=== PATIENT | male | born 1965 | race Caucasian/White ===

== ENCOUNTER 2024-09-11 09:30 | Outpatient (RCR) | payer MEDICARE, SELFPAY ==
--- NOTE | 2024-07-06 09:50 | URNOTE ---
Prior auth is not required for Cisplatin (J9060), Emend (J1453) and Palonosetron (J2469). Services are based on medical necessity and follow medicare guidelines
[2024-07-24 08:05] LABS: Basophils Absolute Auto 0.02 K/uL (0.00-0.30); Basophils Percent Auto 0.4 % (0.0-3.0); Eosinophils Absolute Auto 0.25 K/uL (0.00-0.50); Eosinophils Percent Auto 4.5 % (0.0-7.0); Hematocrit* 42.7 % (37.0-53.0); Hemoglobin* 14.1 gm/dL (13.5-17.5); Immature Granulocytes Abs Auto 0.04 K/uL (0.00-0.30); Immature Granulocytes Pct Auto 0.7 %; Lymphocytes Absolute Auto 1.71 K/uL (0.90-2.90); Lymphocytes Percent Auto 30.5 % (20-44); Mean Corpuscular HGB Conc 33 gm/dL (32-36); Mean Corpuscular Hemoglobin 30 pg (26-34); Mean Corpuscular Volume 91 fL (80-100); Monocytes Percent Auto 9.3 % (0.0-11.0); Neutrophils Absolute Auto 3.07 K/uL (1.7-7.0); Neutrophils Percent Auto 54.6 % (42.0-72.0); Platelet Count* 280 K/uL (140-440); RDW Coefficient of Variation % 12.9 % (11.5-15.5); Red Blood Count* 4.69 m/uL (4.30-5.90); White Blood Count* 5.61 K/uL (4.50-11.00)
[2024-07-24 08:12] LABS: Slide Review Reflex No
[2024-07-24 08:52] LABS: Chloride* 106 mmol/L (96-114)
[2024-07-24 08:53] LABS: Potassium* 4.4 mmol/L (3.6-5.1); Sodium* 141 mmol/L (135-149)
[2024-07-24 08:55] LABS: Anion Gap 9 mEq/L (7-15); Aspartate Amino Transferase* 24 U/L (12-35); Bilirubin Total* 0.5 mg/dL (0.1-1.5); Blood Urea Nitrogen* 22 mg/dL (7-30); Carbon Dioxide* 26 mmol/L (20-32); Creatinine* 0.7 mg/dL (0.5-1.5); Est. Creatinine Clearance* 117.32; Estimated Glomerular Filt Rate 106 ml/min; Total Protein* 7.7 g/dL (6.0-8.3)
[2024-07-24 08:56] LABS: Alanine Aminotransferase* 22 U/L (4-50); Alkaline Phosphatase* 47 U/L (40-150); Glucose* 122 mg/dL (60-115); Magnesium* 2.1 mg/dL (1.5-2.6)
--- NOTE | 2024-07-24 08:58 | CRLHL7_ITS ---
For Patients: As a result of the Century Cures Act, medical imaging exams and procedure reports are released immediately into your electronic medical record. You may view this report before your referring provider. If you have questions, please contact your health care provider. INDICATION: PICC confirmation TECHNIQUE: Chest 1 views. COMPARISON: None. FINDINGS: Cardiovasculature and mediastinum: Heart size is normal. Unremarkable mediastinum. Right arm PICC with tip projecting over the superior cavoatrial junction. Lungs and pleural spaces: Lungs are clear. No sign of infiltrate or mass. No sign of pleural effusion. No pneumothorax. Bones and soft tissues: No significant findings. IMPRESSION: 1. No acute or significant findings. 2. Right arm PICC with tip projecting over the superior cavoatrial junction. Dictated by Lita Juarez MD @ 07/24/2024 9:45:56 AM (Electronically Signed)
[2024-07-24 10:03] VITALS: BP 127/80; PULSE 48; RESP 16; TEMP 36.8; O2SAT 97
[2024-07-24] MEDS: MAGNESIUM SULFATE 2 GM, POTASSIUM CHLORIDE 10 MEQ in 0.9 % SODIUM CHLORIDE 1000 ml 1,00... IV (10:22)
[2024-07-24] MEDS: SODIUM CHLORIDE 0.9 % (FLUSH) 10 ML SYRINGE IVF ×2 (10:30→15:03)
[2024-07-24] MEDS: PALONOSETRON 0.25 MG/5 ML inj IV (11:33)
[2024-07-24] MEDS: 0.9 % SODIUM CHLORIDE 500 ML IV (11:33)
[2024-07-24] MEDS: FOSAPREPITANT 150 MG inj 150 MG in 0.9 % SODIUM CHLORIDE 250 ml 250 ML 510 MG IVPB (12:11)
--- NOTE | 2024-07-24 14:29 | ONC.NURNOTE ---
Teaching with patient, daughter and many questions about cancer treatments in general and schedules of cancer treatments family offers much support reviewed possible side effects of cisplatin stressed self care at home, especially staying hydrated, taking antiemetics for 1-2 days after each chemotherapy and going to ED if fever over 100.5 reviewed contents of new treatment binder discussed low magnesium, possible need for extra hydrations days during the final weeks of treatment, importance of focusing on calories consents reviewed and signed
--- NOTE | 2024-07-24 14:33 | ONC.NURNOTE ---
PSDS = 5 referrals made to for follow up- concerns regarding finances (patient is on disabilty X many years), spriritual concerns, worry, anxiety, sadness, anger other referrals: - seeing dietitian at [facility] on 08/03 -seeing Rehab in [place] the first week in [facility]
--- NOTE | 2024-07-25 11:40 | ONC.NURNOTE ---
post chemo follow up call to [facility]: reports nausea during the night- he took one prochlorperazine at HS and again 07 am today he plans to add the ondansetron this afternoon as directed taking fluids 32 ozs today and eating per his routine informed that he may take prochlorperazine 1-2 prn if 1 does not manage the nausea pt mentioned picc line gauze wrapped around his picc site is curling up at he edges, patient states that he taped it down- repairer typewriter asked that patient to stop by before or after radiation so the PICC site can be evaluated patient showered today, wrapping PICC site in saran wrap
--- NOTE | 2024-07-26 08:25 | ONC.NURNOTE ---
Patient stopped in clinic today to have his PICC line assessed. He reported yesterday the gauze with curling up. On assessment the Tubi sleeve that RN supplied patient to cover line was rolling up. Patient had taped sleeve around his arm to keep it from rolling. Tape removed and patient's skin red. Assessment of PICC line looks good. Dressing is clean dry and intact. Patient doesn't like that the gauze is rolling down. Gave patient a new sleeve that is longer to see if that helps with the rolling. Advised patient that he should not tape the sleeve as his skin is already red and we don't want his skin to breakdown. Patient verbalized understanding and agreeable to the plan.
[2024-07-31 07:57] VITALS: BP 141/76; PULSE 88; RESP 16; TEMP 36.7; O2SAT 97
[2024-07-31 08:26] LABS: Basophils Absolute Auto 0.01 K/uL (0.00-0.30); Basophils Percent Auto 0.2 % (0.0-3.0); Eosinophils Absolute Auto 0.07 K/uL (0.00-0.50); Eosinophils Percent Auto 1.4 % (0.0-7.0); Hematocrit* 40.2 % (37.0-53.0); Hemoglobin* 13.5 gm/dL (13.5-17.5); Lymphocytes Percent Auto 16.3 % (20-44); Mean Corpuscular HGB Conc 34 gm/dL (32-36); Mean Corpuscular Hemoglobin 30 pg (26-34); Mean Corpuscular Volume 90 fL (80-100); Monocytes Percent Auto 10.5 % (0.0-11.0); Neutrophils Percent Auto 71.6 % (42.0-72.0); Platelet Count* 267 K/uL (140-440); RDW Coefficient of Variation % 12.3 % (11.5-15.5); Red Blood Count* 4.49 m/uL (4.30-5.90); White Blood Count* 5.16 K/uL (4.50-11.00)
[2024-07-31 08:27] LABS: Slide Review Reflex No
[2024-07-31 08:40] LABS: Albumin* 4.5 g/dL (3.3-5.0); Chloride* 105 mmol/L (96-114); Sodium* 138 mmol/L (135-149)
[2024-07-31 08:41] LABS: Potassium* 3.9 mmol/L (3.6-5.1)
[2024-07-31 08:43] LABS: Alkaline Phosphatase* 41 U/L (40-150); Anion Gap 11 mEq/L (7-15); Aspartate Amino Transferase* 18 U/L (12-35); Bilirubin Total* 0.4 mg/dL (0.1-1.5); Blood Urea Nitrogen* 21 mg/dL (7-30); Carbon Dioxide* 22 mmol/L (20-32); Est. Creatinine Clearance* 82.13; Estimated Glomerular Filt Rate 87 ml/min; Total Protein* 6.8 g/dL (6.0-8.3)
[2024-07-31 08:44] LABS: Alanine Aminotransferase* 18 U/L (4-50); Calcium* 9.3 mg/dL (8.4-10.6); Glucose* 102 mg/dL (60-115)
[2024-07-31] MEDS: MAGNESIUM SULFATE 2 GM, POTASSIUM CHLORIDE 10 MEQ in 0.9 % SODIUM CHLORIDE 1000 ml 1,00... IV (09:30)
[2024-07-31] MEDS: dexAMETHasone 10 MG/ML inj IVP (10:39)
[2024-07-31] MEDS: SODIUM CHLORIDE 0.9 % (FLUSH) 10 ML SYRINGE IVF (10:40)
[2024-07-31] MEDS: PALONOSETRON 0.25 MG/5 ML inj IV (10:40)
[2024-07-31] MEDS: FOSAPREPITANT 150 MG inj 150 MG in 0.9 % SODIUM CHLORIDE 250 ml 250 ML 800 MG IVPB (10:52)
--- NOTE | 2024-07-31 16:27 | PC.SOCIAL ---
Social work: Met with pt today during [facility] treatment for assessment and introduction. Pt scored a 5 on the distress thermometer. Pt was very open to sharing his story of diagnosis and treatment as well as previous life challenges and struggles he has experienced. Pt lives with his in their home in [place]. He is one week in to a six week radiation treatment at [facility] in [place]. Pt shared that this illness and diagnosis have changed his view on life and that he is done being strong. He explained that when he has been strong dealing with past challenges, something worse always happens to provide a new challenge. He denies any suicidal thoughts. He shared he was suicidal and hospitalized in his twenties after his son and were killed. He currently sees a therapist, Cindy, in [place] and shared that this is very helpful to him. Pt is pleased with the staff and care at this facility and plans to continue his treatment here. Pt shared that he has always been the person to take care of others and does not feel comfortable with not being a contributing member of his family and community. Pt shared that he has not worked in five years due to health concerns and work related injury. 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 Pt expressed a desire to connect with others with similar challenges but is not interested in participating in a support group at this time. He has supportive family and some friends. Pt was appreciative of visit and is aware of how to request another social work visit if needed.
[2024-08-07 11:03] LABS: Basophils Absolute Auto 0.01 K/uL (0.00-0.30); Basophils Percent Auto 0.1 % (0.0-3.0); Eosinophils Absolute Auto 0.03 K/uL (0.00-0.50); Eosinophils Percent Auto 0.3 % (0.0-7.0); Hematocrit* 38.3 % (37.0-53.0); Hemoglobin* 13.2 gm/dL (13.5-17.5); Immature Granulocytes Abs Auto 0.01 K/uL (0.00-0.30); Immature Granulocytes Pct Auto 0.1 %; Lymphocytes Percent Auto 7.6 % (20-44); Mean Corpuscular HGB Conc 35 gm/dL (32-36); Mean Corpuscular Hemoglobin 31 pg (26-34); Mean Corpuscular Volume 89 fL (80-100); Monocytes Percent Auto 9.4 % (0.0-11.0); Neutrophils Percent Auto 82.5 % (42.0-72.0); Platelet Count* 253 K/uL (140-440); RDW Coefficient of Variation % 12.4 % (11.5-15.5); White Blood Count* 9.09 K/uL (4.50-11.00)
[2024-08-07 11:04] LABS: Slide Review Reflex No
[2024-08-07 11:22] LABS: Albumin* 4.7 g/dL (3.3-5.0)
[2024-08-07 11:23] LABS: Chloride* 105 mmol/L (96-114); Potassium* 3.9 mmol/L (3.6-5.1); Sodium* 139 mmol/L (135-149)
[2024-08-07 11:24] VITALS: BP 126/91; PULSE 77; RESP 18; TEMP 36.6; O2SAT 97
[2024-08-07 11:25] LABS: Alkaline Phosphatase* 52 U/L (40-150); Anion Gap 11 mEq/L (7-15); Aspartate Amino Transferase* 20 U/L (12-35); Bilirubin Total* 0.4 mg/dL (0.1-1.5); Carbon Dioxide* 23 mmol/L (20-32); Creatinine* 0.8 mg/dL (0.5-1.5); Est. Creatinine Clearance* 102.66; Estimated Glomerular Filt Rate 102 ml/min; Total Protein* 7.3 g/dL (6.0-8.3)
[2024-08-07 11:26] LABS: Alanine Aminotransferase* 18 U/L (4-50); Blood Urea Nitrogen* 22 mg/dL (7-30); Calcium* 9.6 mg/dL (8.4-10.6); Glucose* 101 mg/dL (60-115); Magnesium* 2.1 mg/dL (1.5-2.6)
[2024-08-07] MEDS: ACETAMINOPHEN SUSPENSION 1 BOTTLE 975 MG PO (11:38)
[2024-08-07] MEDS: OXYCODONE 1 MG/ML ORAL SOLN 5 MG PO (11:39)
[2024-08-07] MEDS: MAGNESIUM SULFATE 2 GM, POTASSIUM CHLORIDE 10 MEQ in 0.9 % SODIUM CHLORIDE 1000 ml 1,00... IV (11:40)
[2024-08-07] MEDS: PALONOSETRON 0.25 MG/5 ML inj IV (12:44)
[2024-08-07] MEDS: dexAMETHasone 10 MG/ML inj IVP (12:46)
[2024-08-07] MEDS: FOSAPREPITANT 150 MG inj 150 MG in 0.9 % SODIUM CHLORIDE 250 ml 250 ML 510 MG IVPB (12:48)
[2024-08-14] MEDS: SODIUM CHLORIDE 0.9 % (FLUSH) 10 ML SYRINGE IVF (07:52)
[2024-08-14 07:59] LABS: Basophils Percent Auto 0.2 % (0.0-3.0); Eosinophils Percent Auto 0.5 % (0.0-7.0); Hematocrit* 36.2 % (37.0-53.0); Hemoglobin* 12.1 gm/dL (13.5-17.5); Immature Granulocytes Pct Auto 0.2 %; Mean Corpuscular HGB Conc 33 gm/dL (32-36); Mean Corpuscular Hemoglobin 30 pg (26-34); Mean Corpuscular Volume 91 fL (80-100); Monocytes Percent Auto 8.2 % (0.0-11.0); Neutrophils Percent Auto 83.9 % (42.0-72.0); Platelet Count* 196 K/uL (140-440); RDW Coefficient of Variation % 12.6 % (11.5-15.5); White Blood Count* 4.26 K/uL (4.50-11.00)
[2024-08-14 08:00] LABS: Slide Review Reflex No
[2024-08-14 08:13] LABS: Chloride* 102 mmol/L (96-114)
[2024-08-14 08:14] LABS: Albumin* 4.3 g/dL (3.3-5.0); Potassium* 3.9 mmol/L (3.6-5.1); Sodium* 137 mmol/L (135-149)
[2024-08-14 08:17] LABS: Alanine Aminotransferase* 19 U/L (4-50); Alkaline Phosphatase* 46 U/L (40-150); Anion Gap 9 mEq/L (7-15); Aspartate Amino Transferase* 18 U/L (12-35); Bilirubin Total* 0.3 mg/dL (0.1-1.5); Blood Urea Nitrogen* 25 mg/dL (7-30); Calcium* 9.4 mg/dL (8.4-10.6); Carbon Dioxide* 26 mmol/L (20-32); Creatinine* 0.7 mg/dL (0.5-1.5); Est. Creatinine Clearance* 117.32; Estimated Glomerular Filt Rate 106 ml/min; Glucose* 157 mg/dL (60-115); Total Protein* 6.7 g/dL (6.0-8.3)
[2024-08-21 08:15] LABS: Basophils Percent Auto 0.3 % (0.0-3.0); Eosinophils Percent Auto 0.8 % (0.0-7.0); Hematocrit* 36.5 % (37.0-53.0); Hemoglobin* 12.1 gm/dL (13.5-17.5); Immature Granulocytes Pct Auto 0.3 %; Lymphocytes Percent Auto 6.3 % (20-44); Mean Corpuscular HGB Conc 33 gm/dL (32-36); Mean Corpuscular Hemoglobin 31 pg (26-34); Mean Corpuscular Volume 92 fL (80-100); Neutrophils Percent Auto 86.3 % (42.0-72.0); Platelet Count* 179 K/uL (140-440); RDW Coefficient of Variation % 13.3 % (11.5-15.5); Red Blood Count* 3.95 m/uL (4.30-5.90); White Blood Count* 3.65 K/uL (4.50-11.00)
[2024-08-21 08:19] LABS: Slide Review Reflex No
[2024-08-21 08:26] LABS: Albumin* 4.3 g/dL (3.3-5.0); Chloride* 102 mmol/L (96-114); Sodium* 135 mmol/L (135-149)
[2024-08-21 08:29] LABS: Alanine Aminotransferase* 23 U/L (4-50); Alkaline Phosphatase* 50 U/L (40-150); Anion Gap 7 mEq/L (7-15); Aspartate Amino Transferase* 27 U/L (12-35); Bilirubin Total* 0.4 mg/dL (0.1-1.5); Blood Urea Nitrogen* 24 mg/dL (7-30); Calcium* 9.3 mg/dL (8.4-10.6); Carbon Dioxide* 26 mmol/L (20-32); Creatinine* 0.7 mg/dL (0.5-1.5); Est. Creatinine Clearance* 117.32; Estimated Glomerular Filt Rate 106 ml/min; Glucose* 195 mg/dL (60-115); Total Protein* 6.6 g/dL (6.0-8.3)
[2024-08-21 08:57] LABS: Magnesium* 2.1 mg/dL (1.5-2.6)
--- NOTE | 2024-08-21 14:14 | URNOTE ---
Prior authorization is not required for Cetuximab (J9055). Services are based on medical necessity and follow medicare guidelines.
--- NOTE | 2024-08-24 10:43 | ONC.NURNOTE ---
New scripts for doxycycline and topical steroid Called to Mr. Kat today per request of Phylicia Campos PA-C to inform him that 2 scripts were sent to his pharmacy[facility]. Scripts are to help manage possible side effect of rash from cetuximab which he will receive next week. I requested that he bring the scripts to his treatment appointment so nursing can review how they should be taken, possible side effects. I also confirmed with pharmacy that capsules can be pulled apart, contents mixed with water and taken via his feeding tube. Mr. Kat confirms he is not taking any medications by mouth, only by feeding tube at this time.
--- NOTE | 2024-08-28 16:34 | ONC.NURNOTE ---
Pt cancelled appt today for cetuximab due to weather. Pt also concerned about starting the cetuximab with a 3 day history of rash/radiation on his neck that is weeping and painful. Pt wondering if he can go back to the cisplatin. Discussed with Jenna Campos PA-C pt concerns and due to pt's symptoms of tinnitus we will not give him the cisplatin. Pt then decided to not receive the cetuximab. Radiation called and pt had a nurse visit with radiation oncology to discuss symptom management. Pt updated that Cisplatin is not an option and pt declining cetuximab. Pt has a follow up appt with Dr. Carrera in 2 weeks.
[2024-08-29 08:48] LABS: Basophils Percent Auto 0.6 % (0.0-3.0); Eosinophils Percent Auto 0.9 % (0.0-7.0); Hematocrit* 34.9 % (37.0-53.0); Hemoglobin* 11.6 gm/dL (13.5-17.5); Lymphocytes Percent Auto 6.6 % (20-44); Mean Corpuscular HGB Conc 33 gm/dL (32-36); Mean Corpuscular Hemoglobin 31 pg (26-34); Mean Corpuscular Volume 94 fL (80-100); Monocytes Percent Auto 13.9 % (0.0-11.0); Platelet Count* 269 K/uL (140-440); RDW Coefficient of Variation % 14.9 % (11.5-15.5); Red Blood Count* 3.71 m/uL (4.30-5.90); White Blood Count* 3.46 K/uL (4.50-11.00)
[2024-08-29 08:59] LABS: Slide Review Reflex No
[2024-08-29 09:00] VITALS: BP 116/76; PULSE 75; RESP 16; TEMP 36.6; O2SAT 96
[2024-08-29 09:01] LABS: Albumin* 4.2 g/dL (3.3-5.0); Chloride* 102 mmol/L (96-114)
[2024-08-29 09:02] LABS: Potassium* 4.1 mmol/L (3.6-5.1); Sodium* 136 mmol/L (135-149)
[2024-08-29 09:04] LABS: Alanine Aminotransferase* 13 U/L (4-50); Alkaline Phosphatase* 45 U/L (40-150); Anion Gap 7 mEq/L (7-15); Aspartate Amino Transferase* 16 U/L (12-35); Bilirubin Total* 0.3 mg/dL (0.1-1.5); Blood Urea Nitrogen* 23 mg/dL (7-30); Carbon Dioxide* 27 mmol/L (20-32); Creatinine* 0.7 mg/dL (0.5-1.5); Est. Creatinine Clearance* 117.32; Estimated Glomerular Filt Rate 106 ml/min; Glucose* 141 mg/dL (60-115); Total Protein* 6.5 g/dL (6.0-8.3)
[2024-08-29 09:05] LABS: Calcium* 9.1 mg/dL (8.4-10.6); Magnesium* 1.9 mg/dL (1.5-2.6)
--- NOTE | 2024-08-29 10:03 | ONC.NURNOTE ---
Pt here for Picc drsg change. Discussed with Shanique Coppola APRN if PICC should be discontinued. Orders received for labs today, emailed Dr. Monroe and Jenna Campos to update on pt declining cetuximab and to see if PICC can be dc'd. Pt to return for picc removal and assessment prior to the weekend. Pt verbalized understanding of plan of care.
--- OUTSIDE RECORDS SUMMARY | 2024-08-31 07:21 | XMS_ITS | Clinical Summary ---
Author Organization [facility] Address [place], [place] [address] Care Team Providers Care Repairer Handtools Name Role Phone Adi Allen MD Primary Care Provider + Allergies Active Allergy Reactions Criticality Noted Date Comments Bee Pollen Edema 07/25/2019 Swelling at site of sting Codeine 03/12/2011 Prednisone *Unknown 04/21/2019 Per patient makes his eyes roll to the back of his head Fluoxetine *Unknown 03/12/2011 Per patient makes me more depressed Medications gabapentin (NEURONTIN) 300 mg capsule Take one (1) capsule at bedtime for 2 days and increase to one (1) capsule two times a day for 2 days then one (1) capsule three times a day. 03/12/2021 Active hydrOXYzine pamoate (VISTARIL) 50 mg capsule Take 50 mg by mouth every 6 hours if needed. 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 Gender Identity Not on file Sexual Orientation Not on file Obstetrics History Last Filed Vital Signs Vital Sign Reading Time Taken Comments Blood Pressure 148/90 12/13/2021 12:54 PM CDT Pulse 87 12/13/2021 12:22 PM CDT Temperature 36.8 C (98.3 F) 12/13/2021 12:22 PM CDT Respiratory Rate 16 12/13/2021 12:22 PM CDT Oxygen Saturation 96% 12/13/2021 12:22 PM CDT Inhaled Oxygen Concentration - - Weight 104.3 kg (230 lb) 12/13/2021 12:22 PM CDT Height 182.9 cm (6') 12/13/2021 12:22 PM CDT Body Mass Index 31.19 12/13/2021 12:22 PM CDT Plan of Treatment Health Maintenance Due Date Last Done Comments Depression screening for age 12+ 1977 HIV for age 15-65 1980 BMI (ht and wt on same day) for age 18+ 1983 Hepatitis C screening for age 18-79 1983 Colonoscopy through age 75 2010 Lipids for age 45-75 2010 Pneumococcal series for age 50+ (1 of 1 - PCV) 2015 Zoster (shingles) series for age 50+ (1 of 2) 2015 COVID-19 vaccine series ( season) 2024 01/24/2021, 01/02/2021 Influenza for age 50-64 04/30/2024 Tetanus booster 12/14/2031 12/13/2021, 05/23/2004 Tdap Completed 12/13/2021 Medical Devices Implanted Type Area Automotive Light Mechanic Device Identifier Shelf Expiration Date Model / Serial / Lot Ancr Sut 2.9x12.5mm Pushlock Bio-Comp - [id number] Implanted:Qty : 1 on 07/25/2019 by Chacorta Conti MD at [facility]. Left: Shoulder [employer] 01/27/2021 [id number]# / / [id number] Ancr Sut 2.9x12.5mm Pushlock Bio-Comp - [id number] Implanted:Qty : 1 on 07/25/2019 by Chacorta Conti MD at [facility]plants, Misc. Left: Shoulder [employer] 02/26/2021 [id number]# / / [id number] Sut [employer] Prox Tenodesis Implnt Kit Rev 0 - [id number] Implanted:Qty : 1 on 07/25/2019 by Chacorta Conti MD at [facility] Implants, Misc. Left: Shoulder [employer] 04/29/2024 [id number]# / / [id number] Insurance MEDICAID [place]ICAID [place] CARE MEDICARE PART B HB ONLY MEDICARE PART A HB ONLY * Guarantor: LANDEN KAT Account Type Relation to Patient Date of Phone Billing Address Workers Comp 1965 [address] [id number] [employer] [address] [place] [address] [place] * Guarantor: LANDEN KAT Account Type Relation to Patient Date of Phone Billing Address Workers Comp 1965 [address] [id number] WORKERS [employer] Advance Directives * Full Code (Latest Code Status on File) Date Activated Date Inactivated Comments 07/25/2019 7:59 AM 07/25/2019 3:22 PM Question Answer Comments Code Status Discussion: Not Discussed * Full Code Date Activated Date Inactivated Comments 07/09/2014 9:56 AM 07/09/2014 4:21 PM * Full Code Date Activated Date Inactivated Comments 07/09/2014 7:47 AM 07/09/2014 9:56 AM Care Teams Repairer Handtools Relationship Specialty Start Date End Date Adi Allen MD [address] [place] [id number] PCP - General Family Practice 12/13/21
--- OUTSIDE RECORDS SUMMARY | 2024-08-31 07:22 | XMS_ITS | Referral Summary ---
Author Organization [facility] Address [address] [place] [address] Care Team Providers Care Digital Publishing Specialist Name Role Phone Adi Allen M.D. Primary Care Provider Source Comments Patient records contain information from all sites at [facility]. For routine questions regarding patient records, call [phone] during business hours, M-F 8:00 AM - 5:00 PM Central Time. Record requests for emergency care only can be directed to [phone] at any time.[facility] Encounters * This document contains information received from the source organization and may not represent a complete record from that organization. Date Type Department Care Team Description 08/29/2024 7:47 AM [facility] Hospital Encounter Department of Radiation Oncology in [address] [address] Brian Fair M.D. Garces, Yolanda I., M.D. 08/28/2024 Clinical Communication Department of Radiation Oncology in [address] [address] Christa Monroe M.D. Nurse Assessment 08/28/2024 2:35 PM [facility] Hospital Encounter Department of Radiation Oncology in [address] [address] Brian Fair M.D. Garces, Yolanda I., M.D. 08/25/2024 11:06 AM [facility] OPER[facility] Hospital Encounter Department of Radiation Oncology in [address] [address] Brian Fair M.D. Garces, Yolanda I., M.D. 08/24/2024 11:06 AM [facility]ALYST UNIT OPERATOR - 08/24/2024 3:40 PM [facility] UNIT OPERATOR Hospital Encounter Department of Radiation Oncology in [address] [address] Christa Monroe M.D. Malignant Neoplasm Of Tongue Base (HCC) 08/24/2024 11:06 AM CATALYST UNIT OPERATOR Hospital Encounter Department of Radiation Oncology in [address] [address] Brian Fair M.D. Garces, Yolanda I., M.D. 08/22/2024 7:48 AM CATALYST UNIT OPERATOR Hospital Encounter Department of Radiation Oncology in [address] [address] Brian Fair M.D. Garces, Yolanda I., M.D. 08/21/2024 3:05 PM CATALYST UNIT OPERATOR - 08/22/2024 9:32 AM [facility]ALYST UNIT OPERATOR Hospital Encounter Department of Radiation Oncology in [address] [address] Christa Monroe M.D. Wacholz, Abigail M, M.S.W., L.I.C.S.W. Malignant Neoplasm Of Tongue Base (HCC) 08/21/2024 10:08 AM CATALYST UNIT OPERATOR Hospital Encounter Department of Radiation Oncology in [address] [address] Brian Fair M.D. Garces, Yolanda I., M.D. 08/18/2024 11:04 AM CATALYST UNIT OPERATOR Hospital Encounter Department of Radiation Oncology in [address] [address] LeeBrian quiroz M.D. Garces, Yolanda I., M.D. 08/17/2024 11:19 AM CATALYST UNIT OPERATOR Hospital Encounter Department of Radiation Oncology in [address] [address] Brian Fair M.D. Garces, Yolanda I., M.D. 08/16/2024 Orders Only Department of Radiation Oncology in [place], [place] [address] [place] [address] Briana Fermin R.N. 08/16/2024 11:10 AM CATALYST UNIT OPERATOR - 08/16/2024 1:40 PM CATALYST UNIT OPERATOR Hospital Encounter Department of Radiation Oncology in [address] [address] Christa Monroe M.D. Malignant Neoplasm Of Tongue Base (HCC) 08/16/2024 11:10 AM CATALYST UNIT OPERATOR Hospital Encounter Department of Radiation Oncology in [address] [address] Brian Fair M.D. Garces, Yolanda I., M.D. 08/15/2024 11:04 AM CATALYST UNIT OPERATOR Hospital Encounter Department of Radiation Oncology in [address] [address] Brian Fair M.D. Garces, Yolanda I., M.D. 08/14/2024 Orders Only Department of Oncology in [address] [address] Phylicia Campos MPAS, P.A.-C., P.A. Tinnitus Bilateral (Primary Dx); Malignant Neoplasm Of Tongue Base (HCC) 08/14/2024 9:55 AM CATALYST UNIT OPERATOR - 08/14/2024 3:57 PM CATALYST UNIT OPERATOR Hospital Encounter Department of Radiation Oncology in [address] [address] Christa Monroe M.D. Malignant Neoplasm Of Tongue Base (HCC) 08/14/2024 9:30 AM CATALYST UNIT OPERATOR Hospital Encounter Department of Radiation Oncology in [place], [place] [address] [place] [address] Brian Fair M.D. Garces, Yolanda I., M.D. 08/11/2024 Clinical Communication Division of Endocrinology in [place], [place] [address] [place] [address] Ria Whalen APRN, C.N.P., M.S. 08/11/2024 11:11 AM CATALYST UNIT OPERATOR Hospital Encounter Department of Radiation Oncology in [place], [place] [address] [place] [address] Brian Fair M.D. Garces, Yolanda I., M.D. 08/10/2024 Documentation Division of General Internal Medicine in [place], [place] [address] [place] [address] Dee Forrest Pharm.D., R.Ph. 08/10/2024 10:00 AM CATALYST UNIT OPERATOR Clinical Support Division of Endocrinology in [place], [place] [address] [place] [address] Christa Monroe M.D. Neldner, Indra K, R.N. Malignant Neoplasm Of Tongue Base (HCC) 08/10/2024 8:00 AM CATALYST UNIT OPERATOR Comprehensive Visit Department of Nutrition and Diabetes Education in [place], [place] [address] [place] [address] Christa Monroe M.D. Johnson, Danelle A M.S., RDN, LD Dysphagia (Primary Dx); Malignant Neoplasm Of Tongue Base (HCC); Gastrostomy Status (HCC); Dietary Counseling And Surveillance For Enteral Nutrition 08/10/2024 11:55 AM CATALYST UNIT OPERATOR Hospital Encounter Department of Radiation Oncology in [place], [place] [address] [place] [address] Brian Fair M.D. Garces, Yolanda I., M.D. 08/09/2024 1:05 PM CATALYST UNIT OPERATOR Anesthesia Event Department of Radiology in [place], [place] [address] [place] [phone] Zachery Enamorado M.D. 08/09/2024 10:09 AM [facility] - 08/09/2024 4:10 PM CATALYST UNIT OPERATOR Hospital Encounter Department of Radiology in [place], [place] [address] [place] [phone] Christa Monroe M.D. Augustine, Matthew R, M.D. Eller, Jennifer S, M.D. Malignant Neoplasm Of Tongue Base (HCC) Discharge Disposition: Home or Self Care 08/08/2024 3:20 PM CATALYST UNIT OPERATOR Lab Department of Infusion Therapy in [place], [place] [address] [place] [phone] Rebekah Walker APRN, C.N.P., D.N.P. Malignant Neoplasm Of Tongue Base (HCC) (Primary Dx); Dietary Counseling And Surveillance For Enteral Nutrition 08/08/2024 1:00 PM CATALYST UNIT OPERATOR Comprehensive Visit Division of Endocrinology in [place], [place] [address] [place] [address] Christa Monroe M.D. McKay, Elisa C, APRN, C.N.P., D.N.P. Dietary Counseling And Surveillance For Enteral Nutrition (Primary Dx); Malignant Neoplasm Of Tongue Base (HCC) 08/08/2024 2:00 PM CATALYST UNIT OPERATOR Clinical Support Division of Endocrinology in [place], [place] [address] [place] [phone] Christa Monroe M.D. Neldner, Indra K, R.N. Malignant Neoplasm Of Tongue Base (HCC) 08/08/2024 11:00 AM CATALYST UNIT OPERATOR Comprehensive Visit Department of Nutrition and Diabetes Education in [place], [place] [address] [place] [phone] Christa Monroe M.D. Johnson, Danelle A, M.S., RDN, LD Dietary Counseling And Surveillance For Enteral Nutrition (Primary Dx); Malignant Neoplasm Of Tongue Base (HCC); Dysphagia; Gastrostomy Status (HCC) 08/08/2024 7:59 AM CATALYST UNIT OPERATOR Hospital Encounter Department of Radiation Oncology in [address] [address] Brian Fair M.D. Garces, Yolanda I., M.D. 08/07/2024 Clinical Communication Department of Radiology in [place], [place] [address] [place] [address] Bella Monaco R.N. Procedure 08/07/2024 Documentation Division of Endocrinology in [place], [place] [address] [place] [address] Sachi Araujo R.N. Scheduling 08/07/2024 9:20 AM CATALYST UNIT OPERATOR - 08/07/2024 10:04 AM [facility] Hospital Encounter Department of Radiation Oncology in [address] [address] Christa Monroe M.D. Malignant Neoplasm Of Tongue Base (HCC) (Primary Dx); Secondary Malignant Neoplasm Lymph Node Neck (HCC) 08/07/2024 10:23 AM [facility] Hospital Encounter Department of Radiation Oncology in [address] [address] Christa Monroe M.D. Malignant Neoplasm Of Tongue Base (HCC) 08/07/2024 10:05 AM [facility] Hospital Encounter Department of Radiation Oncology in [address] [address] Brian Fair M.D. Garces, Yolanda I., M.D. 08/04/2024 11:09 AM CATALYST UNIT OPERATOR Hospital Encounter Department of Radiation Oncology in [address] [address] Brian Fair M.D. Garces, Yolanda I., M.D. 08/03/2024 10:59 AM CATALYST UNIT OPERATOR - 08/03/2024 12:18 PM CATALYST UNIT OPERATOR Hospital Encounter Department of Radiation Oncology in [address] [address] Fer, Ying Pardo Nicole, CLARITA Malignant Neoplasm Of Tongue Base (HCC) 08/03/2024 Clinical Communication Department of [facility], [facility], in [place], [place] [address] [place] [address] Adi Allen M.D. PandaDoc Form (PT POC 08/01) 08/03/2024 10:19 AM CATALYST UNIT OPERATOR Hospital Encounter Department of Radiation Oncology in [address] [address] Brian Fair M.D. Garces, Yolanda I., M.D. 08/02/2024 Orders Only [facility] Adi Allen M.D. 08/02/2024 10:49 AM CATALYST UNIT OPERATOR - 08/02/2024 3:49 PM CATALYST UNIT OPERATOR Hospital Encounter Department of Radiation Oncology in [address] [address] Christa Monroe M.D. Malignant Neoplasm Of Tongue Base (HCC) 08/02/2024 10:49 AM CATALYST UNIT OPERATOR Hospital Encounter Department of Radiation Oncology in [address] [address] Brian Fair M.D. Garces, Yolanda I., M.D. 08/01/2024 11:14 AM CATALYST UNIT OPERATOR Hospital Encounter Department of Radiation Oncology in [address] [address] Brian Fair M.D. Garces, Yolanda I., M.D. 07/31/2024 1:40 PM CATALYST UNIT OPERATOR - 07/31/2024 11:59 PM CATALYST UNIT OPERATOR Hospital Encounter Department of Radiation Oncology in [address] [address] Brian Fair M.D. Garces, Yolanda I., M.D. Discharge Disposition: Home or Self Care 07/28/2024 2:03 PM CATALYST UNIT OPERATOR - 07/28/2024 11:59 PM CATALYST UNIT OPERATOR Hospital Encounter Department of Radiation Oncology in [address] [address] Christa Monroe M.D. Discharge Disposition: Home or Self Care 07/26/2024 7:45 AM CATALYST UNIT OPERATOR - 07/26/2024 2:11 PM CATALYST UNIT OPERATOR Hospital Encounter Department of Radiation Oncology in [address] [address] Christa Monroe M.D. Discharge Disposition: Home or Self Care 07/26/2024 2:12 PM CATALYST UNIT OPERATOR - 07/26/2024 11:59 PM CATALYST UNIT OPERATOR Hospital Encounter Department of Radiation Oncology in [address] [address] Christa Monroe M.D. Discharge Disposition: Home or Self Care 07/25/2024 1:30 PM CATALYST UNIT OPERATOR - 07/26/2024 2:11 PM CATALYST UNIT OPERATOR Hospital Encounter Department of Radiation Oncology in [address] [address] Brian Fair M.D. Malignant Neoplasm Of Tongue Base (HCC) 07/25/2024 1:30 PM CATALYST UNIT OPERATOR - 07/25/2024 11:59 PM CATALYST UNIT OPERATOR Hospital Encounter Department of Radiation Oncology in [address] [address] Christa Monroe M.D. Discharge Disposition: Home or Self Care 07/24/2024 3:00 PM CATALYST UNIT OPERATOR - 07/24/2024 11:59 PM CATALYST UNIT OPERATOR Hospital Encounter Department of Radiation Oncology in [address] [address] Brian Fair M.D. Garces, Yolanda I., M.D. Discharge Disposition: Home or Self Care 07/18/2024 11:21 AM CATALYST UNIT OPERATOR - 07/18/2024 3:29 PM CATALYST UNIT OPERATOR Hospital Encounter Department of Radiation Oncology in [address] [address] Christa Monroe M.D. Malignant Neoplasm Of Tongue Base (HCC) 07/18/2024 9:48 AM CATALYST UNIT OPERATOR - 07/18/2024 11:20 AM CATALYST UNIT OPERATOR Hospital Encounter Department of Radiation Oncology in [place], [place] [address] [place] [address] Christa Monroe M.D. Rhodes, Lori L Malignant Neoplasm Of Tongue Base (HCC) 07/12/2024 Clinical Communication Department of Otorhinolaryngology in [place], [place] [address] [place] [phone] Oliver Pinzon M.D. Post-op Problem 07/04/2024 Orders Only Department of Radiation Oncology in [place], [place] [address] [place] [address] Lindsay Rascon APRN, C.N.P., D.N.P. Malignant Neoplasm Of Tongue Base (HCC) (Primary Dx) 07/03/2024 9:10 PM CATALYST UNIT OPERATOR Ancillary Procedure Department of Otorhinolaryngology 07/03/2024 2:00 PM CATALYST UNIT OPERATOR Comprehensive Visit Department of Oncology in [place], [place] [address] [place] [phone] Clif Chao P.A.-C. Malignant Neoplasm Of Tongue Base (HCC) (Primary Dx); Secondary Malignant Neoplasm Lymph Node Neck (HCC) 07/03/2024 9:30 AM CATALYST UNIT OPERATOR Office Visit Department of Dental Specialties in [place], [place] [address] [place] [phone] Jocelyn Velazquez D.M.D., M.S. Malignant Neoplasm Of Tongue Base (HCC) (Primary Dx); Secondary Malignant Neoplasm Lymph Node Neck (HCC); Mass Tonsil 07/03/2024 1:30 PM CATALYST UNIT OPERATOR Office Visit Department of Otorhinolaryngology in [place], [place] [address] [place] [address] Oliver Pinzon M.D. Malignant Neoplasm Of Tongue Base (HCC) (Primary Dx); Dysphagia Oropharyngeal Phase [R13.12] 07/03/2024 11:00 AM CATALYST UNIT OPERATOR Comprehensive Visit Department of Physical Medicine and Rehabilitation in [place], [place] [address] [place] [address] Lelo Camara P.A.-C. Flora Oropeza M.S., O.T., CLT-ARYAN Weakness Arm Right [M62.81] (Primary Dx); Malignant Neoplasm Of Tongue Base (HCC); Limitation Of Motion Cervical Spine [M53.9] 06/23/2024 Clinical Communication Department of Family Medicine, [facility], in [place], [place] [address] [place] [phone] Latisha You, Brisa. Post Hospital Follow-up 06/20/2024 9:37 AM CDT - 06/22/2024 11:39 AM CDT Hospital Encounter [facility], [facility], Sixth Floor [address] [place] [phone] Oliver Pinzon M.D. Malignant Neoplasm Of Tongue Base (HCC); Mass Neck; Malignant Neoplasm Of Neck Squamous Cell; Mass Tonsil Discharge Disposition: Home or Self Care 06/20/2024 12:08 PM CDT Anesthesia Event [facility] OR [address] [place] [phone] Oliver Salgado M.D. 06/20/2024 12:18 PM CDT - 06/20/2024 4:23 PM CDT Surgery [facility] OR [facility] [place] [phone] Oliver Pinzon M.D. ROBOTIC-ASSISTED TONGUE BASE RESECTION. 06/19/2024 Clinical Communication Department of Otorhinolaryngology in [place], [place] [address] [place] [address] Lelo Camara P.A.-C. 06/19/2024 9:45 AM CDT Comprehensive Visit Preoperative Evaluation Center in [place], [place] [address] [place] [address] Oliver Pinzon M.D. Frank, Amy L, APRN, C.N.P., M.S.N. Preanesthetic Medical Exam (Primary Dx); Malignant Neoplasm Of Tongue Base (HCC); Malignant Neoplasm Of Neck Squamous Cell; Mass Neck; Mass Tonsil; Asthma Mild Persistent With History Of Tobacco Use ; Prolonged QT Interval; Chronic Kidney Disease Stage 2 Glomerular Filtration Rate 60 To 89; Anxiety; Fusion Cervical Spine Status Post; Obesity Body Mass Index 30-39.9 Adult; Preoperative Exam; Anesthesia Complication Personal History 06/19/2024 2:40 PM CDT Ancillary Procedure Department of Cardiovascular Medicine in [place], [place] [address] [place] [address] Oliver Pinzon M.D. Malignant Neoplasm Of Tongue Base (HCC); Mass Neck; Malignant Neoplasm Of Neck Squamous Cell; Mass Tonsil; Preoperative Exam 06/19/2024 4:18 PM CDT - 06/19/2024 11:59 PM CDT Hospital Encounter Department of Laboratory Medicine and Pathology, [facility] in [place], [place] [address] [place] [phone] Oliver Pinzon M.D. Malignant Neoplasm Of Tongue Base (HCC); Mass Neck; Malignant Neoplasm Of Neck Squamous Cell; Mass Tonsil; Preoperative Exam Discharge Disposition: Home or Self Care 06/19/2024 1:39 PM CDT - 06/19/2024 4:17 PM CDT Hospital Encounter Department of Radiology, [facility] in [place], [place] [address] [place] [address] Oliver Pinzon M.D. Meverden, Julia K, M.S., CCC-RUBBER WORKER Malignant Neoplasm Of Tongue Base (HCC); Mass Neck; Malignant Neoplasm Of Neck Squamous Cell; Mass Tonsil; Preoperative Exam Discharge Disposition: Home or Self Care 06/19/2024 1:30 PM CDT Comprehensive Visit Department of Neurology in [place], [place] [address] [place] [phone] Oliver Pinzon M.D. Meverden, Julia K, M.S., CCC-RUBBER WORKER Dysphagia Oropharyngeal Phase (Primary Dx); Malignant Neoplasm Of Tongue Base (HCC); Mass Neck; Malignant Neoplasm Of Neck Squamous Cell; Mass Tonsil; Preoperative Exam 06/19/2024 4:00 PM CDT Comprehensive Visit Department of Dental Specialties in [place], [place] [address] [place] [phone] Kathryn Angela D.D.S. Malignant Neoplasm Of Tongue Base (HCC); Mass Neck; Malignant Neoplasm Of Neck Squamous Cell; Mass Tonsil; Preoperative Exam 06/05/2024 10:40 PM CDT Ancillary Procedure Department of Otorhinolaryngology 06/05/2024 2:45 PM CDT Comprehensive Visit Department of Otorhinolaryngology in [place], [place] [address] [place] [address] Silvano Montes M.D. Moore, Eric J, M.D. Malignant Neoplasm Of Tongue Base (HCC) (Primary Dx); Mass Neck; Malignant Neoplasm Of Neck Squamous Cell; Mass Tonsil; Preoperative Exam 06/05/2024 12:47 PM CDT - 06/05/2024 11:59 PM CDT Hospital Encounter [place] [address] [place] [address] Silvano Montes M.D. Mass Neck; Malignant Neoplasm Of Neck Squamous Cell; Mass Tonsil Discharge Disposition: Home or Self Care 06/02/2024 Orders Only Department of Otorhinolaryngology in [place], [place] [address] [place] [phone] Miriam Ramirez R.N. Mass Neck (Primary Dx); Malignant Neoplasm Of Neck Squamous Cell; Mass Tonsil 06/01/2024 7:14 AM CDT - 06/01/2024 9:34 AM CDT Hospital Encounter Department of Radiology, [place], [place] [address] [place] [address] Diann Arellano, MEHDI, C.N.P., D.N.P. Hypertrophy Tonsillar Lingual Discharge Disposition: Home or Self Care 06/01/2024 7:01 AM CDT - 06/01/2024 7:12 AM CDT Hospital Encounter Department of Radiology, [facility] in [place], [place] [address] [place] [address] Diann Arellano APRN, C.N.P., D.N.P. Hypertrophy Tonsillar Lingual Discharge Disposition: Home or Self Care from Last 3 Months Allergies Active Allergy Reactions Criticality Noted Date Comments Codeine Other (see comments) 03/12/2011 Fluoxetine Other (see comments) 03/12/2011 Per patient makes me more depressed Prednisone Other (see comments) 04/21/2019 Per patient makes his eyes roll to the back of his head Medications * This document contains information received from the source organization and may not represent a complete record from that organization. DM/p-ephed/aceta minoph/doxylam (NYQUIL D ORAL) Take 30 mL by mouth at bedtime. Active hydrOXYzine (VISTARIL) 50 mg capsule Take 1 capsule (50 mg total) by mouth every 6 (six) hours as needed for anxiety. 60 capsule 5 12/21/19 24 Active Additional Information Patient taking differently:50 mg oralEvery 12 hours, Reported on 08/14/2024 traZODone (DESYREL) 100 mg tablet take two tablets by mouth at bedtime 180 tablet 3 01/19/20 24 Active Additional Information Patient taking differently: 100 mgoral Daily at bedtime, Reported on 08/14/2024 fluticasone propionate (Flonase) 50 mcg/actuation nasal sprayIndications :Chronic Cough Administer 1 spray into each nostril daily. 16 g 5 05/19/20 24 Active DULoxetine (Cymbalta) [address] capsuleIndicatio ns:Chronic Cough Take 1 capsule (20 mg total) by mouth 2 (two) times a day. 60 capsule 11 05/19/20 24 Active fluticasone propion-salmeter oL (Advair HFA) 230-21 mcg/actuation inhalerIndicatio ns:Chronic Cough Inhale 2 puffs 2 (two) times a day. Rinse mouth with water after use to reduce aftertaste and incidence of candidiasis. Do not swallow. 12 g 11 05/19/20 24 025 Active fluoride, sodium, (PreviDent) 1.1 % gel dental gel Apply 1 Application to the mouth or throat daily. Floss, brush, baking soda rinse. Apply thin gel ribbon to trays wear 5 minutes. Remove trays expectorate excess gel. No eating drinking or rinsing for 30 min. 100 mL 12 06/19/20 24 025 Active ibuprofen 200 mg tablet Take 3 tablets (600 mg total) by mouth every 6 (six) hours as needed for pain. Take with food. 06/21/20 Active sennosides-docus ate sodium (Senokot-S) 8.6-50 mg per tablet Take 1 tablet by mouth at bedtime as needed for constipation. Take to prevent constipation while using narcotic pain medication. Stop if you experience loose stool or bowel movements are normal. 06/21/20 Active acetaminophen (TylenoL) 500 mg tablet Take 2 tablets (1,000 mg total) by mouth every 6 (six) hours as needed for pain. Do NOT exceed more that 4,000mg of Acetaminophen per day from all sources - including Nyquil 06/22/20 Active ondansetron (Zofran) 4 mg tablet Take 1 tablet by mouth every 4 (four) hours PM. 07/06/20 Active prochlorperazine (Compazine) 5 mg tablet TAKE ONE TABLET BY MOUTH TWICE A DAY NEEDED FOR NAUSEA AND VOMITING 07/06/20 24 Active doxepin (SINEquan) 10 mg/mL concentrated solutionIndicati ons:Malignant Neoplasm Of Tongue Base (HCC) Mix 2.5 mL of solution with 2.5 mL of water. Insert in mouth, swish for 1 minute, and then expectorate. May use every 4 to 6 hours as needed for mouth pain. 118 mL 2 08/14/20 24 Active oxyCODONE (Roxicodone) 5 mg/5 mL solutionIndicati ons:Prolonged Acute Pain/Traumatic Injury Take 5 mL (5 mg total) by mouth every 4 (four) hours as needed for moderate pain or score 4-6 of 10 or severe pain or score 7-10 of 10 Indication: Prolonged Acute Pain/Traumatic Injury. 500 mL 08/14/20 24 Active fentaNYL (Duragesic) 12 mcg/hr patchIndications :Prolonged Acute Pain/Traumatic Injury Place 1 patch on the skin every third day Indication: Prolonged Acute Pain/Traumatic Injury. 5 patch 08/24/20 Active naloxone (Narcan) 4 mg/actuation nasal spray Administer 1 spray (4 mg total) into one nostril every 2 (two) minutes as needed (overdose). 1 each 08/24/20 24 025 Active oxyCODONE (Roxicodone) 5 mg immediate release tabletIndication s:Acute Pain Exception Take 1 tablet (5 mg total) by mouth every 4 (four) hours as needed for pain for up to 15 doses Indication: Acute Pain Exception. 15 tablet 07/03/20 24 024 Discontin ued(Dupli keisha order) doxepin (SINEquan) 10 mg/mL concentrated solution Mix 2.5 mL of solution with 2.5 mL of water. Insert in mouth, swish for 1 minute, and then expectorate. May use every 4 to 6 hours as needed for mouth pain. 118 mL 2 08/07/20 24 024 Discontin ued(Reord er) oxyCODONE (Roxicodone) 5 mg immediate release tabletIndication s:Prolonged Acute Pain/Traumatic Injury Take 1 tablet (5 mg total) by mouth every 8 (eight) hours as needed for pain for up to 30 doses Indication: Prolonged Acute Pain/Traumatic Injury. 30 tablet 08/07/20 24 024 Discontin ued(Formu zoey change) fentaNYL (Duragesic) 12 mcg/hr patchIndications :Prolonged Acute Pain/Traumatic Injury Place 1 patch on the skin every third day Indication: Prolonged Acute Pain/Traumatic Injury. 5 patch 08/16/20 24 024 Discontin ued(Reord er) Active Problems Problem Noted Date Diagnosed Date Prolonged QT Interval 06/19/2024 Anesthesia Complication Personal History Overview (06/19/2024): Difficult IV access. Hard to find. 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 Weakness Upper Extremity 08/14/2022 Fusion Cervical Spine Status Post 01/29/2021 Chronic Kidney Disease Stage 2 Glomerular Filtration Rate 60 To 89 11/26/2020 Neuropathy Peripheral 11/25/2020 Anxiety 11/25/2020 Stenosis Spinal Cervical 12/15/2019 Lesion Superior Glenoid Labrum Subsequent Left 0 10/15/2019 Strain Muscles And Tendons R otator Cuff Left Shoulder Initial 07/24/2019 Deranged Meniscus Medial Post Horn Right 014 Pain Shoulder Left Gastroesophageal Reflux Disease NOS Asthma NOS Depressive Disorder Immunizations Name Administration Dates Next Due SARS-COV-2 (COVID-19) - PFIZ ER (Discontinued)(12 years or older) 01/24/2021,01/02/2021 Td Preservative Free (TENIVAC, DECAVAC) 05/23/20 04 Social History Tobacco Use Types Packs/Day Years Used Date Smoking Tobacco: Former Cigarettes Q uit: 1983 Passive Smoke Exposure: Never Smokeless Tobacco: Former Tobacco Cessation:Counseling Given: Not Answered Comments:1983. He reports smoking less than 1 pack of cigarettes total in his life. Alcohol Use Standard Drinks/Week Comments Not Currently 0 (1 standard drink = 0.6 oz pur e alcohol) [facility] [employer]it[employer] Answer Date Recorded In the past 12 months has [employer], gas, oil, or water [employer] threatened to shut off services in your home? No 06/20/2024 Humiliation, Afraid, Rape, and Kick questionnair e Answer Date Recorded Within the last year, have y ou been afraid of your partner or ex-partner? No 06/20/2024 Within the last year, have y ou been humiliated or emotionally abused in other ways by your partner or ex-partner? No Within the last year, have y ou been kicked, hit, slapped, or otherwise physically hurt by your partner or ex-partner? No 06/20/2024 Within the last year, have y ou been raped or forced to have any kind of sexual activity by your partner or ex-partner? No 06/20/2024 Social Connection and Isolat ion Panel [NHANES] Answer Date Recorded In a typical week, how many times do you talk on the phone with family, friends, or neighbors? More than three times a week 12/09/2022 How often do you get togethe r with friends or relatives? More than three times a week 12/09/2022 How often do you attend [facility] or [facility] services? Never 12/09/2022 Do you belong to any clubs o r organizations such as muslim groups, unions, fraternal or athletic groups, or school groups? No 12/09/2022 How often do you attend meet ings of the clubs or organizations you belong to? Never 12/09/2022 Are you , , di vorced, , never , or living with a partner? 12/09/2022 AUDIT-C Answer Date Recorded Q1: How often do you have a drink containing alc ohol? Never 12/09/2022 Average Number of Drinks Not on file 023 Frequency of Binge Drinking Not on file 11/28 Overall Financial Resource Strain (CARDIA) Answe r Date Recorded How hard is it for you to pa y for the very basics like food, housing, medical care, and heating? Not very hard 12/09/2022 PHQ-2 Answer Date Recorded PHQ-2 Score 2 12/22/2022 [facility] - Occupational Stress Questionnaire Answer Date Recorded Do you feel stress - tense, restless, nervous, or anxious, or unable to sleep at night because your mind is troubled all the time - these days? Very much 12/09/2022 Exercise Vital Sign Answer Date Recorde d On average, how many days pe r week do you engage in moderate to strenuous exercise (like a brisk walk)? 6 days 05/17/2024 On average, how many minutes do you engage in exercise at this level? 120 min 05/17/2024 Hunger Vital Sign Answer Date Recorded Within the past 12 months, y ou worried that your food would run out before you got the money to buy more. Never true 06/20/20 24 Within the past 12 months, t he food you bought just didn't last and you didn't have money to get more. Never true 06/20/2024 PRAPARE - Transportation Answer Date Re corded In the past 12 months, has l ack of transportation kept you from medical appointments or from getting medications? No 05/31 In the past 12 months, has l ack of transportation kept you from meetings, work, or from getting things needed for daily living? No 06/20/2024 Depression Answer Date Recor ded PHQ-9 Total Score (max 27) 10 12/22 Nutrition Answer Date Recorded On average, how many serving s of fruits and vegetables do you eat per day (serving size is equal to 1 cup or approximately the size of a tennis ball)? 3-5 05/17/2024 Dental Answer Date Recorded Dental: Regular Dentist Yes 05/17/20 Employment Answer Date Recorded Employment status Permanently disabled Housing Stability Answer Date Recorded What is your living situation today? I have a [facility] place to live 06/20/2024 Education Answer Date Recorded What is the highest level of school you have completed or the highest degree you have received? Associate degree: occupational, technical, or vocational program 09/10/2020 Sex and Gender Information Value Date Recorded Sex Assigned at Male 05/19/2021 9:34 AM CDT Legal Sex Male 10:09 AM CATALYST UNIT OPERATOR Gender Identity Male 12/15/2019 2:54 PM CDT Sexual Orientation Straight 12/15/2019 2: 54 PM CDT Occupation Industry Job Start Date Job End Date Not on file Not on file Not on file Not on file Last Filed Vital Signs Vital Sign Reading Time Taken Comments Blood Pressure 127/85 08/24/2024 11:35 AM CATALYST UNIT OPERATOR Pulse 84 08/24/2024 11:35 AM CATALYST UNIT OPERATOR Temperature 36.3 C (97.3 F) 08/24/2024 11:35 AM CATALYST UNIT OPERATOR Respiratory Rate 16 08/09/2024 11:21 AM CATALYST UNIT OPERATOR Oxygen Saturation 99% 08/09/2024 3:57 PM CATALYST UNIT OPERATOR Inhaled Oxygen Concentration - - Weight 91.9 kg (202 lb 9.6 oz) 08/24/2024 11:35 AM CATALYST UNIT OPERATOR Height 177.6 cm (5' 9.92) 08/08/2024 12:[address] Body Mass Index 29.14 08/08/2024 12:29 PM CATALYST UNIT OPERATOR Plan of Treatment Upcoming Encounters Date Type Department Care Team (Late st Contact Info) Description 08/31/2024 11:30 AM CATALYST UNIT OPERATOR Appointment Department of Radiation Oncology in [place], [place] [address] [place] [phone] Brian Fair M.D. [address] [place] [address] Christa Monroe M.D. [address] [place] [address] 08/31/2024 11:45 AM CATALYST UNIT OPERATOR Appointment Department of Radiation Oncology in [place], [place] [address] [place] [phone] Silvano Braga M.D. [address] [place] [phone] 09/01/2024 11:30 AM CATALYST UNIT OPERATOR Appointment Department of Radiation Oncology in [place], [place] [address] [place] [address] Brian Fair M.D. [address] [place] [address] Christa Monroe M.D. [address] [place] [address] 09/04/2024 8:30 AM CATALYST UNIT OPERATOR Appointment Department of Radiation Oncology in [place], [place] [address] [place] [address] Brian Fair M.D. [address] [place] [address] Christa Monroe M.D. [address] [place] [phone] 09/05/2024 8:45 AM CATALYST UNIT OPERATOR Appointment Department of Radiation Oncology in [place], [place] [address] [place] [address] Brian Fair M.D. [address] [place] [address] Christa Monroe M.D. [address] [place] [phone] 09/06/2024 11:30 AM CATALYST UNIT OPERATOR Appointment Department of Radiation Oncology in [place], [place] [address] [place] [address] Brian Fair M.D. [address] [place] [phone] Christa Monroe M.D. [address] [place] [phone] Medical Devices Implanted Type Area Diagnostic Cardiac Sonographer Device Identifier Shelf Expiration Date Model / Serial / Lot Grft Dbm Grf Pst 1 - [id number] - [id number] Implanted:Qt y: 1 on 11/26/2020 by Mac Pedersen M.D. at [facility] Bone or Tissue Anterior: Spine Cervical Medtronic 10/01/2022 [id number] / [id number] / Hardware E.G. Pins/Screws/ Rods- [id number] Implanted: (Quantity not on file) Hardware e.g. pins/screw s/rods Shoulder Spn Scrw Gabriele Sfdr Thrd 4x18 - Sna - [id number] Implanted:Qt y: 4 on 11/26/2020 by Mac Pedersen M.D. at [facility] Hardware e.g. pins/screw s/rods Anterior: Spine Cervical Depuy Synthes [id number] / NA / NA Spn Plt Gabriele L1 14 - Sna - [id number] Implanted:Qt y: 1 on 11/26/2020 by Mac Pedersen M.D. at [facility] Hardware e.g. pins/screw s/rods Anterior: Spine Cervical Depuy Synthes [id number] / NA / NA Spn Cg Cndt Cif 8mm 8d L - Sna - [id number] Implanted:Qt y: 1 on 11/26/2020 by Mac Pedersen M.D. at [facility] Spine Implant Anterior: Spine Cervical Depuy Synthes [id number] 09/29/2024 [id number] / NA / [id number] Procedures Procedure Name Priority Date/Time Associated Diagnosis Comments ARIA DAILY TREATMENT INFORMATION Routine 08/29/2024 8:10 AM CATALYST UNIT OPERATOR ARIA DAILY TREATMENT INFORMATION Routine 08/28/2024 3:12 PM CATALYST UNIT OPERATOR ARIA DAILY TREATMENT INFORMATION Routine 08/25/2024 11:50 AM CATALYST UNIT OPERATOR ARIA DAILY TREATMENT INFORMATION Routine 08/24/2024 11:23 AM CATALYST UNIT OPERATOR ARIA DAILY TREATMENT INFORMATION Routine 08/22/2024 8:04 AM CATALYST UNIT OPERATOR ARIA DAILY TREATMENT INFORMATION Routine 08/21/2024 10:30 AM CATALYST UNIT OPERATOR ARIA DAILY TREATMENT INFORMATION Routine 08/18/2024 11:27 AM CATALYST UNIT OPERATOR ARIA DAILY TREATMENT INFORMATION Routine 08/17/2024 11:29 AM CATALYST UNIT OPERATOR ARIA DAILY TREATMENT INFORMATION Routine 08/16/2024 11:24 AM CATALYST UNIT OPERATOR ARIA DAILY TREATMENT INFORMATION Routine 08/15/2024 11:27 AM CATALYST UNIT OPERATOR ARIA DAILY TREATMENT INFORMATION Routine 08/14/2024 10:02 AM CATALYST UNIT OPERATOR ARIA DAILY TREATMENT INFORMATION Routine 08/11/2024 11:36 AM CATALYST UNIT OPERATOR ARIA DAILY TREATMENT INFORMATION Routine 08/10/2024 12:08 PM CATALYST UNIT OPERATOR ADULT OXYGEN THERAPY Routine 08/09/2024 2:05 PM CATALYST UNIT OPERATOR IR CT GUIDANCE RAD - Routine (most inpatients and all outpatients) 08/09/2024 2:00 PM CATALYST UNIT OPERATOR Malignant Neoplasm Of Tongue Base (HCC) IR GASTROSTOMY TUBE PLACEMENT RAD - Routine (most inpatients and all outpatients) 08/09/2024 2:00 PM CATALYST UNIT OPERATOR Malignant Neoplasm Of Tongue Base (HCC) C-REACTIVE PROTEIN (CRP), S/P Routine 08/08/2024 3:04 PM CATALYST UNIT OPERATOR Dietary Counseling And Surveillance For Enteral Nutrition MAGNESIUM, S Routine 08/08/2024 3:04 PM CATALYST UNIT OPERATOR Dietary Counseling And Surveillance For Enteral Nutrition PHOSPHORUS (INORGANIC), S Routine 08/08/2024 3:04 PM CATALYST UNIT OPERATOR Dietary Counseling And Surveillance For Enteral Nutrition BASIC METABOLIC PANEL, S/P Routine 08/08/2024 3:04 PM CATALYST UNIT OPERATOR Dietary Counseling And Surveillance For Enteral Nutrition ARIA DAILY TREATMENT INFORMATION Routine 08/08/2024 8:16 AM CATALYST UNIT OPERATOR ARIA DAILY TREATMENT INFORMATION Routine 08/07/2024 10:21 AM CATALYST UNIT OPERATOR ARIA DAILY TREATMENT INFORMATION Routine 08/04/2024 11:48 AM CATALYST UNIT OPERATOR ARIA DAILY TREATMENT INFORMATION Routine 08/03/2024 10:49 AM CATALYST UNIT OPERATOR ARIA DAILY TREATMENT INFORMATION Routine 08/02/2024 11:33 AM CATALYST UNIT OPERATOR ARIA DAILY TREATMENT INFORMATION Routine 08/01/2024 11:48 AM CATALYST UNIT OPERATOR ARIA DAILY TREATMENT INFORMATION Routine 07/31/2024 2:22 PM CATALYST UNIT OPERATOR ARIA DAILY TREATMENT INFORMATION Routine 07/28/2024 2:21 PM CATALYST UNIT OPERATOR ARIA DAILY TREATMENT INFORMATION Routine 07/26/2024 2:34 PM CATALYST UNIT OPERATOR ARIA DAILY TREATMENT INFORMATION Routine 07/26/2024 8:03 AM CATALYST UNIT OPERATOR ARIA DAILY TREATMENT INFORMATION Routine 07/25/2024 2:07 PM CATALYST UNIT OPERATOR ARIA DAILY TREATMENT INFORMATION Routine 07/24/2024 3:49 PM CATALYST UNIT OPERATOR INITIAL RAD ONC TREATMENT PLANNING CT SIMULATION Routine 07/18/2024 11:30 AM CATALYST UNIT OPERATOR Malignant Neoplasm Of Tongue Base (HCC) OTORHINOLARYNGOLOGY IMAGE EXAM Routine 07/03/2024 2:41 PM CATALYST UNIT OPERATOR Max SD FLUORIDE APPLICATOR ONE ARCH Routine 07/03/2024 9:30 AM CATALYST UNIT OPERATOR 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 NAVERIS Routine 06/22/2024 9:04 AM CDT DENTAL LAB Routine 06/21/2024 ADULT OXYGEN THERAPY Routine 06/20/2024 4:52 PM CDT SURGICAL PATHOLOGY, [facility] LAB Routine 06/20/2024 12:43 PM CDT Malignant Neoplasm Of Tongue Base (HCC) [place] Malignant Neoplasm Of Neck Squamous Cell [place] LDA ANE ENDOTRACHEAL AIRWAY Routine 06/20/2024 12:22 PM CDT NECK DISSECTION 06/20/2024 11:42 AM CDT Malignant Neoplasm Of Tongue Base (HCC) [place] Malignant Neoplasm Of Neck Squamous Cell [place] Case Notes BULL LADLE TENDER 0940 ROBOTIC-ASSISTED TONGUE BASE RESECTION 06/20/2024 11:42 AM CDT Malignant Neoplasm Of Tongue Base (HCC) [place] Malignant Neoplasm Of Neck Squamous Cell [place] Case Notes BULL LADLE TENDER 0940 MEDICAL PANOREX Routine 06/19/2024 4:37 PM CDT Malignant Neoplasm Of Tongue Base (HCC) [place] Malignant Neoplasm Of Neck Squamous Cell [place] Preoperative Exam CBC WITH DIFFERENTIAL, B Routine 024 4:29 PM CDT Malignant Neoplasm Of Tongue Base (HCC) [place] Malignant Neoplasm Of Neck Squamous Cell [place] Preoperative Exam BASIC METABOLIC PANEL, S/P Routine 06/19/2024 4:29 PM CDT Malignant Neoplasm Of Tongue Base (HCC) [place] Malignant Neoplasm Of Neck Squamous Cell [place] Preoperative Exam FL SWALLOW FUNCTION WITH VIDEO AND SPEECH OR OT FOR RST RAD - Routine (most inpatients and all outpatients) 06/19/2024 2:26 PM CDT Malignant Neoplasm Of Tongue Base (HCC) [place] Malignant Neoplasm Of Neck Squamous Cell [place] Preoperative Exam ECG Routine 06/19/2024 9:00 AM CDT Malignant Neoplasm Of Tongue Base (HCC) [place] Malignant Neoplasm Of Neck Squamous Cell [place] Preoperative Exam OTORHINOLARYNGOLOGY IMAGE EXAM Routine 06/05/2024 3:[address] SKULL TO THIGH RAD - Routine (most inpatients and all outpatients) 06/05/2024 3:26 PM CDT [place] Malignant Neoplasm Of Neck Squamous Cell [place] US LYMPH NODE BIOPSY RAD - Routine (most inpatients and all outpatients) 06/01/2024 9:34 AM CDT Hypertrophy Tonsillar Lingual CYTOLOGY FINE NEEDLE ASPIRATION (INCLUDES CORE BIOPSIES Timed 06/01/2024 8:53 AM CDT Hypertrophy Tonsillar Lingual US HEAD NECK SOFT TISSUE RAD - Routine (most inpatients and all outpatients) 06/01/2024 7:32 AM CDT Hypertrophy Tonsillar Lingual LIPID PANEL, S Routine 07/07/2021 7:32 AM CATALYST UNIT OPERATOR Screening Lipid from Last 3 Months or Most Recently Relevant to Health Maintenance Results * [facility] Daily Treatment Information (08/29/2024 8:10 AM CATALYST UNIT OPERATOR) Only the most recent of25 resultswithin the time period is included. Course ID [id number] [facility] Course Start Date 11/18/202 4 08:29 CATALYST UNIT OPERATOR LEBRON ARIA First Treatment Date 4 15:47 CATALYST UNIT OPERATOR LEBRON ARIA Last Treatment Date 4 08:10 CATALYST UNIT OPERATOR LEBRON ARIA Treatment Elapsed Days 36 LEBRON ARIA Reference Point [id number] LEBRON ARIA Dosage Given to Date cGy 5000 LEBRON ARIA Session Dosage Given 200 LEBRON ARIA Plan ID [id number] LEBRON ARIA Fractions Treated to Date 25 LEBRON ARIA Planned Total Fractions 30 LEBRON ARIA Prescribed Dose Per Fraction 200 LEBRON ARIA Prescription Dose in cGy 6000 LEBRON ARIA Plan Primary Reference Point [id number] LEBRON ARIA 08/29/2024 8:10 AM CATALYST UNIT OPERATOR us Provider Not In System RADIATION ONCOLOGY ORDERA BLES Final Result BERNARDINO ANGEL na * IR CT Guidance (08/09/2024 2:00 PM CATALYST UNIT OPERATOR) Anatomical Region Laterality Modality Body, Vascular Interventiona l RST LOS, Neuro Interventional RST LOS, Vascular Interventional ARZ LOS, Neuroradiology ARZ LOS, Vascular Interventional FLA LOS N/A X-Ray Angiography Impressions 08/10/2024 7:39 AM CATALYST UNIT OPERATOR Placement of a 16 [place] percutaneous gastrostomy tube. Nothing by mouth or tube for 2 hours (strict). Then use of mouth or tube for water, medications, and/or tube feeds per Nutrition note/order. Exchange tube in 3-5 months. Contact the [facility] at [phone] to schedule the tube exchange. NR Narrative 08/10/2024 7:39 AM CATALYST UNIT OPERATOR EXAM: IR GASTROSTOMY TUBE PLACEMENT, IR CT GUIDANCE CLINICAL HISTORY: 59-year-old male with head and neck cancer requiring gastrostomy tube placement for enteral nutrition. Pre-Procedure Diagnosis: Cancer. Indication: Feeding. TECHNIQUE: Balloon Assisted. The patient was placed supine on the fluoroscopy table. Under fluoroscopic guidance, a 4 [place] catheter was placed as a nasogastric tube. The left abdomen was prepared and draped in sterile fashion. Sonographic evaluation was used to demarcate the margin of the left hepatic lobe. 1 mg of glucagon was administered. The stomach was inflated through the nasogastric tube. After minimal insufflation of the stomach, intraprocedural CT scan was performed to more definitively evaluate the percutaneous window given the small window on recent cross-sectional imaging. Intraprocedural CT scan demonstrates a a large safe percutaneous window to access the stomach, which did not necessitate access into the stomach under CT fluoroscopic guidance. Under normal fluoroscopic guidance, an 18-gauge needle was advanced into the gastric body. Small contrast injection confirmed satisfactory position. An 0.035 inch Nitrex wire was coiled in the stomach. Using coaxial technique a gastrostomy tube (specifications below) was backloaded onto an 8 mm balloon. The balloon was used to dilate the anterior gastric and abdominal corey. Upon balloon deflation, the gastrostomy tube was advanced into the stomach. The gastrostomy tube retention balloon was inflated with 5 mL of dilute contrast. The external bolster was snugged to the skin surface and placed at approximately the 5 cm cory. Injection through the gastrostomy tube confirmed satisfactory position and function. Each lumen was flushed with saline. A sterile dressing was applied. No immediate complication. Tube Type: Gastrostomy, [place] owingeh. Tube Connection: ENFit. Tube Size: a 16 Low Profile: No. PREPROCEDURE: Patient seen and evaluated. Allergies, pertinent medications, and history reviewed. Discussed risks, benefits, alternatives for procedure, and obtained informed consent. Patient understands information and questions answered. Immediately prior to starting the procedure, in the presence of the assisting personnel, procedural pause was conducted to verify correct patient identity and verification of procedure to be performed, and as applicable, correct side and site, correct patient position, availability of implants, special equipment, or special requirements, and all image and specimen identification data. The roles and responsibilities of care team members, residents, and fellows were discussed. Sedation provided by Anesthesiology. Christa LOPEZ IR PROCEDURES Final R esult * IR Gastrostomy Tube Placement (08/09/2024 2:00 PM CATALYST UNIT OPERATOR) Anatomical Region Laterality Modality Abdomen, Vascular Interventi onal RST LOS, Vascular Interventional ARZ LOS, Vascular Interventional FLA LOS N/A X-Ray Angiography Impressions 08/10/2024 7:39 AM CATALYST UNIT OPERATOR Placement of a 16 [place] percutaneous gastrostomy tube. Nothing by mouth or tube for 2 hours (strict). Then use of mouth or tube for water, medications, and/or tube feeds per Nutrition note/order. Exchange tube in 3-5 months. Contact the [facility] at [phone] to schedule the tube exchange. NR Narrative 08/10/2024 7:39 AM CATALYST UNIT OPERATOR EXAM: IR GASTROSTOMY TUBE PLACEMENT, IR CT GUIDANCE CLINICAL HISTORY: 59-year-old male with head and neck cancer requiring gastrostomy tube placement for enteral nutrition. Pre-Procedure Diagnosis: Cancer. Indication: Feeding. TECHNIQUE: Balloon Assisted. The patient was placed supine on the fluoroscopy table. Under fluoroscopic guidance, a 4 [place] catheter was placed as a nasogastric tube. The left abdomen was prepared and draped in sterile fashion. Sonographic evaluation was used to demarcate the margin of the left hepatic lobe. 1 mg of glucagon was administered. The stomach was inflated through the nasogastric tube. After minimal insufflation of the stomach, intraprocedural CT scan was performed to more definitively evaluate the percutaneous window given the small window on recent cross-sectional imaging. Intraprocedural CT scan demonstrates a a large safe percutaneous window to access the stomach, which did not necessitate access into the stomach under CT fluoroscopic guidance. Under normal fluoroscopic guidance, an 18-gauge needle was advanced into the gastric body. Small contrast injection confirmed satisfactory position. An 0.035 inch Nitrex wire was coiled in the stomach. Using coaxial technique a gastrostomy tube (specifications below) was backloaded onto an 8 mm balloon. The balloon was used to dilate the anterior gastric and abdominal corey. Upon balloon deflation, the gastrostomy tube was advanced into the stomach. The gastrostomy tube retention balloon was inflated with 5 mL of dilute contrast. The external bolster was snugged to the skin surface and placed at approximately the 5 cm cory. Injection through the gastrostomy tube confirmed satisfactory position and function. Each lumen was flushed with saline. A sterile dressing was applied. No immediate complication. Tube Type: Gastrostomy, [place] owingeh. Tube Connection: ENFit. Tube Size: a 16 Low Profile: No. PREPROCEDURE: Patient seen and evaluated. Allergies, pertinent medications, and history reviewed. Discussed risks, benefits, alternatives for procedure, and obtained informed consent. Patient understands information and questions answered. Immediately prior to starting the procedure, in the presence of the assisting personnel, procedural pause was conducted to verify correct patient identity and verification of procedure to be performed, and as applicable, correct side and site, correct patient position, availability of implants, special equipment, or special requirements, and all image and specimen identification data. The roles and responsibilities of care team members, residents, and fellows were discussed. Sedation provided by Anesthesiology. Christa LOPEZ IR PROCEDURES Final R esult * (ABNORMAL) CRP (C-Reactive Protein) (08/08/2024 3:04 PM CATALYST UNIT OPERATOR) C-Reactive Protein (CRP), S 9.6(H) <5.0 mg/L 08/08/2024 4:05 PM CATALYST UNIT OPERATOR DTL Blood (Blood, PICC) 08/08/2024 3:04 PM CATALYST UNIT OPERATOR 08/08/2024 3:44 PM CATALYST UNIT OPERATOR Rebekah Jose Walker APRN, C.N.P., D.N.P. LAB BLOOD ADD -ON Final Result [facility] [address] [place] [address] * Phosphorus Inorganic (08/08/2024 3:04 PM CATALYST UNIT OPERATOR) Phosphorus (Inorganic), S 2.8 2.5 - 4.5 mg/dL 08/08/2024 4:05 PM CATALYST UNIT OPERATOR DTL Blood (Blood, PICC) 08/08/2024 3:04 PM CATALYST UNIT OPERATOR 08/08/2024 3:44 PM CATALYST UNIT OPERATOR Rebekah Jose Walker APRN, C.N.P., D.N.P. LAB BLOOD ADD -ON Final Result [facility] [address] [place] [address] * Magnesium (08/08/2024 3:04 PM CATALYST UNIT OPERATOR) Magnesium, S 2.1 1.7 - 2.3 mg/dL 08/08/2024 4:05 PM CATALYST UNIT OPERATOR DTL Blood (Blood, PICC) 08/08/2024 3:04 PM CATALYST UNIT OPERATOR 08/08/2024 3:44 PM CATALYST UNIT OPERATOR us Rebekah C Denise HARDING, C.N.P., D.N.P. LAB BLOOD ADD -ON Final Result [address] [address], [place] [address] [address] * (ABNORMAL) Basic Metabolic Panel (08/08/2024 3:04 PM CATALYST UNIT OPERATOR) Only the most recent of2 resultswithin the time period is included. Potassium, S 4.0 3.6 - 5.2 mmol/L 08/08/2024 4:05 PM CATALYST UNIT OPERATOR DTL Sodium, S 139 135 - 145 mmol/L 08/08/2024 4:05 PM CATALYST UNIT OPERATOR DTL Chloride, S 104 98 - 107 mmol/L 08/08/2024 4:05 PM CATALYST UNIT OPERATOR DTL Bicarbonate, S 22 22 - 29 mmol/L 08/08/2024 4:05 PM CATALYST UNIT OPERATOR DTL Anion Gap 13 7 - 15 08/08/2024 4:05 PM CATALYST UNIT OPERATOR DTL BUN (Blood Urea Nitrogen), S 28(H) 8 - 24 mg/dL 08/08/2024 4:05 PM CATALYST UNIT OPERATOR DTL Creatinine 0.89 0.74 - 1.35 mg/dL 08/08/2024 4:05 PM CATALYST UNIT OPERATOR DTL Estimated GFR (eGFR) >90 >=60 mL/min/BSA 08/08/2024 4:05 PM CATALYST UNIT OPERATOR DTL Comment: Estimated GFR calculated using the 2020 CKD_EPI creatinine equation. Calcium, Total, S 9.3 8.6 - 10.0 mg/dL 08/08/2024 4:05 PM CATALYST UNIT OPERATOR DTL Glucose, S 125 70 - 140 mg/dL 08/08/2024 4:05 PM CATALYST UNIT OPERATOR DTL Blood (Blood, PICC) 08/08/2024 3:04 PM CATALYST UNIT OPERATOR 08/08/2024 3:44 PM CATALYST UNIT OPERATOR Rebekah Jose Walker APRN C.N.P., D.N.P. LAB BLOOD ADD -ON Final Result Performing Organization Address [facility] Co de Phone Number [facility] [address] [place] [address], [place] DTL [facility] [address] [place] [address] * Initial Rad Onc Treatment Planning CT Simulation without IV Contrast (07/18/2024 11:30 AM CATALYST UNIT OPERATOR) Narrative [facility] - 07/18/2024 11:30 AM CATALYST UNIT OPERATOR Marissa Rueda 07/18/2024 12:21 PM Initial Rad Onc Treatment Planning CT Simulation without IV Contrast Performed by: Christa Monroe M.D. Authorized by: Christa Monroe M.D. Christa Monroe M.D. RADIATION ONCOLOGY ORDERA BLES Final Result Performing Organization Address [facility] de Phone Number BERNARDINO ANGEL na * ENT Procedure-Otorhinolaryngology Image Exam (07/03/2024 2:41 PM CATALYST UNIT OPERATOR) Only the most recent of2 resultswithin the time period is included. Narrative [facility] - 07/03/2024 2:41 PM CATALYST UNIT OPERATOR This order has been created and auto-finalized to support the import of images acquired without order. The clinical documentation to support these images can be found on the encounter that produced images. Provider Not In System IMG NON RAD IMAGING PROCE DURES Final Result Performing Organization Address City/[facility] Co de Phone Number [facility] NA * Hugo Garcia - Sent Out Lab (06/22/2024 9:04 AM CDT) Test Name NavDx 06/22/2024 2:55 PM CDT MIK Result SEE COMMENT 07/01/2024 10:29 AM CDT MIK Comment: For final report, select Lab-Send Out Lab Results hyperlink below. 06/22/2024 9:04 AM CDT 06/22/2024 2:55 PM CDT us Chen Guadarrama APRN, C.N.P., M.S.N. LAB MISC ORDERA BLES Final Result atCollab 8 [facility] [place] [address], [place] Anchor™ [address] [facility] [place] [id number] * Dental Lab (06/21/2024) Narrative Francisca Gee C.D.T. - 06/21/2024 Poured and trimmed by Meche Aguero Fluoride carriers by Francisca Ramirez C.D.T. and Meche Aguero us Kathryn Angela D.D.S. DENTAL ORDERABLES Final R esult * Surgical Pathology, Frozen Lab (06/20/2024 12:43 PM CDT) 07/03/2024 4:53 PM CATALYST UNIT OPERATOR [facility] Participated in the Interpretation Heri MárquezB.S. -Pathology Fellow 07/03/2024 4:53 PM CATALYST UNIT OPERATOR [facility] Report electronically signed by Reece Perez M.D. I verify that I have examined all relevant slides/materials for the specimen(s) and rendered or confirmed the diagnosis. 07/03/2024 4:53 PM [facility] Frozen Intraoperative Report A. Oropharynx, right base of tongue, partial glossectomy: Invasive squamous cell carcinoma, forming a 3 cm mass. Surgical margins are negative for tumor. B. Oropharynx, right base of tongue superior margin, excision: Negative for tumor. C. Oropharynx, right base of tongue lateral margin, excision: Negative for tumor. D. Oropharynx, right base of tongue inferior margin, excision: Negative for tumor. E. Oropharynx, right base of tongue medial margin, excision: Negative for tumor. F. Oropharynx, right base of tongue deep margin, excision: Negative for tumor. G. Lymph nodes, right neck levels II - IV, dissection: Multiple (9 of 48) neck lymph nodes are involved by metastatic squamous cell carcinoma, including lymph nodes at the following levels: 0 of 3 in level IIA, 3 of 12 in level IIB, 6 of 26 in level III, and 0 of 7 in level IV. The largest lymph node involved by tumor measures 3.3 cm. The largest lymph node tumor deposit is located in level III and measures 3.3 cm in greatest dimension. Extracapsular extension is present in level III, less than 2 mm. Signed by Reece Perez M.D. 06/21/2024 4:21 PM 07/03/2024 4:53 PM [facility] Gross Description A. Received fresh labeled right base of tongue is a 4.5 x 2.3 x 1.5 cm oriented partial glossectomy specimen. The margins are inked and submitted perpendicularly. There is a 3 x 2.1 x 0.7 cm hill-white, infiltrative mass, which does not appear to extend to the underlying muscle. The mass is grossly located 0.1 cm from the lateral, medial, and inferior mucosal margins. Job Press Operator tissue submitted for frozen and permanent sections. Grossed by Silvano Storey M.S., BAILEY([facility]). B. Received fresh labeled right base of tongue superior margin is a 1.1 x 0.4 x 0.3 cm portion of hill-red soft tissue with orientation. The margin is shaved. All submitted for frozen and permanent sections. Grossed by JOHN Lainez PA ([facility]). C. Received fresh labeled right base of tongue lateral margin is a 1 x 0.4 x 0.3 cm portion of hill-red soft tissue with orientation. The margin is shaved. All submitted for frozen and permanent sections. Grossed by JOHN Lainez PA ([facility]). D. Received fresh labeled right base of tongue inferior margin is a 1 x 0.9 x 0.3 cm portion of pink-red, cauterized soft tissue with orientation. The margin is shaved (margin up). All submitted for frozen and permanent sections. Grossed by Danielle Gomes, BAILEY([facility]). E. Received fresh labeled right base of tongue medial margin is a 1.3 x 1 x 0.5 cm portion of hill-red soft tissue with orientation. The margin is shaved. All submitted for frozen and permanent sections. Grossed by JOHN Lainez PA ([facility]). F. Received fresh labeled right base of tongue deep margin is a 1.5 x 1.1 x 0.3 cm portion of hlil-red soft tissue with orientation. The margin is shaved. All submitted for frozen and permanent sections. Grossed by JOHN Lainez PA ([facility]). G. Received fresh labeled right neck dissection levels II - IV lymph nodes is a 19 x 6.5 x 2 cm select neck dissection including levels IIA, IIB, III, and IV. Multiple lymph nodes are identified, with multiple (5) grossly positive lymph nodes ranging from 0.9 to 3.3 cm in levels IIB, and III. Lymph nodes submitted for frozen and permanent sections. Grossed by Silvano Storey M.S., BAILEY([facility]). 07/03/2024 4:53 PM CATALYST UNIT OPERATOR STMA Block Summary A Right base of tongue A1 Mass -1 -frozen A2 Mass -2 -frozen A3 Mass -3 -frozen B Right base of tongue superior margin B1 Margin - frozen C Right base of tongue lateral margin C1 Margin- frozen D Right base of tongue inferior margin D1 Margin- frozen E Right base of tongue medial margin E1 Margin- frozen F Right base of tongue deep margin F1 Margin- frozen G Right neck dissection levels 2-4 lymph nodes G1 Level 2A lymph nodes 2 (G1) - frozen G2 Level 2A lymph nodes 1 (G2) - frozen G3 Level 2A lymph nodes 1 of 2 (G3) - frozen G4 Level 2A lymph nodes 2 of 2 (G3) - frozen G5 Level 4 lymph nodes 4 (G4) - frozen G6 Level 4 lymph nodes 2 (G5) - frozen G7 Level 2B lymph nodes 6 (G6) - frozen G8 Level 2B lymph nodes 1 of 2 (G7) - frozen G9 Level 2B lymph nodes 2 of 2 (G7) - frozen G10 Level 2B lymph nodes 5 (G8) - frozen G11 Level 2B lymph nodes 1 (G9) - frozen G12 Level 3 lymph nodes 5(G10) - frozen G13 Level 3 lymph nodes 1(G11) - frozen G14 Level 3 lymph nodes 5(G12) - frozen G15 Level 3 lymph nodes 5(G13) - frozen G16 Level 3 lymph nodes 5(G14) - frozen G17 Level 3 lymph nodes 5(G15) - frozen G18 Level 3 lymph nodes 1of2(G16) - frozen G19 Level 3 lymph nodes 2of2(G16) - frozen G20 Level 3 lymph nodes 1of2(G17) G21 Level 3 lymph nodes 1of2(G17) - frozen G22 Level 3 lymph nodes 2of2(G17) G23 Level 3 lymph nodes 2of2(G17) - frozen 07/03/2024 4:53 PM CATALYST UNIT OPERATOR STMA Interpretation REVISION DESCRIPTION This report was reactivated to stage as pharynx. The changes are underlined. FINAL DIAGNOSIS A. 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 The surgical margins are negative for invasive or in-situ carcinoma (after re-excision of the superior, lateral, inferior, medial, and deep margins). See synoptic report. B. Oropharynx, right base of tongue superior margin, excision: Negative for tumor. C. Oropharynx, right base of tongue lateral margin, excision: Negative for tumor. D. Oropharynx, right base of tongue inferior margin, excision: Negative for tumor. E. Oropharynx, right base of tongue medial margin, excision: Negative for tumor. F. Oropharynx, right base of tongue deep margin, excision: Negative for tumor. G. Lymph nodes, right neck levels II - IV, dissection: Multiple (9 of 48) neck lymph nodes are involved by metastatic squamous cell carcinoma, including lymph nodes at the following levels: 0 of 3 in level IIA, 3 of 12 in level IIB, 6 of 26 in level III, and 0 of 7 in level IV. The largest lymph node involved by tumor measures 3.3 cm. The largest lymph node tumor deposit is located in level III and measures 3.3 cm in greatest dimension. Extracapsular extension is present in level III, less than 2 mm. SYNOPTIC REPORT: Pharynx Procedure:Other (specify): Partial glossectomy Tumor Focality: Unifocal Multiple Primary Sites: Not applicable (no additional primary site(s) present) Tumor Site Oropharynx:Base of tongue, including lingual tonsil Tumor Laterality: Right Tumor Size Greatest dimension (centimeters): 3.0 cm Additional dimensions (centimeters): 2.1 x 0.7 cm Histologic Type: Oropharyngeal squamous cell carcinoma, HPV-associated Histologic Grade:Not applicable Grade / Intrinsic Biologic Potential: Not applicable Tumor Extent: Not applicable Lymphatic and / or Vascular Invasion: Present Perineural Invasion: Not identified Margin Status for Invasive Tumor All Margins Negative for Invasive Tumor Distance from Invasive Tumor to Closest Margin: 3 mm Closest Margin(s) to Invasive Tumor: Inferior Margin Status for Noninvasive Tumor Not Applicable Regional Lymph Node Status Tumor Present in Regional Lymph Node(s) Number of Lymph Node(s) with Tumor: 9 Laterality of Lymph Nodes with Tumor: Right Micaela Site(s) with Tumor: IIb, III Size of Largest Micaela Metastatic Deposit: 3.3 cm Extranodal Extension: Present, less than 2 mm Number of Lymph Nodes Examined: 48 Distant Metastasis Distant Site(s) Involved: Not applicable pTNM Classification (AJCC, 8th edition): Modified Classification: Not applicable pT Category: pT2 T Suffix: Not applicable pN Category: Select choice pM Category: Not applicable - pM cannot be determined from the submitted specimen(s) Additional Pathologic Findings: None identified Special Studies Ancillary Studies Performed: p16 previously performed ([id number]) The synoptic report incorporates information from all relevant surgical material and includes all required data elements of the current CAP Cancer Protocol. 07/03/2024 4:53 PM CATALYST UNIT OPERATOR STMA Comment: REVISED RESULTS ----PREVIOUSLY REPORTED ---- FINAL DIAGNOSIS A. Oropharynx, right base of tongue, partial glossectomy: Invasive squamous cell carcinoma, non-keratinizing, moderately differentiated, forming an infiltrative 3.0 x 2.1 x 0.7 cm mass. The surgical margins are negative for invasive or in-situ carcinoma (after re-excision of the superior, lateral, inferior, medial, and deep margins). See synoptic report. B. Oropharynx, right base of tongue superior margin, excision: Negative for tumor. C. Oropharynx, right base of tongue lateral margin, excision: Negative for tumor. D. Oropharynx, right base of tongue inferior margin, excision: Negative for tumor. E. Oropharynx, right base of tongue medial margin, excision: Negative for tumor. F. Oropharynx, right base of tongue deep margin, excision: Negative for tumor. G. Lymph nodes, right neck levels II - IV, dissection: Multiple (9 of 48) neck lymph nodes are involved by metastatic squamous cell carcinoma, including lymph nodes at the following levels: 0 of 3 in level IIA, 3 of 12 in level IIB, 6 of 26 in level III, and 0 of 7 in level IV. The largest lymph node involved by tumor measures 3.3 cm. The largest lymph node tumor deposit is located in level III and measures 3.3 cm in greatest dimension. Extracapsular extension is present in level III, less than 2 mm. SYNOPTIC REPORT: Oral Cavity Procedure: Partial glossectomy Tumor Focality: Unifocal Multiple Primary Sites: Not applicable (no additional primary site(s) present) Tumor Site: Oral Cavity Tumor Subsite: Ventral surface of tongue Tumor Laterality: Right Tumor Size: Greatest dimension (centimeters): 3 cm Additional dimensions (centimeters): 2.1 x 0.7 cm Histologic Type: Squamous cell carcinoma, nonkeratinizing Histologic Grade: G2, Moderately differentiated Grade / Intrinsic Biologic Potential: Not applicable Tumor Depth of Invasion (DOI): Specify depth (mm): 4 mm Tumor Extent: Not applicable Lymphatic and / or Vascular Invasion: Not identified Perineural Invasion: Not identified / Present Specimen Margin Status for Invasive Tumor All Specimen Margins Negative for Invasive Tumor Distance from Invasive Tumor to Closest Margin: 3 mm Closest Specimen Margin(s) to Invasive Tumor: Inferior Specimen Margin Status for Noninvasive Tumor (High-Grade Dysplasia) All Specimen Margins Negative for High-Grade Dysplasia / In Situ Disease Distance from Noninvasive Tumor to Closest Specimen Margin: 3 mm Closest Specimen Margin(s) to Noninvasive Tumor: Inferior Tumor Bed Margin Status Tumor bed margins assessed Tumor Bed Margin Orientation: Oriented to true margin surface Tumor Bed Margin Status for Invasive Tumor All Tumor Bed Margins Negative for Invasive Tumor Distance from Invasive Tumor to True Margin Surface: can not be determined Tumor Bed Margin Status for Noninvasive Tumor All Tumor Bed Margins Negative for High-Grade dysplasia / In Situ Disease Distance from Noninvasive Tumor to True Margin Surface: can not be determined Regional Lymph Node Status Tumor Present in Regional Lymph Node(s) Number of Lymph Node(s) with Tumor: 9 Laterality of Lymph Node(s) with Tumor: Ipsilateral Micaela Site(s) with Tumor: Level II and Level III Size of Largest Micaela Metastatic Deposit: 3.3 cm Extranodal Extension: Present Distance of Extranodal Extension from Lymph Node Capsule: less than 2 mm Number of Lymph Nodes Examined: 48 Distant Metastasis: Distant Site(s) Involved: Not applicable pTNM Classification (AJCC, 8th edition): Modified Classification: Not applicable pT Category: pT2 T Suffix: Not applicable pN Category: pN3b pM Category: Not applicable - pM cannot be determined from the submitted specimen(s) Additional Pathologic Findings: None identified The synoptic report incorporates information from all relevant surgical material and includes all required data elements of the current CAP Cancer Protocol. Flagged as: (Reported 06/28/2024 16:34) Tissue (Tongue) 06/20/2024 1 2:43 PM CDT Tissue (Tongue) 06/20/2024 1 2:44 PM CDT Tissue (Tongue) 06/20/2024 1 2:44 PM CDT Tissue (Tongue) 06/20/2024 1 2:44 PM CDT Tissue (Tongue) 06/20/2024 1 2:44 PM CDT Tissue (Tongue) 06/20/2024 1 2:44 PM CDT Tissue (Neck, Right) 06/20/2024 2:25 PM CDT Oliver Pinzon M.D. LAB SURG PATH ORDERABLES Edite d Result - Final [facility] [address] [place] [address], [facility] [address] [place] [address] * LDA ANE ENDOTRACHEAL AIRWAY (06/20/2024 12:22 PM CDT) Narrative Shonna Ohaar APRN, CRNA - 06/20/2024 12:22 PM CDT Shonna Ohara APRN, CRNA 06/20/2024 12:27 PM Airway Date/Time: 06/20/2024 12:22 PM Performed by: Shonna Ohara APRN, CRNA Authorized by: Damian, Oliver L, M.D. Patient location during procedure: OR / Procedure Area PROCEDURE DETAILS: Mask difficulty assessment: oral/nasal airway needed Final airway type: video laryngoscope Laryngeal Manipulation: no Final best view of glottic structures - Cormack/Lehane Score: grade 1 ETT location: oral VL device: glide scope [place] scope blade size: 4 Tube size: 7.5 ETT distance at teeth/gum: 28 Oral tube type: suspension tube ([employer]) Cuffed: yes Leak Test Performed: no Number of attempt to successful placement: 1 Airway confirmation: bilateral breath sounds, positive ETCO2 and bilateral chest rise Other previous techniques attempted: none PRE PROCEDURE DETAILS: Pre evaluation for airway management: procedure Urgency: elective Preop assessment of probable difficulty: no difficulty anticipated Preoxygenation: bag valve mask SEDATION / ANESTHESIA Anesthesia method: anesthesia POST PROCEDURE DETAILS: Procedure outcome: successful Notable Events: no complications us Oliver Salgado M.D. ANESTHESIA ORDERABLES Fin al Result * [facility] (06/19/2024 4:37 PM CDT) Narrative Kathryn Angela D.D.S. - 06/19/2024 4:37 PM CDT Panoramic radiograph taken and reviewed. Image(s) revealed there are no central bony or odontogenic lesions in the body or ascending rami of the mandible. Image(s) revealed sinuses are pneumatized and clear, condyles appear remodeled corticated and symmetrical, inferior alveolar nerve can be traced bilaterally, generalized moderate to severe bone loss, and generalized maxillary root resorption. However, this radiograph is non-diagnostic for all but the largest carious lesions. us Kathryn Angela D.D.SCarri DENTAL ORDERABLES Final R esult * CBC with Differential, Blood (06/19/2024 4:29 PM CDT) Hemoglobin 14.9 13.2 - 16.6 g/dL 06/19/2024 5:08 PM CDT DTL Hematocrit 43.6 38.3 - 48.6 % 06/19/2024 5:08 PM CDT DTL Erythrocytes 4.90 4.35 - 5.65 x10(12)/L 06/19/2024 5:08 PM CDT DTL MCV 89.0 78.2 - 97.9 fL 06/19/2024 5:08 PM CDT DTL RBC Distrib Width 12.4 11.8 - 14.5 % 06/19/2024 5:08 PM CDT DTL Platelet Count 308 135 - 317 x10(9)/L 06/19/2024 5:08 PM CDT DTL Leukocytes 8.3 3.4 - 9.6 x10(9)/L 06/19/2024 5:08 PM CDT DTL Neutrophils 4.60 1.56 - 6.45 x10(9)/L 06/19/2024 5:08 PM CDT DHPM Lymphocytes 2.65 0.95 - 3.07 x10(9)/L 06/19/2024 5:08 PM CDT DTL Monocytes 0.76 0.26 - 0.81 x10(9)/L 06/19/2024 5:08 PM CDT DTL Eosinophils 0.24 0.03 - 0.48 x10(9)/L 06/19/2024 5:08 PM CDT DTL Basophils 0.03 0.01 - 0.08 x10(9)/L 06/19/2024 5:08 PM CDT DTL Blood (Blood, Venous) 06/19/2024 4:29 PM CDT 06/19/2024 4:55 PM CDT Oliver Pinzon M.D. LAB BLOOD ADD-ON Final Result [facility] [address] [place] [address], [place] DTL [facility] [address] [place] [address] DHPM [facility] [address] [place] [address] * FL Swallow Function with Video and Speech or OT (06/19/2024 2:26 PM CDT) Anatomical Region Laterality Modality Gastro Intestinal, Abdominal RST LOS, Abdominal ARZ LOS, Abdominal FLA LOS N/A Digital Radiography Impressions 06/19/2024 2:29 PM CDT Normal video swallow study. Please see Speech Pathology report for additional details and recommendations. Narrative 06/19/2024 2:29 PM CDT EXAM: FL SWALLOW FUNCTION WITH VIDEO AND SPEECH OR OT FOR RST COMPARISON: None FINDINGS: Fluoroscopic video swallow study was performed in conjunction with Speech Pathology using thin liquid, mildly thick liquid, puree solid, and regular solid barium consistencies. No laryngeal penetration or aspiration. No significant vallecular or piriform sinus residue. Postsurgical changes of C5-6 ACDF with interbody spacer. Procedure Note Donnell Mike M.D. - 06/19/2024 EXAM: FL SWALLOW FUNCTION WITH VIDEO AND SPEECH OR OT FOR RST COMPARISON: None FINDINGS: Fluoroscopic video swallow study was performed in conjunction withSpeech Pathology using thin liquid, mildly thick liquid, pureesolid, and regular solid barium consistencies. No laryngeal penetrationor aspiration. No significant vallecular or piriform sinus residue. Postsurgical changes of C5-6 ACDF with interbody spacer. IMPRESSION: Normal video swallow study. Please see Speech Pathology reportfor additional details and recommendations. Oliver Pinzon M.D. IMG FLUOROSCOPY PROCEDURES Fin al Result * ECG 12 Lead (06/19/2024 9:00 AM CDT) Ventricular Rate ECG/Min 75 BPM MUSE SD Interval 162 ms MUSE QRSD Interval 84 ms MUSE QT Interval 490 ms MUSE QTC Interval 547 ms MUSE P [place] 10 degrees MUSE R [place] 4 degrees MUSE T Wave [place] 16 degrees MUSE CODED DIAGNOSIS Semi-Urgent Finding (Prolonged QT) MUSE 06/19/2024 9:00 AM CDT 06/19/2024 9:03 AM CDT Impressions MUSE - 06/19/2024 9:03 AM CDT Semi-Urgent Finding (Prolonged QT) Sinus rhythm Premature atrial complexes singly and with aberrant conduction Nonspecific T wave abnormality Prolonged QT No previous ECGs available Reviewed by REKHA Thompson Narrative Procedure Note Alexis Contreras Jr., M.D. - 06/19/2024 IMPRESSION: Semi-Urgent Finding (Prolonged QT) Sinus rhythm Premature atrial complexes singly and with aberrant conduction Nonspecific T wave abnormality Prolonged QT No previous ECGs available Reviewed by REKHA Thompson us Oliver Pinzon M.D. ECG ORDERABLES Final Result MUSE NA * PET CT Skull to Thigh FDG (06/05/2024 3:26 PM CDT) Anatomical Region Laterality Modality Body, Nuclear Medicine PET R ST LOS, PET ARZ LOS, Nuclear Medicine PET FLA LOS, Nuclear Medicine N/A Positron Emission Tomography (PET), Positron Emission Tomography (PET) Impressions 06/05/2024 4:34 PM CDT 1. Focal high level FDG uptake about the right tongue base with extension inferior to the vallecula likely corresponding to the primary site of malignancy. 2. At least 6 FDG avid right level 2 and upper level 3 cervical lymph nodes. No contralateral FDG avid lymph nodes or FDG avid distant metastases. Narrative 06/05/2024 4:34 PM CDT EXAM: PET CT SKULL TO THIGH FDG Serum glucose at time of F-18 FDG injection was 95 mg/dL. Patient followed standard dietary/fasting requirements for this exam. RADIOPHARMACEUTICAL/MEDS: Route: intravenous fludeoxyglucose F 18 injection [facility] (FDG F-18),9.89 millicurie TECHNIQUE: F18 FDG PET/CT scan was performed from the vertex through the knees with low dose, non-contrast, free-breathing CT images for attenuation correction and anatomic localization (AC/AL), with imaging beginning at approximately 60 minutes after radiotracer injection. 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 Initial treatment strategy. The patient reports no recent vaccinations. FINDINGS: Focal high level FDG uptake corresponding to the area of asymmetry about the right tongue base with inferior extension into the right vallecula noted on the comparison 05/25/2024 CT soft tissue neck (SUV max of 12.2, dedicated head and neck CT image series 17, image 97 and PET image series 25, image 44). There are multiple (approximately 6) asymmetrically enlarged level 2A and 2B with corresponding FDG uptake (SUV max up to 6.2 involving level IIB whole body PET image 73). Some of these demonstrated central necrosis on the corresponding CT soft tissue neck. The most inferior of the FDG avid lymph nodes extend into the right level 3 distribution. No contralateral micaela FDG uptake. Focal area of low level uptake within the left axilla with an SUV max of 3.1 which appears to be within the vasculature may vascular activity , inflammatory activity, or nerve sheath tumor, unlikely to a represent metastasis (whole-body image 91). Attention on follow-up. No other suspicious areas of FDG uptake. Scattered musculoskeletal degenerative uptake. Additional findings on this low-dose noncontrast CT: Thoracic findings without significant change since the 05/30/[address] Mucosal thickening left maxillary sinus. ACDF lower cervical spine. Thoracic findings without significant change since the 05/30/[address] Hazy attenuation in the mesentery which can be seen in the setting of mesenteric panniculitis. Colonic diverticulosis. Nonspecific calcifications about the right penile shaft. Procedure Note Jamshid Durham M.D. - 06/05/2024 EXAM: PET CT SKULL TO THIGH FDG Serum glucose at time of F-18 FDG injection was 95 mg/dL. Patient followedstandard dietary/fasting requirements for this exam. RADIOPHARMACEUTICAL/MEDS: Route: intravenous fludeoxyglucose F 18 injection [facility] (FDG F-18),9.89 millicurie TECHNIQUE: F18 FDG PET/CT scan was performed from the vertex through theknees with low dose, non-contrast, free-breathing CT images forattenuation correction and anatomic localization (AC/AL), with imagingbeginning at approximately 60 minutes after radiotracer injection. COMPARISON: CT soft tissue neck 05/25/2024, CT chest 05/30/2024 INDICATION: Recently diagnosed right cervical micaela metastatic squamouscell carcinoma. Initial treatment strategy. The patient reports no recent vaccinations. FINDINGS: Focal high level FDG uptake corresponding to the area ofasymmetry about the right tongue base with inferior extension into theright vallecula noted on the comparison 05/25/2024 CT soft tissue neck (SUVmax of 12.2, dedicated head and neck CT image series 17, image 97 and PET image series 25, image 44). There are multiple (approximately 6) asymmetrically enlarged level 2A and2B with corresponding FDG uptake (SUV max up to 6.2 involving level IIBwhole body PET image 73). Some of these demonstrated central necrosis onthe corresponding CT soft tissue neck. The most inferior of the FDG avid lymph nodes extend into the rightlevel 3 distribution. No contralateral micaela FDG uptake. Focal area of low level uptake within the left axilla with an SUV max of3.1 which appears to be within the vasculature may vascular activity ,inflammatory activity, or nerve sheath tumor, unlikely to a representmetastasis (whole-body image 91). Attention on follow-up. No other suspicious areas of FDG uptake. Scattered musculoskeletal degenerative uptake. Additional findings on this low-dose noncontrast CT: Thoracic findingswithout significant change since the 05/30/[address] Mucosalthickening left maxillary sinus. ACDF lower cervical spine. Thoracicfindings without significant change since the 05/30/[address] Hazy attenuation in the mesentery which can be seen inthe setting of mesenteric panniculitis. Colonic diverticulosis.Nonspecific calcifications about the right penile shaft. IMPRESSION: 1. Focal high level FDG uptake about the right tongue base with extensioninferior to the vallecula likely corresponding to the primary site ofmalignancy. 2. At least 6 FDG avid right level 2 and upper level 3 cervical lymphnodes. No contralateral FDG avid lymph nodes or FDG avid distantmetastases. Silvano Montes M.D. IMG NM PROCEDURES Final Resu lt * US Lymph Node Biopsy (06/01/2024 9:34 AM CDT) Anatomical Region Laterality Modality Body, Ultrasound RST LOS, Ul trasound ARZ LOS, Procedure FLA LOS, Abdominal FLA LOS, Procedural, Procedural NWWI LOS N/A Ultrasound Impressions 06/01/2024 9:36 AM CDT Ultrasound-guided right level 2A lymph node biopsy. NR Narrative 06/01/2024 9:36 AM CDT EXAM: US LYMPH NODE BIOPSY PRE-PROCEDURE: Patient seen and evaluated. Allergies, pertinent medications, and history reviewed. Discussed risks, benefits, alternatives for procedure, and obtained informed consent. Patient understands information and questions answered. Immediately prior to starting the procedure, in the presence of the assisting personnel, procedural pause was conducted to verify correct patient identity and verification of procedure to be performed, and as applicable, correct side and site, correct patient position, availability of implants, special equipment, or special requirements, and all image and specimen identification data. The roles and responsibilities of care team members, residents, and fellows were discussed. TECHNIQUE: Sterile. 1% lidocaine for local anesthesia. Location: Right level 2A Target lesion size: 2 x 1.7 x 2.7 cm Needle size: 18-gauge Number of passes: 4 Complication: None. Blood loss: None. PATIENT INSTRUCTIONS: Patient may be dismissed from the radiology department when dismissal criteria met. POST-PROCEDURE DIAGNOSIS: Right neck adenopathy Procedure Note Jose Antonio M.D. - 06/01/2024 EXAM: US LYMPH NODE BIOPSY PRE-PROCEDURE: Patient seen and evaluated. Allergies, pertinentmedications, and history reviewed. Discussed risks, benefits, alternativesfor procedure, and obtained informed consent. Patient understandsinformation and questions answered. Immediately prior to starting the procedure, in the presence of the assistingpersonnel, procedural pause was conducted to verify correct patientidentity and verification of procedure to be performed, and as applicable,correct side and site, correct patient position, availability of implants, special equipment, or specialrequirements, and all image and specimen identification data. The rolesand responsibilities of care team members, residents, and fellows werediscussed. TECHNIQUE: Sterile. 1% lidocaine for local anesthesia. Location: Right level 2A Target lesion size: 2 x 1.7 x 2.7 cm Needle size: 18-gauge Number of passes: 4 Complication: None. Blood loss: None. PATIENT INSTRUCTIONS: Patient may be dismissed from the radiologydepartment when dismissal criteria met. POST-PROCEDURE DIAGNOSIS: Right neck adenopathy IMPRESSION: Ultrasound-guided right level 2A lymph node biopsy. NR us Diann Arellano APRN, C.N.P., D.N.P. IMG US PROCED URES Final Result * (ABNORMAL) Cytology Fine Needle Aspiration (including core biopsies) (06/01/2024 8:53 AM CDT) (A) 9:23 AM CDT DTL Disclaimer This test was developed and its performance characteristics determined by [facility] in a manner consistent with CLIA requirements. This test has not been cleared or approved by the U.S. Food and Drug Administration. Test results for (IHC or SANTIAGO) testing are valid for specimens fixed between 6 and 72 hours. Delay to fixation, under fixation or over fixation fall outside of guidelines and may affect these results. (A) 06/02/2024 9:23 AM CDT DTL Report electronically signed by Tommy Rosen M.D., Ph.D. I verify that I have examined all relevant slides/materials for the specimen(s) and rendered or confirmed the diagnosis. (A) 06/02/2024 9:23 AM CDT DTL Gross Description Received 4 alcohol-fixed smears and tissue. Additionally, received in formalin labeled with the patient's name, medical record number and lymph node, right neck lymph node arethree pale hill-pink soft tissue core fragments, 0.1 cm in average diameter, and ranging from 0.4-0.6 cm in length. Additionally, receivedin the same container are minute tissue fragments that may not survive processing. Specimens are submitted en toto in cassette A1.Gross by AJCatia. (A) 06/02/2024 9:23 AM CDT DTL Source A. Lymph node, Right neck, fine needle aspiration(A) 06/02/2024 9:23 AM CDT DTL Interpretation A. Lymph node, Right neck, fine needle aspiration (smears/core biopsy): Positive for malignancy. Squamous cell carcinoma. See comment. Comment: Immunohistochemist ry reveals that the cells of interest are positive for AE1/AE3, p40, and p16 (strong, diffuse) while negative for CD3 and CD20. 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 Digital imaging was used in the diagnostic assessment of this case. (A) 06/02/2024 9:23 AM CDT DTL Tissue (Lymph Node) 06/01/2024 8:53 AM CDT Comment:15H +p16 testing us Diann Arellano APRN, C.N.P., D.N.P. LAB SURG PATH ORDERABLES Final Result [facility] [address] [place] [address], [place] D[facility] [address] [facility] [address] [place] [address] * US Head Neck Soft Tissue (06/01/2024 7:32 AM CDT) Anatomical Region Laterality Modality Head and Neck, Ultrasound RS T LOS, Ultrasound ARZ LOS, Ultrasound FLA LOS N/A Ultrasound Impressions 06/01/2024 7:47 AM CDT Right neck adenopathy correlates with the findings on recent CT. Please see separate biopsy report. Narrative 06/01/2024 7:47 AM CDT EXAM: US HEAD NECK SOFT TISSUE COMPARISON: CT performed 05/25/2024 FINDINGS: There are several abnormal lymph nodes in the right lateral compartment, the largest measuring 2.4 cm in right level 2A. Core biopsy will be performed later today. No abnormal lymph nodes in the left lateral compartment. Procedure Note Jose Antonio M.D. - 06/01/2024 EXAM: US HEAD NECK SOFT TISSUE COMPARISON: CT performed 05/25/2024 FINDINGS: There are several abnormal lymph nodes in the right lateralcompartment, the largest measuring 2.4 cm in right level 2A. Core biopsywill be performed later today. No abnormal lymph nodes in the left lateralcompartment. IMPRESSION: Right neck adenopathy correlates with the findings on recent CT. Pleasesee separate biopsy report. us Diann Arellano APRN, C.N.P., D.N.P. IMG US PROCED URES Final Result * (ABNORMAL) Lipid Panel (07/07/2021 7:32 AM CATALYST UNIT OPERATOR) Cholesterol, Total 165 mg/dL 2020 8:14 AM CATALYST UNIT OPERATOR OWAT Comment: ----REFERENCE VALUE---- Desirable: < 200 Borderline high: 200 - 239 High: > or = 240 Triglycerides 214(H) mg/dL 07/07/2021 8:14 AM CATALYST UNIT OPERATOR [place] Comment: ----REFERENCE VALUE---- Normal: <150 Borderline high: 150-199 High: 200-499 Very high: > or =500 Cholesterol, HDL 38(L) >=40 mg/dL 07/07/20 8:14 AM CATALYST UNIT OPERATOR OWAT Calculated LDL 84 mg/dL 07/07/2021 8:14 AM CATALYST UNIT OPERATOR OWAT Comment: ----REFERENCE VALUE---- Desirable: <100 mg/dL Above Desirable: 100-129 mg/dL Borderline High: 130-159 mg/dL High: 160-189 mg/dL Very High: >=190 mg/dL Cholesterol, Non-HDL, Calculated 127 mg/dL 07/07/2021 8:14 AM CATALYST UNIT OPERATOR OWAT Comment: ----REFERENCE VALUE---- Desirable: <130 Above Desirable: 130-159 Borderline high: 160-189 High: 190-219 Very high: > or =220 Blood (Blood, Venous) 07/07/2021 7:32 AM CATALYST UNIT OPERATOR 07/07/2021 7:42 AM CATALYST UNIT OPERATOR us Adi Allen M.D. LAB BLOOD ADD-ON Final Resu lt [facility] [address], [place] [address], [place] [facility] [facility] in [place] [address], [place] [address] from Last 3 Months or Most Recently Relevant to Health Maintenance Insurance MEDICARE [facility] [employer] [address] [facility] [place] [id number] Advance Directives For more information, please contact: [phone] * Full Code (Latest Code Status on File) Date Activated Date Inactivated Comments 06/20/2024 7:14 PM 06/22/2024 1:44 PM Question Answer Comments Full Code: Not Discussed Due to: Patient not available Care Teams Digital Publishing Specialist Relationship Specialty Start Date End Date Adi Allen M.D. [address] [place] [phone] PCP - General 02/11/17
--- OUTSIDE RECORDS SUMMARY | 2024-08-31 07:22 | XMS_ITS | Encounter Summary ---
Author Organization [facility] Address [address] [place] [address] Care Team Providers Care Air Conditioning Manager Name Role Phone Adi Allen M.D. Primary Care Provider [phone] Reason for Visit * Reason Onset Date Comments Nurse Assessment 08/28/2024 Encounter Details Date Type Department Care Team (Latest Contact Info) Description 08/28/2024 Clinical Communication Department of Radiation Oncology in [place], [place] [address] [place] [phone] Christa Monroe M.D. [address] [place] [phone] Nurse Assessment Social History Tobacco Use Types Packs/Day Years Used Date Smoking Tobacco: Former Cigarettes Q uit: 1983 Passive Smoke Exposure: Never Smokeless Tobacco: Former Comments:1983. He reports sm oking less than 1 pack of cigarettes total in his life. Alcohol Use Standard Drinks/Week Comments Not Currently 0 (1 standard drink = 0.6 oz pur e alcohol) [facility] Utilities Answer Date Recorded In the past 12 months has e electric, gas, oil, or water company threatened to shut off services in your [...] week 12/09/2022 How often do you attend chur or restoration services? Never 12/09/2022 Do you belong to any clubs o r organizations such as sikhism groups, unions, fraternal or athletic groups, or [...] Answer Date Recorded PHQ-2 Score 2 12/22/2022 [facility] of Occupat ional Health - Occupational Stress Questionnaire Answer Date Recorded [...] money to buy more. Never true 06/20/20 Within the past 12 months, t he [...] your living situation today? I have a [facility] place to live 06/20/2024 Education Answer Date Recorded What is the highest level of school you have completed or the highest degree you have received? Associate degree: occupational, technical, or vocational program 09/10/2020 Sex and Gender Information Value Date Recorded Sex Assigned at Male 05/19/2021 9:34 AM CDT Legal Sex Male 10:09 AM SEED TRUCKER Gender Identity Male 12/15/2019 2:54 PM CDT Sexual Orientation Straight 12/15/2019 2: 54 PM CDT Occupation Industry Job Start Date Job End Date Not on file Not on file Not on file Not on file documented as of this encounter Miscellaneous Notes * Telephone Encounter - Briana Fermin R.N. - 08/28/2024 2:05 PM SEED TRUCKER SUBJECTIVE CHIEF COMPLAINT / REASON FOR CALL Nurse Assessment ASSESSMENT Patient is concerned about ongoing radiation related symptoms. He expresses concern of continuing with treatment and making his symptoms increase. He is not sure this treatment is necessary for stage two cancer. He states his skin is red, peeling, and bleeding. He is completing acetic acid soaks x4/day. He is worried about the mask placement on top of his neck and the pain it will create. PLAN RN offered a visit with an MD to discuss his concerns - he declines at this time. RN reiterated these side effects are all expected with this treatment and that it is not an easy treatment. We discussed taking his 5 mg Oxycodone 30-45 minutes prior to treatment time to allow for maximal pain control. Patient agreed to come to treatment today. Disposition/Recommendation: recommended continue engagement in self-management activities. Information/Education: patient/caller able to teach back. Caller agreeable to plan of care: yes. The following references were used: nursing clinical judgement and provider BAILEY Monahan . TRUCKER * Telephone Encounter - Eboni Ordonez - 08/28/2024 11:53 AM CST Other Reason for Call Caller: Reema Relationships to patient: [facility] RN Reason for call: Reema called to let us know that Antonino reached out to them and is hesitant to come in to them for treatment today. She stated that he also mentioned he has had a rash on his neck all weekend that is bothering him and that he would like our team here to reach out to him prior to his treatment with us this afternoon at 3:00 PM. TRUCKER documented in this encounter Plan of Treatment Upcoming Encounters Date Type Department Care Team (Late st Contact Info) Description 08/31/2024 11:30 AM SEED TRUCKER Appointment Department of Radiation Oncology in [place], [place] [address] [place] [phone] Brian Fair M.D. [address] [place] [phone] Christa Monroe M.D. [address] [place] [phone] 08/31/2024 11:45 AM SEED TRUCKER Appointment Department of Radiation Oncology in [place], [place] [address] [place] [address] Silvano Braga M.D. [address] [place] [phone] 09/01/2024 11:30 AM SEED TRUCKER Appointment Department of Radiation Oncology in [place], [place] [address] [place] [address] Brian Fair M.D. [address] [place] [phone] Christa Monroe M.D. [address] [place] [phone] 09/04/2024 8:30 AM SEED TRUCKER Appointment Department of Radiation Oncology in [place], [place] [address] [place] [address] Brian Fair M.D. [address] [place] [phone] Christa Monroe M.D. [address] [place] [phone] 09/05/2024 8:45 AM SEED TRUCKER Appointment Department of Radiation Oncology in [place], [place] [address] [place] [address] Brian Fair M.D. [address] [place] [phone] Christa Monroe M.D. [address] [place] [phone] 09/06/2024 11:30 AM SEED TRUCKER Appointment Department of Radiation Oncology in [place], [place] [address] [place] [address] Brian Fair M.D. [address] [place] [phone] Christa Monroe M.D. [address] [place] [phone] documented as of this encounter Visit Diagnoses Not on filedocumented in this encounter Additional Health Concerns Assessment Noted Time PHQ-9 Depression Total Score: 10 023 7:28 AM CDT documented as of this encounter Care Teams Air Conditioning Manager Relationship Specialty Start Date End Date Adi Allen M.D. [address] [place] [phone] PCP - General 02/11/17 documented as of this encounter
--- OUTSIDE RECORDS SUMMARY | 2024-08-31 07:22 | XMS_ITS | Encounter Summary ---
Author Organization [facility] Address [address] [place] [address] Care Team Providers Care Cad Cam Programmer Name Role Phone Adi Allen M.D. Primary Care Provider Encounter Details Date Type Department Care Team (Late st Contact Info) Description 08/29/2024 7:47 AM [facility] Encounter Department of Radiation Oncology in [place], [place] [address] [place] [phone] Brian Fair M.D. [address] [place] [phone] Christa Monroe M.D. [address] [place] [phone] Social History Tobacco Use Types Packs/Day Years Used Date Smoking Tobacco: Former Cigarettes Q uit: 1983 Passive Smoke Exposure: Never Smokeless Tobacco: Former Comments:1983. He reports sm oking less than 1 pack of cigarettes total in his life. Alcohol Use Standard Drinks/Week Comments Not Currently 0 (1 standard drink = 0.6 oz pur e alcohol) [facility] Utilities Answer Date Recorded In the past 12 months has th e electric, gas, oil, or water company [...] How often do you attend chur or presybeterian services? Never 12/09/2022 Do you belong to any clubs o r organizations such as latter-day groups, unions, fraternal or athletic groups, or [...] Average Number of Drinks Not on file Frequency of Binge Drinking Not on file 11/28 Overall Financial Resource Strain (CARDIA) Answe r Date Recorded How hard is it for you to pa y for the very basics like food, housing, medical care, and heating? Not very hard 12/09/2022 PHQ-2 Answer Date Recorded PHQ-2 Score 2 12/22/2022 [facility] of Occupat ional Health - Occupational Stress [...] your living situation today? I have a [facility] place to live 06/20/2024 Education Answer Date Recorded What is the highest level of school you have completed or the highest degree you have received? Associate degree: occupational, technical, or vocational program 09/10/2020 Sex and Gender Information Value Date Recorded Sex Assigned at Male 05/19/2021 9:34 AM CDT Legal Sex Male 10:09 AM MANAGER TITLE Gender Identity Male 12/15/2019 2:54 PM CDT Sexual Orientation Straight 12/15/2019 2: 54 PM CDT Occupation Industry Job Start Date Job End Date Not on file Not on file Not on file Not on file documented as of this encounter Plan of Treatment Upcoming Encounters Date Type Department Care Team (Late st Contact Info) Description 08/31/2024 11:30 AM MANAGER TITLE Appointment Department of Radiation Oncology in [address] [phone] Brian Fair M.D. [address] [place] [phone] Christa Monroe M.D. [address] [place] [phone] 08/31/2024 11:45 AM MANAGER TITLE Appointment Department of Radiation Oncology in [place], [place] [address] [place] [phone] Silvano Braga M.D. [address] [place] [phone] 09/01/2024 11:30 AM MANAGER TITLE Appointment Department of Radiation Oncology in [address] [phone] Brian Fair M.D. [address] [place] [phone] Christa Monroe M.D. [address] [place] [phone] 09/04/2024 8:30 AM MANAGER TITLE Appointment Department of Radiation Oncology in [place], [place] [address] [place] [address] Brian Fair M.D. [address] [place] [phone] Christa Monroe M.D. [address] [place] [phone] 09/05/2024 8:45 AM MANAGER TITLE Appointment Department of Radiation Oncology in [place] [address] [place] [address] Brian Fair M.D. [address] [place] [phone] Christa Monroe M.D. [address] [place] [phone] 09/06/2024 11:30 AM MANAGER TITLE Appointment Department of Radiation Oncology in [place], [place] [address] [place] [address] Brian Fair M.D. [address] [place] [phone] Christa Monroe M.D. [address] [place] [phone] documented as of this encounter Visit Diagnoses Not on filedocumented in this encounter Additional Health Concerns Assessment Noted Time PHQ-9 Depression Total Score: 10 023 7:28 AM CDT documented as of this encounter Care Teams Cad Cam Programmer Relationship Specialty Start Date End Date Adi Allen M.D. [address] [place] [phone] PCP - General 02/11/17 documented as of this encounter
--- OUTSIDE RECORDS SUMMARY | 2024-08-31 07:22 | XMS_ITS | Encounter Summary ---
Author Organization [facility] Address [address] [place] [address] Care Team Providers Care Biodiesel Operations Manager Name Role Phone Adi Allen M.D. Primary Care Provider [phone] Encounter Details Date Type Department Care Team (Late st Contact Info) Description 08/25/2024 11:06 AM [facility] Hospital Encounter Department of Radiation Oncology in [place], [place] [address] [place] [phone] Brian Fair M.D. [address] [place] [phone] Christa Monroe M.D. [address] [place] [phone] Social History Tobacco Use Types Packs/Day Years Used Date Smoking Tobacco: Former Cigarettes Q uit: 1983 Passive Smoke Exposure: Never Smokeless Tobacco: Former Comments:1983. He reports sm oking less than 1 pack of cigarettes total in his life. Alcohol Use Standard Drinks/Week Comments Not Currently 0 (1 standard drink = 0.6 oz pur e alcohol) [facility] Utilities Answer Date Recorded In the [...] How often do you attend chur or faith services? Never 12/09/2022 Do you belong to [...] Answer Date Recorded PHQ-2 Score 2 12/22/2022 [facility] [place] [facility] - Occupational Stress [...] your living situation today? [facility] live 06/20/2024 Education Answer Date Recorded What is the highest level of school you have completed or the highest degree you have received? Associate degree: occupational, technical, or vocational program 09/10/2020 Sex and Gender Information Value Date Recorded Sex Assigned at Male 05/19/2021 9:34 AM CDT Legal Sex Male 10:09 AM DOCUMENT CLERK Gender Identity Male 12/15/2019 2:54 PM CDT Sexual Orientation Straight 12/15/2019 2: 54 PM CDT Occupation Industry Job Start Date Job End Date Not on file Not on file Not on file Not on file documented as of this encounter Plan of Treatment Upcoming Encounters Date Type Department Care Team (Late st Contact Info) Description 08/31/2024 11:30 AM DOCUMENT CLERK Appointment Department of Radiation Oncology in [address] [phone] Brian Fair M.D. [address] [place] [phone] Christa Monroe M.D. [address] [place] [phone] 08/31/2024 11:45 AM DOCUMENT CLERK Appointment Department of Radiation Oncology in [place], [place] [address] [place] [phone] Silvano Braga M.D. [address] [place] [phone] 09/01/2024 11:30 AM DOCUMENT CLERK Appointment Department of Radiation Oncology in [address] [phone] Brian Fair M.D. [address] [place] [phone] Christa Monroe M.D. [address] [place] [phone] 09/04/2024 8:30 AM DOCUMENT CLERK Appointment Department of Radiation Oncology in [place], [place] [address] [place] [address] Brian Fair M.D. [address] [place] [phone] Christa Monroe M.D. [address] [place] [phone] 09/05/2024 8:45 AM DOCUMENT CLERK Appointment Department of Radiation Oncology in [place] [address] [place] [address] Brian Fair M.D. [address] [place] [phone] Christa Monroe M.D. [address] [place] [phone] 09/06/2024 11:30 AM DOCUMENT CLERK Appointment Department of Radiation Oncology in [place], [place] [address] [place] [phone] Brian Fair M.D. [address] [place] [phone] Christa Monroe M.D. [address] [place] [phone] documented as of this encounter Visit Diagnoses Not on filedocumented in this encounter Additional Health Concerns Assessment Noted Time PHQ-9 Depression Total Score: 10 023 7:28 AM CDT documented as of this encounter Care Teams Biodiesel Operations Manager Relationship Specialty Start Date End Date Adi Allen M.D. [address] [place] [phone] PCP - General 02/11/17 documented as of this encounter
--- OUTSIDE RECORDS SUMMARY | 2024-08-31 07:22 | XMS_ITS | Clinical Summary ---
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 Primary Care Provider Source Comments Patient records contain information from all sites at [facility]. For routine questions regarding patient records, call [phone] during business hours, M-F 8:00 AM - 5:00 PM Central Time. Record requests for emergency care only can be directed to [phone] at any time.[facility] Allergies Active Allergy Reactions Criticality Noted Date [...] of candidiasis. Do not swallow. 12 g 05/19/20 24 Active fluoride, sodium, (PreviDent) 1.1 % gel [...] needed for pain. Take with food. 06/21/20 24 Active sennosides-docus ate sodium (Senokot-S) 8.6-50 mg per tablet Take 1 tablet by mouth at bedtime as needed for constipation. Take to prevent constipation while using narcotic pain medication. Stop if you experience loose stool or bowel movements are normal. 06/21/20 24 Active acetaminophen (TylenoL) 500 mg tablet Take [...] A DAY NEEDED FOR NAUSEA AND VOMITING 11/07/20 24 Active doxepin (SINEquan) 10 mg/mL concentrated [...] Prolonged Acute Pain/Traumatic Injury. 5 patch 08/24/20 24 Active naloxone (Narcan) 4 mg/actuation nasal spray [...] Acute Pain/Traumatic Injury. 30 tablet 08/07/20 24 12/16/2 024 Discontin ued(Formu zoey change) fentaNYL (Duragesic) 12 mcg/hr patchIndications :Prolonged Acute Pain/Traumatic Injury Place 1 patch on the skin every third day Indication: Prolonged Acute Pain/Traumatic Injury. 5 patch 08/16/20 24 024 Discontin ued(Reord er) Active Problems Problem Noted Date Diagnosed Date Prolonged QT Interval 06/19/2024 Anesthesia Complication Personal History 024 Overview (06/19/2024): Difficult IV access. Hard to [...] Reflux Disease NOS Asthma NOS Depressive Disorder Encounters * This document contains information received from the source organization and may not represent a complete record from that organization. Date Type Department Care Team Description 08/29/2024 7:47 AM INTERNAL COMMUNICATIONS WRITER Hospital Encounter Department of Radiation Oncology in [address] [address] Brian Fair M.D. Garces, Yolanda I., M.D. 08/28/2024 2:35 PM INTERNAL COMMUNICATIONS WRITER Hospital Encounter Department of Radiation Oncology in [address] [address] Brian Fair M.D. Garces, Yolanda I., M.D. 08/28/2024 Clinical Communication Department of Radiation Oncology in [address] [address] Christa Monroe M.D. Nurse Assessment 08/25/2024 11:06 AM INTERNAL COMMUNICATIONS WRITER Hospital Encounter Department of Radiation Oncology in [address] [address] Brian Fair M.D. Garces, Yolanda I., M.D. 08/24/2024 11:06 AM INTERNAL COMMUNICATIONS WRITER - 08/24/2024 3:40 PM INTERNAL COMMUNICATIONS WRITER Hospital Encounter Department of Radiation Oncology in [address] [address] Christa Monroe M.D. Malignant Neoplasm Of Tongue Base (HCC) 08/24/2024 11:06 AM INTERNAL COMMUNICATIONS WRITER Hospital Encounter Department of Radiation Oncology in [address] [address] Brian Fair M.D. Garces, Yolanda I., M.D. 08/22/2024 7:48 AM INTERNAL COMMUNICATIONS WRITER Hospital Encounter Department of Radiation Oncology in [address] [address] Brian Fair M.D. Garces, Yolanda I., M.D. 08/21/2024 3:05 PM INTERNAL COMMUNICATIONS WRITER - 08/22/2024 9:32 AM INTERNAL COMMUNICATIONS WRITER Hospital Encounter Department of Radiation Oncology in [address] [address] Christa Monroe M.D. Wacholz, Abigail M, M.S.W., L.I.C.S.W. Malignant Neoplasm Of Tongue Base (HCC) 08/21/2024 10:08 AM INTERNAL COMMUNICATIONS WRITER Hospital Encounter Department of Radiation Oncology in [address] [address] rBian Fair M.D. Garces, Yolanda I., M.D. 08/18/2024 11:04 AM INTERNAL COMMUNICATIONS WRITER Hospital Encounter Department of Radiation Oncology in [address] [address] Brian Fair M.D. Garces, Yolanda I., M.D. 08/17/2024 11:19 AM INTERNAL COMMUNICATIONS WRITER Hospital Encounter Department of Radiation Oncology in [address] [address] Brian Fair M.D. Garces, Yolanda I., M.D. 08/16/2024 11:10 AM INTERNAL COMMUNICATIONS WRITER - 08/16/2024 1:40 PM INTERNAL COMMUNICATIONS WRITER Hospital Encounter Department of Radiation Oncology in [address] [address] Christa Monroe M.D. Malignant Neoplasm Of Tongue Base (HCC) 08/16/2024 11:10 AM INTERNAL COMMUNICATIONS WRITER Hospital Encounter Department of Radiation Oncology in [address] [address] Brian aFir M.D. Garces, Yolanda I., M.D. 08/16/2024 Orders Only Department of Radiation Oncology in [place], [place] [address] [place] [address] Briana Fermin R.N. 08/15/2024 11:04 AM INTERNAL COMMUNICATIONS WRITER Hospital Encounter Department of Radiation Oncology in [address] [address] Brian Fair M.D. Garces, Yolanda I., M.D. 08/14/2024 9:55 AM INTERNAL COMMUNICATIONS WRITER - 08/14/2024 3:57 PM INTERNAL COMMUNICATIONS WRITER Hospital Encounter Department of Radiation Oncology in [address] [address] Christa Monroe M.D. Malignant Neoplasm Of Tongue Base (HCC) 08/14/2024 9:30 AM INTERNAL COMMUNICATIONS WRITER Hospital Encounter Department of Radiation Oncology in [address] [address] Brian Fair M.D. Garces, Yolanda I., M.D. 08/14/2024 Orders Only Department of Oncology in [place], [place] [address] [place] [phone] Phylicia Campos MPAS, P.A.-Jose., P.A. Tinnitus Bilateral (Primary Dx); Malignant Neoplasm Of Tongue Base (HCC) 08/11/2024 11:11 AM INTERNAL COMMUNICATIONS WRITER Hospital Encounter Department of Radiation Oncology in [place], [place] [address] [place] [address] Brian Fair M.D. Garces, Yolanda I., M.D. 08/11/2024 Clinical Communication Division of Endocrinology in [place], [place] [address] [place] [address] Ria Whalen APRN, C.N.P., M.S. 08/10/2024 11:55 AM INTERNAL COMMUNICATIONS WRITER Hospital Encounter Department of Radiation Oncology in [place], [place] [address] [place] [address] Brian Fair M.D. Garces, Yolanda I., M.D. 08/10/2024 10:00 AM INTERNAL COMMUNICATIONS WRITER Clinical Support Division of Endocrinology in [place], [place] [address] [place] [address] Christa Monroe M.D. Neldner, Indra K, R.NCarri Malignant Neoplasm Of Tongue Base (HCC) 08/10/2024 8:00 AM INTERNAL COMMUNICATIONS WRITER Comprehensive Visit Department of Nutrition and Diabetes Education in [place], [place] [address] [place] [phone] Christa Monroe M.D. Johnson, Danelle A, M.S., RDN, LD Dysphagia (Primary Dx); Malignant Neoplasm Of Tongue Base (HCC); Gastrostomy Status (HCC); Dietary Counseling And Surveillance For Enteral Nutrition 08/10/2024 Documentation Division of General Internal Medicine in [place], [place] [address] [place] [address] Dee Forrest Pharm.D., R.Ph. 08/09/2024 1:05 PM INTERNAL COMMUNICATIONS WRITER Anesthesia Event Department of Radiology in [address] [address] Zachery Enamorado M.D. 08/09/2024 10:09 AM INTERNAL COMMUNICATIONS WRITER - 08/09/2024 4:10 PM INTERNAL COMMUNICATIONS WRITER Hospital Encounter Department of Radiology in [address] [address] Christa Monroe M.D. Augustine, Matthew R, M.D. Eller, Jennifer S, M.D. Malignant Neoplasm Of Tongue Base (HCC) Discharge Disposition: Home or Self Care 08/08/2024 3:20 PM INTERNAL COMMUNICATIONS WRITER Lab Department of Infusion Therapy in [place], [place] [address] [place] [phone] Rebekah Walker, MEHDI, C.N.P., D.N.P. Malignant Neoplasm Of Tongue Base (HCC) (Primary Dx); Dietary Counseling And Surveillance For Enteral Nutrition 08/08/2024 2:00 PM INTERNAL COMMUNICATIONS WRITER Clinical Support Division of Endocrinology in [place], [place] [address] [place] [phone] Christa Monroe M.D. Neldner, Indra K, R.N. Malignant Neoplasm Of Tongue Base (HCC) 08/08/2024 1:00 PM INTERNAL COMMUNICATIONS WRITER Comprehensive Visit Division of Endocrinology in [address] [address] Christa Monroe M.D. McKay, Elisa C, APRN, C.N.P., D.N.P. Dietary Counseling And Surveillance For Enteral Nutrition (Primary Dx); Malignant Neoplasm Of Tongue Base (HCC) 08/08/2024 11:00 AM INTERNAL COMMUNICATIONS WRITER Comprehensive Visit Department of Nutrition and Diabetes Education in [place], [place] [address] [place] [phone] Christa Monroe M.D. Johnson, Danelle A, M.S., RDN, LD Dietary Counseling And Surveillance For Enteral Nutrition (Primary Dx); Malignant Neoplasm Of Tongue Base (HCC); Dysphagia; Gastrostomy Status (HCC) 08/08/2024 7:59 AM INTERNAL COMMUNICATIONS WRITER Hospital Encounter Department of Radiation Oncology in [address] [address] Brian Fair M.D. Garces, Yolanda I., M.D. 08/07/2024 10:23 AM INTERNAL COMMUNICATIONS WRITER Hospital Encounter Department of Radiation Oncology in [address] [address] Christa Monroe M.D. Malignant Neoplasm Of Tongue Base (HCC) 08/07/2024 10:05 AM INTERNAL COMMUNICATIONS WRITER Hospital Encounter Department of Radiation Oncology in [address] [address] Brian Fair M.D. Garces, Yolanda I., M.D. 08/07/2024 9:20 AM INTERNAL COMMUNICATIONS WRITER - 08/07/2024 10:04 AM [facility] Hospital Encounter Department of Radiation Oncology in [address] [address] Christa Monroe M.D. Malignant Neoplasm Of Tongue Base (HCC) (Primary Dx); Secondary Malignant Neoplasm Lymph Node Neck (HCC) 08/07/2024 Clinical Communication Department of Radiology in [place], [place] [address] [place] [address] Bella Monaco, R.N. Procedure 08/07/2024 Documentation Division of Endocrinology in [place], [place] [address] [place] [address] Sachi Araujo RCarriNCarri Scheduling 08/04/2024 11:09 AM [facility] Hospital Encounter Department of Radiation Oncology in [address] [address] Brian Fair M.D. Garces, Yolanda I., M.D. 08/03/2024 10:59 AM INTERNAL COMMUNICATIONS WRITER - 08/03/2024 12:18 PM INTERNAL COMMUNICATIONS WRITER Hospital Encounter Department of Radiation Oncology in [address] [address] Christa Monroe M.D. Robinson, Nicole, CLARITA Malignant Neoplasm Of Tongue Base (HCC) 08/03/2024 10:19 AM INTERNAL COMMUNICATIONS WRITER Hospital Encounter Department of Radiation Oncology in [address] [address] Brian Fair M.D. Garces, Yolanda I., M.D. 08/03/2024 Clinical Communication Department of [facility], in [place], [place] [address] [place] [address] [address] [facility] Form (PT POC 08/01) 08/02/2024 10:49 AM INTERNAL COMMUNICATIONS WRITER - 08/02/2024 3:49 PM INTERNAL COMMUNICATIONS WRITER Hospital Encounter Department of Radiation Oncology in [address] [address] Christa Monroe M.D. Malignant Neoplasm Of Tongue Base (HCC) 08/02/2024 10:49 AM INTERNAL COMMUNICATIONS WRITER Hospital Encounter Department of Radiation Oncology in [address] [address] Brian Fair M.D. Garces, Yolanda I., M.D. 08/02/2024 Orders Only [facility] Adi Allen M.D. 08/01/2024 11:14 AM INTERNAL COMMUNICATIONS WRITER Hospital Encounter Department of Radiation Oncology in [address] [address] Brian Fair M.D. Garces, Yolanda I., M.D. 07/31/2024 1:40 PM INTERNAL COMMUNICATIONS WRITER - 07/31/2024 11:59 PM INTERNAL COMMUNICATIONS WRITER Hospital Encounter Department of Radiation Oncology in [address] [address] LeensBrian schaeffer M.D. Garces, Yolanda I., M.D. Discharge Disposition: Home or Self Care 07/28/2024 2:03 PM INTERNAL COMMUNICATIONS WRITER - 07/28/2024 11:59 PM INTERNAL COMMUNICATIONS WRITER Hospital Encounter Department of Radiation Oncology in [address] [address] Christa Monroe M.D. Discharge Disposition: Home or Self Care 07/26/2024 2:12 PM INTERNAL COMMUNICATIONS WRITER - 07/26/2024 11:59 PM INTERNAL COMMUNICATIONS WRITER Hospital Encounter Department of Radiation Oncology in [address] [address] Christa Monroe M.D. Discharge Disposition: Home or Self Care 07/26/2024 7:45 AM INTERNAL COMMUNICATIONS WRITER - 07/26/2024 2:11 PM INTERNAL COMMUNICATIONS WRITER Hospital Encounter Department of Radiation Oncology in [address] [address] Christa Monroe M.D. Discharge Disposition: Home or Self Care 07/25/2024 1:30 PM INTERNAL COMMUNICATIONS WRITER - 07/26/2024 2:11 PM INTERNAL COMMUNICATIONS WRITER Hospital Encounter Department of Radiation Oncology in [address] [address] Brian Fair M.D. Malignant Neoplasm Of Tongue Base (HCC) 07/25/2024 1:30 PM INTERNAL COMMUNICATIONS WRITER - 07/25/2024 11:59 PM INTERNAL COMMUNICATIONS WRITER Hospital Encounter Department of Radiation Oncology in [address] [address] Christa Monroe M.D. Discharge Disposition: Home or Self Care 07/24/2024 3:00 PM INTERNAL COMMUNICATIONS WRITER - 07/24/2024 11:59 PM INTERNAL COMMUNICATIONS WRITER Hospital Encounter Department of Radiation Oncology in [address] [address] Brian Fair M.D. Garces, Yolanda I., M.D. Discharge Disposition: Home or Self Care 07/18/2024 11:21 AM INTERNAL COMMUNICATIONS WRITER - 07/18/2024 3:29 PM INTERNAL COMMUNICATIONS WRITER Hospital Encounter Department of Radiation Oncology in [address] [address] Christa Monroe M.D. Malignant Neoplasm Of Tongue Base (HCC) 07/18/2024 9:48 AM INTERNAL COMMUNICATIONS WRITER - 07/18/2024 11:20 AM INTERNAL COMMUNICATIONS WRITER Hospital Encounter Department of Radiation Oncology in [address] [address] Christa Monroe M.D. Rhodes, Lori L Malignant Neoplasm Of Tongue Base (HCC) 07/12/2024 Clinical Communication Department of Otorhinolaryngology in [address] [address] Oliver Pinzon M.D. Post-op Problem 07/04/2024 Orders Only Department of Radiation Oncology in [address] [address] Lindsay Rascon APRN, C.N.P., D.N.P. Malignant Neoplasm Of Tongue Base (HCC) (Primary Dx) 07/03/2024 9:10 PM INTERNAL COMMUNICATIONS WRITER Ancillary Procedure Department of Otorhinolaryngology 07/03/2024 2:00 PM INTERNAL COMMUNICATIONS WRITER Comprehensive Visit Department of Oncology in [place], [place] [address] [place] [phone] Clif Chao, P.A.-CCarri Malignant Neoplasm Of Tongue Base (HCC) (Primary Dx); Secondary Malignant Neoplasm Lymph Node Neck (HCC) 07/03/2024 1:30 PM INTERNAL COMMUNICATIONS WRITER Office Visit Department of Otorhinolaryngology in [place], [place] [address] [place] [phone] Oliver Pinzon M.D. Malignant Neoplasm Of Tongue Base (HCC) (Primary Dx); Dysphagia Oropharyngeal Phase [R13.12] 07/03/2024 11:00 AM INTERNAL COMMUNICATIONS WRITER Comprehensive Visit Department of Physical Medicine and Rehabilitation in [place], [place] [address] [place] [address] Camara, Fidelia Zuniga Amanda R, M.S., O.T., CLT-ARYAN Weakness Arm Right [M62.81] (Primary Dx); Malignant Neoplasm Of Tongue Base (HCC); Limitation Of Motion Cervical Spine [M53.9] 07/03/2024 9:30 AM INTERNAL COMMUNICATIONS WRITER Office Visit Department of Dental Specialties in [place], [place] [address] [place] [address] Jocelyn Velazquez D.M.D., M.S. Malignant Neoplasm Of Tongue Base (HCC) (Primary Dx); Secondary Malignant Neoplasm Lymph Node Neck (HCC); Mass Tonsil 06/23/2024 Clinical Communication Department of [facility], in [place], [place] [address] [place] [address] Latisha You R.N. Post Hospital Follow-up 06/20/2024 12:18 PM CDT - 06/20/2024 4:23 PM CDT Surgery [facility] MAIN OR [address] [place] [phone] Oliver Pinzon M.D. ROBOTIC-ASSISTED TONGUE BASE RESECTION. 06/20/2024 12:08 PM CDT Anesthesia Event [facility] MAIN OR [address] [place] [phone] Oliver Salgado M.D. 06/20/2024 9:37 AM CDT - 06/22/2024 11:39 AM CDT Hospital Encounter [facility], Sixth Floor [address] [place] [address] Oliver Pinzon M.D. Malignant Neoplasm Of Tongue Base (HCC); Mass Neck; Malignant Neoplasm Of Neck Squamous Cell; Mass Tonsil Discharge Disposition: Home or Self Care 06/19/2024 4:18 PM CDT - 06/19/2024 11:59 PM CDT Hospital Encounter Department of Laboratory Medicine and Pathology, [facility], in [place], [place] [address] [place] [address] Oliver Pinzon M.D. Malignant Neoplasm Of Tongue Base (HCC); Mass Neck; Malignant Neoplasm Of Neck Squamous Cell; Mass Tonsil; Preoperative Exam Discharge Disposition: Home or Self Care 06/19/2024 4:00 PM CDT Comprehensive Visit Department of Dental Specialties in [place], [place] [address] [place] [address] Kathryn Angela D.D.SCarri Malignant Neoplasm Of Tongue Base (HCC); Mass Neck; Malignant Neoplasm Of Neck Squamous Cell; Mass Tonsil; Preoperative Exam 06/19/2024 2:40 PM CDT Ancillary Procedure Department of Cardiovascular Medicine in [place], [place] [address] [place] [address] Oliver Pinzon M.D. Malignant Neoplasm Of Tongue Base (HCC); Mass Neck; Malignant Neoplasm Of Neck Squamous Cell; Mass Tonsil; Preoperative Exam 06/19/2024 1:39 PM CDT - 06/19/2024 4:17 PM CDT Hospital Encounter Department of Radiology, [facility], in [place], [place] [address] [place] [address] Oliver Pinzon M.D. Meverden, Julia K, M.S., CCC-LITHOGRAPHER HELPER Malignant Neoplasm Of Tongue Base (HCC); Mass Neck; Malignant Neoplasm Of Neck Squamous Cell; Mass Tonsil; Preoperative Exam Discharge Disposition: Home or Self Care 06/19/2024 1:30 PM CDT Comprehensive Visit Department of Neurology in [place], [place] [address] [place] [phone] Oliver Pinzon M.D. Meverden, Julia K, M.S., CCC-LITHOGRAPHER HELPER Dysphagia Oropharyngeal Phase (Primary Dx); Malignant Neoplasm Of Tongue Base (HCC); Mass Neck; Malignant Neoplasm Of Neck Squamous Cell; Mass Tonsil; Preoperative Exam 06/19/2024 9:45 AM CDT Comprehensive Visit Preoperative Evaluation Center in [place], [place] [address] [place] [address] Oliver Pinzon M.D. Bernadette Mathis APRN, C.N.P., M.S.N. Preanesthetic Medical Exam (Primary [...] Preoperative Exam; Anesthesia Complication Personal History 06/19/2024 Clinical Communication Department of Otorhinolaryngology in [place], [place] [address] [place] [address] Lelo Camara P.A.-C. 06/05/2024 10:40 PM CDT Ancillary Procedure Department of Otorhinolaryngology 06/05/2024 2:45 PM CDT Comprehensive Visit Department of Otorhinolaryngology in [place], [place] [address] [place] [phone] Silvano Montes M.D. Moore, Eric J, M.D. Malignant Neoplasm Of Tongue Base (HCC) (Primary Dx); Mass Neck; Malignant Neoplasm Of Neck Squamous Cell; Mass Tonsil; Preoperative Exam 06/05/2024 12:47 PM CDT - 06/05/2024 11:59 PM CDT Hospital Encounter Department of Radiology, [facility] in [place], [place] [address] [place] [address] Silvano Montes M.D. Mass Neck; Malignant Neoplasm Of Neck Squamous Cell; Mass Tonsil Discharge Disposition: Home or Self Care 06/02/2024 Orders Only Department of Otorhinolaryngology in [place] [address] [place] [address] Miriam Ramirez, RFloyd Mass Neck (Primary Dx); Malignant Neoplasm Of Neck Squamous Cell; Mass Tonsil 06/01/2024 7:14 AM CDT - 06/01/2024 9:34 AM CDT Hospital Encounter Department of Radiology, [facility], in [place], [place] [address] [place] [address] Diann Arellano APRN, C.N.P., D.N.P. Hypertrophy Tonsillar Lingual Discharge Disposition: Home or Self Care 06/01/2024 7:01 AM CDT - 06/01/2024 7:12 AM CDT Hospital Encounter Department of Radiology, [facility], in [place], [place] [address] [place] [address] Diann Arellano, MEHDI, C.N.P., D.N.P. Hypertrophy Tonsillar Lingual Discharge Disposition: Home or Self Care from Last 3 Months Immunizations Name Administration Dates Next Due SARS-COV-2 (COVID-19) - PFIZ ER (Discontinued)(12 years or older) 01/24/2021,01/02/2021 Td Preservative Free (TENIVAC, DECAVAC) 05/23/20 04 Family History Medical History Relation Name Comments Breast cancer Cousin Paternal Cousi n Leukemia Paternal Grandfather Relation Name Status Comments Cousin Paternal Grandfather Social History Tobacco Use Types Packs/Day Years Used Date Smoking Tobacco: Former Cigarettes Q uit: 1983 Passive Smoke Exposure: Never Smokeless Tobacco: Former Tobacco Cessation:Counseling Given: Not Answered Comments:1983. He reports smoking less than 1 pack of cigarettes total in his life. Alcohol Use Standard Drinks/Week Comments Not Currently 0 (1 standard drink = 0.6 oz pur e alcohol) [facility] [email or web address] Answer Date Recorded In the past 12 months has [email or web address]), gas, oil, or water [employer] threatened to shut off services in your [...] 12/09/2022 How often do you attend chur ch or yazidi services? Never 12/09/2022 Do you belong to any clubs o r organizations such as christian groups, unions, fraternal or athletic groups, or [...] Answer Date Recorded PHQ-2 Score 2 12/22/2022 [facility]ational Stress Questionnaire Answer Date [...] your living situation today? I have a [facility] place to live 06/20/2024 Education Answer Date Recorded What is the highest level of school you have completed or the highest degree you have received? Associate degree: occupational, technical, or vocational program 09/10/2020 Sex and Gender Information Value Date Recorded Sex Assigned at Male 05/19/2021 9:34 AM CDT Legal Sex Male 10:09 AM INTERNAL COMMUNICATIONS WRITER Gender Identity Male 12/15/2019 2:54 PM CDT Sexual Orientation Straight 12/15/2019 2: 54 PM CDT Occupation Industry Job Start Date Job End Date Not on file Not on file Not on file Not on file Last Filed Vital Signs Vital Sign Reading Time Taken Comments Blood Pressure 127/85 08/24/2024 11:35 AM INTERNAL COMMUNICATIONS WRITER Pulse 84 08/24/2024 11:35 AM INTERNAL COMMUNICATIONS WRITER Temperature 36.3 C (97.3 F) 08/24/2024 11:35 AM INTERNAL COMMUNICATIONS WRITER Respiratory Rate 16 08/09/2024 11:21 AM INTERNAL COMMUNICATIONS WRITER Oxygen Saturation 99% 08/09/2024 3:57 PM INTERNAL COMMUNICATIONS WRITER Inhaled Oxygen Concentration - - Weight 91.9 kg (202 lb 9.6 oz) 08/24/2024 11:35 AM INTERNAL COMMUNICATIONS WRITER Height 177.6 cm (5' 9.92) 08/08/2024 12:[address] Body Mass Index 29.14 08/08/2024 12:29 PM INTERNAL COMMUNICATIONS WRITER Plan of Treatment Upcoming Encounters Date Type Department Care Team (Late st Contact Info) Description 08/31/2024 11:30 AM INTERNAL COMMUNICATIONS WRITER Appointment Department of Radiation Oncology in [place], [place] [address] [place] [address] Brian Fair M.D. [address] [place] [phone] Christa Monroe M.D. [address] [place] [phone] 08/31/2024 11:45 AM INTERNAL COMMUNICATIONS WRITER Appointment Department of Radiation Oncology in [place], [place] [address] [place] [phone] Silvano Braga M.D. [address] [place] [address] 09/01/2024 11:30 AM INTERNAL COMMUNICATIONS WRITER Appointment Department of Radiation Oncology in [address] [address] Brian Fair M.D. [address] [place] [address] Christa Monroe M.D. [address] [place] [phone] 09/04/2024 8:30 AM INTERNAL COMMUNICATIONS WRITER Appointment Department of Radiation Oncology in [place], [place] [address] [place] [address] Brian Fair M.D. [address] [place] [phone] Christa Monroe M.D. [address] [place] [phone] 09/05/2024 8:45 AM INTERNAL COMMUNICATIONS WRITER Appointment Department of Radiation Oncology in [place], [place] [address] [place] [address] Brian Fair M.D. [address] [place] [phone] Christa Monroe M.D. [address] [place] [address] 09/06/2024 11:30 AM INTERNAL COMMUNICATIONS WRITER Appointment Department of Radiation Oncology in [place], [place] [address] [place] [phone] Brian Fair M.D. [address] [place] [address] Christa Monroe M.D. [address] [place] [address] Health Maintenance Due Date Last Done Comments CT Colonography 1965 Cologuard 1965 Colonoscopy 1965 Colorectal Cancer Screening 1965 FIT 1965 Hepatitis C Screening 1965 Visit: Medicare Annual Wellness 1965 Hepatitis B Vaccines (1 of 3 - 19+ 3-dose series) 1984 Pneumococcal vaccine (50+ years) (1 of 2 - PCV) 1984 Zoster Vaccines (1 of 2) 1984 COVID-19 Vaccine (3 - Pfizer risk series) 02/21/2021 01/24/2021, 01/02/2021 Depression Monitoring (PHQ-9) 04/23/2023 12/22/2022 Generalized Anxiety (NINI-7) 12/23/2023 12/22/2022 Influenza Vaccine (#1) 2024 Controlled Substance Agreement 08/16/2024 Controlled Substance Monitoring (PHQ-9) 08/16/2024 12/22/2022 Controlled Substance Monitoring 08/16/2024 Opioid Risk Tool (ORT) 08/16/2024 PEG assessment for Opioid therapy 08/16/2024 Depression Monitoring (PHQ-9 for quality tracking) 08/30/2024 Lipid (Cholesterol) Screening 07/07/2026 07/07/2021 Fasting Glucose for Diabetes Screening 08/08/2027 08/08/2024, 06/19/2024, 05/18/2024, Additional history exists DTaP,Tdap,and Td Vaccines (2 - Td or Tdap) 12/14/2031 12/13/2021, 05/23/2004 HPV Vaccines Aged Out No longer eligi ble based on patient's age to complete this topic IPV Vaccines Aged Out No longer eligi ble based on patient's age to complete this topic Medical Devices Implanted Type Area Optical Lathe Operator Device Identifier Shelf Expiration Date Model / Serial / Lot Gr [facility] - [id number] - [id number] Implanted:Qt y: 1 on 11/26/2020 by Mac Pedersen M.D. at [facility] Bone or Tissue Anterior: Spine Cervical Medtronic 10/01/2022 [id number] / [id number] / Hardware E.G. Pins/Screws/ Rods- 019 Implanted: (Quantity not on file) Hardware e.g. pins/screw s/rods Shoulder Spn Scrw Gabriele Sfdr Thrd 4x18 - Sna - [id number] Implanted:Qt y: 4 on 11/26/2020 by Mac Pedersen M.D. at [facility] Hardware e.g. pins/screw s/rods Anterior: Spine Cervical Depuy Synthes [id number] / NA / NA Spn Plt Gabriele L1 14 - Sna - [id number] Implanted:Qt y: 1 on 11/26/2020 by Mac Pedersen M.D. at [facility] Hardware e.g. pins/screw s/rods Anterior: Spine Cervical Depuy Synthes [id number] / NA / NA Spn Cg Cndt Cif 8mm 8d L - Sna - [id number] Implanted:Qt y: 1 on 11/26/2020 by Mac Pedersen M.D. at [facility] Spine Implant Anterior: Spine Cervical Depuy Synthes [id number] 09/29/2024 [id number] / NA / [id number] Procedures Procedure Name Priority Date/Time Associated Diagnosis Comments ARIA DAILY TREATMENT INFORMATION Routine 08/29/2024 8:10 AM INTERNAL COMMUNICATIONS WRITER ARIA DAILY TREATMENT INFORMATION Routine 08/28/2024 3:12 PM INTERNAL COMMUNICATIONS WRITER ARIA DAILY TREATMENT INFORMATION Routine 08/25/2024 11:50 AM INTERNAL COMMUNICATIONS WRITER ARIA DAILY TREATMENT INFORMATION Routine 08/24/2024 11:23 AM INTERNAL COMMUNICATIONS WRITER ARIA DAILY TREATMENT INFORMATION Routine 08/22/2024 8:04 AM INTERNAL COMMUNICATIONS WRITER ARIA DAILY TREATMENT INFORMATION Routine 08/21/2024 10:30 AM INTERNAL COMMUNICATIONS WRITER ARIA DAILY TREATMENT INFORMATION Routine 08/18/2024 11:27 AM INTERNAL COMMUNICATIONS WRITER ARIA DAILY TREATMENT INFORMATION Routine 08/17/2024 11:29 AM INTERNAL COMMUNICATIONS WRITER ARIA DAILY TREATMENT INFORMATION Routine 08/16/2024 11:24 AM INTERNAL COMMUNICATIONS WRITER ARIA DAILY TREATMENT INFORMATION Routine 08/15/2024 11:27 AM INTERNAL COMMUNICATIONS WRITER ARIA DAILY TREATMENT INFORMATION Routine 08/14/2024 10:02 AM INTERNAL COMMUNICATIONS WRITER ARIA DAILY TREATMENT INFORMATION Routine 08/11/2024 11:36 AM INTERNAL COMMUNICATIONS WRITER ARIA DAILY TREATMENT INFORMATION Routine 08/10/2024 12:08 PM INTERNAL COMMUNICATIONS WRITER ADULT OXYGEN THERAPY Routine 08/09/2024 2:05 PM INTERNAL COMMUNICATIONS WRITER IR CT GUIDANCE RAD - Routine (most inpatients and all outpatients) 08/09/2024 2:00 PM INTERNAL COMMUNICATIONS WRITER Malignant Neoplasm Of Tongue Base (HCC) IR GASTROSTOMY TUBE PLACEMENT RAD - Routine (most inpatients and all outpatients) 08/09/2024 2:00 PM INTERNAL COMMUNICATIONS WRITER Malignant Neoplasm Of Tongue Base (HCC) C-REACTIVE PROTEIN (CRP), S/P Routine 08/08/2024 3:04 PM INTERNAL COMMUNICATIONS WRITER Dietary Counseling And Surveillance For Enteral Nutrition MAGNESIUM, S Routine 08/08/2024 3:04 PM INTERNAL COMMUNICATIONS WRITER Dietary Counseling And Surveillance For Enteral Nutrition PHOSPHORUS (INORGANIC), S Routine 08/08/2024 3:04 PM INTERNAL COMMUNICATIONS WRITER Dietary Counseling And Surveillance For Enteral Nutrition BASIC METABOLIC PANEL, S/P Routine 08/08/2024 3:04 PM INTERNAL COMMUNICATIONS WRITER Dietary Counseling And Surveillance For Enteral Nutrition ARIA DAILY TREATMENT INFORMATION Routine 08/08/2024 8:16 AM INTERNAL COMMUNICATIONS WRITER ARIA DAILY TREATMENT INFORMATION Routine 08/07/2024 10:21 AM INTERNAL COMMUNICATIONS WRITER ARIA DAILY TREATMENT INFORMATION Routine 08/04/2024 11:48 AM INTERNAL COMMUNICATIONS WRITER ARIA DAILY TREATMENT INFORMATION Routine 08/03/2024 10:49 AM INTERNAL COMMUNICATIONS WRITER ARIA DAILY TREATMENT INFORMATION Routine 08/02/2024 11:33 AM INTERNAL COMMUNICATIONS WRITER ARIA DAILY TREATMENT INFORMATION Routine 08/01/2024 11:48 AM INTERNAL COMMUNICATIONS WRITER ARIA DAILY TREATMENT INFORMATION Routine 07/31/2024 2:22 PM INTERNAL COMMUNICATIONS WRITER ARIA DAILY TREATMENT INFORMATION Routine 07/28/2024 2:21 PM INTERNAL COMMUNICATIONS WRITER ARIA DAILY TREATMENT INFORMATION Routine 07/26/2024 2:34 PM INTERNAL COMMUNICATIONS WRITER ARIA DAILY TREATMENT INFORMATION Routine 07/26/2024 8:03 AM INTERNAL COMMUNICATIONS WRITER ARIA DAILY TREATMENT INFORMATION Routine 07/25/2024 2:07 PM INTERNAL COMMUNICATIONS WRITER ARIA DAILY TREATMENT INFORMATION Routine 07/24/2024 3:49 PM INTERNAL COMMUNICATIONS WRITER INITIAL RAD ONC TREATMENT PLANNING CT SIMULATION Routine 07/18/2024 11:30 AM INTERNAL COMMUNICATIONS WRITER Malignant Neoplasm Of Tongue Base (HCC) OTORHINOLARYNGOLOGY IMAGE EXAM Routine 07/03/2024 2:41 PM INTERNAL COMMUNICATIONS WRITER Max DE FLUORIDE APPLICATOR ONE ARCH Routine 07/03/2024 9:30 AM INTERNAL COMMUNICATIONS WRITER 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 Tonsil George DE FLUORIDE APPLICATOR ONE ARCH Routine 07/03/2024 9:30 AM INTERNAL COMMUNICATIONS WRITER Malignant Neoplasm Of Tongue Base (HCC) Secondary [...] Neck Squamous Cell Mass Tonsil Case Notes HOSPITAL PLAN ADMINISTRATOR 0940 ROBOTIC-ASSISTED TONGUE BASE RESECTION 06/20/2024 11:42 AM CDT Malignant Neoplasm Of Tongue Base (HCC) Mass Neck 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 Course ID [id number] LEBRON ARIA Course Start Date 4 08:29 INTERNAL COMMUNICATIONS WRITER [facility] First Treatment Date 4 15:47 INTERNAL COMMUNICATIONS WRITER FRESH MEADOWS ARIA Last Treatment Date 4 08:10 INTERNAL COMMUNICATIONS WRITER LEBRON ARIA Treatment Elapsed Days 36 [facility] Reference Point [id number] LEBRON ARIA Dosage Given to Date cGy 5000 LEBRON ARIA Session Dosage Given 200 [facility] Plan ID [id number] [facility] Fractions Treated to Date 25 LEBRON STANLEY Planned Total Fractions 30 [facility] Prescribed Dose Per Fraction 200 [facility] Prescription Dose in cGy [address] [facility] Plan Primary Reference Point [id number] BERNARDINO ANGEL 08/29/2024 8:10 AM INTERNAL COMMUNICATIONS WRITER us Provider Not In System RADIATION ONCOLOGY ORDERA BLES Final Result BERNARDINO ANGEL na * IR CT Guidance (08/09/2024 2:00 PM INTERNAL COMMUNICATIONS WRITER) Anatomical Region Laterality Modality Body, Vascular Interventiona l RST LOS, Neuro Interventional RST LOS, Vascular Interventional ARZ LOS, Neuroradiology ARZ LOS, Vascular Interventional FLA LOS N/A X-Ray Angiography Impressions 08/10/2024 7:39 AM INTERNAL COMMUNICATIONS WRITER Placement of a 16 Croatian percutaneous gastrostomy tube. Nothing by mouth or tube for 2 hours (strict). Then use of mouth or tube for water, medications, and/or tube feeds per Nutrition note/order. Exchange tube in 3-5 months. Contact the [facility] at [phone] to schedule the tube exchange. NR Narrative 08/10/2024 7:39 AM INTERNAL COMMUNICATIONS WRITER EXAM: IR GASTROSTOMY TUBE PLACEMENT, IR CT GUIDANCE CLINICAL HISTORY: 59-year-old male with head and neck cancer requiring gastrostomy tube placement for enteral nutrition. Pre-Procedure Diagnosis: Cancer. Indication: Feeding. TECHNIQUE: Balloon Assisted. The patient was placed supine on the fluoroscopy table. Under fluoroscopic guidance, a 4 Croatian catheter was placed as a nasogastric tube. [...] applied. No immediate complication. Tube Type: Gastrostomy, [place]. Tube Connection: ENFit. Tube Size: a 16 [...] IR Gastrostomy Tube Placement (08/09/2024 2:00 PM INTERNAL COMMUNICATIONS WRITER) Anatomical Region Laterality Modality Abdomen, Vascular Interventi onal RST LOS, Vascular Interventional ARZ LOS, Vascular Interventional FLA LOS N/A X-Ray Angiography Impressions 08/10/2024 7:39 AM INTERNAL COMMUNICATIONS WRITER Placement of a 16 [place] percutaneous gastrostomy tube. Nothing by mouth or tube for 2 hours (strict). Then use of mouth or tube for water, medications, and/or tube feeds per Nutrition note/order. Exchange tube in 3-5 months. Contact the [facility] at [phone] to schedule the tube exchange. NR Narrative 08/10/2024 7:39 AM INTERNAL COMMUNICATIONS WRITER EXAM: IR GASTROSTOMY TUBE PLACEMENT, IR CT GUIDANCE CLINICAL HISTORY: 59-year-old male with head and neck cancer requiring gastrostomy tube placement for enteral nutrition. Pre-Procedure Diagnosis: Cancer. Indication: Feeding. TECHNIQUE: Balloon Assisted. The patient was placed supine on the fluoroscopy table. Under fluoroscopic guidance, a 4 [place] catheter was placed as a nasogastric tube. [...] applied. No immediate complication. Tube Type: Gastrostomy, [place]. Tube Connection: ENFit. Tube Size: a 16 [...] were discussed. Sedation provided by Anesthesiology. Christa Monroe M.D. IMG IR PROCEDURES Final R esult * (ABNORMAL) CRP (C-Reactive Protein) (08/08/2024 3:04 PM INTERNAL COMMUNICATIONS WRITER) C-Reactive Protein (CRP), S 9.6(H) <5.0 mg/L 08/08/2024 4:05 PM INTERNAL COMMUNICATIONS WRITER DTL Blood (Blood, PICC) 08/08/2024 3:04 PM INTERNAL COMMUNICATIONS WRITER 08/08/2024 3:44 PM INTERNAL COMMUNICATIONS WRITER Rebekah Walker APRN, C.N.P., D.N.P. LAB BLOOD ADD -ON Final Result Performing Organization Address [facility]/ZIP Co de Phone Number [facility] [address] [place] [address] * Phosphorus Inorganic (08/08/2024 3:04 PM INTERNAL COMMUNICATIONS WRITER) Pathologist [facility] Phosphorus (Inorganic), S 2.8 2.5 - 4.5 mg/dL 08/08/2024 4:05 PM INTERNAL COMMUNICATIONS WRITER DTL Blood (Blood, PICC) 08/08/2024 3:04 PM INTERNAL COMMUNICATIONS WRITER 08/08/2024 3:44 PM INTERNAL COMMUNICATIONS WRITER Rebekah Walker APRN, C.N.P., D.N.P. LAB BLOOD ADD -ON Final Result Performing Organization Address City/[facility]/ZIP Co de Phone Number [facility] [address] [place] [address], [place] [address] * Magnesium (08/08/2024 3:04 PM INTERNAL COMMUNICATIONS WRITER) Magnesium, S 2.1 1.7 - 2.3 mg/dL 08/08/2024 4:05 PM INTERNAL COMMUNICATIONS WRITER DTL Blood (Blood, PICC) 08/08/2024 3:04 PM INTERNAL COMMUNICATIONS WRITER 08/08/2024 3:44 PM INTERNAL COMMUNICATIONS WRITER Rebekah Walker APRN, C.N.P., D.N.P. LAB BLOOD ADD -ON Final Result [facility] [address] [place] [address], [facility] DTL [facility] [address] [place] [address] * (ABNORMAL) Basic Metabolic Panel (08/08/2024 3:04 PM INTERNAL COMMUNICATIONS WRITER) Only the most recent of2 resultswithin the time period is included. Pathologist [facility] Potassium, S 4.0 3.6 - 5.2 mmol/L 08/08/2024 4:05 PM INTERNAL COMMUNICATIONS WRITER DTL Sodium, S 139 135 - 145 mmol/L 08/08/2024 4:05 PM INTERNAL COMMUNICATIONS WRITER DTL Chloride, S 104 98 - 107 mmol/L 08/08/2024 4:05 PM INTERNAL COMMUNICATIONS WRITER DTL Bicarbonate, S 22 22 - 29 mmol/L 08/08/2024 4:05 PM INTERNAL COMMUNICATIONS WRITER DTL Anion Gap 13 7 - 15 08/08/2024 4:05 PM INTERNAL COMMUNICATIONS WRITER DTL BUN (Blood Urea Nitrogen), S 28(H) 8 - 24 mg/dL 08/08/2024 4:05 PM INTERNAL COMMUNICATIONS WRITER DTL Creatinine 0.89 0.74 - 1.35 mg/dL 08/08/2024 4:05 PM INTERNAL COMMUNICATIONS WRITER DTL Estimated GFR (eGFR) >90 >=60 mL/min/BSA 08/08/2024 4:05 PM INTERNAL COMMUNICATIONS WRITER DTL Comment: Estimated GFR calculated using the 2020 CKD_EPI creatinine equation. Calcium, Total, S 9.3 8.6 - 10.0 mg/dL 08/08/2024 4:05 PM INTERNAL COMMUNICATIONS WRITER DTL Glucose, S 125 70 - 140 mg/dL 08/08/2024 4:05 PM INTERNAL COMMUNICATIONS WRITER DTL Blood (Blood, PICC) 08/08/2024 3:04 PM INTERNAL COMMUNICATIONS WRITER 08/08/2024 3:44 PM INTERNAL COMMUNICATIONS WRITER us Rebekah Isiah Khan APRNNCarriP., D.N.P. LAB BLOOD ADD -ON Final Result Performing Organization Address [facility] Co de Phone Number [facility] [address] [place] [address], [place] DTL [facility] [address] [place] [address] * Initial Rad Onc Treatment Planning CT Simulation without IV Contrast (07/18/2024 11:30 AM INTERNAL COMMUNICATIONS WRITER) Narrative BERNARDINO ANGEL - 07/18/2024 11:30 AM INTERNAL COMMUNICATIONS WRITER Marissa Rueda 07/18/2024 12:21 PM Initial Rad Onc Treatment Planning CT Simulation without IV Contrast Performed by: Christa Monroe M.D. Authorized by: Christa Monroe M.D. Christa Monroe M.D. RADIATION ONCOLOGY ORDERA BLES Final Result Performing Organization Address [facility] de Phone Number BERNARDINO ANGEL na * ENT Procedure-Otorhinolaryngology Image Exam (07/03/2024 2:41 PM INTERNAL COMMUNICATIONS WRITER) Only the most recent of2 resultswithin the time period is included. Narrative ANKIT - 07/03/2024 2:41 PM INTERNAL COMMUNICATIONS WRITER This order has been created and auto-finalized to support the import of images acquired without order. The clinical documentation to support these images can be found on the encounter that produced images. us Provider Not In System IMG NON RAD IMAGING PROCE DURES Final Result Performing Organization Address [facility] Co de Phone Number IIMS NA * Misc Naveris - Sent Out Lab (06/22/2024 9:04 AM CDT) Test Name NavDx 06/22/2024 2:55 PM CDT MIK Result SEE COMMENT 07/01/2024 10:29 AM CDT MIK Comment: For final report, select Lab-Send Out Lab Results hyperlink below. 06/22/2024 9:04 AM CDT 06/22/2024 2:55 PM CDT us Isiah De Souza APRNNAnthony, M.S.N. LAB MISC ORDERA BLES Final Result [place] [address] [facility], [address] [address], [facility] MIK GarciaSur[employer] App Sharmaine. 8 [facility], [address] [address] * Dental Lab (06/21/2024) Narrative Francisca Gee C.D.T. - 06/21/2024 Poured and trimmed by Meche Aguero Fluoride carriers by Francisca Ramirez C.D.T. and Meche Aguero us Kathryn Angela D.D.S. DENTAL ORDERABLES Final R esult * Surgical Pathology, Frozen Lab (06/20/2024 12:43 PM CDT) 07/03/2024 4:53 PM INTERNAL COMMUNICATIONS WRITER STMA Participated in the Interpretation Rajni MárquezS. -Pathology Fellow 07/03/2024 4:53 PM INTERNAL COMMUNICATIONS WRITER STMA Report electronically signed by Reece Perez M.D. I verify that I have examined all relevant slides/materials for the specimen(s) and rendered or confirmed the diagnosis. 07/03/2024 4:53 PM INTERNAL COMMUNICATIONS WRITER STMA Frozen Intraoperative Report A. Oropharynx, right base [...] M.D. 06/21/2024 4:21 PM 07/03/2024 4:[address] [facility] Gross Description A. Received fresh labeled right [...] the lateral, medial, and inferior mucosal margins. Waste Collection Driver tissue submitted for frozen and permanent sections. Grossed by Silvano Storey M.S., BAILEY([facility]). B. Received fresh labeled right base of tongue superior margin is a 1.1 x 0.4 x 0.3 cm portion of hill-red soft tissue with orientation. The margin is shaved. All submitted for frozen and permanent sections. Grossed by JOHN Lainez PA ([facility]). C. Received fresh labeled right base of tongue lateral margin is a 1 x 0.4 x 0.3 cm portion of hill-red soft tissue with orientation. The margin is shaved. All submitted for frozen and permanent sections. Grossed by JOHN Lainez PA ([facility]). D. Received fresh labeled right base of tongue inferior margin is a 1 x 0.9 x 0.3 cm portion of pink-red, cauterized soft tissue with orientation. The margin is shaved (margin up). All submitted for frozen and permanent sections. Grossed by Danielle Gomes PA([facility]). E. Received fresh labeled right base of tongue medial margin is a 1.3 x 1 x 0.5 cm portion of hill-red soft tissue with orientation. The margin is shaved. All submitted for frozen and permanent sections. Grossed by JOHN Lainez PA ([facility]). F. Received fresh labeled right base of tongue deep margin is a 1.5 x 1.1 x 0.3 cm portion of hill-red soft tissue with orientation. The margin is shaved. All submitted for frozen and permanent sections. Grossed by JOHN Lainez PA ([facility]). G. Received fresh labeled right neck dissection [...] permanent sections. Grossed by Silvano Storey M.S., [facility]). 07/03/2024 4:53 PM INTERNAL COMMUNICATIONS WRITER STMA Block Summary A Right base of [...] nodes 2of2(G17) - frozen 07/03/2024 4:53 PM INTERNAL COMMUNICATIONS WRITER STMA Interpretation REVISION DESCRIPTION This report was [...] Studies Ancillary Studies Performed: p16 previously performed ([id number]) The synoptic report incorporates information from all relevant surgical material and includes all required data elements of the current CAP Cancer Protocol. 07/03/2024 4:53 PM INTERNAL COMMUNICATIONS WRITER STMA Comment: REVISED RESULTS ----PREVIOUSLY REPORTED ---- [...] Tissue (Neck, Right) 06/20/2024 2:25 PM CDT us Oliver Pinzon M.D. LAB SURG PATH ORDERABLES Edite d Result - Final [facility] [address] [place] [address], [facility] [address] [facility] [address] [place] [address] * LDA ANE ENDOTRACHEAL AIRWAY (06/20/2024 12:22 PM CDT) Narrative Shonna Ohara APRN, CRNA - 06/20/2024 12:22 PM CDT Shonna Ohara APRN, CRNA 06/20/2024 12:27 PM Airway Date/Time: 06/20/2024 12:22 PM Performed by: Shonna Ohara APRN, CRNA Authorized by: Oliver Salgado M.D. Patient location during procedure: OR / Procedure Area PROCEDURE DETAILS: Mask difficulty assessment: oral/nasal airway needed Final airway type: video laryngoscope Laryngeal Manipulation: no Final best view of glottic structures - Cormack/Lehane Score: grade 1 ETT location: oral VL device: glide scope [place] scope blade size: 4 Tube size: 7.5 ETT distance at teeth/gum: 28 Oral tube type: suspension tube ([employer]PRESENTATIVE METALS) Cuffed: yes Leak Test Performed: no Number [...] outcome: successful Notable Events: no complications us Oilver Salgado M.D. ANESTHESIA ORDERABLES Fin al Result * [employer] (06/19/2024 4:37 PM CDT) Narrative Kathryn [...] Pinzon M.D. LAB BLOOD ADD-ON Final Result [facility] [address] [place] [address], [facility] DTL [facility] [address] [place] [address] DHPM [facility] [address] [place] [address] * FL Swallow Function with Video and [...] video swallow study was performed in conjunction witheech Pathology using thin liquid, mildly thick liquid, pureesolid, and regular solid barium consistencies. No laryngeal penetrationor aspiration. No significant vallecular or piriform sinus residue. Postsurgical changes of C5-6 ACDF with interbody spacer. IMPRESSION: Normal video swallow study. Please see Speech Pathology reportfor additional details and recommendations. us Oliver Pinzon M.D. IMG FLUOROSCOPY PROCEDURES Fin al Result * ECG 12 Lead (06/19/2024 9:00 AM CDT) Ventricular Rate ECG/Min 75 BPM MUSE DE Interval 162 ms MUSE QRSD Interval 84 ms MUSE QT Interval 490 ms MUSE QTC Interval 547 ms MUSE P [place] 10 degrees MUSE R [place] 4 degrees MUSE T Wave [place] 16 degrees MUSE CODED DIAGNOSIS Semi-Urgent Finding [...] RADIOPHARMACEUTICAL/MEDS: Route: intravenous fludeoxyglucose F 18 injection HALF-WAY (FDG F-18),9.89 millicurie TECHNIQUE: F18 FDG PET/CT [...] RADIOPHARMACEUTICAL/MEDS: Route: intravenous fludeoxyglucose F 18 injection HALF-WAY (FDG F-18),9.89 millicurie TECHNIQUE: F18 FDG PET/CT [...] avid lymph nodes or FDG avid distantmetastases. us Silvano Montes M.D. IMG NM PROCEDURES Final [...] core biopsies) (06/01/2024 8:53 AM CDT) (A) 4 9:23 AM CDT DTL Disclaimer This test was developed and its performance characteristics determined by [facility] in a manner consistent with CLIA [...] D.N.P. LAB SURG PATH ORDERABLES Final Result [facility] [address] [place] [address], [facility] DT 200 [facility] [address] [place] [address] * US Head Neck Soft Tissue (06/01/2024 [...] on recent CT. Pleasesee separate biopsy report. Diann Arellano APRN, C.N.P., D.N.P. [facility] PROCED URES Final Result * (ABNORMAL) Lipid Panel (07/07/2021 7:32 AM INTERNAL COMMUNICATIONS WRITER) Cholesterol, Total 165 mg/dL 2020 8:14 AM INTERNAL COMMUNICATIONS WRITER OWAT Comment: ----REFERENCE VALUE---- Desirable: < 200 Borderline high: 200 - 239 High: > or = 240 Triglycerides 214(H) mg/dL 07/07/2021 8:14 AM INTERNAL COMMUNICATIONS WRITER [place]AT Comment: ----REFERENCE VALUE---- Normal: <150 Borderline high: 150-199 High: 200-499 Very high: > or =500 Cholesterol, HDL 38(L) >=40 mg/dL 07/07/20 8:14 AM INTERNAL COMMUNICATIONS WRITER [place]AT Calculated LDL 84 mg/dL 07/07/2021 8:14 AM INTERNAL COMMUNICATIONS WRITER [place]AT Comment: ----REFERENCE VALUE---- Desirable: <100 mg/dL Above Desirable: 100-129 mg/dL Borderline High: 130-159 mg/dL High: 160-189 mg/dL Very High: >=190 mg/dL Cholesterol, Non-HDL, Calculated 127 mg/dL 07/07/2021 8:14 AM INTERNAL COMMUNICATIONS WRITER [place]AT Comment: ----REFERENCE VALUE---- Desirable: <130 Above Desirable: 130-159 Borderline high: 160-189 High: 190-219 Very high: > or =220 Blood (Blood, Venous) 07/07/2021 7:32 AM INTERNAL COMMUNICATIONS WRITER 07/07/2021 7:42 AM INTERNAL COMMUNICATIONS WRITER us Adi Allen M.D. LAB BLOOD ADD-ON Final Resu lt [facility] [address] [place] [address], [facility] OWAT [facility] [place] [address] [place] [address] from Last 3 Months or Most Recently Relevant to Health Maintenance Insurance MEDICARE [facility] Advance Directives For more information, please contact: [phone] * Full Code (Latest Code Status on File) Date Activated Date Inactivated Comments 06/20/2024 7:14 PM 06/22/2024 1:44 PM Question Answer Comments Full Code: Not Discussed Due to: Patient not available Care Teams [employer] Relationship Specialty Start Date End Date Adi Allen M.D. [address] [place] [address] PCP - General 02/11/17
--- OUTSIDE RECORDS SUMMARY | 2024-08-31 07:22 | XMS_ITS | Encounter Summary ---
Author Organization [facility] Address [address] [place] [address] Care Team Providers Care Countersinker Balance Screw Hole Name Role Phone Adi Allen M.D. Primary Care Provider Encounter Details Date Type Department Care Team (Late st Contact Info) Description 08/28/2024 2:35 PM [facility] Hospital Encounter Department of Radiation Oncology in [place], [place] [address] [place] [phone] Brian Fair M.D. [address] [place] [phone] Christa Monroe M.D. [address] [place] [phone] Social History Tobacco Use Types Packs/Day Years Used Date Smoking Tobacco: Former Cigarettes Q uit: 1983 Passive Smoke Exposure: Never Smokeless Tobacco: Former Comments:1983. He reports sm oking less than 1 pack of cigarettes total in his life. Alcohol Use Standard Drinks/Week Comments Not Currently 0 (1 standard drink = 0.6 oz pur e alcohol) [facility] Utilities Answer Date Recorded In the [...] How often do you attend chur or restorationism services? Never 12/09/2022 Do you belong to any clubs o r organizations such as zoroastrian groups, unions, fraternal or athletic groups, or [...] Answer Date Recorded PHQ-2 Score 2 12/22/2022 [facility] of Occupat ional Health - Occupational Stress [...] your living situation today? I have a [facility] place to live 06/20/2024 Education Answer Date Recorded What is the highest level of school you have completed or the highest degree you have received? Associate degree: occupational, technical, or vocational program 09/10/2020 Sex and Gender Information Value Date Recorded Sex Assigned at Male 05/19/2021 9:34 AM CDT Legal Sex Male 10:09 AM RABBET OPERATOR Gender Identity Male 12/15/2019 2:54 PM CDT Sexual Orientation Straight 12/15/2019 2: 54 PM CDT Occupation Industry Job Start Date Job End Date Not on file Not on file Not on file Not on file documented as of this encounter Plan of Treatment Upcoming Encounters Date Type Department Care Team (Late st Contact Info) Description 08/31/2024 11:30 AM RABBET OPERATOR Appointment Department of Radiation Oncology in [address] [phone] Brian Fair M.D. [address] [place] [phone] Christa Monroe M.D. [address] [place] [phone] 08/31/2024 11:45 AM RABBET OPERATOR Appointment Department of Radiation Oncology in [place], [place] [address] [place] [phone] Silvano Braga M.D. [address] [place] [phone] 09/01/2024 11:30 AM RABBET OPERATOR Appointment Department of Radiation Oncology in [address] [phone] Brian Fair M.D. [address] [place] [phone] Christa Monroe M.D. [address] [place] [phone] 09/04/2024 8:30 AM RABBET OPERATOR Appointment Department of Radiation Oncology in [place], [place] [address] [place] [address] Brian Fair M.D. [address] [place] [phone] Christa Monroe M.D. [address] [place] [phone] 09/05/2024 8:45 AM RABBET OPERATOR Appointment Department of Radiation Oncology in [place] [address] [place] [address] Brian Fair M.D. [address] [place] [phone] Christa Monroe M.D. [address] [place] [phone] 09/06/2024 11:30 AM RABBET OPERATOR Appointment Department of Radiation Oncology in [place], [place] [address] [place] [address] Brian Fair M.D. 200 [place] [phone] Christa Monroe M.D. [address] [place] [phone] documented as of this encounter Visit Diagnoses Not on filedocumented in this encounter Additional Health Concerns Assessment Noted Time PHQ-9 Depression Total Score: 10 023 7:28 AM CDT documented as of this encounter Care Teams Countersinker Balance Screw Hole Relationship Specialty Start Date End Date Adi Allen M.D. [address] [place] [phone] PCP - General 02/11/17 documented as of this encounter
--- OUTSIDE RECORDS SUMMARY | 2024-08-31 07:22 | XMS_ITS ---
Author Organization [facility] Address [address] [place] [address] Care Team Providers Care Pierogi Maker Name Role Phone Unavailable Unavailable Unavailable Surgery Details Not on file Complications Check Surgery Details section. Procedure Estimated Blood Loss Check Surgery Details section. Procedure Findings Check Surgery Details section. Procedure Specimens Taken Check Surgery Details section.
--- OUTSIDE RECORDS SUMMARY | 2024-08-31 07:22 | XMS_ITS ---
Author Organization [facility] Address [address] [place] [address] Care Team Providers Care Director Of Sustainability Programs Name Role Phone Adi Allen M.D. Primary Care Provider Active Problems * This document contains information received from the source organization and may not represent a complete record from that organization. Problem Noted Date Diagnosed Date Prolonged QT [...] Reflux Disease NOS Asthma NOS Depressive Disorder Current Oncology Plans Vascular Access Patency - Peripheral Inserted Central Catheter (PICC) Valved Catheter* Plan Start Date:08/08/2024 Linked Problems Malignant Neoplasm Of Tongue Base (HCC) Treatment Medications No medications scheduled. Past Plans No past plan information found. Radiation Treatments * Plan Last Treated On Elapsed Days Fractions Treated Prescribed Fraction Dose Prescribed Total Dose F1Opx 08/29/2024 36 25 of 30 200 cGy 6,000 cGy Reference Point Last Treated On Elapsed Days Session Dose Total Dose [id number] 08/29/2024 36 200 cGy 5,000 cGy Lifetime Dose Tracking * Chemical Lifetime Dose Automatic Entry Manual Entr y Radiation 183.29 mGy 183.29 mGy 0 mGy Fluoro Time 8.35 minutes 8.35 minutes 0 minutes DAP (Gy-cm2) 1.03 Gy-cm2 1.03 Gy-cm2 0 Gy-cm2 DAP (uGy-m2) 1,608.61 uGy-m2 1,608.61 uGy-m2 0 uGy-m2 DAP (mGy-cm2) 4,681 mGy-cm2 4,681 mGy-cm2 0 mGy-cm2
--- OUTSIDE RECORDS SUMMARY | 2024-08-31 07:23 | XMS_ITS | Encounter Summary ---
Author Organization [facility] Address [address] [place] [address] Care Team Providers Care Cannon Crewmember Name Role Phone Adi Allen M.D. Primary Care Provider [phone] Encounter Details Date Type Department Care Team (Late st Contact Info) Description 08/22/2024 7:48 AM [facility] Hospital Encounter Department of Radiation Oncology in [place], [place] [address] [place] [phone] Brian Fair M.D. [address] [place] [phone] Christa Monroe M.D. [address] [place] [phone] Social History Tobacco Use Types Packs/Day Years Used Date Smoking Tobacco: Former Cigarettes Q uit: 1983 Passive Smoke Exposure: Never Smokeless Tobacco: Former Comments:1983. He reports sm oking less than 1 pack of cigarettes total in his life. Alcohol Use Standard Drinks/Week Comments Not Currently 0 (1 standard drink = 0.6 oz pur e alcohol) [facility] Utilities Answer Date Recorded In the [...] How often do you attend chur or pentecostalism services? Never 12/09/2022 Do you belong to any clubs o r organizations such as confucianism groups, unions, fraternal or athletic groups, or [...] Answer Date Recorded PHQ-2 Score 2 12/22/2022 [facility] [place] of Occupat ional Health - Occupational Stress [...] your living situation today? I have a [facility] place to live 06/20/2024 Education Answer Date Recorded What is the highest level of school you have completed or the highest degree you have received? Associate degree: occupational, technical, or vocational program 09/10/2020 Sex and Gender Information Value Date Recorded Sex Assigned at Male 05/19/2021 9:34 AM CDT Legal Sex Male 10:09 AM PROFESSIONAL HEALTHCARE REPRESENTATIVE Gender Identity Male 12/15/2019 2:54 PM CDT Sexual Orientation Straight 12/15/2019 2: 54 PM CDT Occupation Industry Job Start Date Job End Date Not on file Not on file Not on file Not on file documented as of this encounter Plan of Treatment Upcoming Encounters Date Type Department Care Team (Late st Contact Info) Description 08/31/2024 11:30 AM PROFESSIONAL HEALTHCARE REPRESENTATIVE Appointment Department of Radiation Oncology in [address] [phone] Brian Fair M.D. [address] [place] [phone] Christa Monroe M.D. [address] [place] [phone] 08/31/2024 11:45 AM PROFESSIONAL HEALTHCARE REPRESENTATIVE Appointment Department of Radiation Oncology in [place], [place] [address] [place] [phone] Silvano Braga M.D. [address] [place] [phone] 09/01/2024 11:30 AM PROFESSIONAL HEALTHCARE REPRESENTATIVE Appointment Department of Radiation Oncology in [address] [phone] Brian Fair M.D. [address] [place] [phone] Christa Monroe M.D. [address] [place] [phone] 09/04/2024 8:30 AM PROFESSIONAL HEALTHCARE REPRESENTATIVE Appointment Department of Radiation Oncology in [place], [place] [address] [place] [address] Brian Fair M.D. [address] [place] [phone] Christa Monroe M.D. [address] [place] [phone] 09/05/2024 8:45 AM PROFESSIONAL HEALTHCARE REPRESENTATIVE Appointment Department of Radiation Oncology in [place] [address] [place] [address] Brian Fair M.D. [address] [place] [phone] Christa Monroe M.D. [address] [place] [phone] 09/06/2024 11:30 AM PROFESSIONAL HEALTHCARE REPRESENTATIVE Appointment Department of Radiation Oncology in [place], [place] [address] [place] [phone] Brian Fair M.D. [address] [place] [phone] Chritsa Monroe M.D. [address] [place] [phone] documented as of this encounter Visit Diagnoses Not on filedocumented in this encounter Additional Health Concerns Assessment Noted Time PHQ-9 Depression Total Score: 10 023 7:28 AM CDT documented as of this encounter Care Teams Cannon Crewmember Relationship Specialty Start Date End Date Adi Allen M.D. [address] [place] [phone] PCP - General 02/11/17 documented as of this encounter
--- OUTSIDE RECORDS SUMMARY | 2024-08-31 07:23 | XMS_ITS | Encounter Summary ---
Author Organization [facility] Address [address] [place] [address] Care Team Providers Care Corporate Traffic Manager Name Role Phone Adi Allen M.D. Primary Care Provider [phone] Reason for Referral * Outpatient (Routine) - Closed Specialty Diagnoses / Procedures Referred By Lucina hernández Referred To Contact Social Work Diagnoses Malignant Neoplasm Of Tongue Base (HCC) Christa Monroe M.D. [address] [place] [address] Phone: tel: fax: [facility] Region Referral ID Status Reason Start Date Expiration Date Visits Re quested Visits Authorized [id number] Closed 07/04/2024 01/03/2026 1 1 F WRITER Reason for Visit * Outpatient (Routine) - Closed Specialty Diagnoses / Procedures Referred By Lucina hernández Referred To Contact Social Work Diagnoses Malignant Neoplasm Of Tongue Base (HCC) Christa Monroe M.D. [address] [place] [address] Phone: tel: fax: [facility] Region Referral ID Status Reason Start Date Expiration Date Visits Re quested Visits Authorized [id number] Closed 07/04/2024 01/03/2026 1 1 Encounter Details Date Type Department Care Team (Latest Contact Info) Description 08/21/2024 3:05 PM STAFF WRITER - 08/22/2024 9:32 AM STAFF WRITER Hospital Encounter Department of Radiation Oncology in [place], [place] [address] [facility] [place] [phone] Christa Monroe M.D. [address] [place] [address] Conchita Funes M.STavares., LKylah.S.W. [address] [facility] [place] [phone] Malignant Neoplasm Of Tongue Base (HCC) Social History Tobacco Use Types Packs/Day Years Used Date Smoking Tobacco: Former Cigarettes Q uit: 1983 Passive Smoke Exposure: Never Smokeless Tobacco: Former Comments:1983. He reports sm oking less than 1 pack of cigarettes total in his life. Alcohol Use Standard Drinks/Week Comments Not Currently 0 (1 standard drink = 0.6 oz pur e alcohol) [facility] Utilities Answer Date Recorded In the past 12 months has [employer] gas, oil, or water [employer] threatened to shut off services in your [...] often do you attend chur ch or anglican services? Never 12/09/2022 Do you belong to any clubs o r organizations such as lutheran groups, unions, fraternal or athletic groups, or [...] Answer Date Recorded PHQ-2 Score 2 12/22/2022 [facility] of Occupat ional [facility] - Occupational Stress Questionnaire Answer Date [...] AM CDT Legal Sex Male 10:09 AM STAFF WRITER Gender Identity Male 12/15/2019 2:54 PM CDT Sexual Orientation Straight 12/15/2019 2: 54 PM CDT Occupation Industry Job Start Date Job End Date Not on file Not on file Not on file Not on file documented as of this encounter Medications at Time of Discharge acetaminophen (TylenoL) 500 mg tablet Take 2 tablets (1,000 mg total) by mouth every 6 (six) hours as needed for pain. Do NOT exceed more that 4,000mg of Acetaminophen per day from all sources - including Nyquil 06/22/2024 DM/p-ephed/acetam inoph/doxylam (NYQUIL D ORAL) Take 30 mL by mouth at bedtime. doxepin (SINEquan) 10 mg/mL concentrated solutionIndicatio ns:Malignant Neoplasm Of Tongue Base (HCC) Mix 2.5 mL of solution with 2.5 mL of water. Insert in mouth, swish for 1 minute, and then expectorate. May use every 4 to 6 hours as needed for mouth pain. 118 mL 2 08/14/2024 DULoxetine (Cymbalta) [address] capsuleIndication s:Chronic Cough Take 1 capsule (20 mg total) by mouth 2 (two) times a day. 60 capsule 11 05/19/2024 fluoride, sodium, (PreviDent) 1.1 % gel dental gel Apply 1 Application to the mouth or throat daily. Floss, brush, baking soda rinse. Apply thin gel ribbon to trays wear 5 minutes. Remove trays expectorate excess gel. No eating drinking or rinsing for 30 min. 100 mL 12 06/19/2024 06/19/20 25 fluticasone propion-salmetero L (Advair HFA) 230-21 mcg/actuation inhalerIndication s:Chronic Cough Inhale 2 puffs 2 (two) times a day. Rinse mouth with water after use to reduce aftertaste and incidence of candidiasis. Do not swallow. 12 g 11 05/19/2024 05/19/20 25 fluticasone propionate (Flonase) 50 mcg/actuation nasal sprayIndications: Chronic Cough Administer 1 spray into each nostril daily. 16 g 5 05/19/2024 hydrOXYzine (VISTARIL) 50 mg capsule Take 1 capsule (50 mg total) by mouth every 6 (six) hours as needed for anxiety. 60 capsule 5 12/21/2023 ibuprofen 200 mg tablet Take 3 tablets (600 mg total) by mouth every 6 (six) hours as needed for pain. Take with food. 06/21/2024 ondansetron (Zofran) 4 mg tablet Take 1 tablet by mouth every 4 (four) hours PM. 07/06/2024 oxyCODONE (Roxicodone) 5 mg/5 mL solutionIndicatio ns:Prolonged Acute Pain/Traumatic Injury Take 5 mL (5 mg total) by mouth every 4 (four) hours as needed for moderate pain or score 4-6 of 10 or severe pain or score 7-10 of 10 Indication: Prolonged Acute Pain/Traumatic Injury. 500 mL 08/14/2024 prochlorperazine (Compazine) 5 mg tablet TAKE ONE TABLET BY MOUTH TWICE A DAY NEEDED FOR NAUSEA AND VOMITING 07/06/2024 sennosides-docusa te sodium (Senokot-S) 8.6-50 mg per tablet Take 1 tablet by mouth at bedtime as needed for constipation. Take to prevent constipation while using narcotic pain medication. Stop if you experience loose stool or bowel movements are normal. 06/21/2024 traZODone (DESYREL) 100 mg tablet take two tablets by mouth at bedtime 180 tablet 3 01/19/2024 fentaNYL (Duragesic) 12 mcg/hr patchIndications: Prolonged Acute Pain/Traumatic Injury Place 1 patch on the skin every third day Indication: Prolonged Acute Pain/Traumatic Injury. 5 patch 08/16/2024 08/24/20 24 documented as of this encounter Progress Notes * Conchita Funes M.S.W., Terry. - 08/21/2024 4:00 PM CST Consult conducted via real-time audio technology by Vita Clemons, Deyvi in [facility] to the patient in the patient's home. Type of service: Supportive counseling and Resource referrals and connection Start time: 4:03 End time: 4:25 Social work called patient today with plans to complete a health and behavior psychosocial assessment however when patient answered the phone it was apparent he was not interested in this and really just wanted someone to listen to him. He shared that today is as any other day He reports being quite frustrated as he understands he could have done a less strong chemotherapy that wouldn't have kicked my ass so much He goes on to share that he has lost all trust in the health care system as he doesn't feel like he is heard, and no one gives me answers He shared if this doesn't work, I am not doing any more he feels as though he has poor pain control for chronic pain issues, he is unhappy, and doesn't trust his treatments and feels like they are a waste of time He shared he feels that he is getting double radiated due to the plates in my neck and back and the radiation bouncingoff of it. Tried to reason with patient, however ultimately just listened and validated his concerns. Did offer the office of patient experience number to him as well. Patient denied any SI to provider today. He states he does see a therapist regularly in [place]. This provider questions whether there is a personality component to his mental health concerns with his distrust and only hearing what he wants to hear at his medical appointments. F WRITER documented in this encounter Plan of Treatment Upcoming Encounters Date Type Department Care Team (Late st Contact Info) Description 08/31/2024 11:30 AM STAFF WRITER Appointment Department of Radiation Oncology in [place], [place] [address] [place] [phone] Brian Fair M.D. [address] [place] [phone] Christa Monroe M.D. [address] [place] [phone] 08/31/2024 11:45 AM STAFF WRITER Appointment Department of Radiation Oncology in [address] [phone] Silvano Braga M.D. [address] [place] [address] 09/01/2024 11:30 AM STAFF WRITER Appointment Department of Radiation Oncology in [address] [address] Brian Fair M.D. [address] [place] [phone] Christa Monroe M.D. [address] [place] [phone] 09/04/2024 8:30 AM STAFF WRITER Appointment Department of Radiation Oncology in [place] [address] [place] [address] Brian Fair M.D. [address] [place] [phone] Christa Monroe M.D. [address] [place] [address] 09/05/2024 8:45 AM STAFF WRITER Appointment Department of Radiation Oncology in [place], [place] [address] [place] [address] Brian Fair M.D. [address] [place] [address] Christa Monroe M.D. [address] [place] [address] 09/06/2024 11:30 AM STAFF WRITER Appointment Department of Radiation Oncology in [place], [place] [address] [place] [address] Brian Fair M.D. [address] [place] [address] Christa Monroe M.D. [address] [place] [address] Scheduled Referrals Name Type Priority Associated Diagnoses Order Schedule Social Work - General consult (clinic) Outpatient Referral Routine Malignant Neoplasm Of Tongue Base (HCC) Once for 1 Occurrences starting 08/21/2024 until 08/21/2024 documented as of this encounter Visit Diagnoses Diagnosis Malignant Neoplasm Of Tongue Base (HCC) documented in this encounter Additional Health Concerns Assessment Noted Time PHQ-9 Depression Total Score: 10 023 7:28 AM CDT documented as of this encounter Care Teams Corporate Traffic Manager Relationship Specialty Start Date End Date Adi Allen M.D. [address] [place] [address] PCP - General 02/11/17 documented as of this encounter
--- OUTSIDE RECORDS SUMMARY | 2024-08-31 07:23 | XMS_ITS | Encounter Summary ---
Author Organization [facility] Address [address] [place] [address] Care Team Providers Care Product Test Engineer Name Role Phone Adi Allen M.D. Primary Care Provider [phone] Reason for Referral * Radiation Therapy (Routine) - Authorized Specialty Diagnoses / Procedures Referred By Lucina hernández Referred To Contact Diagnoses Malignant Neoplasm Of Tongue Base (HCC) Procedures Management Visit Christa Monroe M.D. [address] [place] [address] Phone: tel: fax: [facility] Region Referral ID Status Reason Start Date Expiration Date V isits Requested Visits Authorized [id number] Authorized 07/04/2024 07/04/2025 10 10 DENTIAL GREEN BUILDING DESIGNER Reason for Visit * Radiation Therapy (Routine) - Authorized Specialty Diagnoses / Procedures Referred By Lucina hernández Referred To Contact Diagnoses Malignant Neoplasm Of Tongue Base (HCC) Procedures Management Visit Christa Monroe M.D. [address] [place] [address] Phone: tel: [facility] Region Referral ID Status Reason Start Date Expiration Date V isits Requested Visits Authorized [id number] Authorized 07/04/2024 07/04/2025 10 10 Encounter Details Date Type Department Care Team (Latest Contact Info) Description 08/24/2024 11:06 AM RESIDENTIAL GREEN BUILDING DESIGNER - 08/24/2024 3:40 PM [facility] Hospital Encounter Department of Radiation Oncology in [place], [place] [address] [place] [phone] Christa Monroe M.D. [address] [place] [address] Malignant Neoplasm Of Tongue Base (HCC) Social History Tobacco Use Types Packs/Day Years Used Date Smoking Tobacco: Former Cigarettes Q uit: 1983 Passive Smoke Exposure: Never Smokeless Tobacco: Former Comments:1983. He reports sm oking less than 1 pack of cigarettes total in his life. Alcohol Use Standard Drinks/Week Comments Not Currently 0 (1 standard drink = 0.6 oz pur e alcohol) [facility] Utilities Answer Date Recorded In the past 12 months has [employer], gas, oil, or water [employer] threatened to shut off services in your [...] How often do you attend chur or anglican services? Never 12/09/2022 Do you belong to any clubs o r organizations such as denominational groups, unions, fraternal or athletic groups, or [...] Answer Date Recorded PHQ-2 Score 2 12/22/2022 [facility] - Occupational Stress Questionnaire Answer Date [...] your living situation today? [facility] 06/20/2024 Education Answer Date Recorded What is the highest level of school you have completed or the highest degree you have received? Associate degree: occupational, technical, or vocational program 09/10/2020 Sex and Gender Information Value Date Recorded Sex Assigned at Male 05/19/2021 9:34 AM CDT Legal Sex Male 10:09 AM RESIDENTIAL GREEN BUILDING DESIGNER Gender Identity Male 12/15/2019 2:54 PM CDT Sexual Orientation Straight 12/15/2019 2: 54 PM CDT Occupation Industry Job Start Date Job End Date Not on file Not on file Not on file Not on file documented as of this encounter Last Filed Vital Signs Vital Sign Reading Time Taken Comments Blood Pressure 127/85 08/24/2024 11:35 AM RESIDENTIAL GREEN BUILDING DESIGNER Pulse 84 08/24/2024 11:35 AM RESIDENTIAL GREEN BUILDING DESIGNER Temperature 36.3 C (97.3 F) 08/24/2024 11:35 AM RESIDENTIAL GREEN BUILDING DESIGNER Respiratory Rate - - Oxygen Saturation - - Inhaled Oxygen Concentration - - Weight 91.9 kg (202 lb 9.6 oz) 08/24/2024 11:35 AM RESIDENTIAL GREEN BUILDING DESIGNER Height - - Body Mass Index 29.14 08/08/2024 12:29 PM RESIDENTIAL GREEN BUILDING DESIGNER documented in this encounter Medications at Time of Discharge [...] times a day. 60 capsule 11 05/19/2024 fentaNYL (Duragesic) 12 mcg/hr patchIndications: Prolonged Acute Pain/Traumatic Injury Place 1 patch on the skin every third day Indication: Prolonged Acute Pain/Traumatic Injury. 5 patch 08/24/2024 fluoride, sodium, (PreviDent) 1.1 % gel dental [...] needed for pain. Take with food. 06/21/2024 naloxone (Narcan) 4 mg/actuation nasal spray Administer 1 spray (4 mg total) into one nostril every 2 (two) minutes as needed (overdose). 1 each 08/24/2024 08/24/20 25 ondansetron (Zofran) 4 mg tablet Take 1 [...] mouth at bedtime 180 tablet 3 01/19/2024 documented as of this encounter Progress Notes * Christa Monroe M.D. - 08/24/2024 11:45 AM CST ATTESTATION FOR MANAGEMENT VISIT I saw and evaluated the patient and participated in the tejada portions of the service as noted below.I reviewed the documentation of Ms. Luz Liriano RN and agree with the findings and plan. Thepatient appears well on exam. We will continue with radiation as planned and monitor weekly. We talked about his feeling of being lied to about his medical care. He actually said he feels more like he is not being listened to. I explained his stage and treatment again. I told him that his treatment is appropriate given the number of lymph nodes he had involved and the CAROLE. I did explain again that some patients can have more side effects than other despite having the same treatment. I am happy he got his PEG tube and that he is maintaining his weight. We discussed PEG tube removal in the future and he knows that he needs to maintain his weight for 1 month without using the tube for food, hydration or medications before it will be removed. We discussed follow-up as I will not be here the next two weeks. I will see him back 1 month after completion or sooner if he needs help. My sincere support was offered; he was appreciative. Christa Monroe M.D., 08/24/2024 SUBJECTIVE CHIEF COMPLAINT/REASON FOR VISIT Evaluation for side effects while receiving radiation treatment for 1. Malignant Neoplasm Of Tongue Base (HCC) SUPERVISED BY: Christa Monroe M.D. HISTORY OF PRESENT ILLNESS Mr. 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 He is currently receiving radiation therapy to the oral cavity and bilateral neck with concurrent chemotherapy. Treatment Course: 1xOpx Plan ID Fractions Dose / Fraction (cGy) Dose Treated (cGy) Dose Planned (cGy) First Treatment Last Treatment Elapsed Days F1Opx 200 4400 6000 07/24/2024 08/24/2024 31 Course Summary 07/24/2024 08/24/2024 31 The patient was seen and examined today with Dr. Monroe. The patient reports that he is going to pickers material handlers his Fentanyl patch prescription today after treatment. He reports that he has arranged transportation now that he will starting the Fentanyl patch. He rates his pain an 8 out of 10. He notes his pain in specifically in the back of throat and that he feels like his throat is getting more swollen. The patient is currently taking 1000 mg Tylenol every 6 hours and 5 mg Oxycodone every 4 hours for pain management. He also is utilizing the Doxepin but doesn't note much pain relief. He is experiencing thick secretions and a dry mouth. He is doing frequent baking soda squishes, taking frequent sips of water and taking liquid tussin. He is taking 6 cartons of tube feeding in per day and doing water flushes. He also drinks multiple bottles of water throughout the day. He is applying Aquaphor to treatment. Of notes he expresses confusion about his current treatment regimen and staging of his cancer and would like Dr. Monroe to discuss this further with him. Patient also reports that his chemotherapy was changed to Cetuximab. OBJECTIVE BP 127/85 (BP Location: Right arm;Left arm, Patient Position: Sitting, Cuff Size: Regular) Pulse 84 Temp 36.3 ??C (Temporal) Wt 91.9 kg BMI 29.14 kg/m?? Weight: - 07/25 : 98.3 kg - 08/02 : 95.9 kg - 08/07 : 90.3 kg - 08/14 : 90.9 kg - 08/16 : 91.1 kg -08/24: 91.1 kg PHYSICAL EXAMINATION General: Alert and oriented, in no apparent distress. ENT: Mucositis on lower right side of tongue and posterior oropharynx Skin: Hyperpigmentation, moderate skin erythema and on small are of desquamation was noted of the right side of his neck. 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 Patient's weight remains stable. Reviewed Fentanyl patch education with patient. A prescription of Narcan was also sent otpatient's preferred pharmacy. Discussed with patient the can he can continue to take Oxycodone and Tylenol as needed for breakthrough pain. Reviewed Moist Skin Reaction education with patient. I haveprovided her samples of Pro Net, Xeroform and Telfa today. Dr. Monroe was in for any questions or concerns. He was asked to contact our care team with new or worsening symptoms. He will continue withradiation treatment as planned. Signed by: Luz Liriano R.N. 08/24/2024 1:57 PM RESIDENTIAL GREEN BUILDING DESIGNER DENTIAL GREEN BUILDING DESIGNER documented in this encounter Plan of Treatment Upcoming Encounters Date Type Department Care Team (Late st Contact Info) Description 08/31/2024 11:30 AM RESIDENTIAL GREEN BUILDING DESIGNER Appointment Department of Radiation Oncology in [place] [address] [place] [address] Brian Fair M.D. [address] [place] [phone] Christa Monroe M.D. [address] [place] [phone] 08/31/2024 11:45 AM RESIDENTIAL GREEN BUILDING DESIGNER Appointment Department of Radiation Oncology in [place], [place] [address] [place] [address] Silvano Braga M.D. [address] [place] [phone] 09/01/2024 11:30 AM RESIDENTIAL GREEN BUILDING DESIGNER Appointment Department of Radiation Oncology in [address] [address] Brian Fair M.D. [address] [place] [address] Christa Monroe M.D. [address] [place] [phone] 09/04/2024 8:30 AM RESIDENTIAL GREEN BUILDING DESIGNER Appointment Department of Radiation Oncology in [place], [place] [address] [place] [address] Brian Fair M.D. [address] [place] [phone] Christa Monroe M.D. [address] [place] [phone] 09/05/2024 8:45 AM RESIDENTIAL GREEN BUILDING DESIGNER Appointment Department of Radiation Oncology in [place], [place] [address] [place] [address] Brian Fair M.D. [address] [place] [address] Christa Monroe M.D. [address] [place] [address] 09/06/2024 11:30 AM RESIDENTIAL GREEN BUILDING DESIGNER Appointment Department of Radiation Oncology in [place], [place] [address] [place] [address] Brian Fair M.D. [address] [place] [address] Christa Monroe M.D. [address] [place] [address] Scheduled Orders Name Type Priority Associated Diagnoses Orde r Schedule Management Visit Radiation Oncology Routine Malignant Neoplasm Of Tongue Base (HCC) Once for 1 Occurrences starting 08/24/2024 until 08/24/2024 documented as of this encounter Visit Diagnoses Diagnosis Malignant Neoplasm Of Tongue Base (HCC) documented in this encounter Additional Health Concerns Assessment Noted Time PHQ-9 Depression Total Score: 10 023 7:28 AM CDT documented as of this encounter Care Teams Product Test Engineer Relationship Specialty Start Date End Date Adi Allen M.D. [address] [place] [address] PCP - General 02/11/17 documented as of this encounter
--- OUTSIDE RECORDS SUMMARY | 2024-08-31 07:23 | XMS_ITS | Encounter Summary ---
Author Organization [facility] Address [address] [place] [address] Care Team Providers Care Environmental Projects Advisor Name Role Phone Adi Allen M.D. Primary Care Provider Encounter Details Date Type Department Care Team (Late st Contact Info) Description 08/18/2024 11:04 AM [facility] Hospital Encounter Department of Radiation Oncology in [place], [place] [address] [place] [address] Brian Fair M.D. [address] [place] [phone] Christa Monroe M.D. [address] [place] [phone] Social History Tobacco Use Types Packs/Day Years Used Date Smoking Tobacco: Former Cigarettes Q uit: 1983 Passive Smoke Exposure: Never Smokeless Tobacco: Former Comments:1983. He reports sm oking less than 1 pack of cigarettes total in his life. Alcohol Use Standard Drinks/Week Comments Not Currently 0 (1 standard drink = 0.6 oz pur e alcohol) [facility] Utilities Answer Date Recorded In the [...] How often do you attend chur or shinto services? Never 12/09/2022 Do you belong to any clubs o r organizations such as episcopalian groups, unions, fraternal or athletic groups, or [...] Answer Date Recorded PHQ-2 Score 2 12/22/2022 [facility] [place] of Occupat ional Health - Occupational Stress [...] your living situation today? I have a [facility] place to live 06/20/2024 Education Answer Date Recorded What is the highest level of school you have completed or the highest degree you have received? Associate degree: occupational, technical, or vocational program 09/10/2020 Sex and Gender Information Value Date Recorded Sex Assigned at Male 05/19/2021 9:34 AM CDT Legal Sex Male 10:09 AM CHIEF OPERATIONS OFFICER Gender Identity Male 12/15/2019 2:54 PM CDT Sexual Orientation Straight 12/15/2019 2: 54 PM CDT Occupation Industry Job Start Date Job End Date Not on file Not on file Not on file Not on file documented as of this encounter Plan of Treatment Upcoming Encounters Date Type Department Care Team (Late st Contact Info) Description 08/31/2024 11:30 AM CHIEF OPERATIONS OFFICER Appointment Department of Radiation Oncology in [address] [phone] Brian Fair M.D. [address] [place] [phone] Christa Monroe M.D. [address] [place] [phone] 08/31/2024 11:45 AM CHIEF OPERATIONS OFFICER Appointment Department of Radiation Oncology in [place], [place] [address] [place] [phone] Silvano Braga M.D. [address] [place] [phone] 09/01/2024 11:30 AM CHIEF OPERATIONS OFFICER Appointment Department of Radiation Oncology in [address] [phone] Brian Fair M.D. [address] [place] [phone] Christa Monroe M.D. [address] [place] [phone] 09/04/2024 8:30 AM CHIEF OPERATIONS OFFICER Appointment Department of Radiation Oncology in [place], [place] [address] [place] [address] Brian Fair M.D. [address] [place] [phone] Christa Monroe M.D. [address] [place] [phone] 09/05/2024 8:45 AM CHIEF OPERATIONS OFFICER Appointment Department of Radiation Oncology in [place] [address] [place] [address] Brian Fair M.D. [address] [place] [phone] Christa Monroe M.D. [address] [place] [phone] 09/06/2024 11:30 AM CHIEF OPERATIONS OFFICER Appointment Department of Radiation Oncology in [place], [place] [address] [place] [address] Brian Fair M.D. [address] [place] [phone] Christa Monroe M.D. [address] [place] [phone] documented as of this encounter Visit Diagnoses Not on filedocumented in this encounter Additional Health Concerns Assessment Noted Time PHQ-9 Depression Total Score: 10 023 7:28 AM CDT documented as of this encounter Care Teams Environmental Projects Advisor Relationship Specialty Start Date End Date Adi Allen M.D. [address] [place] [address] PCP - General 02/11/17 documented as of this encounter
--- OUTSIDE RECORDS SUMMARY | 2024-08-31 07:23 | XMS_ITS | Encounter Summary ---
Author Organization [facility] Address [address] [place] [address] Care Team Providers Care Cone Former Name Role Phone Adi Allen M.D. Primary Care Provider Encounter Details Date Type Department Care Team (Late st Contact Info) Description 08/21/2024 10:08 AM [facility] Hospital Encounter Department of Radiation Oncology in [place], [place] [address] [place] [phone] Brian Fair M.D. [address] [place] [phone] Christa Monroe M.D. [address] [place] [phone] Social History Tobacco Use Types Packs/Day Years Used Date Smoking Tobacco: Former Cigarettes Q uit: 1983 Passive Smoke Exposure: Never Smokeless Tobacco: Former Comments:1983. He reports sm oking less than 1 pack of cigarettes total in his life. Alcohol Use Standard Drinks/Week Comments Not Currently 0 (1 standard drink = 0.6 oz pur e alcohol) [facility] Utilities Answer Date Recorded In the past [...] How often do you attend chur or adventism services? Never 12/09/2022 Do you belong to any clubs o r organizations such as pentecostalism groups, unions, fraternal or athletic groups, or [...] Answer Date Recorded PHQ-2 Score 2 12/22/2022 [facility] [place] of Occupat ional Health - Occupational Stress [...] your living situation today? I have a [facility] place to live 06/20/2024 Education Answer Date Recorded What is the highest level of school you have completed or the highest degree you have received? Associate degree: occupational, technical, or vocational program 09/10/2020 Sex and Gender Information Value Date Recorded Sex Assigned at Male 05/19/2021 9:34 AM CDT Legal Sex Male 10:09 AM VINEYARDIST Gender Identity Male 12/15/2019 2:54 PM CDT Sexual Orientation Straight 12/15/2019 2: 54 PM CDT Occupation Industry Job Start Date Job End Date Not on file Not on file Not on file Not on file documented as of this encounter Plan of Treatment Upcoming Encounters Date Type Department Care Team (Late st Contact Info) Description 08/31/2024 11:30 AM VINEYARDIST Appointment Department of Radiation Oncology in [address] [address] Brian Fair M.D. [address] [place] [phone] Christa Monroe M.D. [address] [place] [phone] 08/31/2024 11:45 AM VINEYARDIST Appointment Department of Radiation Oncology in [place], [place] [address] [place] [phone] Silvano Braga M.D. [address] [place] [phone] 09/01/2024 11:30 AM VINEYARDIST Appointment Department of Radiation Oncology in [address] [address] Brian Fair M.D. [address] [place] [phone] Christa Monroe M.D. [address] [place] [phone] 09/04/2024 8:30 AM VINEYARDIST Appointment Department of Radiation Oncology in [place], [place] [address] [place] [address] Brian Fair M.D. [address] [place] [phone] Christa Monroe M.D. [address] [place] [phone] 09/05/2024 8:45 AM VINEYARDIST Appointment Department of Radiation Oncology in [place] [address] [place] [address] Brian Fair M.D. [address] [place] [phone] Christa Monroe M.D. [address] [place] [phone] 09/06/2024 11:30 AM VINEYARDIST Appointment Department of Radiation Oncology in [place], [place] [address] [place] [address] Brian Fair M.D. [address] [place] [phone] Christa Monroe M.D. [address] [place] [phone] documented as of this encounter Visit Diagnoses Not on filedocumented in this encounter Additional Health Concerns Assessment Noted Time PHQ-9 Depression Total Score: 10 023 7:28 AM CDT documented as of this encounter Care Teams Cone Former Relationship Specialty Start Date End Date Adi Allen M.D. [address] [place] [phone] PCP - General 02/11/17 documented as of this encounter
--- OUTSIDE RECORDS SUMMARY | 2024-08-31 07:23 | XMS_ITS | Encounter Summary ---
Author Organization [facility] Address [address] [place] [address] Care Team Providers Care Epilepsy Physician Name Role Phone Adi Allen M.D. Primary Care Provider Encounter Details Date Type Department Care Team (Late st Contact Info) Description 08/24/2024 11:06 AM [facility] Hospital Encounter Department of Radiation Oncology in [place], [place] [address] [place] [address] Brian Fair M.D. [address] [place] [phone] Christa Monroe M.D. [address] [place] [phone] Social History Tobacco Use Types Packs/Day Years Used Date Smoking Tobacco: Former Cigarettes Q uit: 1983 Passive Smoke Exposure: Never Smokeless Tobacco: Former Comments:1983. He reports sm oking less than 1 pack of cigarettes total in his life. Alcohol Use Standard Drinks/Week Comments Not Currently 0 (1 standard drink = 0.6 oz pur e alcohol) [facility] Utilities Answer Date Recorded In [...] any clubs o r organizations such as anabaptism groups, unions, fraternal or athletic groups, or [...] Answer Date Recorded PHQ-2 Score 2 12/22/2022 [facility] [place] of Occupat ional Health - Occupational Stress [...] your living situation today? I have a [facility] place to live 06/20/2024 Education Answer Date Recorded What is the highest level of school you have completed or the highest degree you have received? Associate degree: occupational, technical, or vocational program 09/10/2020 Sex and Gender Information Value Date Recorded Sex Assigned at Male 05/19/2021 9:34 AM CDT Legal Sex Male 10:09 AM OPERATIONS RESEARCH GROUP MANAGER Gender Identity Male 12/15/2019 2:54 PM CDT Sexual Orientation Straight 12/15/2019 2: 54 PM CDT Occupation Industry Job Start Date Job End Date Not on file Not on file Not on file Not on file documented as of this encounter Plan of Treatment Upcoming Encounters Date Type Department Care Team (Late st Contact Info) Description 08/31/2024 11:30 AM OPERATIONS RESEARCH GROUP MANAGER Appointment Department of Radiation Oncology in [address] [address] Brian Fair M.D. [address] [place] [phone] Christa Monroe M.D. [address] [place] [phone] 08/31/2024 11:45 AM OPERATIONS RESEARCH GROUP MANAGER Appointment Department of Radiation Oncology in [place], [place] [address] [place] [phone] Silvano Braga M.D. [address] [place] [phone] 09/01/2024 11:30 AM OPERATIONS RESEARCH GROUP MANAGER Appointment Department of Radiation Oncology in [address] [phone] Brian Fair M.D. [address] [place] [phone] Christa Monroe M.D. [address] [place] [phone] 09/04/2024 8:30 AM OPERATIONS RESEARCH GROUP MANAGER Appointment Department of Radiation Oncology in [place], [place] [address] [place] [address] Brian Fair M.D. [address] [place] [phone] Christa Monroe M.D. [address] [place] [phone] 09/05/2024 8:45 AM OPERATIONS RESEARCH GROUP MANAGER Appointment Department of Radiation Oncology in [place] [address] [place] [address] Brian Fair M.D. [address] [place] [phone] Christa Monroe M.D. [address] [place] [phone] 09/06/2024 11:30 AM OPERATIONS RESEARCH GROUP MANAGER Appointment Department of Radiation Oncology in [place], [place] [address] [place] [phone] Brian Fair M.D. [address] [place] [phone] Christa Monroe M.D. [address] [place] [phone] documented as of this encounter Visit Diagnoses Not on filedocumented in this encounter Additional Health Concerns Assessment Noted Time PHQ-9 Depression Total Score: 10 023 7:28 AM CDT documented as of this encounter Care Teams Epilepsy Physician Relationship Specialty Start Date End Date Adi Allen M.D. [address] [place] [address] PCP - General 02/11/17 documented as of this encounter
--- OUTSIDE RECORDS SUMMARY | 2024-08-31 07:23 | XMS_ITS | Encounter Summary ---
Author Organization [facility] Address [address] [place] [address] Care Team Providers Care Pipe Puller Name Role Phone Adi Allen M.D. Primary Care Provider Encounter Details Date Type Department Care Team (Late st Contact Info) Description 08/17/2024 11:19 AM [facility] Hospital Encounter Department of Radiation Oncology in [place], [place] [address] [place] [phone] Brian Fair M.D. [address] [place] [phone] Christa Monroe M.D. [address] [place] [phone] Social History Tobacco Use Types Packs/Day Years Used Date Smoking Tobacco: Former Cigarettes Q uit: 1983 Passive Smoke Exposure: Never Smokeless Tobacco: Former Comments:1983. He reports sm oking less than 1 pack of cigarettes total in his life. Alcohol Use Standard Drinks/Week Comments Not Currently 0 (1 standard drink = 0.6 oz pur e alcohol) [facility] Utilities Answer Date Recorded In [...] How often do you attend chur or jew services? Never 12/09/2022 Do you belong to any clubs o r organizations such as samaritan groups, unions, fraternal or athletic groups, or [...] Answer Date Recorded PHQ-2 Score 2 12/22/2022 [facility] of Occupat ional Health - Occupational Stress [...] your living situation today? I have a [facility] place to live 06/20/2024 Education Answer Date Recorded What is the highest level of school you have completed or the highest degree you have received? Associate degree: occupational, technical, or vocational program 09/10/2020 Sex and Gender Information Value Date Recorded Sex Assigned at Male 05/19/2021 9:34 AM CDT Legal Sex Male 10:09 AM DRAWING HAND Gender Identity Male 12/15/2019 2:54 PM CDT Sexual Orientation Straight 12/15/2019 2: 54 PM CDT Occupation Industry Job Start Date Job End Date Not on file Not on file Not on file Not on file documented as of this encounter Plan of Treatment Upcoming Encounters Date Type Department Care Team (Late st Contact Info) Description 08/31/2024 11:30 AM DRAWING HAND Appointment Department of Radiation Oncology in [address] [phone] Brian Fair M.D. [address] [place] [phone] Christa Monore M.D. [address] [place] [phone] 08/31/2024 11:45 AM DRAWING HAND Appointment Department of Radiation Oncology in [place], [place] [address] [place] [phone] Silvano Braga M.D. [address] [place] [phone] 09/01/2024 11:30 AM DRAWING HAND Appointment Department of Radiation Oncology in [address] [address] Brian Fair M.D. [address] [place] [phone] Christa Monroe M.D. [address] [place] [phone] 09/04/2024 8:30 AM DRAWING HAND Appointment Department of Radiation Oncology in [place], [place] [address] [place] [address] rBian Fair M.D. [address] [place] [phone] Christa Monroe M.D. [address] [place] [phone] 09/05/2024 8:45 AM DRAWING HAND Appointment Department of Radiation Oncology in [place] [address] [place] [address] Brian Fair M.D. [address] [place] [phone] Christa Monroe M.D. [address] [place] [phone] 09/06/2024 11:30 AM DRAWING HAND Appointment Department of Radiation Oncology in [place], [place] [address] [place] [address] Brian Fair M.D. [address] [place] [phone] Christa Monroe M.D. [address] [place] [phone] documented as of this encounter Visit Diagnoses Not on filedocumented in this encounter Additional Health Concerns Assessment Noted Time PHQ-9 Depression Total Score: 10 023 7:28 AM CDT documented as of this encounter Care Teams Pipe Puller Relationship Specialty Start Date End Date Adi Allen M.D. [address] [place] [phone] PCP - General 02/11/17 documented as of this encounter
--- OUTSIDE RECORDS SUMMARY | 2024-08-31 07:24 | XMS_ITS | Encounter Summary ---
Author Organization [facility] Address [address] [place] [address] Care Team Providers Care Jewel Inspector Name Role Phone Adi Allen M.D. Primary Care Provider [phone] Encounter Details Date Type Department Care Team (Late st Contact Info) Description 08/15/2024 11:04 AM [facility] Hospital Encounter Department of Radiation Oncology in [place], [place] [address] [place] [phone] Brian Fair M.D. [address] [place] [phone] Christa Monroe M.D. [address] [place] [phone] Social History Tobacco Use Types Packs/Day Years Used Date Smoking Tobacco: Former Cigarettes Q uit: 1983 Passive Smoke Exposure: Never Smokeless Tobacco: Former Comments:1983. He reports sm oking less than 1 pack of cigarettes total in his life. Alcohol Use Standard Drinks/Week Comments Not Currently 0 (1 standard drink = 0.6 oz pur e alcohol) [facility] Utilities Answer Date Recorded In the [...] How often do you attend chur or jain services? Never 12/09/2022 Do you belong to any clubs o r organizations such as islam groups, unions, fraternal or athletic groups, or [...] Answer Date Recorded PHQ-2 Score 2 12/22/2022 [facility] [place] of Occupat ional Health - Occupational Stress [...] your living situation today? I have a [facility] place to live 06/20/2024 Education Answer Date Recorded What is the highest level of school you have completed or the highest degree you have received? Associate degree: occupational, technical, or vocational program 09/10/2020 Sex and Gender Information Value Date Recorded Sex Assigned at Male 05/19/2021 9:34 AM CDT Legal Sex Male 10:09 AM FRONT OFFICE SECRETARY Gender Identity Male 12/15/2019 2:54 PM CDT Sexual Orientation Straight 12/15/2019 2: 54 PM CDT Occupation Industry Job Start Date Job End Date Not on file Not on file Not on file Not on file documented as of this encounter Plan of Treatment Upcoming Encounters Date Type Department Care Team (Late st Contact Info) Description 08/31/2024 11:30 AM FRONT OFFICE SECRETARY Appointment Department of Radiation Oncology in [address] [phone] Brian Fair M.D. [address] [place] [phone] Christa Monroe M.D. [address] [place] [phone] 08/31/2024 11:45 AM FRONT OFFICE SECRETARY Appointment Department of Radiation Oncology in [place], [place] [address] [place] [phone] Silvano Braga M.D. [address] [place] [phone] 09/01/2024 11:30 AM FRONT OFFICE SECRETARY Appointment Department of Radiation Oncology in [address] [address] Brian Fair M.D. [address] [place] [phone] Christa Monroe M.D. [address] [place] [phone] 09/04/2024 8:30 AM FRONT OFFICE SECRETARY Appointment Department of Radiation Oncology in [place], [place] [address] [place] [address] Brian Fair M.D. [address] [place] [phone] Christa Monroe M.D. [address] [place] [phone] 09/05/2024 8:45 AM FRONT OFFICE SECRETARY Appointment Department of Radiation Oncology in [place] [address] [place] [address] Brian Fair M.D. [address] [place] [phone] Christa Monroe M.D. [address] [place] [phone] 09/06/2024 11:30 AM FRONT OFFICE SECRETARY Appointment Department of Radiation Oncology in [place], [place] [address] [place] [phone] Brian Fair M.D. [address] [place] [phone] Christa Monroe M.D. [address] [place] [phone] documented as of this encounter Visit Diagnoses Not on filedocumented in this encounter Additional Health Concerns Assessment Noted Time PHQ-9 Depression Total Score: 10 023 7:28 AM CDT documented as of this encounter Care Teams Jewel Inspector Relationship Specialty Start Date End Date Adi Allen M.D. [address] [place] [phone] PCP - General 02/11/17 documented as of this encounter
--- OUTSIDE RECORDS SUMMARY | 2024-08-31 07:24 | XMS_ITS | Encounter Summary ---
Author Organization [facility] Address [address] [place] [address] Care Team Providers Care Boat Operator Name Role Phone Adi Allen M.D. Primary Care Provider [phone] Reason for Referral * Outpatient (Routine) - Authorized Specialty Diagnoses / Procedures Referred By Lucina t Referred To Contact Radiation Oncology Lindsay Rascon APRN, C.N.PCarri, D.N.P. [address] [place] [address] Phone: tel: fax: [facility] Region Referral ID Status Reason Start Date Expiration Date V isits Requested Visits Authorized [id number] Authorized 08/17/2024 02/16/2026 1 1 Scheduling Instructions Please schedule on Wednesday around treatment time D PSYCHOMETRIST Encounter Details Date Type Department Care Team (Late st Contact Info) Description 08/16/2024 Orders Only Department of Radiation Oncology in [place], [place] [address] [place] [phone] Briana Fermin, R.N. Social History Tobacco Use Types Packs/Day Years Used Date Smoking Tobacco: Former Cigarettes Q uit: 1983 Passive Smoke Exposure: Never Smokeless Tobacco: Former Comments:1983. He reports sm oking less than 1 pack of cigarettes total in his life. Alcohol Use Standard Drinks/Week Comments Not Currently 0 (1 standard drink = 0.6 oz pur e alcohol) [facility] Utilities Answer Date Recorded In the past 12 months has e electric, gas, oil, or water [employer] threatened to shut off services in your [...] often do you attend chur ch or sikhism services? Never 12/09/2022 Do you belong to any clubs o r organizations such as confucianist groups, unions, fraternal or athletic groups, or [...] Answer Date Recorded PHQ-2 Score 2 12/22/2022 [facility] of Occupat ional [facility] - Occupational Stress Questionnaire Answer Date [...] your living situation today? I have a [facility] place to live 06/20/2024 Education Answer Date Recorded What is the highest level of school you have completed or the highest degree you have received? Associate degree: occupational, technical, or vocational program 09/10/2020 Sex and Gender Information Value Date Recorded Sex Assigned at Male 05/19/2021 9:34 AM CDT Legal Sex Male 10:09 AM CHILD PSYCHOMETRIST Gender Identity Male 12/15/2019 2:54 PM CDT Sexual Orientation Straight 12/15/2019 2: 54 PM CDT Occupation Industry Job Start Date Job End Date Not on file Not on file Not on file Not on file documented as of this encounter Plan of Treatment Upcoming Encounters Date Type Department Care Team (Late st Contact Info) Description 08/31/2024 11:30 AM CHILD PSYCHOMETRIST Appointment Department of Radiation Oncology in [address] [phone] Brian Fair M.D. [address] [place] [phone] Christa Monroe M.D. [address] [place] [phone] 08/31/2024 11:45 AM CHILD PSYCHOMETRIST Appointment Department of Radiation Oncology in [address] [phone] Silvano Braga M.D. [address] [place] [phone] 09/01/2024 11:30 AM CHILD PSYCHOMETRIST Appointment Department of Radiation Oncology in [address] [phone] Brian Fair M.D. [address] [place] [phone] Christa Monroe M.D. [address] [place] [phone] 09/04/2024 8:30 AM CHILD PSYCHOMETRIST Appointment Department of Radiation Oncology in [address] [phone] Brian Fair M.D. [address] [place] [phone] Christa Monroe M.D. [address] [place] [phone] 09/05/2024 8:45 AM CHILD PSYCHOMETRIST Appointment Department of Radiation Oncology in [place], [place] [address] [place] [address] Brian Fair M.D. [address] [place] [phone] Christa Monroe M.D. [address] [place] [phone] 09/06/2024 11:30 AM CHILD PSYCHOMETRIST Appointment Department of Radiation Oncology in [place], [place] [address] [place] [address] Brian Fair M.D. [address] [place] [phone] Christa Monroe M.D. [address] [place] [phone] Scheduled Referrals Name Type Priority Associated Diagnoses Orde r Schedule Radiation Oncology nurse visit (clinic) Outpatient Referral Routine Expected: 08/18/2024, Expires: 11/14/2025 documented as of this encounter Visit Diagnoses Not on filedocumented in this encounter Additional Health Concerns Assessment Noted Time PHQ-9 Depression Total Score: 10 023 7:28 AM CDT documented as of this encounter Care Teams Boat Operator Relationship Specialty Start Date End Date Adi Allen M.D. [address] [place] [address] PCP - General 02/11/17 documented as of this encounter
--- OUTSIDE RECORDS SUMMARY | 2024-08-31 07:24 | XMS_ITS | Encounter Summary ---
Author Organization [facility] Address [address] [place] [address] Care Team Providers Care Associate Director Regulatory Affairs Name Role Phone Adi Allen M.D. Primary Care Provider [phone] Encounter Details Date Type Department Care Team (Late st Contact Info) Description 08/16/2024 11:10 AM [facility] Hospital Encounter Department of Radiation Oncology in [place], [place] [address] [place] [phone] Brian Fair M.D. [address] [place] [phone] Christa Monroe M.D. [address] [place] [phone] Social History Tobacco Use Types Packs/Day Years Used Date Smoking Tobacco: Former Cigarettes Q uit: 1983 Passive Smoke Exposure: Never Smokeless Tobacco: Former Comments:1983. He reports sm oking less than 1 pack of cigarettes total in his life. Alcohol Use Standard Drinks/Week Comments Not Currently 0 (1 standard drink = 0.6 oz pur e alcohol) [facility] Utilities Answer Date Recorded In [...] How often do you attend chur or amish services? Never 12/09/2022 Do you belong to any clubs o r organizations such as religion groups, unions, fraternal or athletic groups, or [...] Answer Date Recorded PHQ-2 Score 2 12/22/2022 [facility] [place] of Occupat ional Health - Occupational Stress [...] your living situation today? I have a [facility] place to live 06/20/2024 Education Answer Date Recorded What is the highest level of school you have completed or the highest degree you have received? Associate degree: occupational, technical, or vocational program 09/10/2020 Sex and Gender Information Value Date Recorded Sex Assigned at Male 05/19/2021 9:34 AM CDT Legal Sex Male 10:09 AM IMPORT EXPORT MANAGER Gender Identity Male 12/15/2019 2:54 PM CDT Sexual Orientation Straight 12/15/2019 2: 54 PM CDT Occupation Industry Job Start Date Job End Date Not on file Not on file Not on file Not on file documented as of this encounter Plan of Treatment Upcoming Encounters Date Type Department Care Team (Late st Contact Info) Description 08/31/2024 11:30 AM IMPORT EXPORT MANAGER Appointment Department of Radiation Oncology in [address] [phone] Brian Fair M.D. [address] [place] [phone] Christa Monroe M.D. [address] [place] [phone] 08/31/2024 11:45 AM IMPORT EXPORT MANAGER Appointment Department of Radiation Oncology in [place], [place] [address] [place] [phone] Silvano Braga M.D. [address] [place] [phone] 09/01/2024 11:30 AM IMPORT EXPORT MANAGER Appointment Department of Radiation Oncology in [address] [address] Brian Fair M.D. [address] [place] [phone] Christa Monroe M.D. [address] [place] [phone] 09/04/2024 8:30 AM IMPORT EXPORT MANAGER Appointment Department of Radiation Oncology in [place], [place] [address] [place] [address] Brian Fair M.D. [address] [place] [phone] Christa Monroe M.D. [address] [place] [phone] 09/05/2024 8:45 AM IMPORT EXPORT MANAGER Appointment Department of Radiation Oncology in [place] [address] [place] [address] Brian Fair M.D. [address] [place] [phone] Christa Monroe M.D. [address] [place] [phone] 09/06/2024 11:30 AM IMPORT EXPORT MANAGER Appointment Department of Radiation Oncology in [place], [place] [address] [place] [address] Brian Fair M.D. [address] [place] [phone] Christa Monroe M.D. [address] [place] [phone] documented as of this encounter Visit Diagnoses Not on filedocumented in this encounter Additional Health Concerns Assessment Noted Time PHQ-9 Depression Total Score: 10 023 7:28 AM CDT documented as of this encounter Care Teams Associate Director Regulatory Affairs Relationship Specialty Start Date End Date Adi Allen M.D. [address] [place] [address] PCP - General 02/11/17 documented as of this encounter
--- OUTSIDE RECORDS SUMMARY | 2024-08-31 07:24 | XMS_ITS | Encounter Summary ---
Author Organization [facility] Address [address] [place] [address] Care Team Providers Care Barrel Brander Name Role Phone Adi Allen M.D. Primary Care Provider [phone] Reason for Referral * Radiation Therapy (Routine) - Authorized Specialty Diagnoses / Procedures Referred By Lucina hernández Referred To Contact Diagnoses Malignant Neoplasm Of Tongue Base (HCC) Procedures Management Visit Christa Monroe M.D. [address] [place] [address] Phone: tel: fax: [facility] Region Referral ID Status Reason Start Date Expiration Date V isits Requested Visits Authorized [id number] Authorized 07/04/2024 07/04/2025 10 10 NECK SURGEON Reason for Visit * Radiation Therapy (Routine) - Authorized Specialty Diagnoses / Procedures Referred By Lucina hernández Referred To Contact Diagnoses Malignant Neoplasm Of Tongue Base (HCC) Procedures Management Visit Christa Monroe M.D. [address] [place] [address] Phone: tel: [facility]: [facility] Region Referral ID Status Reason Start Date Expiration Date V isits Requested Visits Authorized [id number] Authorized 07/04/2024 07/04/2025 10 10 Encounter Details Date Type Department Care Team (Latest Contact Info) Description 08/16/2024 11:10 AM HEAD NECK SURGEON - 08/16/2024 1:40 PM [facility] Hospital Encounter Department of Radiation Oncology in [place], [place] [address] [place] [phone] Christa Monroe M.D. [address] [place] [address] Malignant Neoplasm Of Tongue Base (HCC) Social History Tobacco Use Types Packs/Day Years Used Date Smoking Tobacco: Former Cigarettes Q uit: 1983 Passive Smoke Exposure: Never Smokeless Tobacco: Former Comments:1983. He reports sm oking less than 1 pack of cigarettes total in his life. Alcohol Use Standard Drinks/Week Comments Not Currently 0 (1 standard drink = 0.6 oz pur e alcohol) [facility] Utilities Answer Date Recorded In the past 12 months has e [employer], gas, oil, or water [employer] threatened to shut off services in your [...] How often do you attend chur or anabaptist services? Never 12/09/2022 Do you belong to any clubs o r organizations such as mu-ism groups, unions, fraternal or athletic groups, or [...] Date Recorded PHQ-2 Score 2 12/22/2022 [facility] - Occupational Stress Questionnaire Answer Date [...] your living situation today? [facility] to live 06/20/2024 Education Answer Date Recorded What is the highest level of school you have completed or the highest degree you have received? Associate degree: occupational, technical, or vocational program 09/10/2020 Sex and Gender Information Value Date Recorded Sex Assigned at Male 05/19/2021 9:34 AM CDT Legal Sex Male 10:09 AM HEAD NECK SURGEON Gender Identity Male 12/15/2019 2:54 PM CDT Sexual Orientation Straight 12/15/2019 2: 54 PM CDT Occupation Industry Job Start Date Job End Date Not on file Not on file Not on file Not on file documented as of this encounter Last Filed Vital Signs Vital Sign Reading Time Taken Comments Blood Pressure 132/75 08/16/2024 11:32 AM HEAD NECK SURGEON Pulse 72 08/16/2024 11:32 AM HEAD NECK SURGEON Temperature 36.3 C (97.3 F) 08/16/2024 11:32 AM HEAD NECK SURGEON Respiratory Rate - - Oxygen Saturation - - Inhaled Oxygen Concentration - - Weight 91.1 kg (200 lb 13.4 oz) 024 11:32 AM HEAD NECK SURGEON Height - - Body Mass Index 28.88 08/08/2024 12:29 PM HEAD NECK SURGEON documented in this encounter Medications at Time [...] Progress Notes * Christa Monroe M.D. - 08/16/2024 11:45 AM CST SUBJECTIVE CHIEF COMPLAINT/REASON FOR VISIT Evaluation for [...] Treatment Last Treatment Elapsed Days F1Opx 200 3400 6000 07/24/2024 08/16/2024 Course Summary 07/24/2024 08/16/2024 The patient was seen and examined today with Dr. Monroe. The patient is currently taking 1000 mg Tylenol every 6 hours and 5 mg Oxycodone every 4 hours for pain management. He has changed the route of all medications to go through his tube. He plans to moss picker Doxepin today. He is currently completing baking soda rinses x3-6 per day. He notes increased amounts of phlegm that are hard to manage. Patient notes sore developing in his mouth and nose, as well as some intermittent tinnitus. He is applying lotion to the treatment field once per day. PEG tube site is clean, dry, and intact. His weight has been stable. He feels nutrition is going well and he feels comfortable and confident with its use. OBJECTIVE BP 132/75 (BP Location: Left arm, Patient Position: Sitting, Cuff Size: Regular) Pulse 72 Temp 36.3 ??C (Temporal) Wt 91.1 kg BMI 28.88 kg/m?? Weight: - 07/25 : 98.3 kg - 08/02 : 95.9 kg - 08/07 : 90.3 kg - 08/14 : 90.9 kg - 08/16 : 91.1 kg PHYSICAL EXAMINATION General: Alert and oriented, in no apparent distress. ENT: Mucositis on lower right side of tongue noted Skin: Mild skin erythema along the surgical incision on the right neck. 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 It was recommended to the patient totry using tussin and Maalox through his tube to help decrease secretions and acid reflux symptoms. We also discussed the initiation of a Fentanyl patch to help with pain management. Contact will be ma de with social work to help coordinate consistent transportation prior to the initiation of this narcotic. Dr. Monroe was in for any questions or concerns. He was asked to contact our care team with new or worsening symptoms. He will continue with radiation treatment as planned. Signed by: Sarah Gilliam R.N. 08/16/2024 12:28 PM HEAD NECK SURGEON ATTESTATION FOR MANAGEMENT VISIT I saw and evaluated the patient and participated in the tejada portions of the service as noted above.I reviewed the documentation of Ms. Kenrick Gilliam RN and agree with the findings and plan. The patient appears well on exam. We will continue with radiation as planned and monitor weekly. We discussed starting a Fentanyl patch for long acting pain medication. He knows that he cannot drive when we are adjusting his pain medications. His daughter works 4 days on and 4 days off; I told him to let us know if we can adjust his treatment times based on her work schedule if this will help. Christa Monroe M.D., 08/16/2024 NECK SURGEON documented in this encounter Miscellaneous Notes * Addendum Note - Kenrick Gilliam R.N. - 08/16/2024 11:45 AM CSTEncounter addended by: Kenrick Gilliam R.N. on: 08/16/2024 1:50 PM Actions taken: Order list changed NECK SURGEON documented in this encounter Plan of Treatment Upcoming Encounters Date Type Department Care Team (Late st Contact Info) Description 08/31/2024 11:30 AM HEAD NECK SURGEON Appointment Department of Radiation Oncology in [address] [phone] Brian Fair M.D. [address] [place] [phone] Christa Monroe M.D. [address] [place] [phone] 08/31/2024 11:45 AM HEAD NECK SURGEON Appointment Department of Radiation Oncology in [place] [address] [place] [phone] Silvano Braga [place] [phone] 09/01/2024 11:30 AM HEAD NECK SURGEON Appointment Department of Radiation Oncology in [address] [phone] Brian Fair M.D. [address] [place] [phone] Christa Monroe M.D. [address] [place] [phone] 09/04/2024 8:30 AM HEAD NECK SURGEON Appointment Department of Radiation Oncology in [place], [place] [address] [place] [address] Brian Fair M.D. [address] [place] [phone] Christa Monroe M.D. [address] [place] [phone] 09/05/2024 8:45 AM HEAD NECK SURGEON Appointment Department of Radiation Oncology in [address] [address] Brian Fair M.D. [address] [place] [phone] Christa Monroe M.D. [address] [place] [phone] 09/06/2024 11:30 AM HEAD NECK SURGEON Appointment Department of Radiation Oncology in [place] [address] [place] [address] Brian Fair M.D. [address] [place] [phone] Christa Monroe M.D. [address] [place] [phone] Scheduled Orders Name Type Priority Associated Diagnoses Orde r Schedule Management Visit Radiation Oncology Routine Malignant Neoplasm Of Tongue Base (HCC) Once for 1 Occurrences starting 08/16/2024 until 08/16/2024 documented as of this encounter Visit Diagnoses Diagnosis Malignant Neoplasm Of Tongue Base (HCC) documented in this encounter Additional Health Concerns Assessment Noted Time PHQ-9 Depression Total Score: 10 023 7:28 AM CDT documented as of this encounter Care Teams Barrel Brander Relationship Specialty Start Date End Date Adi Allen M.D. [address] [place] [phone] PCP - General 02/11/17 documented as of this encounter
--- OUTSIDE RECORDS SUMMARY | 2024-08-31 07:25 | XMS_ITS | Encounter Summary ---
Author Organization [facility] Address [address] [place] [address] Care Team Providers Care Caustics Loader Name Role Phone Adi Allen M.D. Primary Care Provider [phone] Reason for Referral * Radiation Therapy (Routine) - Authorized Specialty Diagnoses / Procedures Referred By Lucina hernández Referred To Contact Diagnoses Malignant Neoplasm Of Tongue Base (HCC) Procedures Management Visit Christa Monroe M.D. [address] [place] [address] Phone: tel: fax: [facility] Region Referral ID Status Reason Start Date Expiration Date V isits Requested Visits Authorized [id number] Authorized 07/04/2024 07/04/2025 10 10 RAL ARTS TEACHER Reason for Visit * Radiation Therapy (Routine) - Authorized Specialty Diagnoses / Procedures Referred By Lucina hernández Referred To Contact Diagnoses Malignant Neoplasm Of Tongue Base (HCC) Procedures Management Visit Christa Monroe M.D. [address] [place] [address] Phone: tel: fax: [facility] Region Referral ID Status Reason Start Date Expiration Date V isits Requested Visits Authorized [id number] Authorized 07/04/2024 07/04/2025 10 10 Encounter Details Date Type Department Care Team (Latest Contact Info) Description 08/14/2024 9:55 AM LIBERAL ARTS TEACHER - 08/14/2024 3:57 PM [facility] Hospital Encounter Department of Radiation Oncology in [place], [place] [address] [place] [phone] Christa Monroe M.D. [address] [place] [address] Malignant Neoplasm Of Tongue Base (HCC) Social History Tobacco Use Types Packs/Day Years Used Date Smoking Tobacco: Former Cigarettes Q uit: 1983 Passive Smoke Exposure: Never Smokeless Tobacco: Former Comments:1983. He reports sm oking less than 1 pack of cigarettes total in his life. Alcohol Use Standard Drinks/Week Comments Not Currently 0 (1 standard drink = 0.6 oz pur e alcohol) [facility] Utilities Answer Date Recorded In the past 12 months has [employer], gas, oil, or water [employer] threatened to shut off services in your [...] How often do you attend chur or orthodox services? Never 12/09/2022 Do you belong to any clubs o r organizations such as tenriism groups, unions, fraternal or athletic groups, or [...] Recorded PHQ-2 Score 2 12/22/2022 [facility] - Occupational Stress Questionnaire Answer Date Recorded [...] your living situation today? I have a [facility] place to live 06/20/2024 Education Answer Date Recorded What is the highest level of school you have completed or the highest degree you have received? Associate degree: occupational, technical, or vocational program 09/10/2020 Sex and Gender Information Value Date Recorded Sex Assigned at Male 05/19/2021 9:34 AM CDT Legal Sex Male 10:09 AM LIBERAL ARTS TEACHER Gender Identity Male 12/15/2019 2:54 PM CDT Sexual Orientation Straight 12/15/2019 2: 54 PM CDT Occupation Industry Job Start Date Job End Date Not on file Not on file Not on file Not on file documented as of this encounter Last Filed Vital Signs Vital Sign Reading Time Taken Comments Blood Pressure 116/80 08/14/2024 10:34 AM LIBERAL ARTS TEACHER Pulse 74 08/14/2024 10:34 AM LIBERAL ARTS TEACHER Temperature 36.4 C (97.6 F) 08/14/2024 10:34 AM LIBERAL ARTS TEACHER Respiratory Rate - - Oxygen Saturation - - Inhaled Oxygen Concentration - - Weight 90.9 kg (200 lb 8 oz) 08/14/2024 10:34 AM LIBERAL ARTS TEACHER Height - - Body Mass Index 28.83 08/08/2024 12:29 PM LIBERAL ARTS TEACHER documented in this encounter Medications at Time [...] Progress Notes * Christa Monroe M.D. - 08/14/2024 10:15 AM CST SUBJECTIVE CHIEF COMPLAINT/REASON FOR VISIT Evaluation for side effects while receiving radiation treatment for 1. Malignant Neoplasm Of Tongue Base (HCC) SUPERVISED BY: Christa Monroe M.D. HISTORY OF PRESENT ILLNESS Mr. 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 He is currently receiving radiation therapy to the oral cavity and bilateral neck with concurrent chemotherapy. Treatment Course: 1xOpx Plan ID Fractions Dose / Fraction (cGy) Dose Treated (cGy) Dose Planned (cGy) First Treatment Last Treatment Elapsed Days F1Opx 15 / 200 3000 6000 07/24/2024 08/14/2024 21 Course Summary 07/24/2024 08/14/2024 21 The patient was seen and examined today with Dr. Monroe. The patient requests to be seen today for pain management. He is currently taking 1000 mg Tylenol every 6 hours and 5 mg Oxycodone every 8 hours. He rates his pain above 10/10 at it's worst and only getting relief to 8/10 with these pain measures. He notes he feels like pills are getting stuck and he is requesting a liquid version of Oxycodone. He has already gotten liquid Tylenol. He has not yet picked up Doxepin rinses due to cost. He is currently completing baking soda rinses x3-6 per day.He notes increased amounts of phlegm that are hard to manage. He is applying lotion to the treatment field twice per day. He got a PEG tube placed last week and reports his weight has been stable. Hefeels nutrition is going well and he feels comfortable and confident with its use. OBJECTIVE BP 116/80 (BP Location: Left arm, Patient Position: Sitting, Cuff Size: Regular) Pulse 74 Temp 36.4 ??C (Temporal) Wt 90.9 kg BMI 28.83 kg/m?? Weight: 07/25 98.3 kg 08/02 95.9 kg 08/07 90.3 kg 08/14 90.9 kg PHYSICAL EXAMINATION General: Alert and oriented, [...] patient is tolerating radiation treatment moderately well. A prescription was sent for 5 mg liquid oxycodone was sent to his preferred pharmacy. He was instructed to increase this to every 4 hours as needed. Doxepin prescription was rerouted to [facility] so patient could use provided GoodRx coupon. He discussed the use of meat tenderizer, tussin, and bedside humidifier. Dr. Monroe was in for any questions or concerns. He was asked to contact our care team with new or worsening symptoms. He will continue with radiation treatment as planned. Signed by: Briana Fermin R.N. 08/14/2024 11:34 AM LIBERAL ARTS TEACHER ATTESTATION FOR MANAGEMENT VISIT I saw and evaluated the patient and participated in the tejada portions of the service as noted above.I reviewed the documentation of Ms. Briana Fermin RN and agree with the findings and plan. The patient appears well on exam. We will continue with radiation as planned and monitor weekly. Christa Monroe M.D., 08/14/2024 RAL ARTS TEACHER documented in this encounter Plan of Treatment Upcoming Encounters Date Type Department Care Team (Late st Contact Info) Description 08/31/2024 11:30 AM LIBERAL ARTS TEACHER Appointment Department of Radiation Oncology in [address] [address] Brian Fair M.D. [address] [place] [phone] Christa Monroe M.D. [address] [place] [phone] 08/31/2024 11:45 AM LIBERAL ARTS TEACHER Appointment Department of Radiation Oncology in [address] [address] Silvano Braga M.D. [address] [place] [phone] 09/01/2024 11:30 AM LIBERAL ARTS TEACHER Appointment Department of Radiation Oncology in [address] [address] Brian Fair M.D. [address] [place] [phone] Christa Monroe M.D. [address] [place] [phone] 09/04/2024 8:30 AM LIBERAL ARTS TEACHER Appointment Department of Radiation Oncology in [address] [phone] Brian Fair M.D. [address] [place] [phone] Christa Monroe M.D. [address] [place] [phone] 09/05/2024 8:45 AM LIBERAL ARTS TEACHER Appointment Department of Radiation Oncology in [place], [place] [address] [place] [address] Brian Fair M.D. [address] [place] [phone] Christa Monroe M.D. [address] [place] [phone] 09/06/2024 11:30 AM LIBERAL ARTS TEACHER Appointment Department of Radiation Oncology in [place], [place] [address] [place] [address] Brian Fair M.D. [address] [place] [phone] Christa Monroe M.D. [address] [place] [phone] Scheduled Orders Name Type Priority Associated Diagnoses Orde r Schedule Management Visit Radiation Oncology Routine Malignant Neoplasm Of Tongue Base (HCC) Once for 1 Occurrences starting 08/14/2024 until 08/14/2024 documented as of this encounter Visit Diagnoses Diagnosis Malignant Neoplasm Of Tongue Base (HCC) documented in this encounter Additional Health Concerns Assessment Noted Time PHQ-9 Depression Total Score: 10 023 7:28 AM CDT documented as of this encounter Care Teams Caustics Loader Relationship Specialty Start Date End Date Adi Allen M.D. [address] [place] [address] PCP - General 02/11/17 documented as of this encounter
--- OUTSIDE RECORDS SUMMARY | 2024-08-31 07:25 | XMS_ITS | Encounter Summary ---
Author Organization [facility] Address [address] [place] [address] Care Team Providers Care Shipping Services Sales Representative Name Role Phone Adi Allen M.D. Primary Care Provider Encounter Details Date Type Department Care Team (Late st Contact Info) Description 08/11/2024 11:11 AM [facility] Hospital Encounter Department of Radiation Oncology in [place], [place] [address] [place] [phone] Brian Fair M.D. [address] [place] [phone] Christa Monroe M.D. [address] [place] [phone] Social History Tobacco Use Types Packs/Day Years Used Date Smoking Tobacco: Former Cigarettes Q uit: 1983 Passive Smoke Exposure: Never Smokeless Tobacco: Former Comments:1983. He reports sm oking less than 1 pack of cigarettes total in his life. Alcohol Use Standard Drinks/Week Comments Not Currently 0 (1 standard drink = 0.6 oz pur e alcohol) [facility] Utilities Answer Date Recorded In [...] How often do you attend chur or mu-ism services? Never 12/09/2022 Do you belong to any clubs o r organizations such as quaker groups, unions, fraternal or athletic groups, or [...] Answer Date Recorded PHQ-2 Score 2 12/22/2022 [facility] - Occupational Stress [...] your living situation today? I have a [facility] place to live 06/20/2024 Education Answer Date Recorded What is the highest level of school you have completed or the highest degree you have received? Associate degree: occupational, technical, or vocational program 09/10/2020 Sex and Gender Information Value Date Recorded Sex Assigned at Male 05/19/2021 9:34 AM CDT Legal Sex Male 10:09 AM WATER SOFTENER SERVICER Gender Identity Male 12/15/2019 2:54 PM CDT Sexual Orientation Straight 12/15/2019 2: 54 PM CDT Occupation Industry Job Start Date Job End Date Not on file Not on file Not on file Not on file documented as of this encounter Plan of Treatment Upcoming Encounters Date Type Department Care Team (Late st Contact Info) Description 08/31/2024 11:30 AM WATER SOFTENER SERVICER Appointment Department of Radiation Oncology in [address] [phone] Brian Fair M.D. [address] [place] [phone] Christa Monroe M.D. [address] [place] [phone] 08/31/2024 11:45 AM WATER SOFTENER SERVICER Appointment Department of Radiation Oncology in [place], [place] [address] [place] [phone] Silvano Braga M.D. [address] [place] [phone] 09/01/2024 11:30 AM WATER SOFTENER SERVICER Appointment Department of Radiation Oncology in [address] [phone] Brian Fair M.D. [address] [place] [phone] Christa Monroe M.D. [address] [place] [phone] 09/04/2024 8:30 AM WATER SOFTENER SERVICER Appointment Department of Radiation Oncology in [place], [place] [address] [place] [address] Brian Fair M.D. [address] [place] [phone] Christa Monroe M.D. [address] [place] [phone] 09/05/2024 8:45 AM WATER SOFTENER SERVICER Appointment Department of Radiation Oncology in [place] [address] [place] [address] Brian Fair M.D. [address] [place] [phone] Christa Monroe M.D. [address] [place] [phone] 09/06/2024 11:30 AM WATER SOFTENER SERVICER Appointment Department of Radiation Oncology in [place], [place] [address] [place] [phone] Brian Fair M.D. [address] [place] [phone] Christa Monroe M.D. [address] [place] [phone] documented as of this encounter Visit Diagnoses Not on filedocumented in this encounter Additional Health Concerns Assessment Noted Time PHQ-9 Depression Total Score: 10 023 7:28 AM CDT documented as of this encounter Care Teams Shipping Services Sales Representative Relationship Specialty Start Date End Date Adi Allen M.D. [address] [place] [phone] PCP - General 02/11/17 documented as of this encounter
--- OUTSIDE RECORDS SUMMARY | 2024-08-31 07:25 | XMS_ITS | Encounter Summary ---
Author Organization [facility] Address [address] [place] [address] Care Team Providers Care Needle Bar Molder Name Role Phone Adi Allen M.D. Primary Care Provider Reason for Visit * Reason Comments Feeding Tube Encounter Details Date Type Department Care Team (Latest Contact Info) Description 08/10/2024 10:00 AM HARNESS PLACER Clinical Support Division of Endocrinology in [place], [place] [address] [place] [address] Christa Monroe M.D. [address] [place] [phone] Asad Foss, RCarriNCarri Malignant Neoplasm Of Tongue Base (HCC) Social History Tobacco Use Types Packs/Day Years Used Date Smoking Tobacco: Former Cigarettes Q uit: 1983 Passive Smoke Exposure: Never Smokeless Tobacco: Former Comments:1983. He reports sm oking less than 1 pack of cigarettes total in his life. Alcohol Use Standard Drinks/Week Comments Not Currently 0 (1 standard drink = 0.6 oz pur e alcohol) [facility] Utilities Answer Date Recorded In the [...] often do you attend chur ch or zoroastrianism services? Never 12/09/2022 Do you belong to any clubs o r organizations such as judaism groups, unions, fraternal or athletic groups, or [...] Answer Date Recorded PHQ-2 Score 2 12/22/2022 [facility] [place] of Occupat ional Health - Occupational Stress [...] your living situation today? I have a [employer] place to live 06/20/2024 Education Answer Date Recorded What is the highest level of school you have completed or the highest degree you have received? Associate degree: occupational, technical, or vocational program 09/10/2020 Sex and Gender Information Value Date Recorded Sex Assigned at Male 05/19/2021 9:34 AM CDT Legal Sex Male 10:09 AM HARNESS PLACER Gender Identity Male 12/15/2019 2:54 PM CDT Sexual Orientation Straight 12/15/2019 2: 54 PM CDT Occupation Industry Job Start Date Job End Date Not on file Not on file Not on file Not on file documented as of this encounter Progress Notes * Asad Foss R.N. - 08/10/2024 10:00 AM CST SUBJECTIVE REASON FOR VISIT Mr. Kat was seen in the Home Enteral Nutrition clinic today for a post tube placement visit. OBJECTIVE The indication for tube placement was: Cancer: Head and neck: squamous cell carcinoma of tongue base . Tube was placed using: MAC. Were there complications at time of placement? No. ASSESSMENT Tube type: G tube Tube size: 16 Tube brand: Avanos Tube reference number: [id number] Connector type: Small Bore (Enfit) Date placed: 08/09/2024 Skin disk level: 5 cm loosened to 6.5 cm Internal anchor device: Balloon, not checked Site condition: Snug skin disk. Procedural gauze removed with dried blood drainage. Very small incisional slit at 0300. Dressing status: Split gauze. Recommended limiting use of gauze at tube site Is an infection assessment needed? No Condition of tube: Tube clear/Normal appearance Securement device used: Adhesive Movement of tube: Moves freely T-fasteners present: No Does the patient have a second enteral tube? No Considerations for future visits: Low profile tube: NA Self replacement: NA Special order tube: GI/IR supply chain manager notified? NA PLAN Is there a procedure scheduled? None The patient's tube preference is: NA Were procedural instructions given? No Is a return visit needed? Annual or sooner as needed Person educated: Patient Teach back done by Antonino: Tube site care and Tube rotation Supplies given: Se pro net and Adhesive Is patient approved for combined annual appointments in the future? NA *Antonino reports having pain a 15/10 overall. I asked about his tube site and he stated it was just annoying. He would not rate the pain at his tube site. He reports taking Tylenol orally this morning, he could not recall what time. Discussed other pain relief methods such as hot/cold packs, over the counter lidocaine patches, skin disk repositioning, tylenol, and his previously prescribed oxyCODONE. Antonino nodded his head. *Discussed site care with soap and water twice a day for the first 5 days and then daily there after. Also discussed daily tube rotation. Antonino was successful in teaching back both site care and tube rotation. Discussed not submerging his tube site for 6 weeks which would be on (09/20/24). *Reviewed signs and symptoms of infection. *Discussed and demonstrated skin disk repositioning.What to do if his tube were to become dislodgedand to request his spare balloon tube from his supply company. Discussed recommended balloon tube replacement every 3-5 months. *Antonino stated understanding and had no additional concerns at this time. ESS PLACER documented in this encounter Plan of Treatment Upcoming Encounters Date Type Department Care Team (Late st Contact Info) Description 08/31/2024 11:30 AM HARNESS PLACER Appointment Department of Radiation Oncology in [address] [phone] Brian Fair M.D. [address] [place] [phone] Christa Monroe M.D. [address] [place] [phone] 08/31/2024 11:45 AM HARNESS PLACER Appointment Department of Radiation Oncology in [address] [phone] Silvano Braga M.D. [address] [place] [phone] 09/01/2024 11:30 AM HARNESS PLACER Appointment Department of Radiation Oncology in [address] [phone] Brian Fair M.D. [address] [place] [phone] Christa Monroe M.D. [address] [place] [phone] 09/04/2024 8:30 AM HARNESS PLACER Appointment Department of Radiation Oncology in [address] [phone] Brian Fair M.D. [address] [place] [phone] Christa Monroe M.D. [address] [place] [phone] 09/05/2024 8:45 AM HARNESS PLACER Appointment Department of Radiation Oncology in [place], [place] [address] [place] [address] Brian Fair M.D. [address] [place] [phone] Christa Monroe M.D. [address] [place] [phone] 09/06/2024 11:30 AM HARNESS PLACER Appointment Department of Radiation Oncology in [place], [place] [address] [place] [address] Brian Fair M.D. [address] [place] [phone] Christa Monroe M.D. [address] [place] [phone] documented as of this encounter Visit Diagnoses Diagnosis Malignant Neoplasm Of Tongue Base (HCC) documented in this encounter Additional Health Concerns Assessment Noted Time PHQ-9 Depression Total Score: 10 023 7:28 AM CDT documented as of this encounter Care Teams Needle Bar Molder Relationship Specialty Start Date End Date Adi Allen M.D. [address] [place] [phone] PCP - General 02/11/17 documented as of this encounter
--- OUTSIDE RECORDS SUMMARY | 2024-08-31 07:25 | XMS_ITS | Encounter Summary ---
Author Organization [facility] Address [address] [place] [address] Care Team Providers Care Staff Air Defense Officer Name Role Phone Adi Allen M.D. Primary Care Provider [phone] Reason for Visit * Outpatient (Routine) - Closed Specialty Diagnoses / Procedures Referred By Lucina hernández Referred To Contact Nutrition Diagnoses Malignant Neoplasm Of Tongue Base (HCC) Christa Monroe M.D. [address] [place] [phone] Phone: tel: fax: [facility] Referral ID Status Reason Start Date Expiration Date Visits Re quested Visits Authorized [id number] Closed 08/07/2024 02/06/2026 1 1 Encounter Details Date Type Department Care Team (Latest Contact Info) Description 08/10/2024 8:00 AM BIAS BINDING CUTTER Comprehensive Visit Department of Nutrition and Diabetes Education in [place], [place] [address] [place] [phone] Christa Monroe M.D. [address] [place] [phone] Gloria Ramirez M.S., RDN, LD [address] [place] [phone] Dysphagia (Primary Dx); Malignant Neoplasm Of Tongue Base (HCC); Gastrostomy Status (HCC); Dietary Counseling And Surveillance For Enteral Nutrition Social History Tobacco Use Types Packs/Day Years Used Date Smoking Tobacco: Former Cigarettes Q uit: 1984 Passive Smoke Exposure: Never Smokeless Tobacco: Former Comments:1983. He reports sm oking less than 1 pack of cigarettes total in his life. Alcohol Use Standard Drinks/Week Comments Not Currently 0 (1 standard drink = 0.6 oz pur e alcohol) [facility] Utilities Answer Date Recorded In the [...] any clubs o r organizations such as latter day groups, unions, fraternal or athletic groups, or [...] Frequency of Binge Drinking Not on file 04/1 09/2022 Overall Financial Resource Strain (CARDIA) Answe r Date Recorded How hard is it for you to pa y for the very basics like food, housing, medical care, and heating? Not very hard 12/09/2022 PHQ-2 Answer Date Recorded PHQ-2 Score 2 12/22/2022 [facility] - Occupational Stress Questionnaire Answer [...] your living situation today? I have a [facility] place to live 06/20/2024 Education Answer Date Recorded What is the highest level of school you have completed or the highest degree you have received? Associate degree: occupational, technical, or vocational program 09/10/2020 Sex and Gender Information Value Date Recorded Sex Assigned at Male 05/19/2021 9:34 AM CDT Legal Sex Male 10:09 AM BIAS BINDING CUTTER Gender Identity Male 12/15/2019 2:54 PM CDT Sexual Orientation Straight 12/15/2019 2: 54 PM CDT Occupation Industry Job Start Date Job End Date Not on file Not on file Not on file Not on file documented as of this encounter Progress Notes * Gloria Ramirez M.S., RDN, LD - 08/10/2024 8:00 AM CST CHIEF COMPLAINT/REASON FOR VISIT Home Enteral Nutrition Follow-Up Post G-Tube HISTORY OF PRESENT ILLNESS Mr. 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 G-tube placed yesterday 08/09/24 due to side effects of treatment. The following portions of the patient's history were reviewed and updated as appropriate: allergies, family history and social history. Met with patient. ASSESSMENT Relevant Social and Family History He resides in [place] with his spouse, Naa. Medical Tests and Procedures/Biochemical Data VFSS (06/19/24): Swallow function within normal limits. Pertinent Labs No new labs to assess. Nutrition Focused Physical Findings Mouth/Espohagus/Throat: Reports developing mouth sore in the base of back right tongue. Feels like throat is tightening up. Difficulty swallowing, including pills Nausea/Vomiting: Spitting up a lot of phlegm Bowels: Last BM a couple days ago Hydration: Good UOP Tube Information 16 Kazakh balloon G-tube placed 08/09/24 Food/Nutrient Related History Oral Intake: Intake significantly deteriorated in the past week (noted intake per RDN noted dated 08/03/24), has only been able to consume Ensure Plus (tries to get in 3/day, not always successful), jello, small amount of ice cream. Enteral Intake: To start today Weight History 12/22/22: 104 kg 05/19/24: 97 kg 07/18/24: 95.5 kg (simulation) 07/25/24: 98.3 kg (start of treatment) 08/02/24: 95.9 kg 08/08/24: 90.3 kg Height: 177.6 cm BMI: 28.63 Estimation of Nutritional Needs Calories: 2594-2869 kcals/day (25-30 kcal/kg) Protein: 108 grams/day (1.2 gram/kg) Fluid: 2250 mL/day (25 mL/kg) Assessment Summary Antonino did well with education and his first feeding of 125 mL Nutren 1.5. He demonstrated understanding of material and performed water flushes today. NUTRITION DIAGNOSIS Inadequate oral energy intake related to side effects of treatment for tongue base cancer as evidenced by need for enteral nutrition support. Nutrition Prescription/Recommendation Formula Type: Nutren 1.5 Administration Method: Intermittent gravity/syringe Infusion Schedule: Goal will be 6 cartons daily (2-2-2) Water Flushes: 120 mL before and after feeds Other Flushes: Additional 480 mL (16 oz) daily either orally or via tube Additional Multivitamin: Not needed, formula volume provides >100% DRIs At goal, this will provide a total of: 2250 calories/day, 102 g protein/day, and 1500 mL of fluid (1140 mL free water)/day. Water flushes will provide extra fluid. Oral Program: For therapeutic purposes as able INTERVENTION Education [place] method of feeding, tube removal requirements, ENFit cleaning brush Care Coordination Authorization on file to speak with DME/Infusion Company: yes DME/Infusion Company that will provide needed supplies for home: [place] Indication for Ongoing Enteral Nutrition #Malignant Neoplasm Of Tongue Base Anticipated duration of tube feedings is 6 months. This is the sole source of nutrition. MONITORING AND EVALUATION Nutrition parameter to monitor: Weight Desired Outcome: Maintain, halt weight loss Patient Goal(s): 1. 1/2 carton Nutren 1.5 twice more today 2. Tube feeding advancement pending labs tomorrow Follow-up Plan HEN providers will follow-up on refeeding monitoring. I have asked the [facility] radiation dietitian to follow him while he's going through treatment. Instructed Antonino to contact us when he's readyto work on weaning off tube feeding. Time spent with patient (minutes): 45 BINDING CUTTER documented in this encounter Plan of Treatment Upcoming Encounters Date Type Department Care Team (Late st Contact Info) Description 08/31/2024 11:30 AM BIAS BINDING CUTTER Appointment Department of Radiation Oncology in [place], [place] [address] [place] [address] Brian Fair M.D. [address] [place] [phone] Christa Monroe M.D. [address] [place] [phone] 08/31/2024 11:45 AM BIAS BINDING CUTTER Appointment Department of Radiation Oncology in [place], [place] [address] [place] [phone] Silvano Braga M.D. [address] [place] [phone] 09/01/2024 11:30 AM BIAS BINDING CUTTER Appointment Department of Radiation Oncology in [place], [place] [address] [place] [phone] Brian Fair M.D. [address] [place] [phone] Christa Monroe M.D. [address] [place] [phone] 09/04/2024 8:30 AM BIAS BINDING CUTTER Appointment Department of Radiation Oncology in [place], [place] [address] [place] [phone] Brian Fair M.D. [address] [place] [phone] Christa Monroe M.D. [address] [place] [phone] 09/05/2024 8:45 AM BIAS BINDING CUTTER Appointment Department of Radiation Oncology in [place], [place] [address] [place] [phone] Brian Fair M.D. [address] [place] [phone] Christa Monroe M.D. [address] [place] [phone] 09/06/2024 11:30 AM BIAS BINDING CUTTER Appointment Department of Radiation Oncology in [place], [place] [address] [place] [phone] Brian Fair M.D. [address] [place] [phone] Christa Monroe M.D. [address] [place] [phone] documented as of this encounter Visit Diagnoses Diagnosis Dysphagia- Primary Malignant Neoplasm Of Tongue Base (HCC) Gastrostomy Status (HCC) Dietary Counseling And Surveillance For Enteral Nutrition documented in this encounter Additional Health Concerns Assessment Noted Time PHQ-9 Depression Total Score: 10 023 7:28 AM CDT documented as of this encounter Care Teams Staff Air Defense Officer Relationship Specialty Start Date End Date Adi Allen M.D. [address] [place] [phone] PCP - General 02/11/17 documented as of this encounter
--- OUTSIDE RECORDS SUMMARY | 2024-08-31 07:25 | XMS_ITS | Encounter Summary ---
Author Organization [facility] Address [address] [place] [address] Care Team Providers Care Management Assistant Name Role Phone Adi Allen M.D. Primary Care Provider Encounter Details Date Type Department Care Team (Late st Contact Info) Description 08/10/2024 Documentation Division of General Internal Medicine in [place], [place] [address] [place] [address] Dee Forrest, Pharm.D., R.Ph. Social History Tobacco Use Types Packs/Day Years Used Date Smoking Tobacco: Former Cigarettes Q uit: 1983 Passive Smoke Exposure: Never Smokeless Tobacco: Former Comments:1983. He reports sm oking less than 1 pack of cigarettes total in his life. Alcohol Use Standard Drinks/Week Comments Not Currently 0 (1 standard drink = 0.6 oz pur e alcohol) [facility] Utilities Answer Date Recorded In the past 12 months has e [employer], gas, oil, or water [employer] threatened to shut off services in your [...] often do you attend chur ch or islam services? Never 12/09/2022 Do you belong to [...] Answer Date Recorded PHQ-2 Score 2 12/22/2022 [facility] of Occupat ionhi Health - Occupational Stress Questionnaire Answer Date [...] your living situation today? I have a [facility] place to live 06/20/2024 Education Answer Date Recorded What is the highest level of school you have completed or the highest degree you have received? 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 - 08/10/2024 7:12 AM CST At the request of Home Enteral Nutrition, I reviewed Mr. Kat's outpatient medication list for interactions and issues related to administration via G-tube. Active Home Medications Medication Sig Recommendation acetaminophen (TylenoL) 500 mg tablet Take 2 tablets (1,000 mg total) by mouth every 6 (six) hours as needed for pain. Do NOT exceed more that 4,000mg of Acetaminophen per day from all sources - including Nyquil Ok to crush. DM/p-ephed/acetaminoph/doxylam (NYQUIL D ORAL) Take 30 mL by mouth at bedtime. Ok for tube administration. doxepin (SINEquan) 10 mg/mL concentrated solution Mix 2.5 mL of solution with 2.5 mL of water. Insert in mouth, swish for 1 minute, and then expectorate. May use every 4 to 6 hours as needed for mouth pain. Not for tube administration. DULoxetine (Cymbalta) [address] capsule Take 1 capsule (20 mg total) by mouth 2 (two) times a day. Do not crush. Discuss alternative with ordering provider. fluoride, sodium, (PreviDent) 1.1 % gel dental gel Apply 1 Application to the mouth or throat daily. Floss, brush, baking soda rinse. Apply thin gel ribbon to trays wear 5 minutes. Remove trays expectorate excess gel. No eating drinking or rinsing for 30 min. Not for tube administration. fluticasone propion-salmeteroL (Advair HFA) 230-21 mcg/actuation inhaler Inhale 2 puffs 2 (two) times a day. Rinse mouth with water after use to reduce aftertaste and incidence of candidiasis. Do notswallow. Not for tube administration. fluticasone propionate (Flonase) 50 mcg/actuation nasal spray Administer 1 spray into each nostril daily. Not for tube administration. hydrOXYzine (VISTARIL) 50 mg capsule Take 1 capsule (50 mg total) by mouth every 6 (six) hours as needed for anxiety. Patient taking differently: Take 50 mg by mouth every 12 (twelve) hours. Not recommended for tube administration. ibuprofen 200 mg tablet Take 3 tablets (600 mg total) by mouth every 6 (six) hours as needed for pain. Take with food. Ok to crush. ondansetron (Zofran) 4 mg tablet Take 1 tablet by mouth every 4 (four) hours PM. Ok to crush. oxyCODONE (Roxicodone) 5 mg immediate release tablet Take 1 tablet (5 mg total) by mouth every 8 (eight) hours as needed for pain for up to 30 doses Indication: Prolonged Acute Pain/Traumatic Injury.Ok to crush. prochlorperazine (Compazine) 5 mg tablet TAKE ONE TABLET BY MOUTH TWICE A DAY NEEDED FOR NAUSEA AND VOMITING Ok to crush. sennosides-docusate sodium (Senokot-S) 8.6-50 mg per tablet Take 1 tablet by mouth at bedtime as needed for constipation. Take to prevent constipation while using narcotic pain medication. Stop if you experience loose stool or bowel movements are normal. Ok to crush. traZODone (DESYREL) 100 mg tablet take two tablets by mouth at bedtime Patient taking differently: Take 100 mg by mouth at bedtime. Ok to crush. In most cases, direct data on medication administration via feeding tubes is not available. Therefore recommendations in many cases, for example ok to crush are provided based on general principlesof administering medications via feeding tube. Because bioavailability may vary with oral and feeding tube administration, close monitoring of drug effects and/or levels is necessary with a change inroute of administration such as this. ET RAILWAY LINE INSTALLER documented in this encounter Plan of Treatment Upcoming Encounters Date Type Department Care Team (Late st Contact Info) Description 08/31/2024 11:[address] RAILWAY LINE INSTALLER Appointment Department of Radiation Oncology in [place], [place] [address] [place] [phone] Brian Fair M.D. [address] [place] [phone] Christa Monroe M.D. [address] [place] [phone] 08/31/2024 11:[address] RAILWAY LINE INSTALLER Appointment Department of Radiation Oncology in [place], [place] [address] [place] [phone] Silvano Braga M.D. [address] [place] [phone] 09/01/2024 11:[address] RAILWAY LINE INSTALLER Appointment Department of Radiation Oncology in [place], [place] [address] [place] [address] Brian Fair M.D. [address] [place] [phone] Christa Monroe M.D. [address] [place] [phone] 09/04/2024 8:[address] RAILWAY LINE INSTALLER Appointment Department of Radiation Oncology in [place], [place] [address] [place] [address] Brian Fair M.D. [address] [place] [phone] Christa Monroe M.D. [address] [place] [phone] 09/05/2024 8:[address] RAILWAY LINE INSTALLER Appointment Department of Radiation Oncology in [place], [place] [address] [place] [address] Brian Fair M.D. [address] [place] [phone] Christa Monroe M.D. [address] [place] [phone] 09/06/2024 11:[address] RAILWAY LINE INSTALLER Appointment Department of Radiation Oncology in [place], [place] [address] [place] [address] Brian Fair M.D. [address] [place] [phone] Christa Monroe M.D. [address] [place] [phone] documented as of this encounter Visit Diagnoses Not on filedocumented in this encounter Additional Health Concerns Assessment Noted Time PHQ-9 Depression Total Score: 10 023 7:28 AM CDT documented as of this encounter Care Teams Management Assistant Relationship Specialty Start Date End Date Adi Allen M.D. [address] [phone] PCP - General 02/11/17 documented as of this encounter
--- OUTSIDE RECORDS SUMMARY | 2024-08-31 07:25 | XMS_ITS | Encounter Summary ---
Author Organization [facility] Address [address] [place] [phone] Care Team Providers Care Truck Leasing Manager Name Role Phone Adi Allen M.D. Primary Care Provider [phone] Encounter Details Date Type Department Care Team (Late st Contact Info) Description 08/11/2024 Clinical Communication Division of Endocrinology in [place], [place] [address] [place] [phone] Ria Whalen, MEHDI, C.N.P., M.S. [address] [place] [phone] Social History Tobacco Use Types Packs/Day Years Used Date Smoking Tobacco: Former Cigarettes Q uit: 1983 Passive Smoke Exposure: Never Smokeless Tobacco: Former Comments:1983. He reports sm oking less than 1 pack of cigarettes total in his life. Alcohol Use Standard Drinks/Week Comments Not Currently 0 (1 standard drink = 0.6 oz pur e alcohol) [facility] Utilities Answer Date Recorded In the past 12 months has [employer] electric, gas, oil, or water company threatened [...] often do you attend chur ch or lutheran services? Never 12/09/2022 Do you belong to any clubs o r organizations such as protestant groups, unions, fraternal or athletic groups, or [...] Answer Date Recorded PHQ-2 Score 2 12/22/2022 [facility] [place] of Occupat ional Health - Occupational Stress [...] your living situation today? I have a [facility] place to live 06/20/2024 Education Answer Date Recorded What is the highest level of school you have completed or the highest degree you have received? Associate degree: occupational, technical, or vocational program 09/10/2020 Sex and Gender Information Value Date Recorded Sex Assigned at Male 05/19/2021 9:34 AM CDT Legal Sex Male 10:09 AM GRAB OPERATOR Gender Identity Male 12/15/2019 2:54 PM CDT Sexual Orientation Straight 12/15/2019 2: 54 PM CDT Occupation Industry Job Start Date Job End Date Not on file Not on file Not on file Not on file documented as of this encounter Miscellaneous Notes * Telephone Encounter - Ria Whalen APRN, C.N.P., M.S. - 08/11/2024 4:20 PM CST Called patient to see if he had labs sent today at [facility] for post enteral nutrition initiationrecck. He did not have labs done today, he thought he had to have labs done on Wednesday. He misunderstood. But he knows he will get labs done at [facility] on Wednesday because he has to have chemotherapy. Otherwise he is doing okay. From a feeding tube perspective, he feels like the tube feeds are goingokay as far as he is concerned. He did 2 cartons this morning 2 cartons mid day and is planning to do another 2 cartons tonight. He notes that he has a lot of liquid stools. They are not excessive itis just that the stools have no solid form to them. He feels really exhausted. He has been able to turn the tube and cleaned the tube site. That seems to be going okay. I recommended that he slow down on his tube feeds if the diarrhea persists. It is normal for it to take a couple of days if not a week or so before the bodies adjusted to the tube feeds. I suggested doing maybe just 1 carton tonight. I also reviewed just trying to do 1 carton at a time tomorrow seeing if that helps. Reviewed that even if he gets at least 4 cartons each day over the weekend that would be a good goal and reaching 6 cartons next week. He will give that a try. I will touch base with him next week to review labs. We will also have 1 of our dietitians contact him later next week just to see how he is doing with meeting his goal, bowel habits, and any other enteral nutrition related concerns. OPERATOR OPERATOR documented in this encounter Plan of Treatment Upcoming Encounters Date Type Department Care Team (Late st Contact Info) Description 08/31/2024 11:30 AM GRAB OPERATOR Appointment Department of Radiation Oncology in [place], [place] [address] [place] [address] Brian Fair M.D. [address] [place] [address] Christa Monroe M.D. [address] [place] [phone] 08/31/2024 11:45 AM GRAB OPERATOR Appointment Department of Radiation Oncology in [place], [place] [address] [place] [phone] Silvano Braga M.D. [address] [place] [phone] 09/01/2024 11:30 AM GRAB OPERATOR Appointment Department of Radiation Oncology in [place], [place] [address] [place] [phone] Brain Fair M.D. [address] [place] [phone] Christa Monroe M.D. [address] [place] [phone] 09/04/2024 8:30 AM GRAB OPERATOR Appointment Department of Radiation Oncology in [place], [place] [address] [place] [address] Brian Fair M.D. [address] [place] [phone] Christa Monroe M.D. [address] [place] [phone] 09/05/2024 8:45 AM GRAB OPERATOR Appointment Department of Radiation Oncology in [place], [place] [address] [place] [phone] Brian Fair M.D. [address] [place] [phone] Christa Monroe M.D. [address] [place] [phone] 09/06/2024 11:30 AM GRAB OPERATOR Appointment Department of Radiation Oncology in [place], [place] [address] [place] [phone] Brian Fair M.D. 200 [place] [address] Christa Monroe M.D. [address] [place] [phone] documented as of this encounter Visit Diagnoses Not on filedocumented in this encounter Additional Health Concerns Assessment Noted Time PHQ-9 Depression Total Score: 10 023 7:28 AM CDT documented as of this encounter Care Teams Truck Leasing Manager Relationship Specialty Start Date End Date Adi Allen M.D. [address] [place] [phone] PCP - General 02/11/17 documented as of this encounter
--- OUTSIDE RECORDS SUMMARY | 2024-08-31 07:25 | XMS_ITS | Encounter Summary ---
Author Organization [facility] Address [address] [place] [address] Care Team Providers Care Bridge Contractor Name Role Phone Adi Allen M.D. Primary Care Provider Encounter Details Date Type Department Care Team (Late st Contact Info) Description 08/14/2024 9:30 AM [facility] Hospital Encounter Department of Radiation Oncology in [place], [place] [address] [place] [phone] Brian Fair M.D. [address] [place] [phone] Christa Monroe M.D. [address] [place] [phone] Social History Tobacco Use Types Packs/Day Years Used Date Smoking Tobacco: Former Cigarettes Q uit: 1983 Passive Smoke Exposure: Never Smokeless Tobacco: Former Comments:1983. He reports sm oking less than 1 pack of cigarettes total in his life. Alcohol Use Standard Drinks/Week Comments Not Currently 0 (1 standard drink = 0.6 oz pur e alcohol) [facility] Utilities Answer Date Recorded In [...] Answer Date Recorded PHQ-2 Score 2 12/22/2022 [facility] [place] of Occupat ional Health - Occupational Stress [...] your living situation today? I have a [facility] place to live 06/20/2024 Education Answer Date Recorded What is the highest level of school you have completed or the highest degree you have received? Associate degree: occupational, technical, or vocational program 09/10/2020 Sex and Gender Information Value Date Recorded Sex Assigned at Male 05/19/2021 9:34 AM CDT Legal Sex Male 10:09 AM TUFTING MACHINE OPERATOR Gender Identity Male 12/15/2019 2:54 PM CDT Sexual Orientation Straight 12/15/2019 2: 54 PM CDT Occupation Industry Job Start Date Job End Date Not on file Not on file Not on file Not on file documented as of this encounter Plan of Treatment Upcoming Encounters Date Type Department Care Team (Late st Contact Info) Description 08/31/2024 11:30 AM TUFTING MACHINE OPERATOR Appointment Department of Radiation Oncology in [address] [phone] Brian Fair M.D. [address] [place] [phone] Christa Monroe M.D. [address] [place] [phone] 08/31/2024 11:45 AM TUFTING MACHINE OPERATOR Appointment Department of Radiation Oncology in [place], [place] [address] [place] [phone] Silvano Braga M.D. [address] [place] [phone] 09/01/2024 11:30 AM TUFTING MACHINE OPERATOR Appointment Department of Radiation Oncology in [address] [phone] Brian Fair M.D. [address] [place] [phone] Christa Monroe M.D. [address] [place] [phone] 09/04/2024 8:30 AM TUFTING MACHINE OPERATOR Appointment Department of Radiation Oncology in [place], [place] [address] [place] [address] Brian Fair M.D. [address] [place] [phone] Christa Monroe M.D. [address] [place] [phone] 09/05/2024 8:45 AM TUFTING MACHINE OPERATOR Appointment Department of Radiation Oncology in [place] [address] [place] [address] Brian Fair M.D. [address] [place] [phone] Christa Monroe M.D. [address] [place] [phone] 09/06/2024 11:30 AM TUFTING MACHINE OPERATOR Appointment Department of Radiation Oncology in [place], [place] [address] [place] [phone] Brian Fair M.D. 200 [place] [phone] Christa Monroe M.D. [address] [place] [phone] documented as of this encounter Visit Diagnoses Not on filedocumented in this encounter Additional Health Concerns Assessment Noted Time PHQ-9 Depression Total Score: 10 023 7:28 AM CDT documented as of this encounter Care Teams Bridge Contractor Relationship Specialty Start Date End Date Adi Allen M.D. [address] [place] [phone] PCP - General 02/11/17 documented as of this encounter
--- OUTSIDE RECORDS SUMMARY | 2024-08-31 07:25 | XMS_ITS | Encounter Summary ---
Author Organization [facility] Address [address] [place] [address] Care Team Providers Care Director [employer] Name Role Phone Adi Allen M.D. Primary Care Provider Encounter Details Date Type Department Care Team (Late st Contact Info) Description 08/14/2024 Orders Only Department of Oncology in [place], [place] [address] [place] [address] Phylicia Campos MPAS, P.A.-C., P.A. [address] [place] [address] Tinnitus Bilateral (Primary Dx); Malignant Neoplasm Of Tongue Base (HCC) Social History Tobacco Use Types Packs/Day Years Used Date Smoking Tobacco: Former Cigarettes Q uit: 1983 Passive Smoke Exposure: Never Smokeless Tobacco: Former Comments:1983. He reports sm oking less than 1 pack of cigarettes total in his life. Alcohol Use Standard Drinks/Week Comments Not Currently 0 (1 standard drink = 0.6 oz pur e alcohol) [facility] Utilities Answer Date Recorded In the past [...] often do you attend chur ch or nondenominational services? Never 12/09/2022 Do you belong to any clubs o r organizations such as sabianist groups, unions, fraternal or athletic groups, or [...] Answer Date Recorded PHQ-2 Score 2 12/22/2022 [facility] [place] of Occupat ional Health - Occupational Stress [...] your living situation today? I have a [facility] place to live 06/20/2024 Education Answer Date Recorded What is the highest level of school you have completed or the highest degree you have received? Associate degree: occupational, technical, or vocational program 09/10/2020 Sex and Gender Information Value Date Recorded Sex Assigned at Male 05/19/2021 9:34 AM CDT Legal Sex Male 10:09 AM EDUCATION DEPARTMENT CHAIR Gender Identity Male 12/15/2019 2:54 PM CDT Sexual Orientation Straight 12/15/2019 2: 54 PM CDT Occupation Industry Job Start Date Job End Date Not on file Not on file Not on file Not on file documented as of this encounter Plan of Treatment Upcoming Encounters Date Type Department Care Team (Late st Contact Info) Description 08/31/2024 11:30 AM EDUCATION DEPARTMENT CHAIR Appointment Department of Radiation Oncology in [place], [place] [address] [place] [phone] Brian Fair M.D. [address] [place] [phone] Christa Monroe M.D. [address] [place] [phone] 08/31/2024 11:45 AM EDUCATION DEPARTMENT CHAIR Appointment Department of Radiation Oncology in [place], [place] [address] [place] [phone] Silvano Braga M.D. [address] [place] [phone] 09/01/2024 11:30 AM EDUCATION DEPARTMENT CHAIR Appointment Department of Radiation Oncology in [address] [phone] Brian Fair M.D. [address] [place] [phone] Christa Monroe M.D. [address] [place] [phone] 09/04/2024 8:30 AM EDUCATION DEPARTMENT CHAIR Appointment Department of Radiation Oncology in [place], [place] [address] [place] [address] Brian Fair M.D. [address] [place] [phone] Christa Monroe M.D. [address] [place] [phone] 09/05/2024 8:45 AM EDUCATION DEPARTMENT CHAIR Appointment Department of Radiation Oncology in [place] [address] [place] [address] Brian Fair M.D. [address] [place] [phone] Christa Monroe M.D. 200 [place] [phone] 09/06/2024 11:30 AM EDUCATION DEPARTMENT CHAIR Appointment Department of Radiation Oncology in [place], [place] [address] [place] [address] Brian Fair M.D. 200 [place] [address] Christa Monroe M.D. 200 [place] [address] Scheduled Orders Name Type Priority Associated Diagnoses Orde r Schedule Audiology evaluation Audiology Routine Tinnitus Bilateral Malignant Neoplasm Of Tongue Base (HCC) Expected: 08/14/2024, Expires: 11/12/2025 documented as of this encounter Visit Diagnoses Diagnosis Tinnitus Bilateral- Primary Malignant Neoplasm Of Tongue Base (HCC) documented in this encounter Additional Health Concerns Assessment Noted Time PHQ-9 Depression Total Score: 10 023 7:28 AM CDT documented as of this encounter Care Teams Director [employer] Relationship Specialty Start Date End Date Adi Allen M.D. [address] [place] [address] PCP - General 02/11/17 documented as of this encounter
--- OUTSIDE RECORDS SUMMARY | 2024-08-31 07:26 | XMS_ITS | Encounter Summary ---
Author Organization [facility] Address [address] [place] [address] Care Team Providers Care Temperature Logging Operator Name Role Phone Adi Allen M.D. Primary Care Provider Encounter Details Date Type Department Care Team (Late st Contact Info) Description 08/10/2024 11:55 AM [facility] Hospital Encounter Department of Radiation Oncology in [place], [place] [address] [place] [phone] Brian Fair M.D. [address] [place] [phone] Christa Monroe M.D. [address] [place] [phone] Social History Tobacco Use Types Packs/Day Years Used Date Smoking Tobacco: Former Cigarettes Q uit: 1983 Passive Smoke Exposure: Never Smokeless Tobacco: Former Comments:1983. He reports sm oking less than 1 pack of cigarettes total in his life. Alcohol Use Standard Drinks/Week Comments Not Currently 0 (1 standard drink = 0.6 oz pur e alcohol) [facility] Utilities Answer Date Recorded In [...] How often do you attend chur or buddhism services? Never 12/09/2022 Do you belong to any clubs o r organizations such as hoahaoism groups, unions, fraternal or athletic groups, or [...] Answer Date Recorded PHQ-2 Score 2 12/22/2022 [facility] [place] of Occupat ional Health - Occupational Stress [...] your living situation today? I have a [facility] place to live 06/20/2024 Education Answer Date Recorded What is the highest level of school you have completed or the highest degree you have received? Associate degree: occupational, technical, or vocational program 09/10/2020 Sex and Gender Information Value Date Recorded Sex Assigned at Male 05/19/2021 9:34 AM CDT Legal Sex Male 10:09 AM AIR DISPATCHER Gender Identity Male 12/15/2019 2:54 PM CDT Sexual Orientation Straight 12/15/2019 2: 54 PM CDT Occupation Industry Job Start Date Job End Date Not on file Not on file Not on file Not on file documented as of this encounter Plan of Treatment Upcoming Encounters Date Type Department Care Team (Late st Contact Info) Description 08/31/2024 11:30 AM AIR DISPATCHER Appointment Department of Radiation Oncology in [address] [phone] Brian Fair M.D. [address] [place] [phone] Christa Monroe M.D. [address] [place] [phone] 08/31/2024 11:45 AM AIR DISPATCHER Appointment Department of Radiation Oncology in [place], [place] [address] [place] [phone] Silvano Braga M.D. [address] [place] [phone] 09/01/2024 11:30 AM AIR DISPATCHER Appointment Department of Radiation Oncology in [address] [phone] Brian Fair M.D. [address] [place] [phone] Christa Monroe M.D. [address] [place] [phone] 09/04/2024 8:30 AM AIR DISPATCHER Appointment Department of Radiation Oncology in [place], [place] [address] [place] [address] Brian Fair M.D. [address] [place] [phone] Christa Monroe M.D. [address] [place] [phone] 09/05/2024 8:45 AM AIR DISPATCHER Appointment Department of Radiation Oncology in [place] [address] [place] [address] Brian Fair M.D. [address] [place] [phone] Christa Monroe M.D. [address] [place] [phone] 09/06/2024 11:30 AM AIR DISPATCHER Appointment Department of Radiation Oncology in [place], [place] [address] [place] [address] Brian Fair M.D. 200 [place] [phone] Christa Monroe M.D. [address] [place] [phone] documented as of this encounter Visit Diagnoses Not on filedocumented in this encounter Additional Health Concerns Assessment Noted Time PHQ-9 Depression Total Score: 10 023 7:28 AM CDT documented as of this encounter Care Teams Temperature Logging Operator Relationship Specialty Start Date End Date Adi Allen M.D. [address] [place] [address] PCP - General 02/11/17 documented as of this encounter
--- OUTSIDE RECORDS SUMMARY | 2024-08-31 07:26 | XMS_ITS | Encounter Summary ---
Author Organization [facility] Address [address] [place] [address] Care Team Providers Care Application Tester Name Role Phone Adi Allne M.D. Primary Care Provider [phone] Reason for Visit * Outpatient (Routine) - Closed Specialty Diagnoses / Procedures Referred By Lucina hernández Referred To Contact Nutrition Diagnoses Malignant Neoplasm Of Tongue Base (HCC) Christa Monroe M.D. [address] [place] [phone] Phone: tel: fax: [facility] Referral ID Status Reason Start Date Expiration Date Visits Re quested Visits Authorized [id number] Closed 08/07/2024 02/06/2026 1 1 Encounter Details Date Type Department Care Team (Latest Contact Info) Description 08/08/2024 11:00 AM INDUSTRIAL PARAMEDIC Comprehensive Visit Department of Nutrition and Diabetes Education in [place], [place] [address] [place] [phone] Christa Monroe M.D. [address] [place] [address] [phone] Gloria Ramirez M.S., RDN, LD [address] [place] [phone] Dietary Counseling And Surveillance For Enteral Nutrition (Primary Dx); Malignant Neoplasm Of Tongue Base (HCC); Dysphagia; Gastrostomy Status (HCC) Social History Tobacco Use Types Packs/Day Years Used Date Smoking Tobacco: Former Cigarettes Q uit: 1984 Passive Smoke Exposure: Never Smokeless Tobacco: Former Comments:1983. He reports sm oking less than 1 pack of cigarettes total in his life. Alcohol Use Standard Drinks/Week Comments Not Currently 0 (1 standard drink = 0.6 oz pur e alcohol) [facility] Utilities Answer Date Recorded In the [...] How often do you attend chur or evangelical services? Never 12/09/2022 Do you belong to [...] Answer Date Recorded PHQ-2 Score 2 12/22/2022 [facility] - Occupational Stress Questionnaire Answer [...] your living situation today? I have a [facility] place to live 06/20/2024 Education Answer Date Recorded What is the highest level of school you have completed or the highest degree you have received? Associate degree: occupational, technical, or vocational program 09/10/2020 Sex and Gender Information Value Date Recorded Sex Assigned at Male 05/19/2021 9:34 AM CDT Legal Sex Male 10:09 AM INDUSTRIAL PARAMEDIC Gender Identity Male 12/15/2019 2:54 PM CDT Sexual Orientation Straight 12/15/2019 2: 54 PM CDT Occupation Industry Job Start Date Job End Date Not on file Not on file Not on file Not on file documented as of this encounter Progress Notes * Gloria Ramirez M.S., RDN, LD - 08/08/2024 11:00 AM CST CHIEF COMPLAINT/REASON FOR VISIT Home Enteral Nutrition Assessment HISTORY OF PRESENT ILLNESS Mr. 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 The following portions of the patient's history were reviewed and updated as appropriate: allergies, family history and social history. Met with patient. ASSESSMENT Relevant Social and Family History He resides in [place] with his spouse, Naa. Medical Tests and [...] a couple days ago Hydration: Good UOP MALNUTRITION CRITERIA: Severe Malnutrition The patient does meet the ASPEN Criteria of malnutrition based on: Energy Intake: Less than or equal to 50 % of estimated energy requirement for greater than or equalto 5 days Interpretation of Weight Loss: greater than 5% 1 month Body Fat: Normal Muscle Mass: Normal Fluid Accumulation: Absent Reduced Community Planner Strength: Not applicable This is in the context of Acute Illness or Injury. Food/Nutrient Related History Oral Intake: Intake significantly deteriorated 4 days ago (noted intake per RDN noted dated 08/03/24), has only been able to consume Ensure Plus (tries to get in 3/day, not always successful), jello, small amount of ice cream. - So far today has consumed a jello cup and a spoonful of ice cream - Yesterday's intake: Ensure Plus x3, jello, spoon of ice cream, water (~34 oz), bites of pigs in ablanket Vitamin/Mineral Intake: None listed Food Allergies and Intolerances: None Weight History 12/22/22: 104 kg 05/19/24: 97 kg 07/18/24: 95.5 kg (simulation) 07/25/24: 98.3 kg (start of treatment) 08/02/24: 95.9 kg 08/08/24: 90.3 kg Height: 177.6 cm BMI: 28.6 Estimation of Nutritional Needs Calories: 8801-8009 kcals/day (25-30 kcal/kg) Protein: 108 grams/day (1.2 gram/kg) Fluid: 2250 mL/day (25 mL/kg) Assessment Summary Antonino would benefit from feeding tube placement to serve as his primary source of nutrition and hydration. He notes he could do some liquid meds orally, but discussed he can use the tube for meds too. He is unable to meet nutrition needs due to pain with swallowing, dysphagia, and mouth sores, andhas thus lost 5% of his body weight since simulation weight. NUTRITION DIAGNOSIS Inadequate oral energy intake related [...] For therapeutic purposes as able INTERVENTION Education Role of HEN, nutrition goals, review of gravity method of feeding, supplies, DME Care Coordination Authorization on file to speak with DME/Infusion Company: yes DME/Infusion Company that will provide needed supplies for home: [facility] Indication for Ongoing Enteral Nutrition #Malignant Neoplasm Of Tongue Base Anticipated duration of tube feedings is 6 months. This is the sole source of nutrition. MONITORING AND EVALUATION Nutrition parameter to monitor: Weight Desired Outcome: Maintain, halt weight loss Patient Goal(s): 1. Proceed with feeding tube placement and initiation of tube feeds Follow-up Plan Patient is followed in [facility]: follow-up plan is to see for post feeding tubeplacement appointments and monitor and evaluate as needed. Time spent with patient (minutes): 45 STRIAL PARAMEDIC STRIAL PARAMEDIC documented in this encounter Plan of Treatment Upcoming Encounters Date Type Department Care Team (Late st Contact Info) Description 08/31/2024 11:30 AM INDUSTRIAL PARAMEDIC Appointment Department of Radiation Oncology in [address] [phone] Brian Fair M.D. [address] [place] [address] [phone] Christa Monroe M.D. [address] [place] [address] [phone] 08/31/2024 11:45 AM INDUSTRIAL PARAMEDIC Appointment Department of Radiation Oncology in [address] [phone] Silvano Braga M.D. [address] [place] [phone] 09/01/2024 11:30 AM INDUSTRIAL PARAMEDIC Appointment Department of Radiation Oncology in [address] [phone] Brian Fair M.D. [address] [place] [phone] Christa Monroe M.D. [address] [place] [phone] 09/04/2024 8:30 AM INDUSTRIAL PARAMEDIC Appointment Department of Radiation Oncology in [place], [place] [address] [place] [phone] Brian Fair M.D. [address] [place] [phone] Christa Monroe M.D. [address] [place] [phone] 09/05/2024 8:45 AM INDUSTRIAL PARAMEDIC Appointment Department of Radiation Oncology in [place], [place] [address] [place] [phone] Brian Fair M.D. [address] [place] [phone] Christa Monroe M.D. [address] [place] [phone] 09/06/2024 11:30 AM INDUSTRIAL PARAMEDIC Appointment Department of Radiation Oncology in [address] [phone] Brian Fair M.D. [address] [place] [phone] Christa Monroe M.D. [address] [place] [phone] documented as of this encounter Visit Diagnoses Diagnosis Dietary Counseling And Surveillance For Enteral Nutrition- Primary Malignant Neoplasm Of Tongue Base (HCC) Dysphagia Gastrostomy Status (HCC) documented in this encounter Additional Health Concerns Assessment Noted Time PHQ-9 Depression Total Score: 10 12/22/ 023 7:28 AM CDT documented as of this encounter Care Teams Application Tester Relationship Specialty Start Date End Date Adi Allen M.D. [address] [place] [phone] PCP - General 02/11/17 documented as of this encounter
--- OUTSIDE RECORDS SUMMARY | 2024-08-31 07:26 | XMS_ITS | Encounter Summary ---
Author Organization [facility] Address [address] [place] [address] Care Team Providers Care Mandrel Puller Name Role Phone Adi Allen M.D. Primary Care Provider Encounter Details Date Type Department Care Team (Late st Contact Info) Description 08/09/2024 1:05 PM HUMAN RESOURCES DEPARTMENT SUPERVISOR Anesthesia Event Department of Radiology in [place], [place] [address] [place] [phone] Zachery Enamorado M.D. [address] [place] [phone] Anesthesia Record Procedure Summary Procedure Name Responsible Anesthesiologist Anesthesia Start Time Anesthesia Stop Time IR GASTROSTOMY TUBE PLACEMENT Zachery Enamorado M.D. 08/09/24 1305 08/09/24 1358 Events Date Time Event Comment 08/09/2024 1305 An Start Machine/Equipme nt Checked Infection Precautions Followed Procedure/Site Verified NPO Status Verified Supine Standard ASA Monitors Applied 1318 Anesthesia Time Out 1319 Proc Start 1353 Proc Fin 1357 Turnover to ANE Staff 1357 an stop data 1358 An End I completed my handoff to the receiving staff during which we 1. Identified the patient 2. Identified the responsible provider 3. Reviewed the pertinent medical history 4. Discussed the surgical course 5. Reviewed intra-op anesthesia management and issues during anesthesia 6. Set expectations for post-procedure period 7. Allowed opportunity for questions and acknowledgement of understanding. Meds Name Total lidocaine 2% (mg) injection 80 mg propofol 10 mg/mL injection 70 mg propofol 10 mg/mL infusion 238.39 mg ceFAZolin injection 2 g (Ancef) 2 g glucagon (GlucaGen) injection 1 mg/mL 1 mg Lactated Ringers Free Drip 500 mL * Agents No agents on file. * Blood No blood administrations on file. Lines, Drains, and Airways Type Details Placement Removal PICC Single Lumen Placement Date: (pt unsure); Orientation: Right; Location: Brachial 08/08/24 1505 by Yohannes Urias R.N. Wound 06/20/24; Mouth; ope n to air 06/20/24 0000 by Denita Giron R.N. Wound 06/20/24; Incision; Throat; Right; dermabond 06/20/24 0000 by Denita Giron R.N. NG/OG Tube 08/09/24; 1342; Gastrostomy; No; Balloon; 6 mL; 16 Fr; Left, Upper, Quadrant (abdomen) 08/09/24 1342 by Alina Mera RCarriN. NG/OG Tube 08/09/24; 1321; Nasogastric; Nare, Left; 08/09/24; 1353 08/09/24 1321 by Alina Mera RCarriN. 08/09/24 1353 by Alina Mera, R.N. documented in this encounter Social History Tobacco Use Types Packs/Day Years Used Date Smoking Tobacco: Former Cigarettes Q uit: 1983 Passive Smoke Exposure: Never Smokeless Tobacco: Former Comments:1983. He reports sm oking less than 1 pack of cigarettes total in his life. Alcohol Use Standard Drinks/Week Comments Not Currently 0 (1 standard drink = 0.6 oz pur e alcohol) [facility] Utilities Answer Date Recorded In the past 12 months has [employer], gas, oil, or water [employer] threatened to shut off services in your [...] Answer Date Recorded PHQ-2 Score 2 12/22/2022 [facility] [place] of Occupat ional Health - Occupational Stress [...] your living situation today? I have a [facility] place to live 06/20/2024 Education Answer Date Recorded What is the highest level of school you have completed or the highest degree you have received? Associate degree: occupational, technical, or vocational program 09/10/2020 Sex and Gender Information Value Date Recorded Sex Assigned at Male 05/19/2021 9:34 AM CDT Legal Sex Male 10:09 AM HUMAN RESOURCES DEPARTMENT SUPERVISOR Gender Identity Male 12/15/2019 2:54 PM CDT Sexual Orientation Straight 12/15/2019 2: 54 PM CDT Occupation Industry Job Start Date Job End Date Not on file Not on file Not on file Not on file documented as of this encounter OR Notes * Anesthesia Postprocedure Evaluation - Zachery Enamorado M.D. 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 Responsible Provider: Zachery Enamorado M.D. Anesthesia Type: MAC ASA Status: 2 Anesthesia Type: MAC Last vitals Vitals Value Taken Time BP 139/86 08/09/24 1415 Temp 37 ??C 08/09/24 1414 Pulse 66 08/09/24 1414 Resp SpO2 99 % 08/09/24 1414 Please reference Vitals flowsheet for most recent vital signs. Anesthesia Post Evaluation Cardiovascular status: hemodynamics (HR & BP) acceptable Respiratory status: patent airway with spontaneous effort Temperature: normothermic Oxygen requirements: room air Level of consciousness: awake Pain score: pain adequately controlled and/or at baseline Post Op nausea/vomiting: none Hydration status: euvolemic Notable Events No notable events documented. N RESOURCES DEPARTMENT SUPERVISOR * Anesthesia Preprocedure Evaluation - Zachery Enamorado M.D. - 08/09/2024 12:01 PM CST Preprocedure Anesthesia & H&P Assessment Procedure Summary Date/Time: 08/09/24 1200 Scheduled providers: Tam Boyd M.D.; Dee Salinas M.D. Procedure: IR GASTROSTOMY TUBE PLACEMENT Diagnosis: Malignant Neoplasm Of Tongue Base (HCC) [C01] Malignant Neoplasm Of Tongue Base (HCC) [C01] Indications: PEG tube placement due to weightloss for head and neck cancer. Location: Department of Radiology in [place], [place] Pertinent components of the patient's history including current problem list, medical history, surgical history, family history, social history, medications and allergies were reviewed. Present illness and pre-op diagnosis were confirmed. The planned surgery / procedure was verified with the patient / legal guardian. The patient's general health condition remains unchanged RELEVANT COMORBID CONDITIONS ANESTHESIA (+) Anesthesia Complication Personal History RESP (+) Asthma NOS RENAL/REPRO (+) Chronic Kidney Disease Stage 2 Glomerular Filtration Rate 60 To 89 GI (+) Gastroesophageal Reflux Disease NOS ONC (+) Malignant Neoplasm Of Tongue Base (HCC) OBJECTIVE PHYSICAL EXAMINATION Airway (HEENT) Mallampati: III TM Distance: >3 FB Neck ROM: Limited Mouth Opening: <3 cm Cardiovascular Rhythm: Regular Pulmonary Pulmonary Assessment: Clear General / Constitutional Constitutional Assessment: Normal Neurological Neurologic Assessment: alert Dental Dental Assessment: dentition intact ASSESSMENT / PLAN ANESTHESIA PLAN ASA: 2 Anesthesia Plan: MAC Needs aggressive suctioning of oropharygeal secretions Patient seen and allergies reviewed, anesthesia plan and risks discussed directly with patient /legal guardian or through an mathematician research. The use of blood products not discussed Approval to Proceed: approved for anesthesia N RESOURCES DEPARTMENT SUPERVISOR documented in this encounter Plan of Treatment Upcoming Encounters Date Type Department Care Team (Late st Contact Info) Description 08/31/2024 11:30 AM HUMAN RESOURCES DEPARTMENT SUPERVISOR Appointment Department of Radiation Oncology in [address] [phone] Brian Fair M.D. [address] [place] [phone] Christa Monroe M.D. [address] [place] [phone] 08/31/2024 11:45 AM HUMAN RESOURCES DEPARTMENT SUPERVISOR Appointment Department of Radiation Oncology in [place] [address] [place] [phone] Silvano Braga M.D. [facility] [place] [phone] 09/01/2024 11:30 AM HUMAN RESOURCES DEPARTMENT SUPERVISOR Appointment Department of Radiation Oncology in [address] [phone] Brian Fair M.D. [address] [place] [phone] Christa Monroe M.D. [address] [place] [phone] 09/04/2024 8:30 AM HUMAN RESOURCES DEPARTMENT SUPERVISOR Appointment Department of Radiation Oncology in [place], [place] [address] [place] [phone] Brian Fair M.D. [address] [place] [phone] Christa Monroe M.D. [address] [place] [phone] 09/05/2024 8:45 AM HUMAN RESOURCES DEPARTMENT SUPERVISOR Appointment Department of Radiation Oncology in [address] [phone] Brian Fair M.D. [address] [place] [phone] Christa Monroe M.D. [address] [place] [phone] 09/06/2024 11:30 AM HUMAN RESOURCES DEPARTMENT SUPERVISOR Appointment Department of Radiation Oncology in [address] [phone] Brian Fair M.D. [address] [place] [phone] Christa Monroe M.D. [address] [place] [phone] documented as of this encounter Visit Diagnoses Not on filedocumented in this encounter Administered Medications Inactive Administered Medications - up to 3 most recent administrations Medication Order MAR Action Action Date Dose Rate Site ceFAZolin injection 2 g (Ancef) 2 g, intravenous, Once, On Wed08/09/24 at 1130, For 1 dose, Preprocedure (RAD), For immediate IV push administration, reconstitute vial per IVAG or package insert instructions. See IVAG for administration guidelines., Indications: Prophylaxis, surgicalIndications:Prophylaxis, surgical Given 08/09/2024 1:17 PM HUMAN RESOURCES DEPARTMENT SUPERVISOR 2 g glucagon injection (GlucaGen) intravenous, As needed, Starting on Wed08/09/24 at 1331, Anesthesia Intra-op Given 08/09/2024 1:37 PM HUMAN RESOURCES DEPARTMENT SUPERVISOR 1 mg Lactated Ringer's intravenous, Continuous Infusion: Per Instructions PRN, Starting on Wed08/09/24 at 1308, Anesthesia Intra-op New Bag 08/09/2024 1:29 PM HUMAN RESOURCES DEPARTMENT SUPERVISOR New Bag 08/09/2024 1:08 PM HUMAN RESOURCES DEPARTMENT SUPERVISOR lidocaine (PF) (cardiac) injection intravenous, As needed, Starting on Wed08/09/24 at 1313, Anesthesia Intra-op Given 08/09/2024 1:10 PM HUMAN RESOURCES DEPARTMENT SUPERVISOR 80 mg propofol 10 mg/mL infusion (Diprivan) intravenous, Continuous Infusion: Per Instructions PRN, Starting on Wed08/09/24 at 1316, Anesthesia Intra-op Rate/Dose Change 08/09/2024 1:33 PM HUMAN RESOURCES DEPARTMENT SUPERVISOR 75 mcg/kg/min 40.635 mL/hr Rate/Dose Change 08/09/2024 1:30 PM HUMAN RESOURCES DEPARTMENT SUPERVISOR 65 mcg/kg/min 35.2 17 mL/hr Rate/Dose Change 08/09/2024 1:28 PM HUMAN RESOURCES DEPARTMENT SUPERVISOR 75 mcg/kg/min 40.6 35 mL/hr propofoL injection (Diprivan) intravenous, As needed, Starting on Wed08/09/24 at 1313, Anesthesia Intra-op Given 08/09/2024 1:37 PM HUMAN RESOURCES DEPARTMENT SUPERVISOR 10 mg Given 08/09/2024 1:33 PM HUMAN RESOURCES DEPARTMENT SUPERVISOR 10 mg Given 08/09/2024 1:28 PM HUMAN RESOURCES DEPARTMENT SUPERVISOR 10 mg documented in this encounter Additional Health Concerns Assessment Noted Time PHQ-9 Depression Total Score: 10 023 7:28 AM CDT documented as of this encounter Care Teams Mandrel Puller Relationship Specialty Start Date End Date Adi Allen M.D. [address] [place] [phone] PCP - General 02/11/17 documented as of this encounter
--- OUTSIDE RECORDS SUMMARY | 2024-08-31 07:26 | XMS_ITS | Encounter Summary ---
Author Organization [facility] Address [address] [place] [address] Care Team Providers Care Hand Stapler Name Role Phone Adi Allen M.D. Primary Care Provider [phone] Reason for Referral * Outpatient (Routine) - Closed Specialty Diagnoses / Procedures Referred By Lucina hernández Referred To Contact Radiology Diagnoses Malignant Neoplasm Of Tongue Base (HCC) Procedures IR Gastrostomy Tube Placement Christa Monroe M.D. [address] [place] [address] Phone: tel: fax: [facility] Referral ID Status Reason Start Date Expiration Date Visits Re quested Visits Authorized [id number] Closed 08/07/2024 08/07/2025 1 1 GENCY CREW SUPERVISOR Reason for Visit * Outpatient (Routine) - Closed Specialty Diagnoses / Procedures Referred By Lucina hernández Referred To Contact Radiology Diagnoses Malignant Neoplasm Of Tongue Base (HCC) Procedures IR Gastrostomy Tube Placement Christa Monroe M.D. [address] [place] [address] Phone: tel: fax: [facility] Referral ID Status Reason Start Date Expiration Date Visits Re quested Visits Authorized [id number] Closed 08/07/2024 08/07/2025 1 1 Encounter Details Date Type Department Care Team (Latest Contact Info) Description 08/09/2024 10:09 AM EMERGENCY CREW SUPERVISOR - 08/09/2024 4:10 PM [facility] Hospital Encounter Department of Radiology in [place], [place] [address] [place] [address] Christa Monroe M.D. [address] [place] [phone] Tam Boyd M.D. [address] [place] [phone] Dee Salinas M.D. [address] [place] [phone] Malignant Neoplasm Of Tongue Base (HCC) Discharge Disposition: Home or Self Care Social History Tobacco Use Types Packs/Day Years Used Date Smoking Tobacco: Former Cigarettes Q uit: 1983 Passive Smoke Exposure: Never Smokeless Tobacco: Former Comments:1983. He reports sm oking less than 1 pack of cigarettes total in his life. Alcohol Use Standard Drinks/Week Comments Not Currently 0 (1 standard drink = 0.6 oz pur e alcohol) [facility] Utilities Answer Date Recorded In the past 12 months has [employer], gas, oil, or water [employer] threatened to shut off services in your [...] often do you attend chur ch or tenriism services? Never 12/09/2022 Do you belong to any clubs o r organizations such as worship groups, unions, fraternal or athletic groups, or [...] Answer Date Recorded PHQ-2 Score 2 12/22/2022 [facility] - [...] your living situation today? I have a [facility] place to live 06/20/2024 Education Answer Date Recorded What is the highest level of school you have completed or the highest degree you have received? Associate degree: occupational, technical, or vocational program 09/10/2020 Sex and Gender Information Value Date Recorded Sex Assigned at Male 05/19/2021 9:34 AM CDT Legal Sex Male 10:09 AM EMERGENCY CREW SUPERVISOR Gender Identity Male 12/15/2019 2:54 PM CDT Sexual Orientation Straight 12/15/2019 2: 54 PM CDT Occupation Industry Job Start Date Job End Date Not on file Not on file Not on file Not on file documented as of this encounter Last Filed Vital Signs Vital Sign Reading Time Taken Comments Blood Pressure 150/93 08/09/2024 3:47 PM EMERGENCY CREW SUPERVISOR Pulse 63 08/09/2024 3:57 PM EMERGENCY CREW SUPERVISOR Temperature 37 C (98.6 F) 08/09/2024 4:05 PM EMERGENCY CREW SUPERVISOR Respiratory Rate 16 08/09/2024 11:21 AM EMERGENCY CREW SUPERVISOR Oxygen Saturation 99% 08/09/2024 3:57 PM EMERGENCY CREW SUPERVISOR Inhaled Oxygen Concentration - - Weight 90.3 kg (199 lb 1.2 oz) 08/09/2024 11:21 AM EMERGENCY CREW SUPERVISOR Height - - Body Mass Index 28.63 08/08/2024 12:29 PM EMERGENCY CREW SUPERVISOR documented in this encounter Discharge Instructions * Discharge Instr - Activity* Lupe Hernandez, MEHDI, C.N.P., M.S. - 08/09/2024 1:31 PM EMERGENCY CREW SUPERVISOR G-Tube Postprocedure: No nutrition via tube until follow up appointment with HEN (Home Enteral Nutrition). Assess site for bleeding, redness, irritation, and drainage. Monitor for signs of tube dislodgement and perforation. Patients may shower the next day, if appropriate. When showering after tube placement, avoid havingthe water spray directly onto the G-Tube insertion site. Secure tube to abdomen using a Flexi Trac until follow up with HEN Venting the tube -You may vent the G- tube as often as needed, based on feelings of fullness. If G-tube not venting, tube should be capped. GENCY CREW SUPERVISOR documented in this encounter Medications at Time of Discharge acetaminophen (TylenoL) 500 mg tablet Take 2 tablets (1,000 mg total) by mouth every 6 (six) hours as needed for pain. Do NOT exceed more that 4,000mg of Acetaminophen per day from all sources - including Nyquil 06/22/2024 DM/p-ephed/acetam inoph/doxylam (NYQUIL D ORAL) Take 30 mL by mouth at bedtime. DULoxetine (Cymbalta) [address] capsuleIndication s:Chronic Cough Take 1 capsule (20 mg total) by mouth 2 (two) times a day. 60 capsule 05/19/2024 fluoride, sodium, (PreviDent) 1.1 % gel [...] of candidiasis. Do not swallow. 12 g 05/19/2024 05/19/20 25 fluticasone propionate (Flonase) 50 [...] mouth every 4 (four) hours PM. 07/06/2024 prochlorperazine (Compazine) 5 mg tablet TAKE ONE [...] mouth at bedtime 180 tablet 3 01/19/2024 doxepin (SINEquan) 10 mg/mL concentrated solution Mix 2.5 mL of solution with 2.5 mL of water. Insert in mouth, swish for 1 minute, and then expectorate. May use every 4 to 6 hours as needed for mouth pain. 118 mL 2 08/07/2024 08/14/20 24 oxyCODONE (Roxicodone) 5 mg immediate release tabletIndications :Prolonged Acute Pain/Traumatic Injury Take 1 tablet (5 mg total) by mouth every 8 (eight) hours as needed for pain for up to 30 doses Indication: Prolonged Acute Pain/Traumatic Injury. 30 tablet 08/07/2024 08/14/20 24 documented as of this encounter Progress Notes * Lupe Hernandez APRN, C.N.P., M.S. - 08/09/2024 2:27 PM CST SUBJECTIVE Reason for Transfer Post procedure cares monitoring following gastrostomy tube placement Condition at Transfer stable OBJECTIVE VITAL SIGNS Temperature: [36.6 ??C-37 ??C] 37 ??C Resp Rate: [16] 16 Blood Pressure: (131-139)/(86-93) 139/86 SpO2: [99 %] 99 % Pulse Rate: [66-71] 66 Constitutional General: He is not in acute distress. Pulmonary Effort: Pulmonary effort is normal. Abdominal Palpations: Abdomen is soft. Comments: Gastrostomy tube in place with outer disc at 5.5 cm. Scant serosanguineous drainage. Skin General: Skin is warm and dry. Neurological Mental Status: He is alert and oriented to person, place, and time. ASSESSMENT / PLAN SUMMARY OF CARE Mr. 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 Due to odynophagia home enteral nutrition recommended gastrostomy tube placement. He underwent gastrostomy tube placement. Outer disc at 5.5 cm. No significant drainage or surrounding erythema noted. IV Tylenol given postprocedure. Patient denies pain in abdomen. Continues to havechronic throat pain. - monitor on bedrest with head elevated to comfort for 2 hours following gastrostomy tube placement - see AVS for a gastrostomy tube recommendations - recommend routine exchange every 3-5 months under the direction of nutrition services - do not use tube and keep NPO for 2 hours after placement, then may utilize tube for medications and can take clear liquids and advance diet as tolerated - follow up with nutrition for instructions on gastrostomy tube use, initiate tube feedings under their direction For any questions or concerns regarding this patient please page Vascular Interventional Radiology nurse practitioner at [phone] Wednesday through Wednesday 7 a.m. to 5 p.m. or Vascular Interventional Radiology on-call resident at [phone] after 5 p.m. and on weekends. GENCY CREW SUPERVISOR documented in this encounter Procedure Notes * Tam Boyd M.D. - 08/09/2024 1:53 PM CST POST-PROCEDURE NOTE PATIENT DISPOSITION Transfer patient to post-procedure recovery area and dismiss when criteria met. POST-PROCEDURE DIAGNOSIS Head and neck cancer PROCEDURE PERFORMED AND DESCRIPTION Primary enteral tube placement. TUBE INDICATION Feeding PLACEMENT TECHNIQUE Balloon assisted TUBE TYPE Gastrostomy, lovelock TUBE BRAND ENFit LOW PROFILE No SIZE OF TUBE 16 Fr PATIENT PRESENTING LOCATION Outpatient PROCEDURE DETAILS See Radiology Report. SPECIMENS REMOVED None FINDINGS As expected. PRIMARY PROCEDURALIST MD Oliver ASSISTANTS None COMPLICATION None. 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 FLUIDS See OCT. ESTIMATED BLOOD LOSS <5 mL. CURRENT MEDICATIONS No medication changes. FOLLOW-UP LETTER Not applicable. MAY RETURN TO WORK As tolerated. PATIENT INSTRUCTIONS Patient may be dismissed from the Radiology Department when dismissal criteria met. GENCY CREW SUPERVISOR documented in this encounter Plan of Treatment Upcoming Encounters Date Type Department Care Team (Late st Contact Info) Description 08/31/2024 11:30 AM EMERGENCY CREW SUPERVISOR Appointment Department of Radiation Oncology in [address] [phone] Brian Fair M.D. [address] [place] [address] [phone] Christa Monroe M.D. [address] [place] [address] [phone] 08/31/2024 11:45 AM EMERGENCY CREW SUPERVISOR Appointment Department of Radiation Oncology in [address] [phone] Silvano Braga M.D. [address] [place] [phone] 09/01/2024 11:30 AM EMERGENCY CREW SUPERVISOR Appointment Department of Radiation Oncology in [address] [phone] Brian Fair M.D. [address] [place] [phone] Christa Monroe M.D. [address] [place] [phone] 09/04/2024 8:30 AM EMERGENCY CREW SUPERVISOR Appointment Department of Radiation Oncology in [place], [place] [address] [place] [phone] Brian Fair M.D. [address] [place] [phone] Christa Monroe M.D. [address] [place] [phone] 09/05/2024 8:45 AM EMERGENCY CREW SUPERVISOR Appointment Department of Radiation Oncology in [place], [place] [address] [place] [address] Brian Fair M.D. [address] [place] [phone] Christa Monroe M.D. [address] [place] [phone] 09/06/2024 11:30 AM EMERGENCY CREW SUPERVISOR Appointment Department of Radiation Oncology in [place], [place] [address] [place] [phone] Brian Fair M.D. [address] [place] [phone] Christa Monroe M.D. [address] [place] [phone] documented as of this encounter Procedures Procedure Name Priority Date/Time Associated Diagnosis Comments ADULT OXYGEN THERAPY Routine 08/09/2024 2:05 PM EMERGENCY CREW SUPERVISOR IR CT GUIDANCE RAD - Routine (most inpatients and all outpatients) 08/09/2024 2:00 PM EMERGENCY CREW SUPERVISOR Malignant Neoplasm Of Tongue Base (HCC) IR GASTROSTOMY TUBE PLACEMENT RAD - Routine (most inpatients and all outpatients) 08/09/2024 2:00 PM EMERGENCY CREW SUPERVISOR Malignant Neoplasm Of Tongue Base (HCC) documented in this encounter Results * IR CT Guidance (08/09/2024 2:00 PM EMERGENCY CREW SUPERVISOR) Anatomical Region Laterality Modality Body, Vascular Interventiona l RST LOS, Neuro Interventional RST LOS, Vascular Interventional ARZ LOS, Neuroradiology ARZ LOS, Vascular Interventional FLA LOS N/A X-Ray Angiography Impressions 08/10/2024 7:39 AM EMERGENCY CREW SUPERVISOR Placement of a 16 Montserratian percutaneous gastrostomy tube. Nothing by mouth or tube for 2 hours (strict). Then use of mouth or tube for water, medications, and/or tube feeds per Nutrition note/order. Exchange tube in 3-5 months. Contact the [facility] clinic at [phone] to schedule the tube exchange. NR Narrative 08/10/2024 7:39 AM EMERGENCY CREW SUPERVISOR EXAM: IR GASTROSTOMY TUBE PLACEMENT, IR CT GUIDANCE CLINICAL HISTORY: 59-year-old male with head and neck cancer requiring gastrostomy tube placement for enteral nutrition. Pre-Procedure Diagnosis: Cancer. Indication: Feeding. TECHNIQUE: Balloon Assisted. The patient was placed supine on the fluoroscopy table. Under fluoroscopic guidance, a 4 Montserratian catheter was placed as a nasogastric tube. [...] applied. No immediate complication. Tube Type: Gastrostomy, lovelock. Tube Connection: ENFit. Tube Size: a 16 [...] IR Gastrostomy Tube Placement (08/09/2024 2:00 PM EMERGENCY CREW SUPERVISOR) Anatomical Region Laterality Modality Abdomen, Vascular Interventi onal RST LOS, Vascular Interventional ARZ LOS, Vascular Interventional FLA LOS N/A X-Ray Angiography Impressions 08/10/2024 7:39 AM EMERGENCY CREW SUPERVISOR Placement of a 16 Montserratian percutaneous gastrostomy tube. Nothing by mouth or tube for 2 hours (strict). Then use of mouth or tube for water, medications, and/or tube feeds per Nutrition note/order. Exchange tube in 3-5 months. Contact the [facility] clinic at [phone] to schedule the tube exchange. NR Narrative 08/10/2024 7:39 AM EMERGENCY CREW SUPERVISOR EXAM: IR GASTROSTOMY TUBE PLACEMENT, IR CT GUIDANCE CLINICAL HISTORY: 59-year-old male with head and neck cancer requiring gastrostomy tube placement for enteral nutrition. Pre-Procedure Diagnosis: Cancer. Indication: Feeding. TECHNIQUE: Balloon Assisted. The patient was placed supine on the fluoroscopy table. Under fluoroscopic guidance, a 4 Montserratian catheter was placed as a nasogastric tube. [...] applied. No immediate complication. Tube Type: Gastrostomy, lovelock. Tube Connection: ENFit. Tube Size: a 16 [...] Christa LOPEZ IR PROCEDURES Final R esult documented in this encounter Visit Diagnoses Diagnosis Malignant Neoplasm Of Tongue Base (HCC) documented in this encounter Administered Medications Inactive Administered Medications - up to 3 most recent administrations Medication Order MAR Action Action Date Dose Rate Site acetaminophen injection 1,000 mg 1,000 mg, intravenous, at 400 mL/hr, Administer over 15 Minutes, Once, On Wed08/09/24 at 1430, For 1 dose, Restriction Criteria (Pharmacy will review and approve if criteria met): Unable to take or tolerate medications administered via the enteral route or orally (not just NPO) New Bag 08/09/2024 2:12 PM EMERGENCY CREW SUPERVISOR 1,000 mg 400 mL/hr fentaNYL injection 50 mcg (Sublimaze) 50 mcg, intravenous, As needed, moderate pain or score 4-6 of 10, severe pain or score 7-10 of 10, Starting on Wed08/09/24 at 1500, For 2 doses, PACU (only), Up to maximum total dose of 200 mcg Given 08/09/2024 3:00 PM EMERGENCY CREW SUPERVISOR 50 mcg iohexoL 300 mg iodine/mL solution (Omnipaque) As needed, Starting on Wed08/09/24 at 1351, Intra-Op Given 08/09/2024 1:51 PM EMERGENCY CREW SUPERVISOR 40 mL lidocaine 10 mg/mL (1 %) injection (Xylocaine) As needed, Starting on Wed08/09/24 at 1352, Intra-Op Given 08/09/2024 1:52 PM EMERGENCY CREW SUPERVISOR 8 mL sodium chloride 0.9 % injection 10 mL 10 mL, intravenous, As needed, line care, Starting on Wed08/09/24 at 1110, Preprocedure (RAD), Peripheral Intravenous Catheter and Rapid Infusion Catheter, prior to blood sampling, post blood transfusion or post blood sampling sodium chloride 0.9 % injection 3 mL 3 mL, intravenous, As needed, line care, Starting on Wed08/09/24 at 1110, Preprocedure (RAD), Prior to and following infusion and between multiple consecutive infusions: sodium chloride 0.9 % injection sodium chloride 0.9 % injection 3 mL 3 mL, intravenous, Every 12 hours scheduled, First dose on Wed08/09/24 at 2100, Preprocedure (RAD), Peripheral Intravenous Catheter and Rapid Infusion Catheter, when no infusion to maintain patency documented in this encounter Active and Recently Administered Medications Times are shown in EMERGENCY CREW SUPERVISOR. Scheduled Medication Order 08/07/2024 08/08/2024 08/09/2024 acetaminophen injection 1,000 mg (COMPLETED) 1,000 mg, intravenous, at 400 mL/hr, Administer over 15 Minutes, Once, On Wed08/09/24 at 1430, For 1 dose, Restriction Criteria (Pharmacy will review and approve if criteria met): Unable to take or tolerate medications administered via the enteral route or orally (not just NPO) 1412 ([facility] - Prov ider: Leela Paula RFloyd) ceFAZolin injection 2 g (Ancef) (COMPLETED) 2 g, intravenous, Once, On Wed08/09/24 at 1130, For 1 dose, Preprocedure (RAD), For immediate IV push administration, reconstitute vial per IVAG or package insert instructions. See IVAG for administration guidelines., Indications: Prophylaxis, surgical 1317 (Given - Provid er: Dee Salinas M.D.) sodium chloride 0.9 % injection 3 mL 3 mL, intravenous, Every 12 hours scheduled, First dose on Wed08/09/24 at 2100, Preprocedure (RAD), Peripheral Intravenous Catheter and Rapid Infusion Catheter, when no infusion to maintain patency PRN Medication Order 08/07/2024 08/08/2024 08/09/2024 fentaNYL injection 50 mcg (Sublimaze) 50 mcg, intravenous, As needed, moderate pain or score 4-6 of 10, severe pain or score 7-10 of 10, Starting on Wed08/09/24 at 1500, For 2 doses, PACU (only), Up to maximum total dose of 200 mcg 1500 (Given - Provid er: Adi Andrade RCarriN.) iohexoL 300 mg iodine/mL solution (Omnipaque) (COMPLETED) As needed, Starting on Wed08/09/24 at 1351, Intra-Op 1351 (Given - Provid er: Tam Boyd M.D.) lidocaine 10 mg/mL (1 %) injection (Xylocaine) (COMPLETED) As needed, Starting on Wed08/09/24 at 1352, Intra-Op 1352 (Given - Provid er: Tam Boyd M.D.) sodium chloride 0.9 % injection 10 mL 10 mL, intravenous, As needed, line care, Starting on Wed08/09/24 at 1110, Preprocedure (RAD), Peripheral Intravenous Catheter and Rapid Infusion Catheter, prior to blood sampling, post blood transfusion or post blood sampling sodium chloride 0.9 % injection 3 mL 3 mL, intravenous, As needed, line care, Starting on Wed08/09/24 at 1110, Preprocedure (RAD), Prior to and following infusion and between multiple consecutive infusions: sodium chloride 0.9 % injection documented in this encounter Additional Health Concerns Assessment Noted Time PHQ-9 Depression Total Score: 10 023 7:28 AM CDT documented as of this encounter Care Teams Hand Stapler Relationship Specialty Start Date End Date Adi Allen M.D. [address] [place] [address] PCP - General 02/11/17 documented as of this encounter
--- OUTSIDE RECORDS SUMMARY | 2024-08-31 07:26 | XMS_ITS | Encounter Summary ---
Author Organization [facility] Address [address] [place] [address] Care Team Providers Care Hand Striper Name Role Phone Adi Allen M.D. Primary Care Provider Reason for Visit * Reason Comments Feeding Tube Encounter Details Date Type Department Care Team (Latest Contact Info) Description 08/08/2024 2:00 PM [employer] Clinical Support Division of Endocrinology in [place], [place] [address] [place] [address] Christa Monroe M.D. [address] [place] [phone] Asad Foss, RCarriNCarri Malignant Neoplasm Of Tongue [...] drink = 0.6 oz pur e alcohol) [facility] Utilities Answer Date Recorded In [...] often do you attend chur ch or quaker services? Never 12/09/2022 Do you belong to any clubs o r organizations such as mandaeism groups, unions, fraternal or athletic groups, or [...] Answer Date Recorded PHQ-2 Score 2 12/22/2022 [facility] of Occupat ional Health - Occupational Stress [...] your living situation today? I have a [facility] place to live 06/20/2024 Education Answer Date Recorded What is the highest level of school you have completed or the highest degree you have received? Associate degree: occupational, technical, or vocational program 09/10/2020 Sex and Gender Information Value Date Recorded Sex Assigned at Male 05/19/2021 9:34 AM CDT Legal Sex Male 10:09 AM [employer] Gender Identity Male 12/15/2019 2:54 PM CDT Sexual Orientation Straight 12/15/2019 2: 54 PM CDT Occupation Industry Job Start Date Job End Date Not on file Not on file Not on file Not on file documented as of this encounter Last Filed Vital Signs Vital Sign Reading Time Taken Comments Blood Pressure - - Pulse - - Temperature - - Respiratory Rate - - Oxygen Saturation - - Inhaled Oxygen Concentration - - Weight 90.3 kg (199 lb 1.2 oz) 08/08/2024 12:29 PM [employer] Height 177.6 cm (5' 9.92) 08/08/2024 12:[address] Body Mass Index 28.63 08/08/2024 12:29 PM [employer] documented in this encounter Progress Notes * Asad Foss RTammy. - 08/08/2024 2:00 PM CST SUBJECTIVE REASON FOR VISIT Mr. Kat was seen in the Home Enteral Nutrition clinic today for a new G tube. 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 Has the patient had a previous swallow study? Yes; on 06/19/2024. Findings: oropharyngeal swallow within normal limits . ASSESSMENT Select last menstrual cycle: Patient is male Is the patient currently ? Patient is male Is the patient currently ? Patient is male What is the status of patient's lips? Smooth, pink, moist, intact What is the status of patient's tongue? Slightly dry, one or more isolated reddened areas, papillaeprominent particulary at base What is the status of patient's gingiva/oral mucosa? Pale, slightly dry, one-two isolated lesions, blisters or reddened areas What is the status of patient's mouth? Clean, no debris What is the status of patient's teeth? Natural, has dentures but is not using at this time What is the status of patient's saliva? Thick and ropy, viscid or mucoid in the mornings, thinner throughout the day Does the patient have any current GI issues? No current issues Does the patient have any skin issues? Warm, dry, intact and color within normal limits Does the patient use an assistive device such as a cane, walker, wheelchair, crutches or braces? No Is the patient currently receiving radiation treatments? Yes September 03 is last day of radiation per patient Is there any history of abdominal surgery? None Is there any history of abdominal hernia repair with mesh? No Is there any history of head and neck surgery? Yes- neck dissection and robotic assisted tongue base resection What is the patient's relationship status? Who does the patient live with? Family What is the patient's current work status? Disabled Does the patient use tobacco? Past Does the patient use alcohol? None Does the patient use recreational substances? No What is the patient's activity level? Ambulatory Is there suspected abuse/neglect? No PLAN Were pre procedural instructions given? Yes. Eating and drinking instructions: Starting 8 hours before your scheduled procedure: Stop eating solid food. Continue drinking liquids. Starting 6 hours before your scheduled procedure: Stop drinking any non-clear liquids (milk, orange juice and tomato juice). You may continue to drink clear liquids such as water, clear fruit juice (apple or white grape), carbonated beverages, clear broth, gelatin, ice pops (no pulp), clear tea or black coffee (no milk or creamer). If you have a feeding tube, stop putting feedings through the tube. You may continue putting water or other clear liquids through the tube. Starting 2 hours before your scheduled procedu re: Stop drinking anything. If you have a feeding tube, stop putting water or other clear liquids through the tube. At the end of the discussion the patient verbalized understanding and agreement with the procedural instructions. Were post procedural instructions given? Yes. Post-procedural instructions including reporting of increased pain, temperature greater than or equal to 100.4 or excessive drainage at site. Patient is not to bathe or shower, change the dressing or begin the tube feedings until instructed by the provider at the post procedure visit. Patient may resume oral intake following the procedure per providerrecommendations. Anesthesia considerations are: Aspiration risk, Head or neck cancer associated with surgery, Head of neck cancer associated with radiation, Narcotics, Prior difficulty with sedation/anesthesia, and Tobacco use (past) Does the patient have positioning consideration? None, secretions, pt voices previous difficulty Is the patient currently taking any anticoagulation medication? No Is the patient currently taking any neoplastic medication? No Is the patient currently taking pain medication? Yes- PRN oxyCODONE 5 mg Is the patient diabetic? No Is the patient receiving dialysis? No Select where the procedure is scheduled? Date: 08/09/2024, Time: 1030, and Location: IR[facility]. Tube education provided: IR: Balloon tube demonstrated/discussed as well as G tube placement procedure in Interventional Radiology. The final decision on tube type and anesthesia will be made by the proceduralist and/or anesthesia provider. Patient is aware of the possibility that placement may be unsuccessful if it cannot be done safely Has INR testing been performed? Not indicated Has the HEN Nurse post procedure appointment been scheduled? Yes; Date 08/10/2024 at 0945 Has the HEN Dietitian post procedure appointment been scheduled? Yes; Date 08/10/2024 at 0745 *Patient is aware of post appointments with nurse and dietitian on 08/10/2024 [employer] documented in this encounter Plan of Treatment Upcoming Encounters Date Type Department Care Team (Late st Contact Info) Description 08/31/2024 11:30 AM [employer] Appointment Department of Radiation Oncology in [address] [phone] Brian Fair M.D. [address] [place] [phone] Christa Monroe M.D. [address] [place] [phone] 08/31/2024 11:45 AM [employer] Appointment Department of Radiation Oncology in [address] [phone] Silvano Braga M.D. [address] [place] [phone] 09/01/2024 11:30 AM [employer] Appointment Department of Radiation Oncology in [address] [phone] Brian Fair M.D. [address] [place] [phone] Christa Monroe M.D. [address] [place] [phone] 09/04/2024 8:30 AM [employer] Appointment Department of Radiation Oncology in [address] [phone] Brian Fair M.D. [address] [place] [phone] Christa Monroe M.D. [address] [place] [phone] 09/05/2024 8:45 AM [employer] Appointment Department of Radiation Oncology in [place], [place] [address] [place] [address] Brian Fair M.D. [address] [place] [phone] Christa Monroe M.D. [address] [place] [phone] 09/06/2024 11:30 AM [employer] Appointment Department of Radiation Oncology in [place], [place] [address] [place] [address] Brian Fair M.D. [address] [place] [phone] Christa Monroe M.D. [address] [place] [phone] documented as of this encounter Visit Diagnoses Diagnosis Malignant Neoplasm Of Tongue Base (HCC) documented in this encounter Additional Health Concerns Assessment Noted Time PHQ-9 Depression Total Score: 10 023 7:28 AM CDT documented as of this encounter Care Teams Hand Striper Relationship Specialty Start Date End Date Adi Allen M.D. [address] [place] [phone] PCP - General 02/11/17 documented as of this encounter
--- OUTSIDE RECORDS SUMMARY | 2024-08-31 07:26 | XMS_ITS | Encounter Summary ---
Author Organization [facility] Address [address] [place] [id number] Care Team Providers Care Kelp Or Seagrass Gatherer Name Role Phone Adi Allen M.D. Primary Care Provider Encounter Details Date Type Department Care Team (Late st Contact Info) Description 08/08/2024 3:20 PM [employer] Lab Department of Infusion Therapy in [place], [place] [address] [place] [address] Rebekah Walker, MEHDI, C.N.P., D.N.P. [address] [place] [phone] Malignant Neoplasm Of Tongue Base (HCC) (Primary [...] Recorded In the past 12 months has [employer], gas, oil, or water [employer] threatened to shut off services in your [...] often do you attend chur ch or scientologist services? Never 12/09/2022 Do you belong to any clubs o r organizations such as gnosticist groups, unions, fraternal or athletic groups, or [...] Answer Date Recorded PHQ-2 Score 2 12/22/2022 [facility] of Occupat ional Health - Occupational Stress [...] your living situation today? I have a [facility] place to live 06/20/2024 Education Answer Date Recorded What is the highest level of school you have completed or the highest degree you have received? Associate degree: occupational, technical, or vocational program 09/10/2020 Sex and Gender Information Value Date Recorded Sex Assigned at Male 05/19/2021 9:34 AM CDT Legal Sex Male 10:09 AM [employer] Gender Identity Male 12/15/2019 2:54 PM CDT Sexual Orientation Straight 12/15/2019 2: 54 PM CDT Occupation Industry Job Start Date Job End Date Not on file Not on file Not on file Not on file documented as of this encounter Plan of Treatment Upcoming Encounters Date Type Department Care Team (Late st Contact Info) Description 08/31/2024 11:30 AM [employer] Appointment Department of Radiation Oncology in [place] [address] [place] [address] Brian Fair M.D. [address] [place] [phone] Christa Monroe M.D. [address] [place] [phone] 08/31/2024 11:45 AM [employer] Appointment Department of Radiation Oncology in [place], [place] [address] [place] [phone] Silvano Braga M.D. [address] [place] [phone] 09/01/2024 11:30 AM [employer] Appointment Department of Radiation Oncology in [address] [phone] Brain Fair M.D. [address] [place] [phone] Christa Monroe M.D. [address] [place] [phone] 09/04/2024 8:30 AM [employer] Appointment Department of Radiation Oncology in [place], [place] [address] [place] [address] Brian Fair M.D. [address] [place] [phone] Christa Monroe M.D. [address] [place] [phone] 09/05/2024 8:45 AM [employer] Appointment Department of Radiation Oncology in [place] [address] [place] [address] Brian Fair M.D. [address] [place] [phone] Christa Monroe M.D. 200 [place] [phone] 09/06/2024 11:30 AM [employer] Appointment Department of Radiation Oncology in [place], [place] [address] [place] [address] Brian Fair M.D. 200 [place] [address] Christa Monroe M.D. 200 [place] [phone] documented as of this encounter Procedures Procedure Name Priority Date/Time Associated Diagnosis Comments C-REACTIVE PROTEIN (CRP), S/P Routine 08/08/2024 3:04 PM [employer]AKER [employer]OM Dietary Counseling And Surveillance For Enteral Nutrition PHOSPHORUS (INORGANIC), S Routine 08/08/2024 3:04 PM [employer] Dietary Counseling And Surveillance For Enteral Nutrition MAGNESIUM, S Routine 08/08/2024 3:04 PM [employer] Dietary Counseling And Surveillance For Enteral Nutrition BASIC METABOLIC PANEL, S/P Routine 08/08/2024 3:04 PM [employer] Dietary Counseling And Surveillance For Enteral Nutrition documented in this encounter Results * (ABNORMAL) CRP (C-Reactive Protein) (08/08/2024 3:04 PM SHOEMAKER CUSTOM) C-Reactive Protein (CRP), S 9.6(H) <5.0 mg/L 08/08/2024 4:05 PM SHOEMAKER CUSTOM DTL Blood (Blood, PICC) 08/08/2024 3:04 PM SHOEMAKER CUSTOM 08/08/2024 3:44 PM [employer]ER [employer]OM us Rebekah Jose Walker APRN C.N.P., D.N.P. LAB BLOOD ADD -ON Final Result Performing Organization Address City/[facility]/ZIP Co de Phone Number [facility] [address] [place] [address] * Magnesium (08/08/2024 3:04 PM SHOEMAKER CUSTOM) [facility] Magnesium, S 2.1 1.7 - 2.3 mg/dL 08/08/2024 4:05 PM SHOEMAKER C[employer] DT Blood (Blood, PICC) 08/08/2024 3:04 PM [employer]AKER C[employer]OM 08/08/2024 3:44 PM [employer] us Rebekah Jose Walker APRN, C.N.P., D.N.P. LAB BLOOD ADD -ON Final Result Performing Organization Address City/[facility] Co de Phone Number [facility] [address] [place] [address] * Phosphorus Inorganic (08/08/2024 3:04 PM SHO[employer]AKER CUSTOM) [facility] Phosphorus (Inorganic), S 2.8 2.5 - 4.5 mg/dL 08/08/2024 4:05 PM [employer] DT Blood (Blood, PICC) 08/08/2024 3:04 PM [employer]ER [employer]OM 08/08/2024 3:44 PM [employer] us Rebekah Jose Walker APRN, C.N.P., D.N.P. LAB BLOOD ADD -ON Final Result Performing Organization Address City/[facility] Co de Phone Number [facility] [address] [place] [address] * (ABNORMAL) Basic Metabolic Panel (08/08/2024 3:04 PM SHOEMAKER CUSTOM) [facility] Potassium, S 4.0 3.6 - 5.2 mmol/L 08/08/2024 4:05 PM SHOEMAKER CUSTOM DTL Sodium, S 139 135 - 145 mmol/L 08/08/2024 4:05 PM SHO[employer]AK[employer] DTL Chloride, S 104 98 - 107 mmol/L 08/08/2024 4:05 PM SHOEMAKER CUSTOM DTL Bicarbonate, S 22 22 - 29 mmol/L 08/08/2024 4:05 PM SHOEMAKER CUSTOM DTL Anion Gap 13 7 - 15 08/08/2024 4:05 PM SHOEMAKER CUSTOM DTL BUN (Blood Urea Nitrogen), S 28(H) 8 - 24 mg/dL 08/08/2024 4:05 PM SHOEMAKER CUSTOM DTL Creatinine 0.89 0.74 - 1.35 mg/dL 08/08/2024 4:05 PM SHOEMAKER CUSTOM DTL Estimated GFR (eGFR) >90 >=60 mL/min/BSA 08/08/2024 4:05 PM SHOEMAKER CUSTOM DTL Comment: Estimated GFR calculated using the 2020 CKD_EPI creatinine equation. Calcium, Total, S 9.3 8.6 - 10.0 mg/dL 08/08/2024 4:05 PM SHOEMAKER CUSTOM DTL Glucose, S 125 70 - 140 mg/dL 08/08/2024 4:05 PM SHOEMAKER CUSTOM DTL Blood (Blood, PICC) 08/08/2024 3:04 PM SHOEMAKER CUSTOM 08/08/2024 3:44 PM [employer]AKER CUSTOM Rebekah C Denise HARDING, C.N.P., D.N.P. LAB BLOOD ADD -ON Final Result [facility] [address] [place] [address], [facility] [address] [place] [address] documented in this encounter Visit Diagnoses Diagnosis Malignant Neoplasm Of Tongue Base (HCC)- Primary Dietary Counseling And Surveillance For Enteral Nutrition documented in this encounter Administered Medications Inactive Administered Medications - up to 3 most recent administrations Medication Order MAR Action Action Date Dose Rate Site sodium chloride 0.9 % injection 10-30 mL 10-30 mL, intravenous, As needed, line care, Starting on Wed08/08/24 at 1506, Prior to and following infusion, between multiple consecutive infusions.10 mL to each lumen.Indications:Malignant Neoplasm Of Tongue Base (HCC) Given 08/08/2024 3:06 PM SHOEMAKER C[employer]OM 20 mL documented in this encounter Additional Health Concerns Assessment Noted Time PHQ-9 Depression Total Score: 10 023 7:28 AM CDT documented as of this encounter Care Teams Kelp Or Seagrass Gatherer Relationship Specialty Start Date End Date Adi Allen M.D. [address] [place] [phone] PCP - General 02/11/17 documented as of this encounter
--- OUTSIDE RECORDS SUMMARY | 2024-08-31 07:26 | XMS_ITS | Encounter Summary ---
Author Organization [facility] Address [address] [place] [address] Care Team Providers Care Cell Attendant Name Role Phone Adi Allen M.D. Primary Care Provider [phone] Reason for Visit * Outpatient (Routine) - Closed Specialty Diagnoses / Procedures Referred By Lucina hernández Referred To Contact Endocrinology Diagnoses Malignant Neoplasm Of Tongue Base (HCC) Christa Monroe M.D. [address] [place] [address] Phone: tel: fax: [facility] Referral ID Status Reason Start Date Expiration Date Visits Re quested Visits Authorized [id number] Closed 08/07/2024 02/06/2026 1 1 Encounter Details Date Type Department Care Team (Latest Contact Info) Description 08/08/2024 1:00 PM PROTOTYPE DEICER ASSEMBLER Comprehensive Visit Division of Endocrinology in [place], [place] [address] [place] [phone] Christa Monroe M.D. [address] [place] [phone] Rebekah Walker, MEHDI, C.N.P., D.N.P. [address] [place] [phone] Dietary Counseling And Surveillance For Enteral Nutrition [...] drink = 0.6 oz pur e alcohol) [facility] Utilities Answer Date Recorded In the past 12 months has e [employer], gas, oil, or water company threatened to [...] week 12/09/2022 How often do you attend [facility] or yarsanism services? Never 12/09/2022 Do you belong to any clubs o r organizations such as hinduism groups, unions, fraternal or athletic groups, or [...] Answer Date Recorded PHQ-2 Score 2 12/22/2022 [facility] Occupat ional Health - [...] your living situation today? I have a [facility] place to live 06/20/2024 Education Answer Date Recorded What is the highest level of school you have completed or the highest degree you have received? Associate degree: occupational, technical, or vocational program 09/10/2020 Sex and Gender Information Value Date Recorded Sex Assigned at Male 05/19/2021 9:34 AM CDT Legal Sex Male 10:09 AM PROTOTYPE DEICER ASSEMBLER Gender Identity Male 12/15/2019 2:54 PM CDT Sexual Orientation Straight 12/15/2019 2: 54 PM CDT Occupation Industry Job Start Date Job End Date Not on file Not on file Not on file Not on file documented as of this encounter Patient Instructions * Patient Instructions* Rebekah Walker APRN, C.N.P., D.N.P. - 08/08/2024 1:00 PM PROTOTYPE DEICER ASSEMBLER If you are experiencing reflux, please contact our team or Dr. Monroe, we can provide you with a medication for reflux. Lab work today 08/08 Tube placement tomorrow, 08/09 Follow up with dietitians on 08/10 Lab work in [place] on 08/11 OTYPE DEICER ASSEMBLER OTYPE DEICER ASSEMBLER OTYPE DEICER ASSEMBLER documented in this encounter Consult Notes * Rebekah Walker APRN, C.N.P., D.N.P. - 08/08/2024 1:00 PM CST SUBJECTIVE REFERRAL: Christa Monroe M.D. CHIEF COMPLAINT / REASON FOR VISIT Home Enteral Nutrition Consultation HISTORY OF PRESENT ILLNESS Mr. Antonino Kat is a 59 y.o. 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 Past abdominal surgeries include: None Patient is scheduled for gastrostomy tube placement, 08/09/2024. Mr. Kat presents to the Home Enteral Nutrition clinic by himself. Factors leading to malnutrition: Patient began treatment and surgical intervention for oral cancer in the fall and now his odynophagia has worsened causing him to decrease his oral intake significantly in the last couple of weeks. Current gastrointestinal symptoms include:Mild intermittent reflux. Denies nausea, vomiting, diarrhea, and constipation. Current diet consists of : Ensure Plus, 3 per day and small amounts of other soft food. 35 oz of water. Patient has notbeen able to maintain their weight. Patient was physically active.He worked out regularly in his home gym but has not since mid May. Patient is on disability related to a previous spinal injury. Refer to documentation by [facility] dietitian and [facility] nurse for further detail and specifics regarding current hydration, nutritional intake, weight trends, and feeding tube. The following portions of the patient's history were reviewed and updated as appropriate: allergies, current medications, family history, medical history, social history, surgical history, and problem list. OBJECTIVE Wt Readings from Last 6 Encounters: 08/07/24 90.3 kg 08/02/24 95.9 kg 07/25/24 98.3 kg 07/18/24 95.5 kg 07/03/24 93.4 kg 06/20/24 96.8 kg The pertinent tests and imaging were reviewed. PHYSICAL EXAMINATION General: Alert, Oriented x 4 Musculoskeletal: Strength 5/5 bilateral upper and lower extremity gross muscle groups and hand software applications developer. No overt muscle wasting. ENT: No obvious glossitis or cheilosis. Extremities: No obvious edema. Dermatologic: Skin is free of dermatitis. Hair is not coarse or brittle appearing. ASSESSMENT / PLAN #1 Dietary Counseling And Surveillance For Enteral Nutrition #2 Malignant Neoplasm Of Tongue Base (HCC) It was a pleasure to meet with Mr. Kat who presents for home enteral nutrition clinic consultation prior to gastrostomy tube placement for nutritional support in the setting of dysphagia and odynophagia related to radiation sequelae. Patient is a 59-year-old male who is currently undergoing radiation for squamous cell carcinoma of the right tongue base. He is status post surgical resection and chemoradiation. After surgical resection, patient was able to maintain his nutrition and hydration with oral intake. However, in the last couple of weeks his ability to keep up with his nutrition has declined significantly as his dysphagia and odynophagia have worsened. He is able to swallow some oral nutritional s upplements but not enough to maintain his nutrition. He is at the point where he is having difficulty swallowing saliva. The patients meets criteria for moderate malnutrition based on the Global Leadership Initiative on Malnutrition criteria. Unintentional weight loss 5-10 % in 6 months and Presence of acute disease/injury or chronic disease Patient meets [place] consensus criteria for Moderate/Significant: Moderate risk for refeeding as evidenced by the following criteria: < 50 % of estimated energy requirements for < 7 days during acute illness or injury, < 75 % of estimated energy requirements for < 1 month, and Evidence of severe subcutaneous fat loss and/or has Moderate/Significant: Moderate disease burden of one of the following diseases or clinical conditions associated with an increased risk of refeeding syndrome: Dysphagia and esophageal dysmotility and Cancer. We reviewed risks of the procedure including sedation risks, infection at the tube site, buried balloon, trauma during placement, and bleeding. Mr. Kat verbalized understanding of the risks and benefits of feeding tube placement and agreed to proceed with feeding tube placement. The following recommendations were shared with the patient: RECOMMENDATIONS: If you are experiencing reflux, please contact our team or Dr. Monroe, we can provide you with a medication for reflux. Lab work today 08/08 Tube placement tomorrow, 08/09 Follow up with dietitians on 08/10 Lab work in [place] on 08/11 I personally spent a total of 40 minutes in [id number]-vr-face and face to face time performing a review of the record, visit with the patient, and coordination of care as described above. OTYPE DEICER ASSEMBLER documented in this encounter Plan of Treatment Upcoming Encounters Date Type Department Care Team (Late st Contact Info) Description 08/31/2024 11:30 AM PROTOTYPE DEICER ASSEMBLER Appointment Department of Radiation Oncology in [place], [place] [address] [place] [phone] Brian Fair M.D. [address] [place] [phone] Christa Monroe M.D. [address] [place] [phone] 08/31/2024 11:45 AM PROTOTYPE DEICER ASSEMBLER Appointment Department of Radiation Oncology in [place], [place] [address] [place] [phone] Silvano Braga M.D. [address] [place] [address] 09/01/2024 11:30 AM PROTOTYPE DEICER ASSEMBLER Appointment Department of Radiation Oncology in [place], [place] [address] [place] [address] Brian Fair M.D. [address] [place] [phone] Christa Monroe M.D. [address] [place] [phone] 09/04/2024 8:30 AM PROTOTYPE DEICER ASSEMBLER Appointment Department of Radiation Oncology in [place], [place] [address] [place] [address] Brian Fair M.D. [address] [place] [phone] Christa Monroe M.D. [address] [place] [phone] 09/05/2024 8:45 AM PROTOTYPE DEICER ASSEMBLER Appointment Department of Radiation Oncology in [place], [place] [address] [place] [address] Brian Fair M.D. [address] [place] [phone] Christa Monroe M.D. [address] [place] [phone] 09/06/2024 11:30 AM PROTOTYPE DEICER ASSEMBLER Appointment Department of Radiation Oncology in [place], [place] [address] [place] [address] Brian Fair M.D. [address] [place] [phone] Christa Monroe M.D. [address] [place] [phone] documented as of this encounter Results * (ABNORMAL) CRP (C-Reactive Protein) (08/08/2024 3:04 PM PROTOTYPE DEICER ASSEMBLER) [facility] C-Reactive Protein (CRP), S 9.6(H) <5.0 mg/L 08/08/2024 4:05 PM PROTOTYPE DEICER ASSEMBLER DTL Blood (Blood, PICC) 08/08/2024 3:04 PM PROTOTYPE DEICER ASSEMBLER 08/08/2024 3:44 PM PROTOTYPE DEICER ASSEMBLER us Rebekah Jose Walker APRN, C.N.P., D.N.P. LAB BLOOD ADD -ON Final Result Performing Organization Address City/[facility]/ZIP Co de Phone Number [facility] [address] [place] [address], [facility] DTL [facility] [address] [place] [address] * Magnesium (08/08/2024 3:04 PM PROTOTYPE DEICER ASSEMBLER) [facility] Magnesium, S 2.1 1.7 - 2.3 mg/dL 08/08/2024 4:05 PM PROTOTYPE DEICER ASSEMBLER DTL Blood (Blood, PICC) 08/08/2024 3:04 PM PROTOTYPE DEICER ASSEMBLER 08/08/2024 3:44 PM PROTOTYPE DEICER ASSEMBLER us Rebekah C Denise HARDING, C.N.P., D.N.P. LAB BLOOD ADD -ON Final Result [facility] [address] [place] [address], [facility] [address] [place] [address] * Phosphorus Inorganic (08/08/2024 3:04 PM PROTOTYPE DEICER ASSEMBLER) Pathologist [facility] Phosphorus (Inorganic), S 2.8 2.5 - 4.5 mg/dL 08/08/2024 4:05 PM PROTOTYPE DEICER ASSEMBLER DTL Blood (Blood, PICC) 08/08/2024 3:04 PM PROTOTYPE DEICER ASSEMBLER 08/08/2024 3:44 PM PROTOTYPE DEICER ASSEMBLER us Rebekah C Denise HARDING, C.N.P., D.N.P. LAB BLOOD ADD -ON Final Result [facility] [address] [place] [address], [facility] [address] [place] [address] * (ABNORMAL) Basic Metabolic Panel (08/08/2024 3:04 PM PROTOTYPE DEICER ASSEMBLER) Pathologist [facility] Potassium, S 4.0 3.6 - 5.2 mmol/L 08/08/2024 4:05 PM PROTOTYPE DEICER ASSEMBLER DTL Sodium, S 139 135 - 145 mmol/L 08/08/2024 4:05 PM PROTOTYPE DEICER ASSEMBLER DTL Chloride, S 104 98 - 107 mmol/L 08/08/2024 4:05 PM PROTOTYPE DEICER ASSEMBLER DTL Bicarbonate, S 22 22 - 29 mmol/L 08/08/2024 4:05 PM PROTOTYPE DEICER ASSEMBLER DTL Anion Gap 13 7 - 15 08/08/2024 4:05 PM PROTOTYPE DEICER ASSEMBLER DTL BUN (Blood Urea Nitrogen), S 28(H) 8 - 24 mg/dL 08/08/2024 4:05 PM PROTOTYPE DEICER ASSEMBLER DTL Creatinine 0.89 0.74 - 1.35 mg/dL 08/08/2024 4:05 PM PROTOTYPE DEICER ASSEMBLER DTL Estimated GFR (eGFR) >90 >=60 mL/min/BSA 08/08/2024 4:05 PM PROTOTYPE DEICER ASSEMBLER DTL Comment: Estimated GFR calculated using the 2020 CKD_EPI creatinine equation. Calcium, Total, S 9.3 8.6 - 10.0 mg/dL 08/08/2024 4:05 PM PROTOTYPE DEICER ASSEMBLER DTL Glucose, S 125 70 - 140 mg/dL 08/08/2024 4:05 PM PROTOTYPE DEICER ASSEMBLER DTL Blood (Blood, PICC) 08/08/2024 3:04 PM PROTOTYPE DEICER ASSEMBLER 08/08/2024 3:44 PM PROTOTYPE DEICER ASSEMBLER us Rebekah C Denise HARDING, C.N.P., D.N.P. LAB BLOOD ADD -ON Final Result [facility] [address] [place] [address], [facility] [address] [place] [address] documented in this encounter Visit Diagnoses Diagnosis Dietary Counseling And Surveillance For Enteral Nutrition- Primary Malignant Neoplasm Of Tongue Base (HCC) documented in this encounter Additional Health Concerns Assessment Noted Time PHQ-9 Depression Total Score: 10 023 7:28 AM CDT documented as of this encounter Care Teams Cell Attendant Relationship Specialty Start Date End Date Adi Allen M.D. NPChristiane: [phone] [address] [place] [address] [phone] PCP - General 02/11/17 documented as of this encounter
--- OUTSIDE RECORDS SUMMARY | 2024-08-31 07:27 | XMS_ITS | Encounter Summary ---
Author Organization [facility] Address [address] [place] [address] Care Team Providers Care News Reel Cameraman Name Role Phone Adi Allen M.D. Primary Care Provider [phone] Reason for Referral * Specialty Diagnoses / Procedures Referred By Lucina t Referred To Contact Diagnoses Malignant Neoplasm Of Tongue Base (HCC) Lindsay Rascon APRN, C.N.P., D.N.P. [address] [place] [address] Phone: tel: fax: [facility] Referral ID Status Reason Start Date Expiration Date Visits Re quested Visits Authorized Scheduling Instructions Please do not schedule if patient has 10 fractions or less, unless requested by care team. BLAST EQUIPMENT OPERATOR Encounter Details Date Type Department Care Team (Latest Contact Info) Description 08/07/2024 10:23 AM SHOT BLAST EQUIPMENT OPERATOR Hospital Encounter Department of Radiation Oncology in [place], [place] [address] [place] [phone] Christa Monroe M.D. [address] [place] [address] Malignant Neoplasm Of Tongue Base (HCC) Social History Tobacco Use Types Packs/Day Years Used Date Smoking Tobacco: Former Cigarettes Q uit: 1984 Passive Smoke Exposure: Never Smokeless Tobacco: Former Comments:1983. He reports sm oking less than 1 pack of cigarettes total in his life. Alcohol Use Standard Drinks/Week Comments Not Currently 0 (1 standard drink = 0.6 oz pur e alcohol) [facility] Utilities Answer Date Recorded In the past [...] often do you attend chur ch or uatsdin services? Never 12/09/2022 Do you belong to [...] Answer Date Recorded PHQ-2 Score 2 12/22/2022 [facility] of Occupat ional Health - Occupational Stress [...] your living situation today? I have a [facility] place to live 06/20/2024 Education Answer Date Recorded What is the highest level of school you have completed or the highest degree you have received? Associate degree: occupational, technical, or vocational program 09/10/2020 Sex and Gender Information Value Date Recorded Sex Assigned at Male 05/19/2021 9:34 AM CDT Legal Sex Male 10:09 AM SHOT BLAST EQUIPMENT OPERATOR Gender Identity Male 12/15/2019 2:54 PM CDT Sexual Orientation Straight 12/15/2019 2: 54 PM CDT Occupation Industry Job Start Date Job End Date Not on file Not on file Not on file Not on file documented as of this encounter Progress Notes * Briana Fermin R.N. - 08/07/2024 3:00 PM CST Patient was educated on side effects of radiation therapy. Their questions were answered to the best of my ability. The patient was encouraged to contact the team at any point, with questions or concerns. BLAST EQUIPMENT OPERATOR documented in this encounter Plan of Treatment Upcoming Encounters Date Type Department Care Team (Late st Contact Info) Description 08/31/2024 11:30 AM SHOT BLAST EQUIPMENT OPERATOR Appointment Department of Radiation Oncology in [address] [phone] Brian Fair M.D. [address] [place] [phone] Christa Monroe M.D. [address] [place] [phone] 08/31/2024 11:45 AM SHOT BLAST EQUIPMENT OPERATOR Appointment Department of Radiation Oncology in [address] [phone] Silvano Braga M.D. [facility] [place] [phone] 09/01/2024 11:30 AM SHOT BLAST EQUIPMENT OPERATOR Appointment Department of Radiation Oncology in [address] [phone] Brian Fair M.D. [address] [place] [phone] Christa Monroe M.D. [address] [place] [phone] 09/04/2024 8:30 AM SHOT BLAST EQUIPMENT OPERATOR Appointment Department of Radiation Oncology in [place], [place] [address] [place] [address] Brian Fair M.D. [address] [place] [phone] Christa Monroe M.D. [address] [place] [phone] 09/05/2024 8:45 AM SHOT BLAST EQUIPMENT OPERATOR Appointment Department of Radiation Oncology in [address] [phone] Brian Fair M.D. [address] [place] [phone] Christa Monroe M.D. [address] [place] [phone] 09/06/2024 11:30 AM SHOT BLAST EQUIPMENT OPERATOR Appointment Department of Radiation Oncology in [address] [phone] Brian Fair M.D. [address] [place] [phone] Christa Monroe M.D. [address] [place] [phone] Scheduled Referrals Name Type Priority Associated Diagnoses Order Schedule Radiation Oncology - Nurse education visit (clinic) Outpatient Referral Routine Malignant Neoplasm Of Tongue Base (HCC) Once for 1 Occurrences starting 08/07/2024 until 08/07/2024 documented as of this encounter Visit Diagnoses Diagnosis Malignant Neoplasm Of Tongue Base (HCC) documented in this encounter Additional Health Concerns Assessment Noted Time PHQ-9 Depression Total Score: 10 023 7:28 AM CDT documented as of this encounter Care Teams News Reel Cameraman Relationship Specialty Start Date End Date Adi Allen M.D. [address] [place] [phone] PCP - General 02/11/17 documented as of this encounter
--- OUTSIDE RECORDS SUMMARY | 2024-08-31 07:27 | XMS_ITS | Encounter Summary ---
Author Organization [facility] Address [address] [place] [address] Care Team Providers Care Cross Tie Turner Name Role Phone Adi Allen M.D. Primary Care Provider Reason for Visit * Reason Onset Date Comments Procedure 08/07/2024 Encounter Details Date Type Department Care Team (Late st Contact Info) Description 08/07/2024 Clinical Communication Department of Radiology in [place], [place] [address] [place] [phone] Bella Monaco, R.N. Procedure Social History Tobacco Use Types Packs/Day Years Used Date Smoking Tobacco: Former Cigarettes Q uit: 1983 Passive Smoke Exposure: Never Smokeless Tobacco: Former Comments:1983. He reports sm oking less than 1 pack of cigarettes total in his life. Alcohol Use Standard Drinks/Week Comments Not Currently 0 (1 standard drink = 0.6 oz pur e alcohol) [facility] Utilities Answer Date Recorded In the past 12 months has [employer] electric, gas, oil, or water [employer] threatened to shut off services in your [...] often do you attend chur ch or pentecostalism services? Never 12/09/2022 Do you belong to any clubs o r organizations such as jainism groups, unions, fraternal or athletic groups, or [...] Answer Date Recorded PHQ-2 Score 2 12/22/2022 [facility] of Occupat ional Health - Occupational [...] your living situation today? I have a [facility] place to live 06/20/2024 Education Answer Date Recorded What is the highest level of school you have completed or the highest degree you have received? Associate degree: occupational, technical, or vocational program 09/10/2020 Sex and Gender Information Value Date Recorded Sex Assigned at Male 05/19/2021 9:34 AM CDT Legal Sex Male 10:09 AM PINION POLISHER Gender Identity Male 12/15/2019 2:54 PM CDT Sexual Orientation Straight 12/15/2019 2: 54 PM CDT Occupation Industry Job Start Date Job End Date Not on file Not on file Not on file Not on file documented as of this encounter Miscellaneous Notes * Telephone Encounter - Bella Monaco RCarriNCarri - 08/07/2024 1:17 PM PINION POLISHER I received a request from HEN team to schedule Mr. Kat for G-tube placement. I have Mr. Kat scheduled to undergo G-tube placement at [facility] with Dr. Boyd on08/09/24. PRE PROCEDURE INSTRUCTIONS: Patient to remain NPO after midnight with the exception of clear liquids. The patient may have clear liquids up until 2 hours prior to check in. Patient instructed to bring an adult bus driver school due to moderate sedation being given. Patient instructed to take morning prescribed medications with a sip of clear water before reporting for the procedure. Patient is not on blood thinners. Patient is not diabetic. CENTRAL STORES ATTENDANT needed for procedure. This procedure is scheduled as an outpatient procedure. Endo team to notify the patient of these appointments. Labs: 06/19/24, which may be reviewed in the patient's EMR. EC06/19/24, which may be reviewed in the patient's EMR. ON POLISHER documented in this encounter Plan of Treatment Upcoming Encounters Date Type Department Care Team (Late st Contact Info) Description 08/31/2024 11:30 AM PINION POLISHER Appointment Department of Radiation Oncology in [address] [phone] Brian Fair M.D. [address] [place] [phone] Christa Monroe M.D. [address] [place] [phone] 08/31/2024 11:45 AM PINION POLISHER Appointment Department of Radiation Oncology in [address] [phone] Silvano Braga [place]. [place] [phone] 09/01/2024 11:30 AM PINION POLISHER Appointment Department of Radiation Oncology in [address] [phone] Brian Fair M.D. [address] [place] [phone] Christa Monroe M.D. [address] [place] [phone] 09/04/2024 8:30 AM PINION POLISHER Appointment Department of Radiation Oncology in [place], [place] [address] [place] [address] Brian Fair M.D. [address] [place] [phone] Christa Monroe M.D. [address] [place] [phone] 09/05/2024 8:45 AM PINION POLISHER Appointment Department of Radiation Oncology in [address] [phone] Brian Fair M.D. [address] [place] [phone] Christa Monroe M.D. [address] [place] [phone] 09/06/2024 11:30 AM PINION POLISHER Appointment Department of Radiation Oncology in [address] [address] Brian Fair M.D. [address] [place] [phone] Christa Monroe M.D. [address] [place] [phone] documented as of this encounter Visit Diagnoses Not on filedocumented in this encounter Additional Health Concerns Assessment Noted Time PHQ-9 Depression Total Score: 10 023 7:28 AM CDT documented as of this encounter Care Teams Cross Tie Turner Relationship Specialty Start Date End Date Adi Allen M.D. [address] [place] [phone] PCP - General 02/11/17 documented as of this encounter
--- OUTSIDE RECORDS SUMMARY | 2024-08-31 07:27 | XMS_ITS | Encounter Summary ---
Author Organization [facility] Address [address] [place] [address] Care Team Providers Care Graduate Recruiter Name Role Phone Adi Allen M.D. Primary Care Provider [phone] Reason for Referral * Outpatient (Routine) - Closed Specialty Diagnoses / Procedures Referred By Lucina hernández Referred To Contact Radiology Diagnoses Malignant Neoplasm Of Tongue Base (HCC) Procedures IR Gastrostomy Tube Placement Christa Monroe M.D. [address] [place] [address] Phone: tel: fax: [facility] Referral ID Status Reason Start Date Expiration Date Visits Re quested Visits Authorized [id number] Closed 08/07/2024 08/07/2025 1 1 ARIAL TRAINEE * Outpatient (Routine) - Closed Specialty Diagnoses / Procedures Referred By Lucina hernández Referred To Contact Nutrition Diagnoses Malignant Neoplasm Of Tongue Base (HCC) Christa Monroe M.D. [address] [place] [address] Phone: tel: fax: [facility] Referral ID Status Reason Start Date Expiration Date Visits Re quested Visits Authorized [id number] Closed 08/07/2024 02/06/2026 1 1 Scheduling Instructions Post - Placement ARIAL TRAINEE * Specialty Diagnoses / Procedures Referred By Lucina hernández Referred To Contact Diagnoses Malignant Neoplasm Of Tongue Base (HCC) [facility] Radiation Oncology at [address] [phone] [facility] Referral ID Status Reason Start Date Expiration Date Visits Re quested Visits Authorized ARIAL TRAINEE * Outpatient (Routine) - Closed Specialty Diagnoses / Procedures Referred By Contshaye t Referred To Contact Nutrition Diagnoses Malignant Neoplasm Of Tongue Base (HCC) Christa Monroe M.D. [address] [place] [phone] Phone: tel: fax: [facility] Referral ID Status Reason Start Date Expiration Date Visits Re quested Visits Authorized [id number] Closed 08/07/2024 02/06/2026 1 1 Scheduling Instructions Pre-Placement ARIAL TRAINEE * Outpatient (Routine) - Closed Specialty Diagnoses / Procedures Referred By Lucina hernández Referred To Contact Endocrinology Diagnoses Malignant Neoplasm Of Tongue Base (HCC) Christa Monroe M.D. [address] [place] [address] Phone: tel: fax: [facility] Referral ID Status Reason Start Date Expiration Date Visits Re quested Visits Authorized [id number] Closed 08/07/2024 02/06/2026 1 1 ARIAL TRAINEE * Specialty Diagnoses / Procedures Referred By Lucina hernández Referred To Contact Diagnoses Malignant Neoplasm Of Tongue Base (HCC) [facility] Radiation Oncology at [address] [address] [facility] Referral ID Status Reason Start Date Expiration Date Visits Re quested Visits Authorized ARIAL TRAINEE * Radiation Therapy (Routine) - Authorized Specialty Diagnoses / Procedures Referred By Lucina hernández Referred To Contact Diagnoses Malignant Neoplasm Of Tongue Base (HCC) Procedures Management Visit Christa Monroe M.D. [address] [place] [address] Phone: tel: fax: [facility] Region Referral ID Status Reason Start Date Expiration Date V isits Requested Visits Authorized [id number] Authorized 07/04/2024 07/04/2025 10 10 [facility] Reason for Visit * Radiation Therapy (Routine) - Authorized Specialty Diagnoses / Procedures Referred By Lucina hernández Referred To Contact Diagnoses Malignant Neoplasm Of Tongue Base (HCC) Procedures Management Visit Christa Monroe M.D. [address] [place] [address] Phone: tel: fax: [facility] Region Referral ID Status Reason Start Date Expiration Date V isits Requested Visits Authorized [id number] Authorized 07/04/2024 07/04/2025 10 10 Encounter Details Date Type Department Care Team (Latest Contact Info) Description 08/07/2024 9:20 AM ACTUARIAL TRAINEE - 08/07/2024 10:04 AM [facility] Hospital Encounter Department of Radiation Oncology in [place], [place] [address] [place] [address] Christa Monroe M.D. [address] [place] [address] Malignant Neoplasm Of Tongue Base (HCC) (Primary Dx); Secondary Malignant Neoplasm Lymph Node Neck (HCC) Social History Tobacco Use Types Packs/Day Years Used Date Smoking Tobacco: Former Cigarettes Q uit: 1983 Passive Smoke Exposure: Never Smokeless Tobacco: Former Comments:1983. He reports sm oking less than 1 pack of cigarettes total in his life. Alcohol Use Standard Drinks/Week Comments Not Currently 0 (1 standard drink = 0.6 oz pur e alcohol) [facility] Utilities Answer Date Recorded In [...] often do you attend chur ch or yazidism services? Never 12/09/2022 Do you belong to any clubs o r organizations such as restorationist groups, unions, fraternal or athletic groups, or [...] Answer Date Recorded PHQ-2 Score 2 12/22/2022 [facility] Occupat ional Health - Occupational Stress [...] your living situation today? I have a [facility] place to live 06/20/2024 Education Answer Date Recorded What is the highest level of school you have completed or the highest degree you have received? Associate degree: occupational, technical, or vocational program 09/10/2020 Sex and Gender Information Value Date Recorded Sex Assigned at Male 05/19/2021 9:34 AM CDT Legal Sex Male 10:09 AM ACTUARIAL TRAINEE Gender Identity Male 12/15/2019 2:54 PM CDT [...] Weight 90.3 kg (199 lb 1.2 oz) 08/07/2024 10:13 AM ACTUARIAL TRAINEE Height - - Body Mass Index 28.18 07/03/2024 1:48 PM ACTUARIAL TRAINEE documented in this encounter Medications at Time of Discharge acetaminophen (TylenoL) 500 mg tablet Take 2 tablets (1,000 mg total) by mouth every 6 (six) hours as needed for pain. Do NOT exceed more that 4,000mg of Acetaminophen per day from all sources - including Nyquil 06/22/2024 DM/p-ephed/aceta minoph/doxylam (NYQUIL D ORAL) Take 30 mL by mouth at bedtime. DULoxetine (Cymbalta) [address] capsuleIndicatio ns:Chronic [...] for 30 min. 100 mL 12 06/19/2024 5 fluticasone propion-salmeter oL (Advair HFA) 230-21 mcg/actuation inhalerIndicatio ns:Chronic Cough Inhale 2 puffs 2 (two) times a day. Rinse mouth with water after use to reduce aftertaste and incidence of candidiasis. Do not swallow. 12 g 11 05/19/2024 5 fluticasone propionate (Flonase) 50 mcg/actuation nasal sprayIndications :Chronic Cough Administer 1 spray into each nostril daily. 16 g 05/19/2024 hydrOXYzine (VISTARIL) 50 mg capsule Take 1 capsule (50 mg total) by mouth every 6 (six) hours as needed for anxiety. 60 capsule 12/21/2023 ibuprofen 200 mg tablet Take 3 tablets (600 mg total) by mouth every 6 (six) hours as needed for pain. Take with food. 06/21/2024 ondansetron (Zofran) 4 mg tablet Take 1 tablet by mouth every 4 (four) hours PM. 07/06/2024 prochlorperazine (Compazine) 5 mg tablet TAKE ONE TABLET BY MOUTH TWICE A DAY NEEDED FOR NAUSEA AND VOMITING 07/06/2024 sennosides-docus ate sodium (Senokot-S) 8.6-50 mg per [...] Progress Notes * Christa Monroe M.D. - 08/07/2024 9:30 AM CST SUBJECTIVE CHIEF COMPLAINT/REASON FOR VISIT [...] Treatment Last Treatment Elapsed Days F1Opx 200 2000 6000 07/24/2024 08/04/2024 11 Course Summary 07/24/2024 08/04/2024 11 The patient was seen and examined today with Dr. Monroe. The patient requests to be seen today for pain management. He is currently taking 1000 mg Tylenol and 600 mg Ibuprofen alternating every three hours. He rates his pain above 10/10 at it's worst and only getting relief to 7/10 with OTC pain measures. He is currently completing baking soda rinses roughly twice per day. He notes increased amounts of phlegm that are hard to manage. He is applying lotion to the treatment field twice per day. He notes his pain is causing him to refrain from eating and he claims he has lost roughly 20 pounds since starting treatment. He is not opposed to getting a PEG tube. Additionally - patient requests to no longer have BID treatments. OBJECTIVE Wt 90.3 kg BMI 28.18 kg/m?? Weight: 07/25 98.3 kg 08/02 95.9 kg PHYSICAL EXAMINATION General: Alert and oriented, [...] A prescription was sent for 5 mg oxyCODONE and Doxepin oral rinse to his preferred pharmacy. He was also given a pain diary to track pain levels and medications taken. We gave him high calorie nutritional supplements, set up visit for PEG tube discussion with nutrition, and gave him educational materials on radiation related side effects. He was encouraged to increase baking soda rinses and discussed the use of meat tenderizer, tussin, and bedside humidifier. Dr. Monroe was in for any questions or concerns. He was asked to contactour care team with new or worsening symptoms. He will continue with radiation treatment as planned. Signed by: Briana Fermin R.N. 08/07/2024 10:13 AM ACTUARIAL TRAINEE ATTESTATION FOR MANAGEMENT VISIT I saw and evaluated the patient and participated in the tejada portions of the service as noted above.I reviewed the documentation of Ms. Briana Fermin RN and agree with the findings and plan. The patient appears well on exam. We will continue with radiation as planned and monitor weekly. He is struggling with pain. We encourage him to do the baking soda rinses more often, we will add dental rolls in his mouth to move his tongue away from his dental fillings. We discussed the metal in his C5-6spine as we are aware this is in place and radiation planning system has taken this into account for his planning. We discussed starting pain medications, keeping a diary, and taking something for constipation prevention. He is willing to consider a PEG tube as he is having significant weight loss only after the first two weeks. We will start this process in [place]. We discussed the importanceof completing his treatments given his 9 nodes and CAROLE. I spoke with Shanique Montoya APRN about himtoday as well. They will consider IV fluids if he is found to have orthostasis when they check him again this morning. Christa Monroe M.D., 08/07/2024 ARIAL TRAINEE documented in this encounter Plan of Treatment Upcoming Encounters Date Type Department Care Team (Late st Contact Info) Description 08/31/2024 11:30 AM ACTUARIAL TRAINEE Appointment Department of Radiation Oncology in [place], [place] [address] [place] [address] Brian Fair M.D. [address] [place] [address] Christa Monroe M.D. [address] [place] [address] 08/31/2024 11:45 AM ACTUARIAL TRAINEE Appointment Department of Radiation Oncology in [place], [place] [address] [place] [address] Silvano Braga M.D. [address] [place] [address] 09/01/2024 11:30 AM ACTUARIAL TRAINEE Appointment Department of Radiation Oncology in [place], [place] [address] [place] [address] Brian Fair M.D. [address] [place] [phone] Christa Monroe M.D. [address] [place] [phone] 09/04/2024 8:30 AM ACTUARIAL TRAINEE Appointment Department of Radiation Oncology in [place], [place] [address] [place] [address] Brian Fair M.D. [address] [place] [phone] Christa Monroe M.D. [address] [place] [phone] 09/05/2024 8:45 AM ACTUARIAL TRAINEE Appointment Department of Radiation Oncology in [place], [place] [address] [place] [address] Brian Fair M.D. [address] [place] [phone] Christa Monroe M.D. [address] [place] [phone] 09/06/2024 11:30 AM ACTUARIAL TRAINEE Appointment Department of Radiation Oncology in [place], [place] [address] [place] [address] Brian Fair M.D. [address] [place] [phone] Christa Monroe M.D. [address] [place] [phone] Scheduled Orders Name Type Priority Associated Diagnoses Orde r Schedule Management Visit Radiation Oncology Routine Malignant Neoplasm Of Tongue Base (HCC) Once for 1 Occurrences starting 08/07/2024 until 08/07/2024 Scheduled Referrals Name Type Priority Associated Diagnoses Order Schedule Nutrition - Pre-feeding tube education visit (clinic) Outpatient Referral Routine Malignant Neoplasm Of Tongue Base (HCC) Expected: 08/07/2024, Expires: 11/05/2025 Endocrinology - Home enteral medical nutrition therapy consult (clinic) Outpatient Referral Routine Malignant Neoplasm Of Tongue Base (HCC) Expected: 08/07/2024, Expires: 11/05/2025 Nutrition - Home nutrition medical nutrition therapy consult (clinic) Outpatient Referral Routine Malignant Neoplasm Of Tongue Base (HCC) 1 Occurrences starting 08/07/2024 until 11/05/2025 Nutrition - Post-feeding tube education visit (clinic) Outpatient Referral Routine Malignant Neoplasm Of Tongue Base (HCC) Expected: 08/07/2024, Expires: 11/05/2025 Nutrition - Home nutrition medical nutrition therapy consult (clinic) Outpatient Referral Routine Malignant Neoplasm Of Tongue Base (HCC) 1 Occurrences starting 08/07/2024 until 11/05/2025 documented as of this encounter Results * IR Gastrostomy Tube Placement (08/09/2024 2:00 PM ACTUARIAL TRAINEE) Anatomical Region Laterality Modality Abdomen, Vascular Interventi onal RST LOS, Vascular Interventional ARZ LOS, Vascular Interventional FLA LOS N/A X-Ray Angiography Impressions 08/10/2024 7:39 AM ACTUARIAL TRAINEE Placement of a 16 [place] percutaneous gastrostomy tube. Nothing by mouth or tube for 2 hours (strict). Then use of mouth or tube for water, medications, and/or tube feeds per Nutrition note/order. Exchange tube in 3-5 months. Contact the H[facility] clinic at [phone] to schedule the tube exchange. NR Narrative 08/10/2024 7:39 AM ACTUARIAL TRAINEE EXAM: IR GASTROSTOMY TUBE PLACEMENT, IR CT GUIDANCE CLINICAL HISTORY: 59-year-old male with head and neck cancer requiring gastrostomy tube placement for enteral nutrition. Pre-Procedure Diagnosis: Cancer. Indication: Feeding. TECHNIQUE: Balloon Assisted. The patient was placed supine on the fluoroscopy table. Under fluoroscopic guidance, a 4 [place] Islander catheter was placed as a nasogastric tube. [...] applied. No immediate complication. Tube Type: Gastrostomy, [place]. Tube Connection: ENFit. 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 [address] [place] [phone] PCP - General 02/11/17 documented as of this encounter
--- OUTSIDE RECORDS SUMMARY | 2024-08-31 07:27 | XMS_ITS | Encounter Summary ---
Author Organization [facility] Address [address] [place] [address] Care Team Providers Care Physical Therapy Resident Name Role Phone Adi [place] M.D. Primary Care Provider [phone] Reason for Referral * Outpatient (Routine) - Closed Specialty Diagnoses / Procedures Referred By Lucina hernández Referred To Contact Radiation Oncology Diagnoses Malignant Neoplasm Of Tongue Base (HCC) Christa Monroe M.D. [address] [place] [address] Phone: tel: fax: [facility] Region Referral ID Status Reason Start Date Expiration Date Visits Re quested Visits Authorized [id number] Closed 07/04/2024 01/03/2026 1 1 RENCE LIBRARIAN Reason for Visit * Outpatient (Routine) - Closed Specialty Diagnoses / Procedures Referred By Lucina hernández Referred To Contact Radiation Oncology Diagnoses Malignant Neoplasm Of Tongue Base (HCC) Christa Monroe M.D. [address] [place] [address] Phone: tel: fax: [facility] Region Referral ID Status Reason Start Date Expiration Date Visits Re quested Visits Authorized [id number] Closed 07/04/2024 01/03/2026 1 1 Encounter Details Date Type Department Care Team (Latest Contact Info) Description 08/03/2024 10:59 AM REFERENCE LIBRARIAN - 08/03/2024 12:18 PM REFERENCE LIBRARIAN Hospital Encounter Department of Radiation Oncology in [place], [place] [address] [place] [address] Christa Monroe M.D. [address] [place] [address] Lupe Sheppard RDN Malignant Neoplasm Of Tongue Base (HCC) Social History Tobacco Use Types Packs/Day Years Used Date Smoking Tobacco: Former Cigarettes Q uit: 1983 Passive Smoke Exposure: Never Smokeless Tobacco: Former Comments:1983. He reports sm oking less than 1 pack of cigarettes total in his life. Alcohol Use Standard Drinks/Week Comments Not Currently 0 (1 standard drink = 0.6 oz pur e alcohol) [facility] [employer] Answer Date Recorded In the past 12 months has [employer], gas, oil, or water [employer] threatened to shut off services in your [...] week 12/09/2022 How often do you attend [facility] or hindu services? Never 12/09/2022 Do you belong to any clubs o r organizations such as roman catholic groups, unions, fraternal or athletic groups, or [...] Answer Date Recorded PHQ-2 Score 2 12/22/2022 [employer] [facility] - Occupational Stress Questionnaire Answer Date Recorded [...] Answer Date Recorded Employment status Permanently disabled 4 Housing Stability Answer Date Recorded What is your living situation today? I have a [facility] place to live 06/20/2024 Education Answer Date Recorded What is the highest level of school you have completed or the highest degree you have received? Associate degree: occupational, technical, or vocational program 09/10/2020 Sex and Gender Information Value Date Recorded Sex Assigned at Male 05/19/2021 9:34 AM CDT Legal Sex Male 10:09 AM REFERENCE LIBRARIAN Gender Identity Male 12/15/2019 2:54 PM CDT [...] for 30 min. 100 mL 12 06/19/2024 fluticasone propion-salmeter oL (Advair HFA) 230-21 mcg/actuation inhalerIndicatio ns:Chronic Cough Inhale 2 puffs 2 (two) times a day. Rinse mouth with water after use to reduce aftertaste and incidence of candidiasis. Do not swallow. 12 g 11 05/19/2024 fluticasone propionate (Flonase) 50 mcg/actuation nasal sprayIndications [...] mouth at bedtime 180 tablet 3 01/19/2024 oxyCODONE (Roxicodone) 5 mg immediate release tabletIndication s:Acute Pain Exception Take 1 tablet (5 mg total) by mouth every 4 (four) hours as needed for pain for up to 15 doses Indication: Acute Pain Exception. 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 Please see the electronic medical record for complete details. Met with patient. ASSESSMENT Relevant Social and Family History Mr. Kat lives in [place] with his spouse, Naa. Nutrition Focused Physical Findings Mouth/esophagus/Throat: He reports bad taste recently. Nothing tastes good to him at this time, including water. Bowels: none at this time. Nausea/vomiting: He has been experiencing increased nausea, however medications help manage this. Food/Nutrition Related History Patient attended appointment alone. He reports increased fatigue recently with nausea and bad taste. His oral intake has decreased due to this. He usually has eggs and nava for breakfast. Today, he had eggs in a blanket and cottage cheese. For lunch, he usually has soups. He has not been having dinner recently. He does snack between meals on ice cream, popcorn, Cheetos. His fluid intake has decreased recently due to food tasting poorly. He used to include chocolate Ensure Plus at home, however has not recently. He only likes the chocolate flavor, does not like strawberry or vanilla. Weight History Weight: 98.3 kg Height: 179 cm (70.4 inches) Body mass index is 30.9 kg/m??. Patient reports UBW is about 97 kg recently. 08/03/24: 94.4 kg 08/02/24: 95.9 kg 07/25/24: 98.3 kg *start of treatment 07/18/24: 95.5 kg 07/03/24: 93.4 kg 06/20/24: 96.8 kg 05/19/24: 97.0 kg 12/22/22: 104.0 kg Since the start of treatment, patient has lost about 4 kg/9 lbs (4% body weight). His weight at start of treatment is high, patient suspects this may be due to eating more than normal a few days before being weighed at that time. He also reports decreased intake recently. Estimation of Nutritional Needs Weight Used for Equation Calculations: 98.3 kg (weight at start of treatment) Total Calorie Needs: 2300 kcals (HB + .2) Estimated Protein Needs: 108 to 117grams per day (1.1-1.2 g/kg) Estimated Fluid Needs: 2457 ml per day, or 10/3 cups (25 ml/kg) NUTRITION DIAGNOSIS Food- and nutrition-related knowledge deficit related to cancer with chemoradiation as evidenced byneed for nutrition education to maintain weight and nutrition status during treatment. Unintentional weight loss related to decreased oral intake due to nausea and poor taste as evidenced by loss of 4% body weight (4kg/9 lbs) since the start of treatment. Nutrition Prescription/Recommendation 2300 kcals, at least 108 grams protein, and at least 10.5 cups fluid daily. INTERVENTION Today, we discussed the role of nutrition during radiation treatment. We discussed potential side effects of treatment and nutritional guidelines recommendations to help with side effects. Talked about weight and potential for weight loss and the goal of maintaining current weight (within 5%) during course of treatment. Encouraged patient toward looking at food like his job or medicine, especially with his current side effects (nausea and bad taste). Encouraged patient related to adequate protein and calorie and fluid intake and discussed options for increasing current usual intake including use of supplements if unable to achieve with usual intake. Highly encouraged patient include at least 2 Ensure Plus High Protein daily at this time, and increase to 3 or more daily if his oral intake continues to decline. Provided samples of supplements as well. Written material provided with discussion. Handouts provided: Eating Hints Booklet, protein and calorie content of foods and nutrition supplements handout. MONITORING AND EVALUATION: Nutrition parameter to monitor: Weight Desired Outcome: Maintain weight within 5-10% during treatment, without loss of 93 kg/205 lbs (5%) to 188.5 kg/94 lbs (10%). Patient Goal(s): 1. Current diet with addition of nutrition supplements to meet estimated nutrition needs. 2. Aim for at least 10.5 cups of fluid per day. 3. Track calorie, protein and fluid intake. FOLLOW UP PLAN: He will follow up in 1 week. Contact information provided and he was encouraged to call with questions. Time spent with patient (minutes): 30 RENCE LIBRARIAN documented in this encounter Plan of Treatment Upcoming Encounters Date Type Department Care Team (Late st Contact Info) Description 08/31/2024 11:30 AM REFERENCE LIBRARIAN Appointment Department of Radiation Oncology in [address] [address] Brian Fair M.D. [address] [place] [phone] Christa Monroe M.D. [address] [place] [phone] 08/31/2024 11:45 AM REFERENCE LIBRARIAN Appointment Department of Radiation Oncology in [place], [place] [address] [place] [phone] Silvano Braga M.D. [address] [place] [phone] 09/01/2024 11:30 AM REFERENCE LIBRARIAN Appointment Department of Radiation Oncology in [address] [phone] Brian Fair M.D. [address] [place] [phone] Christa Monroe M.D. [address] [place] [phone] 09/04/2024 8:30 AM REFERENCE LIBRARIAN Appointment Department of Radiation Oncology in [place] [address] [place] [address] Brian Fair M.D. [address] [place] [phone] Christa Monroe M.D. [address] [place] [phone] 09/05/2024 8:45 AM REFERENCE LIBRARIAN Appointment Department of Radiation Oncology in [place] [address] [place] [phone] Brian Fair M.D. [address] [place] [phone] Christa Monroe M.D. [address] [place] [address] 09/06/2024 11:30 AM REFERENCE LIBRARIAN Appointment Department of Radiation Oncology in [place], [place] [address] [place] [phone] Brian Fair M.D. [address] [place] [address] Christa Monroe M.D. [address] [place] [address] Scheduled Referrals Name Type Priority Associated Diagnoses Order Schedule Radiation Oncology - Medical nutrition therapy consult (clinic) Outpatient Referral Routine Malignant Neoplasm Of Tongue Base (HCC) Once for 1 Occurrences starting 08/03/2024 until 08/03/2024 documented as of this encounter Visit Diagnoses Diagnosis Malignant Neoplasm Of Tongue Base (HCC) documented in this encounter Additional Health Concerns Assessment Noted Time PHQ-9 Depression Total Score: 10 023 7:28 AM CDT documented as of this encounter Care Teams Physical Therapy Resident Relationship Specialty Start Date End Date Adi [place] M.D. [address] [place] [address] PCP - General 02/11/17 documented as of this encounter
--- OUTSIDE RECORDS SUMMARY | 2024-08-31 07:27 | XMS_ITS | Encounter Summary ---
Author Organization [facility] Address [address] [place] [address] Care Team Providers Care Sports Editor Name Role Phone Adi [place] M.D. Primary Care Provider Reason for Visit * Reason Comments Scheduling Encounter Details Date Type Department Care Team (Late st Contact Info) Description 08/07/2024 Documentation Division of Endocrinology in [place], [place] [address] [place] [address] Sachi Araujo, R.N. Scheduling Social History Tobacco Use Types Packs/Day Years Used Date Smoking Tobacco: Former Cigarettes Q uit: 1983 Passive Smoke Exposure: Never Smokeless Tobacco: Former Comments:1983. He reports sm oking less than 1 pack of cigarettes total in his life. Alcohol Use Standard Drinks/Week Comments Not Currently 0 (1 standard drink = 0.6 oz pur e alcohol) [facility] Utilities Answer Date Recorded In the past 12 months has [employer], gas, oil, or water [employer] threatened to shut off services in your [...] often do you attend chur ch or episcopal services? Never 12/09/2022 Do you belong to [...] [facility] - Occupational Stress Questionnaire Answer Date [...] AM CDT Legal Sex Male 10:09 AM DIRECTOR OF ROTC Gender Identity Male 12/15/2019 2:54 PM CDT Sexual Orientation Straight 12/15/2019 2: 54 PM CDT Occupation Industry Job Start Date Job End Date Not on file Not on file Not on file Not on file documented as of this encounter Progress Notes * Sachi Araujo, R.N. - 08/07/2024 11:00 AM CST SUBJECTIVE Christa Monroe MD consulted the [facility] clinic about the plan of care for Mr. Kat. The plan of care developed includes the need for a new G tube. OBJECTIVE The indication for tube placement is: Cancer: Head and neck: squamous cell carcinoma of the right tongue base . Has the patient had a previous swallow study? Yes; on 06/19/24. Findings: Oropharyngeal swallow within normal limits . Is the patient currently receiving radiation treatments? Yes currently receiving radiation at [facility] with last radiation treatment currently scheduled for 09/01/24. ASSESSMENT Is there any cardiovascular history? Hypertension, prolonged QT interval Is there any GI medical history? GERD Is there any GI surgical history? None Is there any history of abdominal hernia repair with mesh? No Is there any mental health history? Anxiety, depressive disorder Is there any neuro/musculoskeletal history? Arthritis, peripheral neuropathy, cervical spine stenosis Is there any pulmonary history? Asthma Is there any history of head and neck surgery? Neck dissection and robotic assisted tongue base resection; tonsillectomy Other medical history: Knee arthroscopy, anterior cervical spine fusion, left shoulder arthroscopy with superior labral lesion repair; chronic kidney disease stage II, listed personal history anesthesia complication Anesthesia considerations are: Aspiration risk, Head or neck cancer assoicated with surgery, Head of neck cancer associated with radiation, Narcotics, Prior difficulity with sedation/anesthesia, and Tobacco use (past) Is the patient currently taking any anticoagulation medication? No Is the patient currently taking narcotic pain medication? Yes, oxyCODONE listed PRN medication. PLAN This procedure should be scheduled for: [facility] Scheduling needs include: Procedure time: Per IR Proceduralist needed: Per IR Is fluoroscopy needed? Per IR Is anesthesia needed? Per IR Has the HEN Provider pre appointment been scheduled? Not yet scheduled Has the HEN Dietitian pre appointment been scheduled? Not yet scheduled Has the HEN Nurse pre appointment been scheduled? Not yet scheduled Has the HEN Dietitian post appointment been scheduled? Not yet scheduled Has the HEN Nurse post appointment been scheduled? Not yet scheduled Any additional scheduling comments? PET scan done 06/05/24 The patient's requested appointment dates are: Next available [employer]OR [employer]OT[employer] documented in this encounter Plan of Treatment Upcoming Encounters Date Type Department Care Team (Late st Contact Info) Description 08/31/2024 11:30 AM DIRECTOR OF ROTC Appointment Department of Radiation Oncology in [place], [place] [address] [place] [address] Brian Fair M.D. [address] [place] [address] Christa Monroe M.D. [address] [place] [phone] 08/31/2024 11:45 AM DIRECTOR OF ROTC Appointment Department of Radiation Oncology in [place], [place] [address] [place] [address] Silvano Braga M.D. [address] [place] [phone] 09/01/2024 11:30 AM DIRECTOR OF ROTC Appointment Department of Radiation Oncology in [place], [place] [address] [place] [address] Brian Fair M.D. [address] [place] [phone] Christa [place] M.D. [address] [place] [phone] 09/04/2024 8:30 AM DIRECTOR OF ROTC Appointment Department of Radiation Oncology in [place], [place] [address] [place] [address] Brian Fair M.D. [address] [place] [phone] Christa Monroe M.D. [address] [place] [phone] 09/05/2024 8:45 AM DIRECTOR OF ROTC Appointment Department of Radiation Oncology in [place], [place] [address] [place] [address] Brian Fair M.D. [address] [place] [phone] Christa Monroe M.D. [address] [place] [phone] 09/06/2024 11:30 AM DIRECTOR OF ROTC Appointment Department of Radiation Oncology in [place], [place] [address] [place] [phone] Brian Fair M.D. [address] [place] [phone] Christa Monroe M.D. [address] [place] [phone] documented as of this encounter Visit Diagnoses Not on filedocumented in this encounter Additional Health Concerns Assessment Noted Time PHQ-9 Depression Total Score: 10 023 7:28 AM CDT documented as of this encounter Care Teams Sports Editor Relationship Specialty Start Date End Date Adi [place] M.D. [address] [place] [address] PCP - General 02/11/17 documented as of this encounter
--- OUTSIDE RECORDS SUMMARY | 2024-08-31 07:27 | XMS_ITS | Encounter Summary ---
Author Organization [facility] Address [address] [place] [address] Care Team Providers Care Sleeve Setter Safety Stitch Name Role Phone Adi [place] M.D. Primary Care Provider Encounter Details Date Type Department Care Team (Late st Contact Info) Description 08/04/2024 11:09 AM [facility] Hospital Encounter Department of Radiation Oncology in [place], [place] [address] [place] [phone] Brian Fair M.D. [address] [place] [phone] Christa Monroe M.D. [address] [place] [phone] Social History Tobacco Use Types Packs/Day Years Used Date Smoking Tobacco: Former Cigarettes Q uit: 1983 Passive Smoke Exposure: Never Smokeless Tobacco: Former Comments:1983. He reports sm oking less than 1 pack of cigarettes total in his life. Alcohol Use Standard Drinks/Week Comments Not Currently 0 (1 standard drink = 0.6 oz pur e alcohol) [facility] Utilities Answer Date Recorded In [...] How often do you attend chur or yazidi services? Never 12/09/2022 Do you belong to any clubs o r organizations such as gnosticism groups, unions, fraternal or athletic groups, or [...] Answer Date Recorded PHQ-2 Score 2 12/22/2022 [facility] of Occupat ional Health - Occupational Stress [...] your living situation today? I have a [facility] place to live 06/20/2024 Education Answer Date Recorded What is the highest level of school you have completed or the highest degree you have received? Associate degree: occupational, technical, or vocational program 09/10/2020 Sex and Gender Information Value Date Recorded Sex Assigned at Male 05/19/2021 9:34 AM CDT Legal Sex Male 10:09 AM STOREROOM SUPERVISOR Gender Identity Male 12/15/2019 2:54 PM CDT Sexual Orientation Straight 12/15/2019 2: 54 PM CDT Occupation Industry Job Start Date Job End Date Not on file Not on file Not on file Not on file documented as of this encounter Plan of Treatment Upcoming Encounters Date Type Department Care Team (Late st Contact Info) Description 08/31/2024 11:30 AM STOREROOM SUPERVISOR Appointment Department of Radiation Oncology in [address] [address] Brian Fair M.D. [address] [place] [phone] Christa Monroe M.D. [address] [place] [phone] 08/31/2024 11:45 AM STOREROOM SUPERVISOR Appointment Department of Radiation Oncology in [place], [place] [address] [place] [phone] Silvano Braga M.D. [address] [place] [phone] 09/01/2024 11:30 AM STOREROOM SUPERVISOR Appointment Department of Radiation Oncology in [address] [phone] Brian Fair M.D. [address] [place] [phone] Christa Monroe M.D. [address] [place] [phone] 09/04/2024 8:30 AM STOREROOM SUPERVISOR Appointment Department of Radiation Oncology in [place], [place] [address] [place] [address] Brian Fair M.D. [address] [place] [phone] Christa Monroe M.D. [address] [place] [phone] 09/05/2024 8:45 AM STOREROOM SUPERVISOR Appointment Department of Radiation Oncology in [place] [address] [place] [address] Brian Fair M.D. [address] [place] [phone] Christa Monroe M.D. [address] [place] [phone] 09/06/2024 11:30 AM STOREROOM SUPERVISOR Appointment Department of Radiation Oncology in [place], [place] [address] [place] [phone] Brian Fair M.D. [address] [place] [phone] Christa Monroe M.D. [address] [place] [phone] documented as of this encounter Visit Diagnoses Not on filedocumented in this encounter Additional Health Concerns Assessment Noted Time PHQ-9 Depression Total Score: 10 023 7:28 AM CDT documented as of this encounter Care Teams Sleeve Setter Safety Stitch Relationship Specialty Start Date End Date Adi [place] M.D. [address] [place] [address] PCP - General 02/11/17 documented as of this encounter
--- OUTSIDE RECORDS SUMMARY | 2024-08-31 07:27 | XMS_ITS | Encounter Summary ---
Author Organization [facility] Address [address] [place] [address] Care Team Providers Care Sports Athletic Trainer Name Role Phone Adi Allen M.D. Primary Care Provider Encounter Details Date Type Department Care Team (Late st Contact Info) Description 08/03/2024 10:19 AM [facility] Hospital Encounter Department of Radiation Oncology in [place], [place] [address] [place] [phone] Brian Fair M.D. [address] [place] [phone] Christa Monroe M.D. [address] [place] [phone] Social History Tobacco Use Types Packs/Day Years Used Date Smoking Tobacco: Former Cigarettes Q uit: 1983 Passive Smoke Exposure: Never Smokeless Tobacco: Former Comments:1983. He reports sm oking less than 1 pack of cigarettes total in his life. Alcohol Use Standard Drinks/Week Comments Not Currently 0 (1 standard drink = 0.6 oz pur e alcohol) [facility] Utilities Answer Date Recorded In [...] How often do you attend chur or taoism services? Never 12/09/2022 Do you belong to any clubs o r organizations such as mandaen groups, unions, fraternal or athletic groups, or [...] Answer Date Recorded PHQ-2 Score 2 12/22/2022 [facility] [place] of Occupat ional Health - Occupational Stress [...] your living situation today? I have a [facility] place to live 06/20/2024 Education Answer Date Recorded What is the highest level of school you have completed or the highest degree you have received? Associate degree: occupational, technical, or vocational program 09/10/2020 Sex and Gender Information Value Date Recorded Sex Assigned at Male 05/19/2021 9:34 AM CDT Legal Sex Male 10:09 AM MACHINE OPERATOR CANE CUTTER Gender Identity Male 12/15/2019 2:54 PM CDT Sexual Orientation Straight 12/15/2019 2: 54 PM CDT Occupation Industry Job Start Date Job End Date Not on file Not on file Not on file Not on file documented as of this encounter Plan of Treatment Upcoming Encounters Date Type Department Care Team (Late st Contact Info) Description 08/31/2024 11:30 AM MACHINE OPERATOR CANE CUTTER Appointment Department of Radiation Oncology in [address] [phone] Brian Fair M.D. [address] [place] [phone] Christa Monroe M.D. [address] [place] [phone] 08/31/2024 11:45 AM MACHINE OPERATOR CANE CUTTER Appointment Department of Radiation Oncology in [place], [place] [address] [place] [phone] Silvano Braga M.D. [address] [place] [phone] 09/01/2024 11:30 AM MACHINE OPERATOR CANE CUTTER Appointment Department of Radiation Oncology in [address] [address] Brian Fair M.D. [address] [place] [phone] Christa Monroe M.D. [address] [place] [phone] 09/04/2024 8:30 AM MACHINE OPERATOR CANE CUTTER Appointment Department of Radiation Oncology in [place], [place] [address] [place] [address] Brian Fair M.D. [address] [place] [phone] Christa Monroe M.D. [address] [place] [phone] 09/05/2024 8:45 AM MACHINE OPERATOR CANE CUTTER Appointment Department of Radiation Oncology in [place] [address] [place] [address] Brian Fair M.D. [address] [place] [phone] Christa Monroe M.D. [address] [place] [phone] 09/06/2024 11:30 AM MACHINE OPERATOR CANE CUTTER Appointment Department of Radiation Oncology in [place], [place] [address] [place] [address] Brian Fair M.D. [address] [place] [phone] Christa Monroe M.D. [address] [place] [phone] documented as of this encounter Visit Diagnoses Not on filedocumented in this encounter Additional Health Concerns Assessment Noted Time PHQ-9 Depression Total Score: 10 023 7:28 AM CDT documented as of this encounter Care Teams Sports Athletic Trainer Relationship Specialty Start Date End Date Adi Allen M.D. [address] [place] [phone] PCP - General 02/11/17 documented as of this encounter
--- OUTSIDE RECORDS SUMMARY | 2024-08-31 07:27 | XMS_ITS | Encounter Summary ---
Author Organization [facility] Address [address] [place] [address] Care Team Providers Care Windrower Operator Name Role Phone Adi Allen M.D. Primary Care Provider Encounter Details Date Type Department Care Team (Late st Contact Info) Description 08/07/2024 10:05 AM [facility] Hospital Encounter Department of Radiation Oncology in [place], [place] [address] [place] [phone] Brian Fair M.D. [address] [place] [phone] Christa Monroe M.D. [address] [place] [phone] Social History Tobacco Use Types Packs/Day Years Used Date Smoking Tobacco: Former Cigarettes Q uit: 1983 Passive Smoke Exposure: Never Smokeless Tobacco: Former Comments:1983. He reports sm oking less than 1 pack of cigarettes total in his life. Alcohol Use Standard Drinks/Week Comments Not Currently 0 (1 standard drink = 0.6 oz pur e alcohol) [facility] Utilities Answer Date Recorded In [...] any clubs o r organizations such as adventism groups, unions, fraternal or athletic groups, or [...] Answer Date Recorded PHQ-2 Score 2 12/22/2022 [facility] [place] of Occupat ional Health - Occupational Stress [...] your living situation today? I have a [facility] place to live 06/20/2024 Education Answer Date Recorded What is the highest level of school you have completed or the highest degree you have received? Associate degree: occupational, technical, or vocational program 09/10/2020 Sex and Gender Information Value Date Recorded Sex Assigned at Male 05/19/2021 9:34 AM CDT Legal Sex Male 10:09 AM PERINATOLOGY PHYSICIAN Gender Identity Male 12/15/2019 2:54 PM CDT Sexual Orientation Straight 12/15/2019 2: 54 PM CDT Occupation Industry Job Start Date Job End Date Not on file Not on file Not on file Not on file documented as of this encounter Plan of Treatment Upcoming Encounters Date Type Department Care Team (Late st Contact Info) Description 08/31/2024 11:30 AM PERINATOLOGY PHYSICIAN Appointment Department of Radiation Oncology in [address] [phone] Brian Fair M.D. [address] [place] [phone] Christa Monroe M.D. [address] [place] [phone] 08/31/2024 11:45 AM PERINATOLOGY PHYSICIAN Appointment Department of Radiation Oncology in [place], [place] [address] [place] [phone] Silvano Braga M.D. [address] [place] [phone] 09/01/2024 11:30 AM PERINATOLOGY PHYSICIAN Appointment Department of Radiation Oncology in [address] [phone] Brian Fair M.D. [address] [place] [phone] Christa Monroe M.D. [address] [place] [phone] 09/04/2024 8:30 AM PERINATOLOGY PHYSICIAN Appointment Department of Radiation Oncology in [place], [place] [address] [place] [address] Brian Fair M.D. [address] [place] [phone] Christa Monroe M.D. [address] [place] [phone] 09/05/2024 8:45 AM PERINATOLOGY PHYSICIAN Appointment Department of Radiation Oncology in [place] [address] [place] [address] Brian Fair M.D. [address] [place] [phone] Christa Monroe M.D. [address] [place] [phone] 09/06/2024 11:30 AM PERINATOLOGY PHYSICIAN Appointment Department of Radiation Oncology in [place], [place] [address] [place] [phone] Brian Fair M.D. [address] [place] [phone] Chritsa Monroe M.D. [address] [place] [phone] documented as of this encounter Visit Diagnoses Not on filedocumented in this encounter Additional Health Concerns Assessment Noted Time PHQ-9 Depression Total Score: 10 023 7:28 AM CDT documented as of this encounter Care Teams Windrower Operator Relationship Specialty Start Date End Date Adi Allen M.D. [address] [place] [phone] PCP - General 02/11/17 documented as of this encounter
--- OUTSIDE RECORDS SUMMARY | 2024-08-31 07:27 | XMS_ITS | Encounter Summary ---
Author Organization [facility] Address [address] [place] [address] Care Team Providers Care Artist Agent Name Role Phone Adi Allen M.D. Primary Care Provider [phone] Reason for Visit * Reason Onset Date Comments PandaDoc Form 08/03/2024 PT POC 08/01 Encounter Details Date Type Department Care Team (Latest Contact Info) Description 08/03/2024 Clinical Communication Department of Family Medicine, [facility], in [place], [place] [address] [address] Adi Allen M.D. [address], [place] [address] PandaDoc Form (PT POC 08/01) Social History Tobacco Use Types Packs/Day Years [...] often do you attend chur ch or mormon services? Never 12/09/2022 Do you belong to [...] Recorded PHQ-2 Score 2 12/22/2022 [facility] [place] of Occupat ional Health - Occupational Stress [...] your living situation today? I have a [facility] place to live 06/20/2024 Education Answer Date Recorded What is the highest level of school you have completed or the highest degree you have received? Associate degree: occupational, technical, or vocational program 09/10/2020 Sex and Gender Information Value Date Recorded Sex Assigned at Male 05/19/2021 9:34 AM CDT Legal Sex Male 10:09 AM PROPERTY MANAGEMENT ASSISTANT Gender Identity Male 12/15/2019 2:54 PM CDT Sexual Orientation Straight 12/15/2019 2: 54 PM CDT Occupation Industry Job Start Date Job End Date Not on file Not on file Not on file Not on file documented as of this encounter Miscellaneous Notes * Telephone Encounter - Jessica Satinder E - 08/03/2024 12:00 PM CST Form faxed back to facility and sent for scanning. ERTY MANAGEMENT ASSISTANT * Telephone Encounter - Satinder Lopez - 08/03/2024 10:45 AM CST Form was routed to Adi Allen M.D. for electronic review/signature. SHOPPER MARKETING MANAGER: [facility] PHONE NUMBER: [phone] INFO REQUESTED: PT POC 08/01 INSTRUCTIONS: Fax information to [phone] ERTY MANAGEMENT ASSISTANT documented in this encounter Plan of Treatment Upcoming Encounters Date Type Department Care Team (Late st Contact Info) Description 08/31/2024 11:30 AM PROPERTY MANAGEMENT ASSISTANT Appointment Department of Radiation Oncology in [address] [phone] Brian Fair M.D. [address] [place] [phone] Christa Monroe M.D. [address] [place] [phone] 08/31/2024 11:45 AM PROPERTY MANAGEMENT ASSISTANT Appointment Department of Radiation Oncology in [address] [phone] Silvano Braga M.D. [address] [place] [phone] 09/01/2024 11:30 AM PROPERTY MANAGEMENT ASSISTANT Appointment Department of Radiation Oncology in [address] [phone] Brian Fair M.D. [address] [place] [phone] Christa Monroe M.D. [address] [place] [phone] 09/04/2024 8:30 AM PROPERTY MANAGEMENT ASSISTANT Appointment Department of Radiation Oncology in [place], [place] [address] [place] [phone] Brian Fair M.D. [address] [place] [phone] Christa Monroe M.D. [address] [place] [phone] 09/05/2024 8:45 AM PROPERTY MANAGEMENT ASSISTANT Appointment Department of Radiation Oncology in [place], [place] [address] [place] [address] Brian Fair M.D. [address] [place] [phone] Christa Monroe M.D. [address] [place] [phone] 09/06/2024 11:30 AM PROPERTY MANAGEMENT ASSISTANT Appointment Department of Radiation Oncology in [address] [address] Brian Fair M.D. [address] [place] [phone] Christa Monroe M.D. [address] [place] [phone] documented as of this encounter Visit Diagnoses Not on filedocumented in this encounter Additional Health Concerns Assessment Noted Time PHQ-9 Depression Total Score: 10 023 7:28 AM CDT documented as of this encounter Care Teams Artist Agent Relationship Specialty Start Date End Date Adi Allen M.D. [address] [place] [phone] PCP - General 02/11/17 documented as of this encounter
--- OUTSIDE RECORDS SUMMARY | 2024-08-31 07:27 | XMS_ITS | Encounter Summary ---
Author Organization [facility] Address [address] [place] [address] Care Team Providers Care Ultimate Hoops Referee Name Role Phone Adi Allen M.D. Primary Care Provider Encounter Details Date Type Department Care Team (Late st Contact Info) Description 08/08/2024 7:59 AM [facility] Hospital Encounter Department of Radiation Oncology in [place], [place] [address] [place] [address] Brian Fair M.D. [address] [place] [phone] Christa Monroe M.D. [address] [place] [phone] Social History Tobacco Use Types Packs/Day Years Used Date Smoking Tobacco: Former Cigarettes Q uit: 1983 Passive Smoke Exposure: Never Smokeless Tobacco: Former Comments:1983. He reports sm oking less than 1 pack of cigarettes total in his life. Alcohol Use Standard Drinks/Week Comments Not Currently 0 (1 standard drink = 0.6 oz pur e alcohol) [facility] Utilities Answer Date Recorded In the [...] How often do you attend chur or advent services? Never 12/09/2022 Do you belong to any clubs o r organizations such as orthodox groups, unions, fraternal or athletic groups, or [...] Answer Date Recorded PHQ-2 Score 2 12/22/2022 [facility] [place] of Occupat ional Health - Occupational Stress [...] AM CDT Legal Sex Male 10:09 AM PRIMARY CARE PROVIDER Gender Identity Male 12/15/2019 2:54 PM CDT Sexual Orientation Straight 12/15/2019 2: 54 PM CDT Occupation Industry Job Start Date Job End Date Not on file Not on file Not on file Not on file documented as of this encounter Plan of Treatment Upcoming Encounters Date Type Department Care Team (Late st Contact Info) Description 08/31/2024 11:30 AM PRIMARY CARE PROVIDER Appointment Department of Radiation Oncology in [address] [phone] Brian Fair M.D. [address] [place] [phone] Christa Monroe M.D. [address] [place] [phone] 08/31/2024 11:45 AM PRIMARY CARE PROVIDER Appointment Department of Radiation Oncology in [place], [place] [address] [place] [phone] Silvano Braga M.D. [address] [place] [phone] 09/01/2024 11:30 AM PRIMARY CARE PROVIDER Appointment Department of Radiation Oncology in [address] [address] Brian Fair M.D. [address] [place] [phone] Christa Monroe M.D. [address] [place] [phone] 09/04/2024 8:30 AM PRIMARY CARE PROVIDER Appointment Department of Radiation Oncology in [place], [place] [address] [place] [address] Brian Fair M.D. [address] [place] [phone] Christa Monroe M.D. [address] [place] [phone] 09/05/2024 8:45 AM PRIMARY CARE PROVIDER Appointment Department of Radiation Oncology in [place] [address] [place] [phone] Brian Fair M.D. [address] [place] [phone] Christa Monroe M.D. [address] [place] [phone] 09/06/2024 11:30 AM PRIMARY CARE PROVIDER Appointment Department of Radiation Oncology in [place], [place] [address] [place] [address] Brian Fair M.D. [address] [place] [phone] Christa Monroe M.D. [address] [place] [phone] documented as of this encounter Visit Diagnoses Not on filedocumented in this encounter Additional Health Concerns Assessment Noted Time PHQ-9 Depression Total Score: 10 023 7:28 AM CDT documented as of this encounter Care Teams Ultimate Hoops Referee Relationship Specialty Start Date End Date Adi Allen M.D. [address] [place] [address] PCP - General 02/11/17 documented as of this encounter
--- OUTSIDE RECORDS SUMMARY | 2024-08-31 07:28 | XMS_ITS | Encounter Summary ---
Author Organization [facility] Address [address] [place] [address] Care Team Providers Care Access Spec Name Role Phone Adi Allen M.D. Primary Care Provider [phone] Encounter Details Date Type Department Care Team (Late st Contact Info) Description 08/01/2024 11:14 AM [facility] Hospital Encounter Department of Radiation Oncology in [place], [place] [address] [place] [phone] Brian Fair M.D. [address] [place] [phone] Christa Monroe M.D. [address] [place] [phone] Social History Tobacco Use Types Packs/Day Years Used Date Smoking Tobacco: Former Cigarettes Q uit: 1983 Passive Smoke Exposure: Never Smokeless Tobacco: Former Comments:1983. He reports sm oking less than 1 pack of cigarettes total in his life. Alcohol Use Standard Drinks/Week Comments Not Currently 0 (1 standard drink = 0.6 oz pur e alcohol) [facility] Utilities Answer Date Recorded In the [...] How often do you attend chur or taoist services? Never 12/09/2022 Do you belong to any clubs o r organizations such as jehovah's witness groups, unions, fraternal or athletic groups, or [...] Date Recorded PHQ-2 Score 2 12/22/2022 [facility] [place] of Occupat ional Health - Occupational Stress [...] your living situation today? I have a [facility] place to live 06/20/2024 Education Answer Date Recorded What is the highest level of school you have completed or the highest degree you have received? Associate degree: occupational, technical, or vocational program 09/10/2020 Sex and Gender Information Value Date Recorded Sex Assigned at Male 05/19/2021 9:34 AM CDT Legal Sex Male 10:09 AM MANAGER MUTUAL FUND Gender Identity Male 12/15/2019 2:54 PM CDT Sexual Orientation Straight 12/15/2019 2: 54 PM CDT Occupation Industry Job Start Date Job End Date Not on file Not on file Not on file Not on file documented as of this encounter Plan of Treatment Upcoming Encounters Date Type Department Care Team (Late st Contact Info) Description 08/31/2024 11:30 AM MANAGER MUTUAL FUND Appointment Department of Radiation Oncology in [address] [phone] Brian Fair M.D. [address] [place] [phone] Christa Monroe M.D. [address] [place] [phone] 08/31/2024 11:45 AM MANAGER MUTUAL FUND Appointment Department of Radiation Oncology in [place], [place] [address] [place] [phone] Silvano Braga M.D. [address] [place] [phone] 09/01/2024 11:30 AM MANAGER MUTUAL FUND Appointment Department of Radiation Oncology in [address] [address] Brian Fair M.D. [address] [place] [phone] Christa Monroe M.D. [address] [place] [phone] 09/04/2024 8:30 AM MANAGER MUTUAL FUND Appointment Department of Radiation Oncology in [place], [place] [address] [place] [address] Brian Fair M.D. [address] [place] [phone] Christa Monroe M.D. [address] [place] [phone] 09/05/2024 8:45 AM MANAGER MUTUAL FUND Appointment Department of Radiation Oncology in [place] [address] [place] [address] Brian Fair M.D. [address] [place] [phone] Christa Monroe M.D. [address] [place] [phone] 09/06/2024 11:30 AM MANAGER MUTUAL FUND Appointment Department of Radiation Oncology in [place], [place] [address] [place] [phone] Brian Fair M.D. [address] [place] [phone] Christa Monroe M.D. [address] [place] [phone] documented as of this encounter Visit Diagnoses Not on filedocumented in this encounter Additional Health Concerns Assessment Noted Time PHQ-9 Depression Total Score: 10 023 7:28 AM CDT documented as of this encounter Care Teams Access Spec Relationship Specialty Start Date End Date Adi Allen M.D. [address] [place] [phone] PCP - General 02/11/17 documented as of this encounter
--- OUTSIDE RECORDS SUMMARY | 2024-08-31 07:28 | XMS_ITS | Encounter Summary ---
Author Organization [facility] Address [address] [place] [address] Care Team Providers Care Body Trimmer Upholsterer Name Role Phone Adi Allen M.D. Primary Care Provider Encounter Details Date Type Department Care Team (Latest Contact Info) Description 07/31/2024 1:40 PM FIELD MARKETING COORDINATOR - 07/31/2024 11:59 PM [facility] Hospital Encounter Department of Radiation Oncology in [place], [place] [address] [place] [phone] Brian Fair M.D. [address] [place] [phone] Christa Monroe M.D. [address] [place] [phone] Discharge Disposition: Home or Self Care Social History Tobacco Use Types Packs/Day Years Used Date Smoking Tobacco: Former Cigarettes Q uit: 1983 Passive Smoke Exposure: Never Smokeless Tobacco: Former Comments:1983. He reports sm oking less than 1 pack of cigarettes total in his life. Alcohol Use Standard Drinks/Week Comments Not Currently 0 (1 standard drink = 0.6 oz pur e alcohol) [facility] Utilities Answer Date Recorded In the [...] week 12/09/2022 How often do you attend [facility] or catholic services? Never 12/09/2022 Do you belong to [...] Answer Date Recorded PHQ-2 Score 2 12/22/2022 [facility] [place] of Occupat ional Health - Occupational Stress [...] your living situation today? I have a [facility] place to live 06/20/2024 Education Answer Date Recorded What is the highest level of school you have completed or the highest degree you have received? Associate degree: occupational, technical, or vocational program 09/10/2020 Sex and Gender Information Value Date Recorded Sex Assigned at Male 05/19/2021 9:34 AM CDT Legal Sex Male 10:09 AM FIELD MARKETING COORDINATOR Gender Identity Male 12/15/2019 2:54 PM CDT [...] 07/03/2024 4 documented as of this encounter Plan of Treatment Upcoming Encounters Date Type Department Care Team (Late st Contact Info) Description 08/31/2024 11:30 AM FIELD MARKETING COORDINATOR Appointment Department of Radiation Oncology in [address] [address] Brian Fair M.D. [address] [place] [phone] Chirsta Monroe M.D. [address] [place] [phone] 08/31/2024 11:45 AM FIELD MARKETING COORDINATOR Appointment Department of Radiation Oncology in [address] [phone] Silvano Braga M.D. [facility] [place] [phone] 09/01/2024 11:30 AM FIELD MARKETING COORDINATOR Appointment Department of Radiation Oncology in [address] [phone] Brian Fair M.D. [address] [place] [phone] Christa Monroe M.D. [address] [place] [phone] 09/04/2024 8:30 AM FIELD MARKETING COORDINATOR Appointment Department of Radiation Oncology in [place], [place] [address] [place] [address] Brian Fair M.D. [address] [place] [phone] Christa Monroe M.D. [address] [place] [phone] 09/05/2024 8:45 AM FIELD MARKETING COORDINATOR Appointment Department of Radiation Oncology in [place], [place] [address] [place] [phone] Brian Fair M.D. [address] [place] [phone] Christa Monroe M.D. [address] [place] [phone] 09/06/2024 11:30 AM FIELD MARKETING COORDINATOR Appointment Department of Radiation Oncology in [place], [place] [address] [place] [address] Brian Fair M.D. [address] [place] [phone] Christa Monroe M.D. [address] [place] [phone] documented as of this encounter Visit Diagnoses Not on filedocumented in this encounter Additional Health Concerns Assessment Noted Time PHQ-9 Depression Total Score: 10 023 7:28 AM CDT documented as of this encounter Care Teams Body Trimmer Upholsterer Relationship Specialty Start Date End Date Adi Allen M.D. [address] [place] [phone] PCP - General 02/11/17 documented as of this encounter
--- OUTSIDE RECORDS SUMMARY | 2024-08-31 07:28 | XMS_ITS | Encounter Summary ---
Author Organization [facility] Address [address] [place] [address] Care Team Providers Care Technical Services Representative Name Role Phone Adi Allen M.D. Primary Care Provider [phone] Reason for Referral * Radiation Therapy (Routine) - Authorized Specialty Diagnoses / Procedures Referred By Lucina hernández Referred To Contact Diagnoses Malignant Neoplasm Of Tongue Base (HCC) Procedures Management Visit Christa Monroe M.D. [address] [place] [address] Phone: tel: fax: [facility] Region Referral ID Status Reason Start Date Expiration Date V isits Requested Visits Authorized [id number] Authorized 07/04/2024 07/04/2025 10 10 CTOR GLOBAL INTELLIGENCE Reason for Visit * Radiation Therapy (Routine) - Authorized Specialty Diagnoses / Procedures Referred By Lucina hernández Referred To Contact Diagnoses Malignant Neoplasm Of Tongue Base (HCC) Procedures Management Visit Christa Monroe M.D. [address] [place] [address] Phone: tel: [facility] Region Referral ID Status Reason Start Date Expiration Date V isits Requested Visits Authorized [id number] Authorized 07/04/2024 07/04/2025 10 10 Encounter Details Date Type Department Care Team (Latest Contact Info) Description 08/02/2024 10:49 AM DIRECTOR GLOBAL INTELLIGENCE - 08/02/2024 3:49 PM [facility] Hospital Encounter Department of Radiation Oncology in [place], [place] [address] [place] [phone] Christa Monroe M.D. [address] [place] [address] Malignant Neoplasm Of Tongue Base (HCC) Social History Tobacco Use Types Packs/Day Years Used Date Smoking Tobacco: Former Cigarettes Q uit: 1983 Passive Smoke Exposure: Never Smokeless Tobacco: Former Comments:1983. He reports sm oking less than 1 pack of cigarettes total in his life. Alcohol Use Standard Drinks/Week Comments Not Currently 0 (1 standard drink = 0.6 oz pur e alcohol) [facility] Utilities Answer Date Recorded In the past 12 months has [employer], gas, oil, or water [employer] threatened to shut off services in your [...] often do you attend chur ch or presybeterian services? Never 12/09/2022 Do you [...] Answer Date Recorded PHQ-2 Score 2 12/22/2022 [facility] - Occupational Stress Questionnaire Answer Date Recorded [...] your living situation today? I have a [facility] place to live 06/20/2024 Education Answer Date Recorded What is the highest level of school you have completed or the highest degree you have received? Associate degree: occupational, technical, or vocational program 09/10/2020 Sex and Gender Information Value Date Recorded Sex Assigned at Male 05/19/2021 9:34 AM CDT Legal Sex Male 10:09 AM DIRECTOR GLOBAL INTELLIGENCE Gender Identity Male 12/15/2019 2:54 PM CDT Sexual Orientation Straight 12/15/2019 2: 54 PM CDT Occupation Industry Job Start Date Job End Date Not on file Not on file Not on file Not on file documented as of this encounter Last Filed Vital Signs Vital Sign Reading Time Taken Comments Blood Pressure 142/86 08/02/2024 11:41 AM DIRECTOR GLOBAL INTELLIGENCE Pulse 62 08/02/2024 11:41 AM DIRECTOR GLOBAL INTELLIGENCE Temperature 36.2 C (97.2 F) 08/02/2024 11:41 AM DIRECTOR GLOBAL INTELLIGENCE Respiratory Rate - - Oxygen Saturation - - Inhaled Oxygen Concentration - - Weight 95.9 kg (211 lb 6.7 oz) 08/02/2024 11:41 AM DIRECTOR GLOBAL INTELLIGENCE Height - - Body Mass Index 29.93 07/03/2024 1:48 PM DIRECTOR GLOBAL INTELLIGENCE documented in this encounter Medications at Time [...] at bedtime. DULoxetine (Cymbalta) [address] Morrison ns:Chronic Cough Take 1 capsule (20 mg [...] as of this encounter Progress Notes * Chen Burgos P.A.-C., M.S. - 08/02/2024 12:00 PM CST SUBJECTIVE CHIEF COMPLAINT/REASON FOR VISIT Evaluation [...] Treatment Last Treatment Elapsed Days F1Opx 200 1600 6000 07/24/2024 08/02/2024 9 Course Summary 07/24/2024 08/02/2024 9 The patient was seen and examined today with Dr. Monroe. The patient reports not feeling as well today. He reports increased fatigue. He also reports persistent nausea, but he denies vomiting. He is taking Compazine twice daily and Zofran once daily. He reports stable right-sided jaw/neck pain that is managed with Tylenol 4 tablets daily and ibuprofen 6tablets daily. He reports that he is working on increased nutritional intake; however, bad taste ismaking it more difficult. He is continuing to eat regular foods. He is not having difficulty swallowing. He reports dry mouth that is manageable with drinking water. He attended physical therapy lastnight and reports benefit with stretching exercises that were performed. He is applying lotion to his skin. OBJECTIVE BP 142/86 (BP Location: Left arm, Patient Position: Sitting, Cuff Size: Regular) Pulse 62 Temp 36.2 ??C (Temporal) Wt 95.9 kg BMI 29.93 kg/m?? PHYSICAL EXAMINATION General: Alert and oriented, in no apparent distress. ENT: Oral cavity is without mucositis. Skin: Mild skin erythema along the surgical [...] 2024 The patient is tolerating radiation treatment well overall. He has started to experience side effects associated with chemotherapy and radiation treatments including increased fatigue, nausea, and bad taste. He is managing nausea with Compazine twice daily and Zofran once daily at this time. He reports stable right-sided jaw/neck pain and is managing this with Tylenol four tablets daily and ibuprofen six tablets daily. He is continuing with good nutritional intake, although bad taste is makingthis more difficult. We discussed having him meet with one of our dietitians, but he is not interested at this time. We will therefore ask for his diet visit to be re-scheduled to next week. He was asked to contact our care team with new or worsening symptoms. He will continue with radiation treatment as planned. Signed by: Chen Burgos P.A.-C. MCarriSCarri 08/02/2024 12:26 PM DIRECTOR GLOBAL INTELLIGENCE Cosigned by Christa Monroe M.D. at 08/02/2024 3:49 PM DIRECTOR GLOBAL INTELLIGENCE CTOR GLO[employer] INTELLIGENCE [employer] INTELL[employer] Associated attestation - Christa Monroe M.D. - 08/02/2024 3:49 PM DIRECTOR GLOBAL INTELLIGENCE I saw and evaluated the patient and participated in the tejada portions of the service. I reviewed thedocumentation of . Chen Burgos PA-C, MS and agree with the findings and plan. The patient appears well on exam. We will continue with radiation as planned and monitor weekly. 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 I explained why we were treating the contralateral neck. Christa Monroe M.D., 08/02/2024 documented in this encounter Plan of Treatment Upcoming Encounters Date Type Department Care Team (Late st Contact Info) Description 08/31/2024 11:30 AM DIRECTOR GLOBAL INTELLIGENCE Appointment Department of Radiation Oncology in [address] [phone] Brian Fair M.D. [address] [place] [phone] Christa Monroe M.D. [address] [place] [phone] 08/31/2024 11:45 AM DIRECTOR GLOBAL INTELLIGENCE Appointment Department of Radiation Oncology in [place], [place] [address] [place] [address] Silvano Braga M.D. [address] [place] [address] 09/01/2024 11:30 AM DIRECTOR GLOBAL INTELLIGENCE Appointment Department of Radiation Oncology in [place], [place] [address] [place] [phone] Brian Fair M.D. [address] [place] [phone] Christa Monroe M.D. [address] [place] [phone] 09/04/2024 8:30 AM DIRECTOR GLOBAL INTELLIGENCE Appointment Department of Radiation Oncology in [place], [place] [address] [place] [address] Brian Fair M.D. [address] [place] [phone] Christa Monroe M.D. [address] [place] [phone] 09/05/2024 8:45 AM DIRECTOR GLOBAL INTELLIGENCE Appointment Department of Radiation Oncology in [place], [place] [address] [place] [address] Brian Fair M.D. [address] [place] [phone] Christa Monroe M.D. [address] [place] [phone] 09/06/2024 11:30 AM DIRECTOR GLOBAL INTELLIGENCE Appointment Department of Radiation Oncology in [place], [place] [address] [place] [phone] Brian Fair M.D. [address] [place] [phone] Christa Monroe M.D. [address] [place] [phone] Scheduled Orders Name Type Priority Associated Diagnoses Orde r Schedule Management Visit Radiation Oncology Routine Malignant Neoplasm Of Tongue Base (HCC) Once for 1 Occurrences starting 08/02/2024 until 08/02/2024 documented as of this encounter Visit Diagnoses Diagnosis Malignant Neoplasm Of Tongue Base (HCC) documented in this encounter Additional Health Concerns Assessment Noted Time PHQ-9 Depression Total Score: 10 023 7:28 AM CDT documented as of this encounter Care Teams Technical Services Representative Relationship Specialty Start Date End Date Adi Allen M.D. [address] [place] [address] PCP - General 02/11/17 documented as of this encounter
--- OUTSIDE RECORDS SUMMARY | 2024-08-31 07:28 | XMS_ITS | Encounter Summary ---
Author Organization [facility] Address [address] [place] [address] Care Team Providers Care Picture Copyist Name Role Phone Adi Allen M.D. Primary Care Provider Encounter Details Date Type Department Care Team (Latest Contact Info) Description 07/26/2024 7:45 AM CHARGE ENTRY CLERK - 07/26/2024 2:11 PM [facility] Hospital Encounter Department of Radiation Oncology in [place], [place] [address] [place] [address] Christa Monroe M.D. [address] [place] [address] Discharge Disposition: Home or Self Care Social History Tobacco Use Types Packs/Day Years Used Date Smoking Tobacco: Former Cigarettes Q uit: 1983 Passive Smoke Exposure: Never Smokeless Tobacco: Former Comments:1983. He reports sm oking less than 1 pack of cigarettes total in his life. Alcohol Use Standard Drinks/Week Comments Not Currently 0 (1 standard drink = 0.6 oz pur e alcohol) [facility] Utilities Answer Date Recorded In the past 12 months has [address] [employer], gas, oil, or water company threatened to [...] Answer Date Recorded PHQ-2 Score 2 12/22/2022 [facility] [place] of Occupat ionmi Health - Occupational Stress Questionnaire Answer Date [...] your living situation today? I have a [facility] place to live 06/20/2024 Education Answer Date Recorded What is the highest level of school you have completed or the highest degree you have received? Associate degree: occupational, technical, or vocational program 09/10/2020 Sex and Gender Information Value Date Recorded Sex Assigned at Male 05/19/2021 9:34 AM CDT Legal Sex Male 10:09 AM CHARGE ENTRY CLERK Gender Identity Male 12/15/2019 2:54 PM [...] Indication: Acute Pain Exception. 15 tablet 07/03/2024 documented as of this encounter Plan of Treatment Upcoming Encounters Date Type Department Care Team (Late st Contact Info) Description 08/31/2024 11:30 AM CHARGE ENTRY CLERK Appointment Department of Radiation Oncology in [address] [phone] Brian Fair M.D. [address] [place] [phone] Christa Monroe M.D. [address] [place] [phone] 08/31/2024 11:45 AM CHARGE ENTRY CLERK Appointment Department of Radiation Oncology in [address] [address] Silvano Braga M.D. [address] [place] [phone] 09/01/2024 11:30 AM CHARGE ENTRY CLERK Appointment Department of Radiation Oncology in [address] [address] Brian Fair M.D. [address] [place] [phone] Christa Monroe M.D. [address] [place] [phone] 09/04/2024 8:30 AM CHARGE ENTRY CLERK Appointment Department of Radiation Oncology in [address] [address] Brian Fair M.D. [address] [place] [phone] Christa Monroe M.D. [address] [place] [phone] 09/05/2024 8:45 AM CHARGE ENTRY CLERK Appointment Department of Radiation Oncology in [place], [place] [address] [place] [address] Brian Fair M.D. [address] [place] [phone] Christa Monroe M.D. [address] [place] [phone] 09/06/2024 11:30 AM CHARGE ENTRY CLERK Appointment Department of Radiation Oncology in [place], [place] [address] [place] [address] Brian Fair M.D. [address] [place] [phone] Christa Monroe M.D. [address] [place] [phone] documented as of this encounter Visit Diagnoses Not on filedocumented in this encounter Additional Health Concerns Assessment Noted Time PHQ-9 Depression Total Score: 10 023 7:28 AM CDT documented as of this encounter Care Teams Picture Copyist Relationship Specialty Start Date End Date Adi Allen M.D. [address] [place] [address] PCP - General 02/11/17 documented as of this encounter
--- OUTSIDE RECORDS SUMMARY | 2024-08-31 07:28 | XMS_ITS | Encounter Summary ---
Author Organization [facility] Address [address] [place] [address] Care Team Providers Care Editing Computer Publisher Name Role Phone Adi Allen M.D. Primary Care Provider Encounter Details Date Type Department Care Team (Late st Contact Info) Description 08/02/2024 10:49 AM [facility] Hospital Encounter Department of Radiation Oncology in [place], [place] [address] [place] [phone] Brian Fair M.D. [address] [place] [phone] Christa Monroe M.D. [address] [place] [phone] Social History Tobacco Use Types Packs/Day Years Used Date Smoking Tobacco: Former Cigarettes Q uit: 1983 Passive Smoke Exposure: Never Smokeless Tobacco: Former Comments:1983. He reports sm oking less than 1 pack of cigarettes total in his life. Alcohol Use Standard Drinks/Week Comments Not Currently 0 (1 standard drink = 0.6 oz pur e alcohol) [facility] Utilities Answer Date Recorded In the [...] How often do you attend chur or yazdanism services? Never 12/09/2022 Do you belong to [...] Answer Date Recorded PHQ-2 Score 2 12/22/2022 [facility] [place] of Occupat ional Health - Occupational Stress [...] your living situation today? I have a [facility] place to live 06/20/2024 Education Answer Date Recorded What is the highest level of school you have completed or the highest degree you have received? Associate degree: occupational, technical, or vocational program 09/10/2020 Sex and Gender Information Value Date Recorded Sex Assigned at Male 05/19/2021 9:34 AM CDT Legal Sex Male 10:09 AM DANCE HALL HOST/HOSTESS Gender Identity Male 12/15/2019 2:54 PM CDT Sexual Orientation Straight 12/15/2019 2: 54 PM CDT Occupation Industry Job Start Date Job End Date Not on file Not on file Not on file Not on file documented as of this encounter Plan of Treatment Upcoming Encounters Date Type Department Care Team (Late st Contact Info) Description 08/31/2024 11:30 AM DANCE HALL HOST/HOSTESS Appointment Department of Radiation Oncology in [address] [phone] Brian Fair M.D. [address] [place] [phone] Christa Monroe M.D. [address] [place] [phone] 08/31/2024 11:45 AM DANCE HALL HOST/HOSTESS Appointment Department of Radiation Oncology in [place], [place] [address] [place] [phone] Silvano Braga M.D. [address] [place] [phone] 09/01/2024 11:30 AM DANCE HALL HOST/HOSTESS Appointment Department of Radiation Oncology in [address] [address] Brian Fair M.D. [address] [place] [phone] Christa Monroe M.D. [address] [place] [phone] 09/04/2024 8:30 AM DANCE HALL HOST/HOSTESS Appointment Department of Radiation Oncology in [place], [place] [address] [place] [address] Brian Fair M.D. [address] [place] [phone] Christa Monroe M.D. [address] [place] [phone] 09/05/2024 8:45 AM DANCE HALL HOST/HOSTESS Appointment Department of Radiation Oncology in [place] [address] [place] [address] Brian Fair M.D. [address] [place] [phone] Christa Monroe M.D. [address] [place] [phone] 09/06/2024 11:30 AM DANCE HALL HOST/HOSTESS Appointment Department of Radiation Oncology in [place], [place] [address] [place] [phone] Brian Fair M.D. [address] [place] [phone] Christa Monroe M.D. [address] [place] [phone] documented as of this encounter Visit Diagnoses Not on filedocumented in this encounter Additional Health Concerns Assessment Noted Time PHQ-9 Depression Total Score: 10 023 7:28 AM CDT documented as of this encounter Care Teams Editing Computer Publisher Relationship Specialty Start Date End Date Adi Allen M.D. [address] [place] [phone] PCP - General 02/11/17 documented as of this encounter
--- OUTSIDE RECORDS SUMMARY | 2024-08-31 07:28 | XMS_ITS | Encounter Summary ---
Author Organization [facility] Address [address] [place] [address] Care Team Providers Care It Security Administrator Name Role Phone Adi Allen M.D. Primary Care Provider [phone] Reason for Referral * Outpatient (Routine) - Authorized Specialty Diagnoses / Procedures Referred By Contshaye t Referred To Contact Adi Allen M.D. [address] [place] [address] Phone: tel: fax: [facility] Referral ID Status Reason Start Date Expiration Date V isits Requested Visits Authorized [id number] Authorized 08/02/2024 02/01/2026 1 1 Scheduling Instructions Nurse AWV Do not schedule prior to due date to ensure insurance coverage Visit: Medicare Annual Wellness Never done. GER DOCUMENT Encounter Details Date Type Department Care Team (Late st Contact Info) Description 08/02/2024 Orders Only [facility] Adi Allen M.D. [address] [place] [address] Social History Tobacco Use Types Packs/Day Years Used Date Smoking Tobacco: Former Cigarettes Q uit: 1983 Passive Smoke Exposure: Never Smokeless Tobacco: Former Comments:1983. He reports sm oking less than 1 pack of cigarettes total in his life. Alcohol Use Standard Drinks/Week Comments Not Currently 0 (1 standard drink = 0.6 oz pur e alcohol) [facility] Utilities Answer Date Recorded In the past 12 months has e electric, gas, oil, or water [employer] threatened to shut off services in your [...] often do you attend chur ch or rastafarian services? Never 12/09/2022 Do you belong to any clubs o r organizations such as yarsani groups, unions, fraternal or athletic groups, or [...] Date Recorded PHQ-2 Score 2 12/22/2022 [facility] [place] of Occupat ional [facility] - Occupational Stress [...] CDT Legal Sex Male 10:09 AM MANAGER DOCUMENT Gender Identity Male 12/15/2019 2:54 PM CDT Sexual Orientation Straight 12/15/2019 2: 54 PM CDT Occupation Industry Job Start Date Job End Date Not on file Not on file Not on file Not on file documented as of this encounter Plan of Treatment Upcoming Encounters Date Type Department Care Team (Late st Contact Info) Description 08/31/2024 11:30 AM MANAGER DOCUMENT Appointment Department of Radiation Oncology in [address] [address] Brian Fair M.D. [address] [place] [phone] Christa Monroe M.D. [address] [place] [phone] 08/31/2024 11:45 AM MANAGER DOCUMENT Appointment Department of Radiation Oncology in [address] [address] Silvano Braga M.D. [address] [place] [phone] 09/01/2024 11:30 AM MANAGER DOCUMENT Appointment Department of Radiation Oncology in [address] [address] Brian Fair M.D. [address] [place] [phone] Christa Monroe M.D. [address] [place] [phone] 09/04/2024 8:30 AM MANAGER DOCUMENT Appointment Department of Radiation Oncology in [address] [address] Brian Fair M.D. [address] [place] [phone] Christa Monroe M.D. [address] [place] [phone] 09/05/2024 8:45 AM MANAGER DOCUMENT Appointment Department of Radiation Oncology in [place], [place] [address] [place] [address] Brian Fair M.D. [address] [place] [phone] Christa Monroe M.D. [address] [place] [phone] 09/06/2024 11:30 AM MANAGER DOCUMENT Appointment Department of Radiation Oncology in [place], [place] [address] [place] [address] Brian Fair M.D. [address] [place] [phone] Christa Monroe M.D. [address] [place] [phone] Scheduled Referrals Name Type Priority Associated Diagnoses Orde r Schedule Primary Care nurse visit (clinic) - [facility] Region; Medicare Annual Wellness Outpatient Referral Routine Expected: 08/30/2024, Expires: 01/29/2025 documented as of this encounter Visit Diagnoses Not on filedocumented in this encounter Additional Health Concerns Assessment Noted Time PHQ-9 Depression Total Score: 10 023 7:28 AM CDT documented as of this encounter Care Teams It Security Administrator Relationship Specialty Start Date End Date Adi Allen M.D. [address] [place] [address] PCP - General 02/11/17 documented as of this encounter
--- OUTSIDE RECORDS SUMMARY | 2024-08-31 07:28 | XMS_ITS | Encounter Summary ---
Author Organization [facility] Address [address] [place] [address] Care Team Providers Care Desk Clerk Name Role Phone Adi Allen M.D. Primary Care Provider Encounter Details Date Type Department Care Team (Latest Contact Info) Description 07/28/2024 2:03 PM AGRICULTURAL ECONOMICS PROFESSOR - 07/28/2024 11:59 PM [facility] Hospital Encounter Department of Radiation Oncology in [place], [place] [address] [place] [phone] Christa Monroe M.D. [address] [place] [address] Discharge Disposition: Home or Self Care Social [...] In the past 12 months has e [employer], gas, oil, or water company threatened to [...] How often do you attend chur or muslim services? Never 12/09/2022 Do you belong to [...] PHQ-2 Score 2 12/22/2022 [facility] [place] of Occupat ionak Health - Occupational Stress Questionnaire Answer Date [...] your living situation today? I have a [facility] place to live 06/20/2024 Education Answer Date Recorded What is the highest level of school you have completed or the highest degree you have received? Associate degree: occupational, technical, or vocational program 09/10/2020 Sex and Gender Information Value Date Recorded Sex Assigned at Male 05/19/2021 9:34 AM CDT Legal Sex Male 10:09 AM AGRICULTURAL ECONOMICS PROFESSOR Gender Identity Male 12/15/2019 2:54 PM CDT [...] st Contact Info) Description 08/31/2024 11:30 AM AGRICULTURAL ECONOMICS PROFESSOR Appointment Department of Radiation Oncology in [address] [address] Brian Fair M.D. [address] [place] [phone] Christa Monroe M.D. [address] [place] [phone] 08/31/2024 11:45 AM AGRICULTURAL ECONOMICS PROFESSOR Appointment Department of Radiation Oncology in [address] [address] Silvano Braga M.D. [address] [place] [phone] 09/01/2024 11:30 AM AGRICULTURAL ECONOMICS PROFESSOR Appointment Department of Radiation Oncology in [address] [address] Brian Fair M.D. [address] [place] [phone] Christa Monroe M.D. [address] [place] [phone] 09/04/2024 8:30 AM AGRICULTURAL ECONOMICS PROFESSOR Appointment Department of Radiation Oncology in [address] [phone] Brian Fair M.D. [address] [place] [phone] Christa Monroe M.D. [address] [place] [phone] 09/05/2024 8:45 AM AGRICULTURAL ECONOMICS PROFESSOR Appointment Department of Radiation Oncology in [place], [place] [address] [place] [address] Brian Fair M.D. [address] [place] [phone] Christa Monroe M.D. [address] [place] [phone] 09/06/2024 11:30 AM AGRICULTURAL ECONOMICS PROFESSOR Appointment Department of Radiation Oncology in [place], [place] [address] [place] [address] Brian Fair M.D. [address] [place] [phone] Christa Monroe M.D. [address] [place] [phone] documented as of this encounter Visit Diagnoses Not on filedocumented in this encounter Additional Health Concerns Assessment Noted Time PHQ-9 Depression Total Score: 10 023 7:28 AM CDT documented as of this encounter Care Teams Desk Clerk Relationship Specialty Start Date End Date Adi Allen M.D. [address] [place] [address] PCP - General 02/11/17 documented as of this encounter
--- OUTSIDE RECORDS SUMMARY | 2024-08-31 07:29 | XMS_ITS | Encounter Summary ---
Author Organization [facility] Address [address] [place] [address] Care Team Providers Care Hand Molder And Caster Name Role Phone Adi Allen M.D. Primary Care Provider Encounter Details Date Type Department Care Team (Latest Contact Info) Description 07/24/2024 3:00 PM COMMERCIAL FIELD INSPECTOR - 07/24/2024 11:59 PM [facility] Hospital Encounter Department of Radiation Oncology in [place], [place] [address] [place] [phone] Brian Fair M.D. [address] [place] [phone] Christa Monroe M.D. [address] [place] [phone] Discharge Disposition: Home or Self Care Social [...] often do you attend [facility] or anabaptism services? Never 12/09/2022 Do you belong to [...] Answer Date Recorded PHQ-2 Score 2 12/22/2022 [facility] [place] of Occupat ional Health - Occupational Stress [...] your living situation today? I have a [facility] place to live 06/20/2024 Education Answer Date Recorded What is the highest level of school you have completed or the highest degree you have received? Associate degree: occupational, technical, or vocational program 09/10/2020 Sex and Gender Information Value Date Recorded Sex Assigned at Male 05/19/2021 9:34 AM CDT Legal Sex Male 10:09 AM COMMERCIAL FIELD INSPECTOR Gender Identity Male 12/15/2019 2:54 PM CDT [...] st Contact Info) Description 08/31/2024 11:30 AM COMMERCIAL FIELD INSPECTOR Appointment Department of Radiation Oncology in [address] [address] Brian Fair M.D. [address] [place] [phone] Christa Monroe M.D. [address] [place] [phone] 08/31/2024 11:45 AM COMMERCIAL FIELD INSPECTOR Appointment Department of Radiation Oncology in [address] [address] Silvano Braga M.D. [facility] [place] [address] 09/01/2024 11:30 AM COMMERCIAL FIELD INSPECTOR Appointment Department of Radiation Oncology in [address] [phone] Brian Fair M.D. [address] [place] [phone] Christa Monroe M.D. [address] [place] [phone] 09/04/2024 8:30 AM COMMERCIAL FIELD INSPECTOR Appointment Department of Radiation Oncology in [place], [place] [address] [place] [address] Brian Fair M.D. [address] [place] [phone] Christa Monroe M.D. [address] [place] [phone] 09/05/2024 8:45 AM COMMERCIAL FIELD INSPECTOR Appointment Department of Radiation Oncology in [place], [place] [address] [place] [address] Brian Fair M.D. [address] [place] [phone] Christa Monroe M.D. [address] [place] [phone] 09/06/2024 11:30 AM COMMERCIAL FIELD INSPECTOR Appointment Department of Radiation Oncology in [place], [place] [address] [place] [address] Brian Fair M.D. [address] [place] [phone] Christa Monroe M.D. [address] [place] [phone] documented as of this encounter Visit Diagnoses Not on filedocumented in this encounter Additional Health Concerns Assessment Noted Time PHQ-9 Depression Total Score: 10 023 7:28 AM CDT documented as of this encounter Care Teams Hand Molder And Caster Relationship Specialty Start Date End Date Adi Allen M.D. [address] [place] [address] PCP - General 02/11/17 documented as of this encounter
--- OUTSIDE RECORDS SUMMARY | 2024-08-31 07:29 | XMS_ITS | Encounter Summary ---
Author Organization [facility] Address [address] [place] [address] Care Team Providers Care Mail Truck Driver Name Role Phone Adi Allen M.D. Primary Care Provider Encounter Details Date Type Department Care Team (Latest Contact Info) Description 07/25/2024 1:30 PM CLINICAL ESTHETICIAN - 07/25/2024 11:59 PM [facility] Hospital Encounter Department of Radiation Oncology in [place], [place] [address] [place] [address] Christa Monroe M.D. [address] [place] [address] Discharge Disposition: Home or Self Care Social History Tobacco Use Types Packs/Day Years Used Date Smoking Tobacco: Former Cigarettes Q uit: 1983 Passive Smoke Exposure: Never Smokeless Tobacco: Former Comments:1983. He reports sm oking less than 1 pack of cigarettes total in his life. Alcohol Use Standard Drinks/Week Comments Not Currently 0 (1 standard drink = 0.6 oz pur e alcohol) [facility] Utilities Answer Date Recorded In the past 12 months has e [employer], gas, oil, or water company threatened to [...] How often do you attend chur or gnosticist services? Never 12/09/2022 Do you belong to [...] Answer Date Recorded PHQ-2 Score 2 12/22/2022 [facility] [place] of Occupat ionor Health - Occupational Stress Questionnaire Answer Date [...] your living situation today? I have a [facility] place to live 06/20/2024 Education Answer Date Recorded What is the highest level of school you have completed or the highest degree you have received? Associate degree: occupational, technical, or vocational program 09/10/2020 Sex and Gender Information Value Date Recorded Sex Assigned at Male 05/19/2021 9:34 AM CDT Legal Sex Male 10:09 AM CLINICAL ESTHETICIAN Gender Identity Male 12/15/2019 2:54 PM CDT [...] st Contact Info) Description 08/31/2024 11:30 AM CLINICAL ESTHETICIAN Appointment Department of Radiation Oncology in [address] [address] Brian Fair M.D. [address] [place] [phone] Christa Monroe M.D. [address] [place] [phone] 08/31/2024 11:45 AM CLINICAL ESTHETICIAN Appointment Department of Radiation Oncology in [address] [address] Silvano Braga M.D. [address] [place] [phone] 09/01/2024 11:30 AM CLINICAL ESTHETICIAN Appointment Department of Radiation Oncology in [address] [address] Brian Fair M.D. [address] [place] [phone] Christa Monroe M.D. [address] [place] [phone] 09/04/2024 8:30 AM CLINICAL ESTHETICIAN Appointment Department of Radiation Oncology in [address] [address] Brian Fair M.D. [address] [place] [phone] Christa Monroe M.D. [address] [place] [phone] 09/05/2024 8:45 AM CLINICAL ESTHETICIAN Appointment Department of Radiation Oncology in [place], [place] [address] [place] [address] Brian Fair M.D. [address] [place] [phone] Christa Monroe M.D. [address] [place] [phone] 09/06/2024 11:30 AM CLINICAL ESTHETICIAN Appointment Department of Radiation Oncology in [place], [place] [address] [place] [address] Brian Fair M.D. [address] [place] [phone] Christa Monroe M.D. [address] [place] [phone] documented as of this encounter Visit Diagnoses Not on filedocumented in this encounter Additional Health Concerns Assessment Noted Time PHQ-9 Depression Total Score: 10 023 7:28 AM CDT documented as of this encounter Care Teams Mail Truck Driver Relationship Specialty Start Date End Date Adi Allen M.D. [address] [place] [address] PCP - General 02/11/17 documented as of this encounter
--- OUTSIDE RECORDS SUMMARY | 2024-08-31 07:29 | XMS_ITS | Encounter Summary ---
Author Organization [facility] Address [address] [place] [address] Care Team Providers Care Kennel Helper Name Role Phone Adi Allen M.D. Primary Care Provider [phone] Reason for Referral * Outpatient (Routine) - Closed Specialty Diagnoses / Procedures Referred By Lucina hernández Referred To Contact Social Work Diagnoses Malignant Neoplasm Of Tongue Base (HCC) Christa Monroe M.D. [address] [place] [address] Phone: tel: [facility] Region Referral ID Status Reason Start Date Expiration Date Visits Re quested Visits Authorized [id number] Closed 07/04/2024 01/03/2026 1 1 ION LEADER AND MACHINE SETTER * Outpatient (Routine) - Closed Specialty Diagnoses / Procedures Referred By Lucina hernández Referred To Contact Radiation Oncology Diagnoses Malignant Neoplasm Of Tongue Base (HCC) Christa Monroe M.D. [address] [place] [address] Phone: tel: fax: [facility] Region Referral ID Status Reason Start Date Expiration Date Visits Re quested Visits Authorized [id number] Closed 07/04/2024 01/03/2026 1 1 ION LEADER AND MACHINE SETTER * Specialty Diagnoses / Procedures Referred By Contac t Referred To Contact Diagnoses Malignant Neoplasm Of Tongue Base (HCC) Lindsay Rascon APRN, C.NCarriPCarri, Marlo.N.PCarri [address] [place] [phone] Phone: tel: fax: [facility] Region Referral ID Status Reason Start Date Expiration Date Visits Re quested Visits Authorized Scheduling Instructions Please do not schedule if patient has 10 fractions or less, unless requested by care team. ION LEADER AND MACHINE SETTER * Radiation Therapy (Routine) - Authorized Specialty Diagnoses / Procedures Referred By Contac t Referred To Contact Diagnoses Malignant Neoplasm Of Tongue Base (HCC) Procedures Management Visit Christa Monroe M.D. [address] [place] [address] Phone: tel: fax: [facility] Region Referral ID Status Reason Start Date Expiration Date V isits Requested Visits Authorized [id number] Authorized 07/04/2024 07/04/2025 10 10 ION LEADER AND MACHINE SETTER * Radiation Therapy (Routine) - Closed Specialty Diagnoses / Procedures Referred By Contac t Referred To Contact Diagnoses Malignant Neoplasm Of Tongue Base (HCC) Procedures Initial Rad Onc Treatment Planning CT Simulation without IV Contrast Christa Monroe M.D. [address] [place] [address] Phone: tel: fax: [facility] Region Referral ID Status Reason Start Date Expiration Date Visits Re quested Visits Authorized [id number] Closed 07/04/2024 07/04/2025 1 1 ION LEADER AND MACHINE SETTER * Radiation Therapy (Routine) - Authorized Specialty Diagnoses / Procedures Referred By Contac t Referred To Contact Diagnoses Malignant Neoplasm Of Tongue Base (HCC) Procedures Prior Auth Rad Tx Christa Monroe M.D. [address] [place] [address] Phone: tel: fax: [facility] Referral ID Status Reason Start Date Expiration Date V isits Requested Visits Authorized [id number] Authorized 07/04/2024 07/04/2025 1 1 ION LEADER AND MACHINE SETTER Encounter Details Date Type Department Care Team (Late st Contact Info) Description 07/04/2024 Orders Only Department of Radiation Oncology in [place], [place] [address] [place] [address] Lindsay Rascon APRN, C.N.P., D.N.P. [address] [place] [phone] Malignant Neoplasm Of Tongue Base (HCC) (Primary Dx) Social History Tobacco Use Types Packs/Day Years Used Date Smoking Tobacco: Former Cigarettes Q uit: 1983 Passive Smoke Exposure: Never Smokeless Tobacco: Former Comments:1983 Alcohol Use Standard Drinks/Week Comments Not Currently 0 (1 standard drink = 0.6 oz pur e alcohol) [facility] Utilities Answer Date Recorded In the past 12 months has e [employer], gas, oil, or water [employer] threatened to shut off services in your [...] often do you attend chur ch or evangelical services? Never 12/09/2022 Do you [...] Answer Date Recorded PHQ-2 Score 2 12/22/2022 [facility] - [facility]ational Stress Questionnaire Answer Date [...] AM CDT Legal Sex Male 10:09 AM SECTION LEADER AND MACHINE SETTER Gender Identity Male 12/15/2019 2:54 PM CDT Sexual Orientation Straight 12/15/2019 2: 54 PM CDT documented as of this encounter Plan of Treatment Upcoming Encounters Date Type Department Care Team (Late st Contact Info) Description 08/31/2024 11:30 AM SECTION LEADER AND MACHINE SETTER Appointment Department of Radiation Oncology in [place], [place] [address] [place] [address] Brian Fair M.D. [address] [place] [phone] Christa Monroe M.D. [address] [place] [address] 08/31/2024 11:45 AM SECTION LEADER AND MACHINE SETTER Appointment Department of Radiation Oncology in [place], [place] [address] [place] [address] Silvano Braga M.D. [address] [place] [address] 09/01/2024 11:30 AM SECTION LEADER AND MACHINE SETTER Appointment Department of Radiation Oncology in [place], [place] [address] [place] [address] Brian Fair M.D. [address] [place] [phone] Christa Monroe M.D. [address] [place] [phone] 09/04/2024 8:30 AM SECTION LEADER AND MACHINE SETTER Appointment Department of Radiation Oncology in [place] [address] [place] [address] Brian Fair M.D. [address] [place] [phone] Christa Monroe M.D. [address] [place] [phone] 09/05/2024 8:45 AM SECTION LEADER AND MACHINE SETTER Appointment Department of Radiation Oncology in [place], [place] [address] [place] [address] Brian Fair M.D. [address] [place] [phone] Christa Monroe M.D. [address] [place] [phone] 09/06/2024 11:30 AM SECTION LEADER AND MACHINE SETTER Appointment Department of Radiation Oncology in [place], [place] [address] [place] [address] Brian Fair M.D. [address] [place] [address] Christa Monroe M.D. [address] [place] [address] Scheduled Orders Name Type Priority Associated Diagnoses Order Schedule Prior Auth Rad Tx Radiation Oncology Routine Malignant Neoplasm Of Tongue Base (HCC) Ordered: 07/04/2024 Management Visit Radiation Oncology Routine Malignant Neoplasm Of Tongue Base (HCC) 10 Occurrences starting 07/04/2024 until 10/04/2025 Scheduled Referrals Name Type Priority Associated Diagnoses Orde r Schedule Radiation Oncology - Nurse education visit (clinic) Outpatient Referral Routine Malignant Neoplasm Of Tongue Base (HCC) Expected: 07/04/2024, Expires: 10/04/2025 Radiation Oncology - Medical nutrition therapy consult (clinic) Outpatient Referral Routine Malignant Neoplasm Of Tongue Base (HCC) Expected: 07/04/2024, Expires: 10/04/2025 Social Work - General consult (clinic) Outpatient Referral Routine Malignant Neoplasm Of Tongue Base (HCC) Expected: 07/04/2024, Expires: 10/04/2025 documented as of this encounter Results * Initial Rad Onc Treatment Planning CT Simulation without IV Contrast (07/18/2024 11:30 AM SECTION LEADER AND MACHINE SETTER) Narrative BERNARDINO ANGEL - 07/18/2024 11:30 AM SECTION LEADER AND MACHINE SETTER Marissa Rueda 07/18/2024 12:21 PM Initial Rad Onc Treatment Planning CT Simulation without IV Contrast Performed by: Christa Monroe M.D. Authorized by: Christa Monroe M.D. Christa Monroe M.D. RADIATION ONCOLOGY ORDERA BLES Final Result BERNARDINO ANGEL na documented in this encounter Visit Diagnoses Diagnosis Malignant Neoplasm Of Tongue Base (HCC)- Primary Malignant Neoplasm Of Tongue Base (HCC) documented in this encounter Additional Health Concerns Assessment Noted Time PHQ-9 Depression Total Score: 10 12/22/ 023 7:28 AM CDT documented as of this encounter Care Teams Kennel Helper Relationship Specialty Start Date End Date Adi Allen M.D. [address] [place] [phone] PCP - General 02/11/17 documented as of this encounter
--- OUTSIDE RECORDS SUMMARY | 2024-08-31 07:29 | XMS_ITS | Encounter Summary ---
Author Organization [facility] Address [address] [place] [address] Care Team Providers Care Radiologic Technology Teacher Name Role Phone Adi Allen M.D. Primary Care Provider [phone] Reason for Referral * Outpatient (Routine) - Closed Specialty Diagnoses / Procedures Referred By Contac t Referred To Contact Radiation Oncology Diagnoses Malignant Neoplasm Of Tongue Base (HCC) Silvano Jasso M.D. [address] [place] [address] Phone: tel: fax: [facility] Region Referral ID Status Reason Start Date Expiration Date Visits Re quested Visits Authorized [id number] Closed 07/03/2024 01/02/2026 1 1 Scheduling Instructions For [place] NALISM PROFESSOR Reason for Visit * Outpatient (Routine) - Closed Specialty Diagnoses / Procedures Referred By Contac t Referred To Contact Radiation Oncology Diagnoses Malignant Neoplasm Of Tongue Base (HCC) Silvano Jasso M.D. [address] [place] [address] Phone: tel: fax: [facility] Referral ID Status Reason Start Date Expiration Date Visits Re quested Visits Authorized [id number] Closed 07/03/2024 01/02/2026 1 1 Encounter Details Date Type Department Care Team (Latest Contact Info) Description 07/18/2024 9:48 AM JOURNALISM PROFESSOR - 07/18/2024 11:20 AM JOURNALISM PROFESSOR Hospital Encounter Department of Radiation Oncology in [place], [place] [address] [place] [phone] Christa Monroe M.D. [address] [place] [address] [place] Malignant Neoplasm Of Tongue Base (HCC) Social [...] drink = 0.6 oz pur e alcohol) [facility] [employer] Answer Date Recorded In the past 12 months has [employer], gas, oil, or water [employer] threatened to shut off services in your [...] week 12/09/2022 How often do you attend [facility] or congregational services? Never 12/09/2022 Do you belong to any clubs o r organizations such as mormonism groups, unions, fraternal or athletic groups, or [...] Answer Date Recorded PHQ-2 Score 2 12/22/2022 [facility] [place] of Occupat ional Health - Occupational Stress [...] your living situation today? I have a [facility] place to live 06/20/2024 Education Answer Date Recorded What is the highest level of school you have completed or the highest degree you have received? Associate degree: occupational, technical, or vocational program 09/10/2020 Sex and Gender Information Value Date Recorded Sex Assigned at Male 05/19/2021 9:34 AM CDT Legal Sex Male 10:09 AM JOURNALISM PROFESSOR Gender Identity Male 12/15/2019 2:54 PM CDT Sexual Orientation Straight 12/15/2019 2: 54 PM CDT Occupation Industry Job Start Date Job End Date Not on file Not on file Not on file Not on file documented as of this encounter Last Filed Vital Signs Vital Sign Reading Time Taken Comments Blood Pressure 143/80 07/18/2024 10:17 AM JOURNALISM PROFESSOR Pulse 71 07/18/2024 10:17 AM JOURNALISM PROFESSOR Temperature 37.1 C (98.8 F) 07/18/2024 10:17 AM JOURNALISM PROFESSOR Respiratory Rate - - Oxygen Saturation - - Inhaled Oxygen Concentration - - Weight 95.5 kg (210 lb 8.6 oz) 07/18/2024 10:17 AM JOURNALISM PROFESSOR Height - - Body Mass Index 29.81 07/03/2024 1:48 PM JOURNALISM PROFESSOR documented in this encounter Medications at Time [...] at bedtime. DULoxetine (Cymbalta) [address] Prince ns:Chronic Cough Take 1 capsule (20 mg [...] 07/03/2024 4 documented as of this encounter Consult Notes * Chen Burgos P.A.-C., M.S. - 07/18/2024 10:30 AM CST SUBJECTIVE REQUESTING PROVIDER Silvano Jasso M.D. CHIEF COMPLAINT/REASON FOR CONSULT 1. Malignant Neoplasm Of Tongue Base (HCC) SUPERVISED BY: Christa Monroe M.D. HISTORY OF PRESENT ILLNESS Mr. 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 His oncologic history is as follows: Oncology History Malignant Neoplasm Of Tongue Base (HCC) 05/18/2024 Other ENT appointment with Diann Arellano D.N.P., where the patient reported mucous in the throat as well as frequent throat clearing, hoarseness, and coughing. Physical examination, including flexible laryngoscopy, demonstrated slight asymmetry to the lingual tonsil on the right. CT neck was ordered. 05/25/[address] Neck FINDINGS: Several abnormal partially necrotic enlarged right cervical chain lymph nodes noted along the rightlevel 2A and 2B micaela stations. Two prominent partially necrotic lymph node conglomerates in the right 2A station measure up to 1.9 cm and 2.2 cm. Director Of [employer] Real [employer] right 2B node measures up to 1.47 m. Additional scattered nonenlarged cervical chain lymph nodes elsewhere are nonspecific. No enlarged contralateral left cervical chain lymph nodes by size criteria. There is asymmetric enlargement and hyperenhancement at the mucosal interface of the right lingual tonsillar tissue, which does not appear to have substantial involvement with the adjacent right tongue base or adjacent oropharyngeal mucosa, but is suspicious for primary site of malignancy. This extends inferiorly into the right vallecula. No mass lesion is seen elsewhere in the neck to suggest a site of primary neoplasm. 06/01/2024 Biopsy/Pathology A. Lymph node, Right neck, fine needle aspiration (smears/core biopsy): Positive for malignancy. Squamous cell carcinoma. Comment: Immunohistochemistry reveals that the cells of interest are positive for AE1/AE3, p40, andp16 (strong, diffuse) while negative for CD3 and CD20. 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 06/05/2024 Critical Imaging PET/CT IMPRESSION: 1. Focal high level FDG uptake about the right tongue base with extension inferior to the valleculalikely corresponding to the primary site of malignancy. 2. At least 6 FDG avid right level 2 and upper level 3 cervical lymph nodes. No contralateral FDG avid lymph nodes or FDG avid distant metastases. 06/19/2024 Other Dental evaluation with Dr. Kathryn Angela. Patient's oral health was adequate for chemoradiation. 06/20/2024 Surgery and Procedures Robotic-assisted right tongue base resection and right neck dissection by Dr. Pinzon. Pathology: FINAL DIAGNOSIS A. 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 The surgical margins are negative for invasive or in-situ carcinoma (after re- excision of the superior, lateral, inferior, medial, and [...] at the following levels: 0 of 3 inlevel IIA, 3 of 12 in level IIB, 6 of 26 in level III, and 0 of 7 in level IV. The largest lymph node involved by tumor measures 3.3 cm. The largest lymph node tumor deposit is located in level III an d measures 3.3 cm in greatest dimension. Extracapsular extension is present in level III, less than2 mm. SYNOPTIC REPORT: Pharynx Procedure:Other (specify): Partial [...] Studies Ancillary Studies Performed: p16 previously performed ([id number]) 06/30/2024 Genetic Testing and Tumor Genotyping NavDX Test Result: Negative 07/03/2024 Other Radiation Oncology follow-up appointment with Dr. Silvano Jasso. The patient declined enrollment in DART 2.0. Dr. Jasso recommended a standard course of adjuvant chemoradiation. Referral to Radiation Oncology in [place]. Medical Oncology consultation with Clif Chao P.A.-C. who recommended standard of care therapy with 6 weeks of radiation and 6 weeks of Cisplatin chemotherapy. Referral to Medical Oncologyin [place]. 07/05/2024 Other Medical Oncology consultation with Dr. Kathryn Carrera at [facility]. She agreed with the recommendation for chemoradiotherapy with weekly cisplatin. 07/24/2024 - Radiation Therapy Radiation Therapy Treatment Details (Noted on 07/04/2024) Site: Bilateral Head and neck Technique: No technique specified Goal: Curative Planned Treatment Start Date: 07/24/2024 INTERVAL HISTORY: The patient was seen and examined today with Dr. Monroe. The patient reports recovering well overall following his recent tongue and neck dissection surgery. He reports that his pain has improved over the past week and he now feels that the right side of his throat is aggravated with eating, but not painful. He has been able to advance his diet and he iseating foods such as hamburger, nava, eggs, etc. He is not eating hard, crunchy foods or dense bread at this time. He reports discomfort and tightness of the right neck surgical incision. He also reports some discomfort of the right lower jaw and headaches. He is taking Tylenol and ibuprofen alternating medications every 3 hours with benefit. He reports some swelling of the right neck along the i ncision and he is using compression on that area, as previously instructed by PM&R. He is also performing tongue and neck exercises on his own. He denies any dental concerns. The patient denies ahistory of prior radiation therapy, connective tissue disorders, or inflammatory bowel disease. HisECOG performance status is 1. REVIEW OF SYSTEMS Review of systems was negative except as documented above. MEDICAL HISTORY Past Medical History: Diagnosis Date Anxiety Generalized Disorder Arthritis Asthma NOS Chronic Kidney Disease Stage 2 Glomerular Filtration Rate 60 To 89 11/26/2020 Chronic Pain Syndrome Depressive Disorder Disturbance Sleep Gastroesophageal Reflux Disease NOS Headache Unspecified Hypertension NOS Malignant Neoplasm Of Tongue Base (HCC) Neuropathy Peripheral hands Pneumonia Self Mutilation SURGICAL HISTORY Past Surgical History: Procedure Laterality Date ARTHROSCOPY KNEE 2007 and 2014 FUSION SPINE ANTERIOR CERVICAL N/A 11/26/2020 Procedure: FUSION SPINE ANTERIOR CERVICAL C5-6.; Surgeon: Mac Pedersen M.D.; Location: [facility] OR MYRINGOTOMY AND TUBES - TONSILS AND ADENOIDS 4 years old NECK DISSECTION Right 06/20/2024 Procedure: NECK DISSECTION; Surgeon: Oliver Pinzon M.D.; Location: [facility] ROBOTIC-ASSISTED TONGUE BASE RESECTION Right 06/20/2024 Procedure: ROBOTIC-ASSISTED TONGUE BASE RESECTION.; Surgeon: Oliver Pinzon M.D.; Location: [facility] SHOULDER ARTHROSCOPY W/ SUPERIOR LABRAL ANTERIOR POSTERIOR LESION REPAIR Left 07/25/2019 FAMILY HISTORY Family History Problem Relation Name Age of Onset Leukemia Paternal Grandfather Breast cancer Cousin Paternal Cousin SOCIAL HISTORY Social History Socioeconomic History Marital status: Spouse name: Naa Highest education level: Associate degree: occupational, technical, or vocational program Occupational History Employer: NOT EMPLOYED Tobacco Use Smoking status: Former Current packs/day: 0.00 Types: Cigarettes Quit date: 1983 Years since quittin.9 Passive exposure: Never Smokeless tobacco: Former Tobacco comments: 1983. He reports smoking less than 1 pack of cigarettes total in his life. Vaping Use Vaping status: never used Substance and Sexual Activity Alcohol use: Not Currently Drug use: Never Sexual activity: Not Currently Partners: Female control/protection: Abstinence Other Topics Concern Caffeine Concern Yes Comment: 1 12 oz mountain dew Social History Narrative He has been on disability since his C5-6 fusion. OBJECTIVE BP 143/80 (BP Location: Right arm, Patient Position: Sitting, Cuff Size: Regular) Pulse 71 Temp37.1 ??C (Temporal) Wt 95.5 kg BMI 29.81 kg/m?? PHYSICAL EXAMINATION General: Patient is alert and oriented, in no apparent distress. ENT: Moist mucous membranes of the oral cavity. No visible lesions. Good jaw opening. Good tongue movement. Lymph: No palpable cervical, supraclavicular, or infraclavicular lymphadenopathy. Neck: Right neck surgical incision. Mild neck lymphedema. Heart: Regular rate and rhythm. Lungs: Clear to auscultation bilaterally. 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 We reviewed his oncologic history as detailed above. The patient has already met with Dr. Jasso in Radiation Oncology in [place] who recommended adjuvant chemoradiation. I discussed the risks, benefits,and alternatives of radiotherapy in this setting. Dr. Monroe offered radiation therapy in 30 fractions. Medical Oncology has recommended concurrent Cisplatin chemotherapy delivered weekly for 6 weeks, which the patient plans to receive under the care of Dr. Carrera. I discussed the logistics as well as the acute and chronic side effects of treatment in detail. Theacute side effects are common and include, but are not limited to, sore throat/mouth pain, dry mouth/loss of taste/thickened mucous secretions, pain with swallowing causing difficulty eating, weight loss which may require placement of a PEG tube, dehydration which may require IV fluids, hair loss in the area treated, redness of the skin that could blister and peel, and fatigue. Late side effects could include, but are not limited to, prolonged dryness of mouth, taste changes and/or thickened mucous secretions, darkening of skin, arthritis in neck/decreased range of motion in the neck, lymphedema, and thyroid dysfunction. Rare long-term side effects could include, but are not limited to, narrowing of the esophagus requiring an intervention to open it up, difficulty swallowing requiring lengthy or permanent use of a feeding tube, hearing loss, nerve damage in the neck, damage to the spinal cord, narrowing of the carotid arteries increasing the risk for stroke, osteonecrosis of the jaw, a nd the risk of secondary malignancy. The patient was provided with a written summary of recommendations. His questions were answered to his verbalized satisfaction. The patient has already been referred for visits with our nursing home social worker and dietitian. We also discussed referral to PT/OT. He requested the therapy referral to go to [facility] with Chacorta Knox who he has seen for prior therapy and an order will be placed. The patient is eligible for the MLAP study; however, he declined enrollment today. After discussion, the patient verbally stated that he would like to proceed with radiation treatment. He is scheduled for CT simulation today. Dr. Monroe also met with the patient today, please see her attestation for details. The patient was provided with our contact information. He will contact us with questions or concerns. He verbally expressed his understanding of the plan. EDUCATION: Ready to learn, no apparent learning barriers were identified; learning preferences include listening. Explained diagnosis and treatment plan; patient expressed understanding of the content. PRIMARY PROVIDER Adi Allen M.D. I personally spent 60 minutes in care of the patient today. Time includes both non face to face andface to face patient care. Signed by: Chen Burgos P.A.-C., M.SCarri 07/18/2024 11:56 AM JOURNALISM PROFESSOR [facility] [address] [place] [address] Cosigned by Christa Monroe M.D. at 07/18/2024 3:23 PM JOURNALISM PROFESSOR NALISM PROFESSOR NALISM PROFESSOR Associated attestation - Christa Monroe M.D. - 07/18/2024 3:23 PM JOURNALISM PROFESSOR RADIATION ONCOLOGY CONSULT I saw and evaluated the patient and participated in the tejada portions of the service. I reviewed thedocumentation of Ms. Chen Burgos PA-C, MS and agree with the findings and plan. Please see Ms. Burgos's detailed note for the patient's initial presentation and work-up. Briefly, Mr. 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 I have independently reviewed and interpreted his imaging, operative and pathology reports. Briefly, he was found to have a right sided invasive squamous cell carcinoma, HPV-associated that was 3cm, with LVSI, no PNI, margins negative by 3mm inferiorly. He had 9 lymph nodes involved in the right neck at level IIB and III with the largest being 3.3cm with ANTONELLA (<2mm) out of 48 lymph nodes total. He has been seen post-operatively and the recommendation has been for standard post-operative radiation and chemotherapy. On exam, he appears well. Detailed exam as per Carri . We discussed the findings above and below in this note. We discussed his treatment alternatives including observation vs radiation with or without chemotherapy. We discussed the rationale, risks, side effects and goals of radiation therapy. We discussed the acute as well as termite helper risks, including, but not limited to fatigue, esophagitis, mucositis, skin erythema, xerostomia, lymphedema, fibrosis, trismus, and small risks to the nerves, spinal cord and mandible. He understood and his questions were answered. He wished to proceed with treatment. We tentatively plan on delivering 6000 cGy in30 fractions starting July 24, 2024. We discussed BID treatments during the holiday weeks and what to do if we have bad weather. He was not interested in participating in the MLAP study. He has already seen our dental colleagues. We will make referrals to Social work and Phlebotomist Lab Assistant as well as PT/OT (locally as he has had good therapy with them in the past for his back issues). We did discuss that if he should be hospitalized or need a PEG tube during treatment that we might have to transfer his care to [place] for a short period of time. My thanks to Drs. Jasso, Debi Pinzon, and Alejandro for the opportunity to participate in this patient's care. EDUCATION Ready to learn, no apparent learning barriers were identified; learning preferences include listening. Explained diagnosis and treatment plan; patient expressed understanding of the content. CONSENT Discussed the risks, benefits, alternatives, and the necessity of other members of the healthcare team participating in the procedure. All questions answered and consent given. 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 07/18/2024 documented in this encounter Plan of Treatment Upcoming Encounters Date Type Department Care Team (Late st Contact Info) Description 08/31/2024 11:30 AM JOURNALISM PROFESSOR Appointment Department of Radiation Oncology in [address] [phone] Brian Fair M.D. [address] [place] [phone] Christa Monroe M.D. [address] [place] [phone] 08/31/2024 11:45 AM JOURNALISM PROFESSOR Appointment Department of Radiation Oncology in [address] [phone] Silvano Braga M.D. [address] [place] [phone] 09/01/2024 11:30 AM JOURNALISM PROFESSOR Appointment Department of Radiation Oncology in [address] [phone] Brian Fair M.D. [address] [place] [phone] Christa Monroe M.D. [address] [place] [phone] 09/04/2024 8:30 AM JOURNALISM PROFESSOR Appointment Department of Radiation Oncology in [place] [address] [place] [address] Brian Fair M.D. [address] [place] [phone] Christa Monroe M.D. [address] [place] [phone] 09/05/2024 8:45 AM JOURNALISM PROFESSOR Appointment Department of Radiation Oncology in [address] [phone] Brian Fair M.D. [address] [place] [phone] Christa Monroe M.D. [address] [place] [phone] 09/06/2024 11:30 AM JOURNALISM PROFESSOR Appointment Department of Radiation Oncology in [address] [phone] Brian Fair M.D. [address] [place] [phone] Christa Monroe M.D. [address] [place] [phone] Scheduled Referrals Name Type Priority Associated Diagnoses Order Schedule Radiation Oncology - Head / neck consult (clinic) Outpatient Referral Routine Malignant Neoplasm Of Tongue Base (HCC) Once for 1 Occurrences starting 07/18/2024 until 07/18/2024 documented as of this encounter Visit Diagnoses Diagnosis Malignant Neoplasm Of Tongue Base (HCC) documented in this encounter Additional Health Concerns Assessment Noted Time PHQ-9 Depression Total Score: 10 023 7:28 AM CDT documented as of this encounter Care Teams Radiologic Technology Teacher Relationship Specialty Start Date End Date Adi Allen M.D. [address] [place] [phone] PCP - General 02/11/17 documented as of this encounter
--- OUTSIDE RECORDS SUMMARY | 2024-08-31 07:29 | XMS_ITS | Encounter Summary ---
Author Organization [facility] Address [address] [place] [address] Care Team Providers Care Media Center Director School Name Role Phone Adi Allen M.D. Primary Care Provider Encounter Details Date Type Department Care Team (Latest Contact Info) Description 07/26/2024 2:12 PM CURATORIAL ASSISTANT - 07/26/2024 11:59 PM [facility] Hospital Encounter Department of Radiation Oncology in [place], [place] [address] [place] [phone] Christa Monroe M.D. [address] [place] [address] Discharge Disposition: Home or Self Care Social History Tobacco Use Types Packs/Day Years Used Date Smoking Tobacco: Former Cigarettes Q uit: 1983 Passive Smoke Exposure: Never Smokeless Tobacco: Former Comments:1983. He reports sm oking less than 1 pack of cigarettes total in his life. Alcohol Use Standard Drinks/Week Comments Not Currently 0 (1 standard drink = 0.6 oz pur e alcohol) [facility] Utilities Answer Date Recorded In the past 12 months has e [employer], gas, oil, or water company threatened to [...] How often do you attend chur or cheondoism services? Never 12/09/2022 Do you belong to [...] Answer Date Recorded PHQ-2 Score 2 12/22/2022 [facility] Occupat ionny [facility] - Occupational Stress Questionnaire Answer Date [...] your living situation today? I have a [facility] place to live 06/20/2024 Education Answer Date Recorded What is the highest level of school you have completed or the highest degree you have received? Associate degree: occupational, technical, or vocational program 09/10/2020 Sex and Gender Information Value Date Recorded Sex Assigned at Male 05/19/2021 9:34 AM CDT Legal Sex Male 10:09 AM CURATORIAL ASSISTANT Gender Identity Male 12/15/2019 2:54 PM [...] st Contact Info) Description 08/31/2024 11:30 AM CURATORIAL ASSISTANT Appointment Department of Radiation Oncology in [address] [phone] Brian Fair M.D. [address] [place] [phone] Christa Monroe M.D. [address] [place] [phone] 08/31/2024 11:45 AM CURATORIAL ASSISTANT Appointment Department of Radiation Oncology in [address] [phone] Silvano Braga M.D. [address] [place] [phone] 09/01/2024 11:30 AM CURATORIAL ASSISTANT Appointment Department of Radiation Oncology in [address] [address] Brian Fair M.D. [address] [place] [phone] Christa Monroe M.D. [address] [place] [phone] 09/04/2024 8:30 AM CURATORIAL ASSISTANT Appointment Department of Radiation Oncology in [address] [address] Brian Fair M.D. [address] [place] [phone] Christa Monroe M.D. [address] [place] [phone] 09/05/2024 8:45 AM CURATORIAL ASSISTANT Appointment Department of Radiation Oncology in [place], [place] [address] [place] [address] Brian Fair M.D. [address] [place] [phone] Christa Monroe M.D. [address] [place] [phone] 09/06/2024 11:30 AM CURATORIAL ASSISTANT Appointment Department of Radiation Oncology in [place], [place] [address] [place] [address] Brian Fair M.D. [address] [place] [phone] Christa Monroe M.D. [address] [place] [phone] documented as of this encounter Visit Diagnoses Not on filedocumented in this encounter Additional Health Concerns Assessment Noted Time PHQ-9 Depression Total Score: 10 023 7:28 AM CDT documented as of this encounter Care Teams Media Center Director School Relationship Specialty Start Date End Date Adi Allen M.D. [address] [place] [address] PCP - General 02/11/17 documented as of this encounter
--- OUTSIDE RECORDS SUMMARY | 2024-08-31 07:29 | XMS_ITS | Encounter Summary ---
Author Organization [facility] Address [address] [place] [address] Care Team Providers Care Nail Tech Name Role Phone Adi Allen M.D. Primary Care Provider [phone] Reason for Referral * Radiation Therapy (Routine) - Closed Specialty Diagnoses / Procedures Referred By Lucina hernández Referred To Contact Diagnoses Malignant Neoplasm Of Tongue Base (HCC) Procedures Initial Rad Onc Treatment Planning CT Simulation without IV Contrast Christa Monroe M.D. [address] [place] [address] Phone: tel: fax: [facility] Referral ID Status Reason Start Date Expiration Date Visits Re quested Visits Authorized [id number] Closed 07/04/2024 07/04/2025 1 1 OUNDER HELPER Reason for Visit * Radiation Therapy (Routine) - Closed Specialty Diagnoses / Procedures Referred By Lucina hernández Referred To Contact Diagnoses Malignant Neoplasm Of Tongue Base (HCC) Procedures Initial Rad Onc Treatment Planning CT Simulation without IV Contrast Christa Monroe M.D. [address] [place] [address] Phone: tel: fax: [facility] Region Referral ID Status Reason Start Date Expiration Date Visits Re quested Visits Authorized [id number] Closed 07/04/2024 07/04/2025 1 1 Encounter Details Date Type Department Care Team (Latest Contact Info) Description 07/18/2024 11:21 AM COMPOUNDER HELPER - 07/18/2024 3:29 PM COMPOUNDER HELPER Hospital Encounter Department of Radiation Oncology in [place], [place] [address] [place] [address] Christa Monroe M.D. [address] [place] [address] Malignant Neoplasm Of Tongue Base (HCC) Social History Tobacco Use Types Packs/Day Years Used Date Smoking Tobacco: Former Cigarettes Q uit: 1983 Passive Smoke Exposure: Never Smokeless Tobacco: Former Comments:1983. He reports sm oking less than 1 pack of cigarettes total in his life. Alcohol Use Standard Drinks/Week Comments Not Currently 0 (1 standard drink = 0.6 oz pur e alcohol) [facility] Utilities Answer Date Recorded In the past 12 months has [employer], gas, oil, or water [employer] threatened to shut off services in your [...] How often do you attend [facility] or buddhist services? Never 12/09/2022 Do you belong to [...] Date Recorded PHQ-2 Score 2 12/22/2022 [facility] - Occupational Stress Questionnaire Answer Date Recorded [...] Date Recorded Dental: Regular Dentist Yes 05/17/20 24 Employment Answer Date Recorded Employment status Permanently [...] AM CDT Legal Sex Male 10:09 AM COMPOUNDER HELPER Gender Identity Male 12/15/2019 2:54 PM CDT [...] 07/03/2024 4 documented as of this encounter Procedure Notes * Marissa Rueda 07/18/2024 11:30 AM CSTAssociated Order(s): Initial Rad Onc Treatment Planning CT Simulation without IV Contrast Pre-Procedure Diagnose(s): Malignant Neoplasm Of Tongue Base (HCC) Post-Procedure Diagnose(s): Malignant Neoplasm Of Tongue Base (HCC) Initial Rad Onc Treatment Planning CT Simulation without IV Contrast Performed by: Christa Monroe M.D. Authorized by: Christa Monroe M.D. Simulation was performed under physician supervision based on physician order in preparation for radiation therapy. Physician was immediately available to provide assistance and direction throughout the procedure. Written consent for treatment was completed or confirmed. The patient was appropriately identified and placed in the treatment position using the necessary immobilization to ensure a reproducible treatment position. Reference briones were placed to facilitate marking of isocenter. Area scanned:Head and Neck Contrast used for the simulation procedure: None Patient position:head first supine Custom immobilization: 5 point mask, Custom neck rest, and Custom mouth piece Motion management: None Bolus: No CT guidance: Following positioning of the patient, a series of slices was obtained to be utilized in treatment planning. CT images were transferred to the [employer] treatment planning system, after a reference isocenter was determined and marked. Segmentation and treatment planning will take place prior to treatment delivery. Patient set up and imaging was appropriate and completed without incident. Dispatcher Automobile Rental use:No Cosigned by Christa Monroe M.D. at 07/18/2024 3:24 PM COMPOUNDER HELPER OUNDER HELPER OUNDER HELPER Associated attestation - Christa Monroe M.D. - 07/18/2024 3:24 PM COMPOUNDER HELPER I was present during all critical and tejada portions of the procedure(s) and immediately available [facility] services the entire duration. See note for details. documented in this encounter Plan of Treatment Upcoming Encounters Date Type Department Care Team (Late st Contact Info) Description 08/31/2024 11:30 AM COMPOUNDER HELPER Appointment Department of Radiation Oncology in [place], [place] [address] [place] [phone] Brian Fair M.D. [address] [place] [address] Christa Monroe M.D. [address] [place] [address] 08/31/2024 11:45 AM COMPOUNDER HELPER Appointment Department of Radiation Oncology in [place], [place] [address] [place] [phone] Silvano Braga M.D. [address] [place] [address] 09/01/2024 11:30 AM COMPOUNDER HELPER Appointment Department of Radiation Oncology in [place], [place] [address] [place] [address] Brian Fair M.D. [address] [place] [phone] Christa Monroe M.D. [address] [place] [phone] 09/04/2024 8:30 AM COMPOUNDER HELPER Appointment Department of Radiation Oncology in [place], [place] [address] [place] [address] Brian Fair M.D. [address] [place] [phone] Christa Monroe M.D. [address] [place] [phone] 09/05/2024 8:45 AM COMPOUNDER HELPER Appointment Department of Radiation Oncology in [place], [place] [address] [place] [address] Brian Fair M.D. [address] [place] [phone] Christa Monroe M.D. [address] [place] [phone] 09/06/2024 11:30 AM COMPOUNDER HELPER Appointment Department of Radiation Oncology in [place], [place] [address] [place] [address] Brian Fair M.D. [address] [place] [address] Christa Monroe M.D. [address] [place] [phone] documented as of this encounter Procedures Procedure Name Priority Date/Time Associated Diagnosis Comments INITIAL RAD ONC TREATMENT PLANNING CT SIMULATION Routine 07/18/2024 11:30 AM COMPOUNDER HELPER Malignant Neoplasm Of Tongue Base (HCC) documented in this encounter Results * Initial Rad Onc Treatment Planning CT Simulation without IV Contrast (07/18/2024 11:30 AM COMPOUNDER HELPER) Narrative BERNARDINO ANGEL - 07/18/2024 11:30 AM COMPOUNDER HELPER Marissa Rueda 07/18/2024 12:21 PM Initial Rad [...] documented as of this encounter Care Teams Nail Tech Relationship Specialty Start Date End Date Adi Allen M.D. [address] [place] [phone] PCP - General 02/11/17 documented as of this encounter
--- OUTSIDE RECORDS SUMMARY | 2024-08-31 07:29 | XMS_ITS | Encounter Summary ---
Author Organization [facility] Address [address] [place] [address] Care Team Providers Care Mold Shifter Name Role Phone Adi Allen M.D. Primary Care Provider [phone] Reason for Referral * Radiation Therapy (Routine) - Authorized Specialty Diagnoses / Procedures Referred By Lucina hernández Referred To Contact Diagnoses Malignant Neoplasm Of Tongue Base (HCC) Procedures Management Visit Christa Monroe M.D. [address] [place] [address] Phone: tel: fax: [facility] Region Referral ID Status Reason Start Date Expiration Date V isits Requested Visits Authorized [id number] Authorized 07/04/2024 07/04/2025 10 10 SAWYER Reason for Visit * Radiation Therapy (Routine) - Authorized Specialty Diagnoses / Procedures Referred By Lucina hernández Referred To Contact Diagnoses Malignant Neoplasm Of Tongue Base (HCC) Procedures Management Visit Christa Monroe M.D. [address] [place] [address] Phone: tel: fax: [facility] Region Referral ID Status Reason Start Date Expiration Date V isits Requested Visits Authorized [id number] Authorized 07/04/2024 07/04/2025 10 10 Encounter Details Date Type Department Care Team (Latest Contact Info) Description 07/25/2024 1:30 PM EDGE SAWYER - 07/26/2024 2:11 PM EDGE SAWYER Hospital Encounter Department of Radiation Oncology in [place], [place] [address] [place] [phone] Brian Fair M.D. [address] [place] [address] Malignant Neoplasm Of Tongue Base (HCC) Social History Tobacco Use Types Packs/Day Years Used Date Smoking Tobacco: Former Cigarettes Q uit: 1983 Passive Smoke Exposure: Never Smokeless Tobacco: Former Comments:1983. He reports s moking less than 1 pack of cigarettes total in his life. Alcohol Use Standard Drinks/Week Comments Not Currently 0 (1 standard drink = 0.6 oz pur e alcohol) [facility] SergeMDities Answer Date Recorded In the past 12 months has e [employer], gas, oil, or water [employer] threatened to shut off services in your [...] any clubs o r organizations such as congregational groups, unions, fraternal or athletic groups, or [...] Answer Date Recorded PHQ-2 Score 2 12/22/2022 [facility]at [facility] [...] your living situation today? I have a [place] place to live 06/20/2024 Education Answer Date Recorded What is the highest level of school you have completed or the highest degree you have received? Associate degree: occupational, technical, or vocational program 09/10/2020 Sex and Gender Information Value Date Recorded Sex Assigned at Male 05/19/2021 9:34 AM CDT Legal Sex Male 10:09 AM EDGE SAWYER Gender Identity Male 12/15/2019 2:54 PM CDT Sexual Orientation Straight 12/15/2019 2: 54 PM CDT Occupation Industry Job Start Date Job End Date Not on file Not on file Not on file Not on file documented as of this encounter Last Filed Vital Signs Vital Sign Reading Time Taken Comments Blood Pressure 137/87 07/25/2024 2:15 PM EDGE SAWYER Pulse 75 07/25/2024 2:15 PM EDGE SAWYER Temperature 36.4 C (97.5 F) 07/25/2024 2:15 PM EDGE SAWYER Respiratory Rate - - Oxygen Saturation - - Inhaled Oxygen Concentration - - Weight 98.3 kg (216 lb 11.4 oz) 07/25/2024 2:15 PM EDGE SAWYER Height - - Body Mass Index 30.68 07/03/2024 1:48 PM EDGE SAWYER documented in this encounter Medications at Time [...] as of this encounter Progress Notes * Brian Fair M.D. - 07/25/2024 2:15 PM CST SUBJECTIVE REASON FOR VISIT Evaluation for side effects while receiving radiation treatment for 1. Malignant Neoplasm Of Tongue Base (HCC) SUPERVISED BY: Brian Fair M.D. ([id number]) HISTORY OF PRESENT ILLNESS Mr. Antonino Kat is a 59 y.o. 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 Treatment Course: 1xOpx Plan ID Fractions Dose / Fraction (cGy) Dose Treated (cGy) Dose Planned (cGy) First Treatment Last Treatment Elapsed Days [id number] [phone] 07/24/2024 07/25/2024 1 Course Summary 07/24/2024 07/25/2024 1 The patient was seen and examined today with Dr. Fair. The patient reports his first two treatments have gone well. He reports dry mouth since surgery, pain in oral cavity when swallowing, and acid reflux. He is managing oral pain with Tylenol and Ibuprofen alternating. He is managing nausea from chemotherapy with Zofran and Compazine alternating. He notes normal bowel movements - having x1-2 stools per day. He has been able to maintain a normal diet- however is very careful to chew all food well before swallowing. He denies esophagitis and mouth sores. PATIENT REPORTED SYMPTOM SCREEN FATIGUE (Scale: 0 = no fatigue; 10 = worst fatigue you can imagine): 5 PAIN (Scale: 0 = no pain; 10 = worst pain you can imagine): 5 OVERALL QUALITY OF LIFE (Scale: 0 = as bad as can be; 10 = as good as can be): 5 OBJECTIVE BP 137/87 (BP Location: Left arm, Patient Position: Sitting, Cuff Size: Regular) Pulse 75 Temp 36.4 ??C (Temporal) Wt 98.3 kg BMI 30.68 kg/m?? PHYSICAL EXAM General: Alert and oriented in no apparent distress. 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 He was encouraged to apply lotion to the treatment field twice per day and begin baking soda rinses four times per day. RN will meet with him on Wednesday to go over radiation education. He will contact us with any questions or concerns. We will continue with radiation treatment as planned. Signed by: Briana Fermin R.N. 07/25/2024 2:55 PM EDGE SAWYER I saw and evaluated the patient and participated in the tejada portions of the service. I reviewed thedocumentation of Briana Fermin R.N. and agree with the findings and plan. The patient appears well on exam. He is tolerating treatment well. He will continue with treatment as planned. Signed by: Brian Fair M.D. 07/26/2024 5:13 PM EDGE SAWYER [facility] [address] [place] [address] SAWYER documented in this encounter Plan of Treatment Upcoming Encounters Date Type Department Care Team (Late st Contact Info) Description 08/31/2024 11:30 AM EDGE SAWYER Appointment Department of Radiation Oncology in [address] [address] Brian Fair M.D. [address] [place] [address] Christa Monroe M.D. [address] [place] [address] 08/31/2024 11:45 AM EDGE SAWYER Appointment Department of Radiation Oncology in [address] [phone] Silvano Braga M.D. [address] [place] [phone] 09/01/2024 11:30 AM EDGE SAWYER Appointment Department of Radiation Oncology in [place], [place] [address] [place] [address] Brian Fair M.D. [address] [place] [phone] Christa Monroe M.D. [address] [place] [phone] 09/04/2024 8:30 AM EDGE SAWYER Appointment Department of Radiation Oncology in [place], [place] [address] [place] [address] Brian Fair M.D. [address] [place] [phone] Christa Monroe M.D. [address] [place] [phone] 09/05/2024 8:45 AM EDGE SAWYER Appointment Department of Radiation Oncology in [place], [place] [address] [place] [address] Brian Fair M.D. [address] [place] [phone] Christa Monroe M.D. [address] [place] [phone] 09/06/2024 11:30 AM EDGE SAWYER Appointment Department of Radiation Oncology in [place], [place] [address] [place] [address] Brian Fair M.D. [address] [place] [phone] Christa Monroe M.D. [address] [place] [phone] Scheduled Orders Name Type Priority Associated Diagnoses Orde r Schedule Management Visit Radiation Oncology Routine Malignant Neoplasm Of Tongue Base (HCC) Once for 1 Occurrences starting 07/25/2024 until 07/25/2024 documented as of this encounter Visit Diagnoses Diagnosis Malignant Neoplasm Of Tongue Base (HCC) documented in this encounter Additional Health Concerns Assessment Noted Time PHQ-9 Depression Total Score: 10 023 7:28 AM CDT documented as of this encounter Care Teams Mold Shifter Relationship Specialty Start Date End Date Adi Allen M.D. [address] [place] [phone] PCP - General 02/11/17 documented as of this encounter
--- NOTE | 2024-08-31 13:45 | ONC.NURNOTE ---
Pt here for PICC line removal. Pt tolerated procedure well. Length of catheter same as insertion length. Pt observed for 30 min after removal. Discharge alert and ambulatory.
[2024-09-11 09:55] LABS: Basophils Absolute Auto 0.01 K/uL (0.00-0.30); Basophils Percent Auto 0.1 % (0.0-3.0); Eosinophils Absolute Auto 0.01 K/uL (0.00-0.50); Eosinophils Percent Auto 0.1 % (0.0-7.0); Hematocrit* 37.1 % (37.0-53.0); Hemoglobin* 12.3 gm/dL (13.5-17.5); Immature Granulocytes Abs Auto 0.01 K/uL (0.00-0.30); Immature Granulocytes Pct Auto 0.1 %; Lymphocytes Percent Auto 2.4 % (20-44); Mean Corpuscular HGB Conc 33 gm/dL (32-36); Mean Corpuscular Hemoglobin 31 pg (26-34); Mean Corpuscular Volume 94 fL (80-100); Monocytes Percent Auto 10.8 % (0.0-11.0); Neutrophils Percent Auto 86.5 % (42.0-72.0); Platelet Count* 364 K/uL (140-440); RDW Coefficient of Variation % 15.5 % (11.5-15.5); Red Blood Count* 3.97 m/uL (4.30-5.90); White Blood Count* 7.44 K/uL (4.50-11.00)
[2024-09-11 09:57] LABS: Slide Review Reflex No
[2024-09-11 10:12] LABS: Albumin* 4.3 g/dL (3.3-5.0); Chloride* 103 mmol/L (96-114)
[2024-09-11 10:13] LABS: Potassium* 3.8 mmol/L (3.6-5.1); Sodium* 137 mmol/L (135-149)
[2024-09-11 10:15] LABS: Anion Gap 9 mEq/L (7-15); Aspartate Amino Transferase* 19 U/L (12-35); Bilirubin Total* 0.3 mg/dL (0.1-1.5); Carbon Dioxide* 25 mmol/L (20-32); Creatinine* 0.6 mg/dL (0.5-1.5); Est. Creatinine Clearance* 136.88; Estimated Glomerular Filt Rate 111 ml/min; Total Protein* 6.8 g/dL (6.0-8.3)
[2024-09-11 10:16] LABS: Alanine Aminotransferase* 14 U/L (4-50); Alkaline Phosphatase* 42 U/L (40-150); Blood Urea Nitrogen* 20 mg/dL (7-30); Calcium* 9.3 mg/dL (8.4-10.6); Glucose* 167 mg/dL (60-115); Magnesium* 1.9 mg/dL (1.5-2.6)
[2024-09-11 11:52] LABS: Thyroid Stimulating Hormone* 0.394 uIU/mL (0.270-4.20)
== END 2025-01-01 23:59 | disposition home or self-care (01) ==
LOC: CCIC 09:30
PROVIDERS: Clinical Nurse Specialist; Internal Medicine Hematology & Oncology; Visit Provider Physician Assistant
DX: C09.9 Malignant neoplasm of tonsil, unspecified (principal); F41.9 Anxiety disorder, unspecified; Z79.69 Long term (current) use of other immunomodulators and immunosuppressants; E44.1 Mild protein-calorie malnutrition; R43.2 Parageusia; G62.9 Polyneuropathy, unspecified; G89.4 Chronic pain syndrome
CPT/HCPCS: 36415; 36573; 36592; 71045; 80053; 83735; 84443; 85025; 96361; 96366; 96367; 96375; 96376; 96411; 96413; 99202; 99205; 99211; 99214; 99215; G0463; A4221; A9270; C1751; J1100; J1453; J2469; J3475; J3480; J7030; J7050; J9060